=== PATIENT | female | born 1955 | race Caucasian/White ===

== ENCOUNTER → 2017-01-30 | Outpatient (CLI) | payer BC ==
[~2017-01-30] MED LIST: AMLODIPINE5 M1 PO; ATENOLOL50 MG PO; CLARITIN 10MG T10 MG PO; DOXYCYCLINE75 M1 PO; LORTAB 500 MG-71 TAB PO; NASONEX0.05 MG/AC NS; PREDNISONE 5MG.5 MG PO
== END ==
LOC: RT 13:36
DX: J44.9 Chronic obstructive pulmonary disease, unspecified (principal)

== ENCOUNTER 2017-03-13 06:48 | Day surgery (SDC) | payer BC ==
--- NOTE | 2017-03-13 08:39 | Operative Note ---
Colonoscopy ([facility]) Procedure date: 03/13/17 Date of : 51 Procedure:Colonoscopy Colonoscopy with cold biopsies Indications: Mrs. Renee is a 61-year-old female who has had symptoms of LEFT lower quadrant abdominal pain, cramps and obstipation. She may have bowel urgency with some frequency but incomplete evacuation. She did take the fiber bowel regimen for a week. She continues to have pain and discomfort. Her CAT scan of the abdomen on March 03, 2017 showed evidence of obstipation with mild diffuse diverticulosis in the lower descending and sigmoid colon that more prominent in the sigmoid region. There was no evidence of diverticulitis. The patient reports no rectal bleeding or weight loss. She does state that her other of a perforated bowel and her paternal aunt also had a bowel perforation. The patient's last colonoscopy was with me in 2004 showing diverticulosis. She has been treated for diverticulitis several times. Performing Provider: Charlotte Talavera MD Referrring Provider: Jeff Aalniz M.D. Sedation: Fentanyl 200 mg IV/Versed 9 mg IV Procedure: Prior to the procedure, a history and physical exam was performed, and patient medications and allergies were reviewed. The risks and benefits of the procedure and the sedation options and risks were discussed with the patient. All questions were answered and informed consent was obtained. Patient identification and proposed procedure were verified by the physician and the nurse. The patient was placed in a left lateral decubitus position. Throughout the procedure, the patient's blood pressure, pulse, and oxygen saturations were monitored continuously. Findings: On digital rectal examination there was normal rectal tone. There were no external hemorrhoids. The colonoscope was introduced through the anal canal to the rectum and advanced to the cecum. The ileocecal valve and appendiceal orifice were identified. The cecal cap was not fully intubated. There was ulceration on the ileocecal valve. This was biopsied. The remaining ascending and transverse colon and mucosa were grossly normal. There was some increased luminal diameter with a lot of liquid stool. Small polyps could not be identified because of the volume of liquid stool. There were extensively scattered diverticuli throughout the colon but more predominantly in the descending and sigmoid colon (LEFT colon). Within the sigmoid colon, there was marked fibrosis/adhesions and some luminal stenosis of the mid sigmoid colon making advancement of the scope initially very difficult through this region. There was mucosal edema and erythema in this region with partial occlusion/ stenosis. Cold biopsies were taken from this region. The colonoscope was advanced into the rectum. The rectum itself was normal. Upon retroflexion within the rectum there were grade 1 internal hemorrhoids. Impressions: 1. Extensive gillis diverticulosis with sigmoid stenosis from chronic fibrosis/ adhesions and chronic sigmoid diverticulitis 2. Ulcerated ileocecal valve Recommendations: The sigmoid colon is markedly disease from fibrosis/stenosis/adhesions and chronic inflammation. This made incomplete bowel preparation and also made colonoscopy difficult to advance beyond this region. There was a proximal colonic luminal dilation suggestive of chronic partial occlusion. I do feel that this will need to be repaired surgically. I will discuss this with the patient and family. I would recommend a repeat colonoscopy within 12 months of surgery to evaluate for screening since the preparation was fair to poor. Complications: None EBL (ml): 0 at 0839
[2017-03-13 16:26] VITALS: BP 132/72
== END 2017-03-13 09:55 | disposition home or self-care (01) ==
LOC: SDC 06:48
PROVIDERS: Internal Medicine Gastroenterology
PROC: 0DBN8ZX Excision of Sigmoid Colon, Via Natural or Artificial Opening Endoscopic, Diagnostic (ICD-10-PCS; principal; 2017-03-13 08:00)
DX: K56.5 Intestinal adhesions [bands] with obstruction (postinfection) (principal); K57.32 Diverticulitis of large intestine without perforation or abscess without bleeding; I10 Essential (primary) hypertension; K51.80 Other ulcerative colitis without complications; Z79.52 Long term (current) use of systemic steroids; Z79.899 Other long term (current) drug therapy; Z87.891 Personal history of nicotine dependence

== ENCOUNTER 2017-03-24 10:35 | Inpatient (IN) | payer BC, MEDICAID ==
[~2017-03-24] VITALS: Ht 162.6 cm; Wt 70.9 kg
[2017-03-24 10:48] VITALS: BP 160/72
[2017-03-24 11:08] LABS: HEMOGLOBIN 13.7 g/dL (12.2-16.2); LYMPH % 8.9 % (10-50.0)
[2017-03-24 11:30] LABS: NEUTROPHILS 83 % (42-76)
--- NOTE | 2017-03-24 11:42 | Emergency Room Report ---
History of Present Illness Time Seen by 1041 Presenting Problem in Triage Pt arrived:Walked Presenting Problem:CONTINUED PAIN FROM PREVIOUSLY KNOWN SOURCE. PT HAS A SMALL BOWEL ISSUE THAT DR TALAVERA RECOMMENDED SURGICAL INTERVENTION FOR AFTER COMPLETING A COLONOSCOPY ON THE . PT WAS REFERRED TO DR LOZANO 'S OFFICE SHE RECEIVED A LETTER IN THE MAIL STATING SHE HAD AN APPT SCHEDULED FOR March, ALMOST A MONTH LATER. STATES THAT SHE CANNOT CONTINUE WITH THE PAIN LIKE THIS. Onset of symptoms date/time:/ or onset unknown for:MEDICAL HX UNKNOWN Treatment Prior to Arrival: ENDOSCOPY AND FURTHER REFERRAL BY GI SPECIALIST TO SURGEON ENVIRONMENTAL COMPLIANCE ENGINEER Provided by:PHYSICIAN Sepsis Risk Assessment: Temp: 98.0 B/P: 160/72 MAP: 101 Pulse: 94 Resp: 16 Recent fever? N Clinical Suspician of Infection? N Mental Status: 1 - Regular (Normal Baseline) Sepsis Risk:Low Sepsis Risk Have you (or family members/close friends) recently traveled outside the [place]? N If Yes, where/when: Have you had exposure to infectious disease within the past month? TB? Other? Specify: Comment The patient has had abdominal pain, anorexia, malaise, low-grade fevers for 3 months. She had an outpatient colonoscopy on 03/13/[address] Talavera. This showed extensive gillis diverticulosis with sigmoid stenosis from chronic fibrosis/ adhesions and chronic sigmoid diverticulitis. An ulcerated ileocecal valve. It was recommended that she have surgical consultation. She says that she is supposed to see Dr. Lozano, but cannot be seen until April 10. She cannot make it until then. She is gradually getting worse and cannot tolerate the symptoms. She was started on Augmentin on March 17 by her primary care physician because of an elevated white blood cell count. The patient is on prednisone for polymyalgia rheumatica, but says that she has not taken it for a week because she does not feel up to taking it. She is having small bowel movements. She is having some nausea and vomiting. She had a CT scan of her abdomen and pelvis performed on 03/03/17 which showed constipation with mild diffuse diverticulosis lower descending and sigmoid colon most prominent in the sigmoid region but no definite evidence of diverticulitis. ALLERGIES Coded Allergies: No Known Allergies (03/24/17) Home Medications Reported Medications ATENOLOL (Atenolol 50MG) 50 MG PO QHS Loratadine (Claritin 10MG) 10 MG PO QHS Mometasone Furoate (Nasonex) 2 SPR NS QHSP Amlodipine Besylate (Amlodipine) 5 MG PO DAILY Prednisone (Prednisone 5MG) 5 MG PO DAILY DOXYCYCLINE MONOHYDRATE (Doxycycline Monohydrate) (Unknown Dose) PO History Medical History General Angina: No AL: No Hypertension? Yes Hyperlipidemia? Yes CHF? No COPD? Yes Asthma? Yes Hernia? No CVA? Yes Seizures? No Diabetes? No UTI? Yes Stones? Yes GB Disease: No Hepatitis? No Arthritis? Yes Cataracts? No Glaucoma? No TB? No Cancer? No Immunization Hx Ped.Immunizations UTD Yes DT/Tetanus Unknown Flu Refused Pneumonia Received In Past Surgical Hx Previous Surgery?Y APPENDECTOMY Exploratory Laparoscopy TUBAL LIGATION TUMOR REMOVED FROM NECK & SALIVARY GLND STONE Family History Family Hx Diabetes Yes CAD Yes Hypertension Yes Hyperlipidemia Yes Cancer Yes TB No Social History Smoking Hx Smoker: Current Every Day Smoker Tobacco: Yes Type N/A Packs/day < 1 Pack Alcohol Alcohol: No Review of Systems All Other Systems Reviewed and Negative Constitutional fever, malaise, weakness Gastrointestinal abdominal pain, constipation, nausea, vomiting Physical Exam Vital Signs Vital Signs Date Time Temp Pulse Resp B/P Pulse O2 O2 Flow FiO2 Ox Delivery Rate 03/24 1739 98.0 57 18 133/82 100 03/24 1528 57 18 133/82 100 03/24 1351 94 18 102/57 96 03/24 1220 100 14 144/76 96 03/24 1148 74 14 114/59 97 03/24 1143 14 03/24 1048 98.0 94 16 160/72 98 General Appearance moderate distress Eye Exam - bilateral eye normal exam, bilateral eye PERRL, bilateral eye EOMI Ear, Nose, Throat hearing grossly normal, normal ENT inspection Neck normal inspection, non-tender, supple, full range of motion Respiratory Status Yes: trachea midline, chest symmetrical, non tender chest. No: respiratory distress. Lung Sounds bilateral: normal breath sounds, lungs clear. Cardiovascular normal exam, regular rate/rhythm, no peripheral edema, no gallop, no JVD, no murmur, no rub, normal peripheral pulses Peripheral Pulses Pulses normal Yes Gastrointestinal normal bowel sounds, soft, no organomegaly, LEFT upper and lower quadrant tenderness Extremities non-tender, normal range of motion, normal inspection Neurologic alert, normal exam, oriented x 3 Mental status normal mood/affect Skin pallor Medical Decision Making LABS/Meds/Orders Pt receiving controlled substance in ED? No Comment Refuses opiates Results/Orders Laboratory Tests 03/24/17 1655: Lactic Acid 1.5 03/24/17 1215: Urine Color YELLOW, Urine Appearance SL CLOUDY, Urine pH 6.5, Ur Specific Butterfield 1.015, Urine Protein TRACE H, Urine Ketones 1+ H, Urine Blood 3+ H, Urine Nitrate NEGATIVE, Urine Bilirubin NEGATIVE, Urine Urobilinogen 0.2, Ur Leukocyte Esterase NEGATIVE, Urine RBC 5-10, Urine WBC OCC, Ur Squamous Epith Cells 3-5, Urine Bacteria 2+, Urine Glucose NEGATIVE 03/24/17 1055: Amylase 20 L, Lipase 90 03/24/17 1055: Sodium 138, Potassium 4.0, Chloride 100, Carbon Dioxide 28, BUN 12, Creatinine 0.8, Estimated Creat Clear 82, Estimated GFR (MDRD) 72, Glucose 83, Calcium 9.4, Total Bilirubin 0.5, AST 19, ALT 13, Alkaline Phosphatase 119 H, Total Protein 8.1, Albumin 2.8 L, Globulin 5.3 H, Albumin/Globulin Ratio 0.5 L, WBC 22.9 *H , RBC 4.80, Hgb 13.7, Hct 44.1, MCV 91.9, RDW 12.7, Plt Count 615 H, MPV 7.3 L , Gran % 83.3 H, Gran # 19.1 H, Total Counted 100, Lymphocytes % 8.9 L, Monocytes % 6.9, Eosinophils % 0.6, Basophils % 0.3, Neutrophils 83 H, Lymphocytes (Manual) 10, Lymphocytes # 2.0, Monocytes (Manual) 6, Monocytes # 1.6 H, Eosinophils # 0.1, Basophils # 0.1, Atypical Lymphocytes 1, Platelet Estimate MOD INCREASE, PUBS MCHC 31.0 L, MCH 28.5 Current Medication Orders Sig/Irina Start time Last Medication Dose Route Stop Time Status Admin Amlodipine Besylate 5 MG DAILY 03/25 900 AC PO Levofloxacin/Dextrose 150 ML DAILY 03/25 900 CAN IV 03/29 1030 Atenolol 50 MG QHS 03/24 2100 AC PO Metronidazole 100 ML Q8 03/24 2100 CAN IV Acetaminophen 650 MG Q4HP PRN 10/06 1615 AC PO Influenza Virus 0.5 ML PRN PRN 03/24 161 AC Vaccine Quadrival IM Nicotine 21 MG DAILYP PRN 03/24 161 AC TD Ondansetron HCl 4 MG Q6HP PRN 03/24 1615 AC IV Sodium Chloride 1,000 ML .Q8H 03/24 1615 AC IV Sodium Chloride 10 ML PRN PRN 03/24 1615 AC IV Levofloxacin/Dextrose 150 ML ONCE ONE 03/24 1530 DCr 03/24 IV 03/24 1659 1531 Metronidazole 100 ML ONCE ONE 03/24 1530 DC IV 03/24 1629 Ondansetron HCl 4 MG ONCE ONE 03/24 1530 DC 03/24 IV 03/24 1531 1528 Levofloxacin/Dextrose 150 ML .STK-MED ONE 03/24 1526 DC IV Iopamidol 75 ML ONCE ONE 03/24 1515 DC 03/24 IV 03/24 1516 1503 Sodium Chloride 10 ML ONCE ONE 03/24 1515 DC 03/24 IV 03/24 1516 1503 Ondansetron HCl 0 .STK-MED ONE 03/24 1506 DC .ROUTE Sodium Chloride 1,000 ML .Q1H1M 03/24 1500 DC 03/24 IV 03/24 1600 1501 Sodium Chloride 1,000 ML .STK-MED ONE 03/24 1454 DC IV Ketorolac 15 MG ONCE ONE 03/24 1145 DC 03/24 Tromethamine IV 03/24 1146 1143 Ondansetron HCl 4 MG ONCE ONE 03/24 1145 DC 03/24 IV 03/24 1146 1142 Diatrizoate Meglum/ 0 .STK-MED ONE 03/24 1144 DC Diatrizoate Sod .ROUTE Ketorolac 0 .STK-MED ONE 03/24 1142 DC Tromethamine .ROUTE Ondansetron HCl 0 .STK-MED ONE 03/24 1141 DC .ROUTE Sodium Chloride 10 ML PRN PRN 03/24 1100 AC IV 03/25 1057 Orders Procedure Date/time Status CBC WITH AUTO DIFF 03/25 600 Active BASIC METABOLIC PROFILE 03/25 600 Active DIET-CLEAR LIQUID 03/24 D Active CULTURE, BLOOD 03/24 1555 Active LACTIC ACID 03/24 1555 Complete Decision to admit 03/24 1544 Active URINALYSIS/COMPLETE 03/24 1334 Complete LIPASE 03/24 1334 Complete AMYLASE 03/24 1334 Complete CULTURE, URINE 03/[address] ABD/PELVIS REQ 03/24 1138 Complete IV SALINE LOCK 03/24 1058 Active CBC WITH AUTO DIFF 03/24 1058 Complete CHEM 12 PROFILE 03/24 1058 Complete DIFFERENTIAL-WBC 03/24 1055 Complete ADMIT PATIENT 03/24 UNK Active VITAL SIGNS 03/24 UNK Active POM NURSE DAE HOSE ORDER 03/24 UNK Active IV SALINE LOCK 03/24 UNK Active RECORD I & O 03/24 UNK Active CODE STATUS 03/24 UNK Active PATIENT ACTIVITY ORDER 03/24 UNK Active PHYSICIANS CONSULT 03/24 UNK Active XRAY/CT/US XRAY/CT/US CT abdomen, pelvis Comment CT scan interpreted by radiologist: Diverticulosis. Area of focal diverticulitis at the rectosigmoid junction with a fluid filled air structure adjacent to that with air-fluid levels, likely early diverticular abscess. Progress - 3:30 PM: Case discussed with Dr. Lozano. He will consult. 3:40 PM: I have discussed the case with Dr. Zuniga who agrees to admit the patient to the hospital. We discussed the patient's clinical information, including history, exam, laboratory and radiology results and ED course. Per hospital procedure, I will write temporary bridge inpatient orders on the patient. Departure Departure Disposition Still a Patient Clinical Impression Primary Impression: Abscess of sigmoid colon due to diverticulitis Condition STABLE Referrals Corbin MANCILLA,Jeff Agrawal ED Critical Care Critical Care No at [id number]
[2017-03-24 13:44] LABS: URINE BLOOD 3+ (NEG)
[2017-03-24 13:55] LABS: URINE BILIRUBIN - DIPSTICK NEGATIVE (NEG)
--- NOTE | 2017-03-24 15:23 | RADIOLOGY REPORT PS360 ---
CT ABD PELVIS W/ CONTRAST COMPARISON: CT scan abdomen pelvis with IV contrast 03/03/2017 HISTORY: Abdominal pain, leukocytosis, history of adhesions TECHNIQUE: Multiaxial scans obtained from the hemidiaphragms the pelvic floor and were performed with IV and oral contrast. Sagittal and coronal reformats were evaluated as well. FINDINGS: There is minimal atelectasis at the right lung base. There is no pleural fluid. Cardiac size is normal, there is coronary artery calcification noted. There is mild aortic tortuosity. There is diffuse arteriosclerotic calcification of the lower descending thoracic aorta and abdominal aorta as well. There is no definite aneurysm. The liver spleen stomach pancreas and gallbladder appear grossly normal. The adrenal glands are normal. The kidneys are normal size and show symmetrical function both appearing normal. The small bowel is normal. There has been a previous appendectomy. There is minimal stool mixed with oral contrast in the ascending and transverse colon. There is diffuse diverticulosis of the descending and sigmoid colon most prominent in the sigmoid region and there appears be a small focal area of diverticulitis near the rectosigmoid junction. There is a apparent small fluid with air bubbles at this location measuring 2.7 cm in diameter which could represent an early diverticular abscess. The uterus is somewhat small and atrophic. The urinary bladder is partially decompressed. There is no free fluid in the pelvis. IMPRESSION: Prominent diffuse diverticulosis of the descending and sigmoid colon with probable focal area of diverticulitis and possible diverticular abscess in the rectosigmoid junction, other nonacute findings as described above
--- NOTE | 2017-03-24 18:00 | CONSULT NOTE ---
Standard Demographics Patient Demo Date of Consultation: 03/24/17 Referring Provider: Saúl Zuniga MD Reason for Consultation: diverticulitis Allergies: Coded Allergies: No Known Allergies (03/24/17) History of Present Illness Chief Complaint: Abdominal pain History of Present Illness: Patient is a 61-year-old white female. For about 3 months she has had some constipation and occasional obstipation with LEFT lower quadrant abdominal pain, anorexia, and may lays. She's had some cramping. She underwent outpatient CT scan on 03/03/17 which revealed findings of diverticulosis and constipation without diverticulitis. This was ordered by gastroenterology as an outpatient. She ultimately underwent colonoscopy by Dr. Talavera on 03/13/17. Most notable was evidence of fibrotic stricture of the sigmoid colon consistent with chronic diverticulitis. She had some liquid stool and increased luminal diameter proximal. There was ulceration of the ileocecal valve. Pathology revealed focal acute colitis at the ileocecal valve with benign tissue at the stricture. She was referred to surgery for consideration of resection given the severity of this. However, in the interim she's had progressive ongoing symptoms. She had been seen by her primary care provider several days ago and had a leukocytosis and was started on Augmentin. She presented to the emergency department earlier today and was found have a leukocytosis. She underwent CT scan with IV and oral contrast and this revealed findings of diffuse diverticulosis of the LEFT colon with probable focal diverticulitis segment at the rectosigmoid region with adjacent fluid collection measuring 2.7 cm consistent with possible developing abscess. She was admitted for inpatient management. Surgical consultation was obtained. Past Medical History Reports: COPD, hypertension, asthma. Surgical History Previous Surgery?Y APPENDECTOMY Exploratory Laparoscopy TUBAL LIGATION TUMOR REMOVED FROM NECK & SALIVARY GLND STONE Allergies Coded Allergies: No Known Allergies (03/24/17) Medications: Reported Medications ATENOLOL (Atenolol 50MG) 50 MG PO QHS Loratadine (Claritin 10MG) 10 MG PO QHS Mometasone Furoate (Nasonex) 2 SPR NS QHSP Amlodipine Besylate (Amlodipine) 5 MG PO DAILY Prednisone (Prednisone 5MG) 5 MG PO DAILY DOXYCYCLINE MONOHYDRATE (Doxycycline Monohydrate) (Unknown Dose) PO Smoking Hx Tobacco: Yes Smoker: Current Every Day Smoker Type: N/A Packs/day: < 1 Pack Are you/the child exposed to second-hand smoke: Yes Alcohol Alcohol: No Hx of Drug Use Drug Use? No Review of Systems Constitutional Positive for: chills, fatigue, lethargy, malaise, weak. Skin No: abrasions. Immune/allergy No: anaphalaxis. Eyes No: vision loss. ENT No: ear drainage. Respiratory No: shortness of air. Cardiovascular No: chest pain. GI Positive for: abdomen, anorexia, constipation, nausea. No: hematochezia. (female) No: flank pain. Musculoskeletal No: extremity pain, extremity swelling. Heme No: adenopathy. Endocrine No: cold intolerance. Neurological No: change in LOC. Physical Exam VS/I&O Vital Signs Date Time Temp Pulse Resp B/P Pulse O2 O2 Flow FiO2 Ox Delivery Rate 03/24 1739 98.0 57 18 133/82 100 03/24 1528 57 18 133/82 100 03/24 1351 94 18 102/57 96 03/24 1220 100 14 144/76 96 03/24 1148 74 14 114/59 97 03/24 1143 14 03/24 1048 98.0 94 16 160/72 98 Exam General appearance alert Respiratory clear to auscultation Cardiovascular normal heart sounds Abdomen soft Findings/Data On examination her abdomen is soft. She has tenderness in the lower abdomen with some voluntary guarding to deep palpation. There is no rebound. No diffuse peritonitis. Plan Plan: Patient has findings of complicated diverticulitis. Surgical intervention is likely inevitable. However, at this phase emergent surgery would most assuredly have a high likelihood of colostomy. At this time I would plan for broad- spectrum strong antibiotics. Hopefully this acute episode of diverticulitis is able to be managed without early surgical intervention and she may undergo surgical resection with anastomosis. However, with her underlying stricture and with this acute diverticulitis this may not be possible and she may require more urgent resection. at 1800
[2017-03-24 19:19] VITALS: BP 116/69
[2017-03-24 19:32] VITALS: BP 95/51
[2017-03-24 20:05] VITALS: BP 95/51
[2017-03-24] MEDS ORDERED: HYOSCYAMINE0.125 M1 PO (20:19)
[2017-03-24] MEDS ORDERED: AUGMENTIN 875-1 EACH PO (20:20)
[2017-03-24] MEDS ORDERED: LOVASTATIN20 MG PO (20:22)
[2017-03-24] MEDS ORDERED: PANTOPRAZOLE SO40 MG PO (20:23)
[2017-03-25 03:57] VITALS: BP 102/48
[2017-03-25 07:00] LABS: LYMPH # 2.1 K/mm3 (0.7-4.5); LYMPH % 9.8 % (10-50.0)
--- NOTE | 2017-03-25 07:00 | HISTORY AND PHYSICAL REPORT ---
Demographics: Admit date: 03/24/17 Chief complaint: LEFT lower quadrant abdominal pain PRIMARY DIAGNOSIS: DIVERTICULITIS WITH ABSCESS Allergies: Coded Allergies: No Known Allergies (03/24/17) History of present illness: History of present illness: Patient is a 61-year-old white female. For about 3 months she has had some constipation and occasional obstipation with LEFT lower quadrant abdominal pain, anorexia, and may lays. She's had some cramping. She underwent outpatient CT scan on 03/03/17 which revealed findings of diverticulosis and constipation without diverticulitis. This was ordered by gastroenterology as an outpatient. She ultimately underwent colonoscopy by Dr. Talavera on 03/13/17. Most notable was evidence of fibrotic stricture of the sigmoid colon consistent with chronic diverticulitis. She had some liquid stool and increased luminal diameter proximal. There was ulceration of the ileocecal valve. Pathology revealed focal acute colitis at the ileocecal valve with benign tissue at the stricture. She was referred to surgery for consideration of resection given the severity of this. However, in the interim she's had progressive ongoing symptoms. She had been seen by her primary care provider several days ago and had a leukocytosis and was started on Augmentin. She presented to the emergency department earlier today and was found have a leukocytosis. She underwent CT scan with IV and oral contrast and this revealed findings of diffuse diverticulosis of the LEFT colon with probable focal diverticulitis segment at the rectosigmoid region with adjacent fluid collection measuring 2.7 cm consistent with possible developing abscess. She was admitted for inpatient management. Surgical consultation was obtained. Above note per Dr. Moore in surgery. Surgical note reviewed and appreciated. I don't have much to add about the above note. 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 Gastrointestinal/surgical issues detailed above. Patient complaint this morning is in LEFT lower quadrant pain but is not really interested in more pain medications because of the risk of constipation. Past medical history: Family HX Diabetes Yes CAD Yes Hypertension Yes Hyperlipidemia Yes Cancer Yes TB No Immunization HX Ped.Immunizations UTD Yes DT/Tetanus > 10 Years Ago Flu [id number] Pneumonia Received In Past TB Test in last year No General Angina: No AK: No Hypertension? Yes Hyperlipidemia? Yes CHF? No COPD? Yes Asthma? Yes Hernia? No CVA? Yes Seizures? No Diabetes? No UTI? Yes Stones? Yes GB Disease: No Hepatitis? No Arthritis? Yes Cataracts? No Glaucoma? No TB? No Cancer? No Past Surgical HX Previous Surgery?Y APPENDECTOMY Exploratory Laparoscopy TUBAL LIGATION TUMOR REMOVED FROM NECK & SALIVARY GLND STONE Current home meds: Reported Medications ATENOLOL (Atenolol 50MG) 100 MG PO QHS Amlodipine Besylate (Amlodipine) 5 MG PO QHS Prednisone (Prednisone 5MG) 5 MG PO DAILY HYOSCYAMINE SULFATE (Anaspaz) 0.125 MG PO Q4HP PRN BELLY SPASMS Amoxicillin/Potassium Clav (Augmentin 875-125 Tablet) 1 EACH PO Q12 Lovastatin 20 MG PO QHS Pantoprazole Sodium (Pantoprazole 40MG) 40 MG PO DAILY Social Hx: Smoking HX Tobacco Yes Type Cigarettes Packs/day N/A Are you/the child exposed to second-hand smoke: Yes Alcohol Alcohol: No Hx of Drug Use Drug Use? No Patien't marital status is single Patient's support system is excellent Review of systems: Constitutional fever, malaise, weakness. Respiratory cough, shortness of breath. Cardiovascular No no symptoms reported Gastrointestinal/Abdominal see HPI Genitourinary No: no symptoms reported. Musculoskeletal No: no symptoms reported. Neurological No: see HPI. Exam: Lab data for last 24 hours: Laboratory Tests 03/24/17 1655: Lactic Acid 1.5 03/24/17 1215: Urine Color YELLOW, Urine Appearance SL CLOUDY, Urine pH 6.5, Ur Specific [place] 1.015, Urine Protein TRACE H, Urine Ketones 1+ H, Urine Blood 3+ H, Urine Nitrate NEGATIVE, Urine Bilirubin NEGATIVE, Urine Urobilinogen 0.2, Ur Leukocyte Esterase NEGATIVE, Urine RBC 5-10, Urine WBC OCC, Ur Squamous Epith Cells 3-5, Urine Bacteria 2+, Urine Glucose NEGATIVE 03/24/17 1055: Amylase 20 L, Lipase 90 03/24/17 1055: Sodium 138, Potassium 4.0, Chloride 100, Carbon Dioxide 28, BUN 12, Creatinine 0.8, Estimated Creat Clear 82, Estimated GFR (MDRD) 72, Glucose 83, Calcium 9.4, Total Bilirubin 0.5, AST 19, ALT 13, Alkaline Phosphatase 119 H, Total Protein 8.1, Albumin 2.8 L, Globulin 5.3 H, Albumin/Globulin Ratio 0.5 L, WBC 22.9 *H , RBC 4.80, Hgb 13.7, Hct 44.1, MCV 91.9, RDW 12.7, Plt Count 615 H, MPV 7.3 L , Gran % 83.3 H, Gran # 19.1 H, Total Counted 100, Lymphocytes % 8.9 L, Monocytes % 6.9, Eosinophils % 0.6, Basophils % 0.3, Neutrophils 83 H, Lymphocytes (Manual) 10, Lymphocytes # 2.0, Monocytes (Manual) 6, Monocytes # 1.6 H, Eosinophils # 0.1, Basophils # 0.1, Atypical Lymphocytes 1, Platelet Estimate MOD INCREASE, PUBS MCHC 31.0 L, MCH 28.5 Microbiology 03/24 1655 BLOOD: Anaerobic Blood Culture - RECD 03/24 1655 BLOOD: Aerobic Blood Culture - RECD 03/24 1655 BLOOD: Anaerobic Blood Culture - RECD 03/24 1655 BLOOD: Aerobic Blood Culture - RECD 03/24 121 URINE CC: Urine Culture - RECD Admission vital signs: 1ST Vital Signs Result Date Time Pulse Ox 98 03/24 104 B/P 160/72 03/24 104 Temp 98.0 03/24 104 Pulse 94 03/24 104 Resp 16 03/24 104 O2 Delivery ROOM AIR 03/24 1919 Additional information: Patient is pleasant, alert, oriented. Some expiratory rhonchi, occasional expiratory wheeze in the lower lobes but good air movement, no crackles. Heart rate regular without murmurs. Abdomen is soft with bowel sounds, LEFT lower quadrant is tender, without distention or rebound or peritoneal signs. No extremity edema or clubbing, good capillary refill. Cranial nerves are intact. Oropharynx is clear. Plan: Problem List 1. Abscess of sigmoid colon due to diverticulitis 2. Chronic obstructive pulmonary disease 3. Hypertension, essential Plan: 1. Diverticulitis with abscess. Agree with plan for antibiotics and delaying surgical intervention until infection better controlled. 2. Chronic obstructive pulmonary disease. Restart patient's home medications. Watch pulmonary status carefully. 3. Hypertension. Continue beta blockers. at 0659
[2017-03-25 07:26] LABS: HEMOGLOBIN 11.6 g/dL (12.2-16.2)
[2017-03-25 07:35] VITALS: BP 120/56
--- NOTE | 2017-03-25 09:06 | PHARMACY CLINIC NOTE ---
Patient Demographics Patient Demographics Admission date: 03/24/17 Date: 03/25/17 Time: 905 Allergies Coded Allergies: No Known Allergies (03/24/17) HEIGHT- FT: 5 IN: 4.00 K.228 VTE General Information Labs: Laboratory Tests 03/25 1055 Hematology Hgb (12.2 - 16.2 g/dL) 11.6 L 13.7 Hct (37.0 - 47.0 %) 36.7 L 44.1 Plt Count (142 - 424 K/mm3) 501 H 615 H Disclaimer The following section includes nursing documentation that has been pulled in for pharmacy review. Patient's VTE score: 0 Patient's VTE Risk: VERY LOW RISK Clinical trial participant? No VTE prophylaxis [id number] VTE prophylaxis ordered? Yes Type of prophylaxis/treatment: DAE at 0906
[2017-03-25 09:10] VITALS: BP 118/64
[2017-03-25 15:41] VITALS: BP 115/54
[2017-03-25 19:53] VITALS: BP 93/45
[2017-03-25 20:41] VITALS: BP 93/45
[2017-03-26 04:00] VITALS: BP 132/69
[2017-03-26 07:20] LABS: LYMPH # 1.8 K/mm3 (0.7-4.5); LYMPH % 10.4 % (10-50.0)
[2017-03-26 07:26] LABS: HEMOGLOBIN 10.3 g/dL (12.2-16.2)
--- NOTE | 2017-03-26 07:29 | ACUTE CARE PROGRESS NOTE (QUA) ---
Progress Notes Subjective Date 03/26/17 Time 0727 Note Patient reports she had a good evening once her pain got under control. It was discovered that her IV was leaking and she was not getting her full dose of morphine because of that. Once IV was established morphine control pain rather well. Patient reports awakening this morning soaked in sweat and she believes she may have had a fever break. Abdominal pain is improving. She has developed a cough and is worried about pneumonia. She is awake and alert. Lungs are distant but clear. Heart has a regular rate and rhythm. Abdomen is soft with LEFT lower quadrant tenderness to palpation. Bowel sounds are present. Continue antibiotics. Incentive spirometry. Objective Findings Last VS-Temp:100.7 B/P:132/69 Pulse:105 Resp:20 SaO2:90 ROOM AIR Last weight lbs:161 oz:7 K.228 Method:Bed Scales Laboratory Tests 03/26/17 0645: WBC 16.9 H, RBC 3.64 L, Hgb 10.3 L, Hct 33.3 L, MCV 91.5, RDW 12.8, Plt Count 468 H, MPV 7.6, Gran % 81.7 H, Gran # 13.8 H, Lymphocytes % 10.4, Monocytes % 7.1, Eosinophils % 0.6, Basophils % 0.3, Lymphocytes # 1.8, Monocytes # 1.2 H, Eosinophils # 0.1, Basophils # 0.1, PUBS MCHC 31.0 L, MCH 28.4 Assessment/Plan Problem List 1. Abscess of sigmoid colon due to diverticulitis 2. Chronic obstructive pulmonary disease 3. Hypertension, essential Patient condition Stable This inpt stay is expected to cross 2 MNs from start of care Yes at 0729
[2017-03-26 07:46] VITALS: BP 112/53
[2017-03-26 07:59] LABS: NEUTROPHILS 81 % (42-76)
[2017-03-26 15:28] VITALS: BP 123/75
[2017-03-26 19:00] VITALS: BP 132/72
[2017-03-26 20:50] VITALS: BP 132/72
[2017-03-27] VITALS (11 sets, daily range): BP systolic 119–137; BP diastolic 56–77
[2017-03-27 07:27] LABS: HEMOGLOBIN 10.9 g/dL (12.2-16.2); LYMPH # 2.5 K/mm3 (0.7-4.5); LYMPH % 17.6 % (10-50.0)
--- NOTE | 2017-03-27 07:47 | ACUTE CARE PROGRESS NOTE (QUA) ---
Progress Notes Subjective Date 03/27/17 Time 0744 Note Patient feels somewhat better. Continues to have some left lower quadrant pain. No vomiting. Lungs are clearer, heart rate regular, abdomen is soft but continued left lower quadrant pain. Assessment/Plan Problem List 1. Abscess of sigmoid colon due to diverticulitis 2. Chronic obstructive pulmonary disease 3. Hypertension, essential Patient condition Improving, continue current plan. Surgical intervention contemplated pending further evaluation. Potassium slightly low yesterday. Pending for this morning. This inpt stay is expected to cross 2 MNs from start of care Yes at 0747
--- NOTE | 2017-03-27 07:55 | SURGEON PROGRESS NOTE ---
Subjective data Subjective data: ENEDINAJILLIAN WHITEHEAD is a 61 F .Patient denies complaint of nausea and vomitting.She reports her last pain level as 0 on a 0-10 pain scale. Patient NPO this morning. Still complains of nausea and a lot of gas pain. No appetite. Assessment findings Assessment Exam General appearance: normal appearance, alert ABD: soft, tenderness Patient plan Plan: Antibiotics Additional data: Surgery likely pending. at 0754
--- NOTE | 2017-03-27 10:23 | ACUTE CARE PROGRESS NOTE (QUA) ---
Progress Notes Subjective Date 03/27/17 Time 1021 Assessment/Plan Problem List 1. Abscess of sigmoid colon due to diverticulitis 2. Chronic obstructive pulmonary disease 3. Hypertension, essential This inpt stay is expected to cross 2 MNs from start of care Yes Antibiotic Stewardship (2) Current Culture Results Microbiology 03/24 165 BLOOD: Anaerobic Blood Culture - RES 03/24 165 BLOOD: Aerobic Blood Culture - RES 03/24 1215 URINE CC: Urine Culture - COMP Infxn that will respond? Yes Right drug,dose,and route? Yes More targeted antbx? No at 1022
[2017-03-27 15:54] LABS: ABO BLOOD TYPE O; ANTIHUMAN GLOB CROSSMATCH COMPAT; RH BLOOD TYPE POSITIVE
[2017-03-27 16:13] LABS: ANTIHUMAN GLOB CROSSMATCH COMPAT
--- NOTE | 2017-03-27 19:48 | Anesthesia Record ---
Anesthesia Record Part I Total IV fluids: 4000 EBL (ml): 200 Urine Output: 120 B/P: 125/65 % SaO2: 95 Pulse: 88 Resps: 12 Temp: 97.5 Patient is: Drowsy, Stable Stable to PACU at: 1945 at 1948
--- NOTE | 2017-03-27 19:49 | Anesthesia Record ---
Anesthesia Record Part II Discharge time: 2014 Destination: Second Floor PACU nurse assessment review? Yes Patient is: Awake, Stable Anesthesia complications? No at 1944
--- NOTE | 2017-03-27 19:55 | Operative Note ---
Surgeon/Diagnoses Surgeon/Associate Trainer(s) Date of procedure: 03/27/17 Surgeon: Tee Moore Diagnoses Pre-op diagnosis: Complicated diverticulitis Post-op diagnosis Same Procedure Procedure Procedure: Low anterior colon resection with low pelvic anastomosis, mobilization of splenic flexure, creation of loop ileostomy. Indications: ENEDINAJILLIAN WHITEHEAD is a 61 year-old Female with a history of diverticular stricture. For about 3 months she has had some constipation and occasional obstipation with LEFT lower quadrant abdominal pain, anorexia, and may lays. She 's had some cramping. She underwent outpatient CT scan on 03/03/17 which revealed findings of diverticulosis and constipation without diverticulitis. This was ordered by gastroenterology as an outpatient. She ultimately underwent colonoscopy by Dr. Talavera on 03/13/17. Most notable was evidence of fibrotic stricture of the sigmoid colon consistent with chronic diverticulitis. She had some liquid stool and increased luminal diameter proximal. There was ulceration of the ileocecal valve. Pathology revealed focal acute colitis at the ileocecal valve with benign tissue at the stricture. She was referred to surgery for consideration of resection given the severity of this. However, in the interim she's had progressive ongoing symptoms. She had been seen by her primary care provider several days ago and had a leukocytosis and was started on Augmentin. She presented to the emergency department earlier today and was found have a leukocytosis. She underwent CT scan with IV and oral contrast and this revealed findings of diffuse diverticulosis of the LEFT colon with probable focal diverticulitis segment at the rectosigmoid region with adjacent fluid collection measuring 2.7 cm consistent with possible developing abscess. She was admitted for inpatient management. Surgical consultation was obtained. She had significant elevation of white blood cell count on presentation and admission. She was started on Invanz. She had minimal improvement over 3 days of intravenous Invanz although white blood cell count did improve. It was felt that she would require colon resection with ostomy. Plan was made to proceed. Findings: Patient has significant induration and inflammation of colon with pericolonic abscess which contained feculent material and purulent material. There was a loop of ileum adherent to the abscess. Procedure Description: Consent was obtained and patient was taken to the operating room. She was given preoperative intravenous antibiotics. In the operating room she is placed in a supine position. Gen. anesthesia was induced and the endotracheal tube. She was then repositioned in modified lithotomy position. Dowell catheter was placed. Abdomen and perineum were prepped and draped in the standard surgical fashion. Low midline incision was made. Dissection was carried down through subcu tissues tissues and abdomen was entered. Exposure was achieved. Palpation revealed large indurated firm mass in the pelvis consistent with perforated phlegmonous diverticulitis with acute on chronic inflammation. Peritoneum was divided along the white line of Toldt. Mid sigmoid colon was divided with a PATRICE linear cutting stapling device several centimeters proximal to the site of inflammation. Peritoneum was scored using electrocautery. Dissection was carried down to just below the peritoneal reflection. The mesocolon was divided with Venancio ultrasonic harmonic patito and branching vessels were ligated with 0 Surgilon ties. A couple of hemoclips were placed as well. Medially below the peritoneal reflection the rectosigmoid appeared noninflamed. Rectosigmoid was divided with a contour stapling device and the inflamed sigmoid colon was sent off as a specimen. Due to the very low-lying disease plan was made for attempt at anastomosis with proximal diversion. This required mobilization of the LEFT colon by incising the peritoneum along the white line of Toldt and mobilizing the splenic flexure. Splenocolic vessels were divided with Venancio ultrasonic harmonic patito with some use of Hemoclip application. This allowed for adequate length of colon be mobilized for a tension-free anastomosis. Proximal staple line excised. Dilator/sizers were brought onto the field. Colon was sized to 29 mm. 2-0 Prolene pursestring was placed in the LEFT colon using the pursestring suture device. 29 mm EEA type stapling device was brought onto the field and the anvil was placed within the LEFT colon. And into and anastomosis was created with the EEA 29 stapling device. Following completion of the anastomosis staple line was inspected for hemostasis using rigid proctoscopy and filling the pelvis with saline the colon was insufflated. There were no leaks. Gas was evacuated from the colon. Ileum was then inspected. About 20-30 cm proximal to the ileocecal valve was the very indurated inflamed portion of the ileum which was adherent to the abscess. Plan was to use this as the loop ileostomy. Trephine for ostomy was created in the RIGHT lower quadrant. Loop of terminal ileum was brought through the trephine after cruciate incision was made in the fascia and rectus muscles were split. The ileum was secured to the deep fascia with several interrupted 2-0 Vicryl sutures. Peritoneal contents were then returned to the normal anatomic position. A couple of 10 mm Gerald-Buckner drains were placed deep within the pelvis adjacent to the anastomosis in the low pelvis to exit through the LEFT lower quadrant with a reverse secured with 3-0 nylon sutures. Fascia was then closed with running #2 Novafil 2. Subcu tissues were irrigated and skin was closed with maynor leaving several gaps for packing using half inch plain packing gauze. Clean dry sterile dressing was applied. The inflamed focus of indurated tissue on the ileum was then sharply excised and loop ileostomy was created to maturing the ileum to the surrounding dermis with interrupted 3-0 chromic sutures in a 3 bite technique on the afferemt limb and interrupted 2 bite technique on the efferent limb. Ostomy appliance was then secured. EBL (ml): 200 Anesthesia: GETA Specimens: Sigmoid colon Disposition Disposition: To PACU at 1955
[2017-03-27 23:35] LABS: URINE BILIRUBIN - DIPSTICK NEGATIVE (NEG); URINE BLOOD 2+ (NEG)
[2017-03-28] VITALS (20 sets, daily range): BP systolic 101–145; BP diastolic 54–82
[2017-03-28 05:32] LABS: LYMPH # 0.5 K/mm3 (0.7-4.5); LYMPH % 2.3 % (10-50.0)
[2017-03-28 05:40] LABS: HEMOGLOBIN 9.8 g/dL (12.2-16.2)
[2017-03-28 06:19] LABS: NEUTROPHILS 98 % (42-76)
--- NOTE | 2017-03-28 07:29 | ACUTE CARE PROGRESS NOTE (QUA) ---
Progress Notes Subjective Date 03/28/17 Time 0726 Note Surgical notes reviewed. Patient this morning is awake. Lungs are clear, heart rate regular. Abdomen is soft, ileostomy site function well. Vital signs and telemetry monitoring looks good. Patient does complain of some left eye drainage. There is some scleral irritation and yellow drainage. Objective Findings Last VS-Temp:97.7 B/P:125/64 Pulse:68 Resp:19 SaO2:98 OXYGEN Last weight lbs:170 oz:2 K.167 Method:Floor Scales Assessment/Plan Problem List 1. Abscess of sigmoid colon due to diverticulitis 2. Chronic obstructive pulmonary disease 3. Hypertension, essential Patient condition Improving, surgery patient looks good. Resume beta blockers is morning. Beta marco dose not given last night because of immediate postsurgical status. Tobrad ex for LEFT eye irritation. This inpt stay is expected to cross 2 MNs from start of care Yes at 0722
--- NOTE | 2017-03-28 07:53 | SURGEON PROGRESS NOTE ---
Subjective data Subjective data: JILLIAN MCCONNELL is a 61 F .Patient denies complaint of nausea and vomitting.She reports her last pain level as 0 on a 0-10 pain scale. Patient overall feels better. States she is "sore". No nausea. Assessment findings Assessment Exam General appearance: normal appearance, alert ABD: soft Comment: Her abdomen is soft. Ileostomy is slightly edematous. Output underneath appliance and into wound. TE drain output serous. Patient plan Plan: Antibiotics, IV fluids Additional data: Keep NG for now. Once ileostomy output consistent would be able to DC NG. Due to established peritonitis would continue IV antibiotics for at least 7 days, currently received 4 days. at 0752
[2017-03-29] VITALS (25 sets, daily range): BP systolic 118–157; BP diastolic 62–81
[2017-03-29 05:56] LABS: LYMPH # 1.2 K/mm3 (0.7-4.5); LYMPH % 4.6 % (10-50.0)
[2017-03-29 05:58] LABS: HEMOGLOBIN 8.5 g/dL (12.2-16.2)
--- NOTE | 2017-03-29 07:10 | ACUTE CARE PROGRESS NOTE (QUA) ---
Progress Notes Subjective Date 03/29/17 Time 0709 Note Patient is pleasant and awake. Talkative. NG tube and RIGHT nostril draining gastric fluid. Lungs are clear with good air expansion. Heart rate regular. Ileostomy functioning well. Abdomen is tender but soft. No edema noted. Patient wearing sequential compression devices. Good distal pulses. Bed scales show weight gain, not borne out by physical exam. Objective Findings Last VS-Temp:98.1 B/P:134/74 Pulse:101 Resp:18 SaO2:93 ROOM AIR Last weight lbs:174 oz:1 K.953 Method:Bed Scales Assessment/Plan Problem List 1. Abscess of sigmoid colon due to diverticulitis 2. Chronic obstructive pulmonary disease 3. Hypertension, essential Patient condition Improving Plan: continue current care, leukocytosis noted. Probable postoperative effect. Otherwise patient's doing well. Respiratory status seems good. I'm not sure bed scale weight is reliable. She does not seem to be fluid overloaded. She is able to pull almost 2 L on her incentive spirometer. This inpt stay is expected to cross 2 MNs from start of care Yes at 0710
--- NOTE | 2017-03-29 08:24 | POST-OP PROGRESS NOTE ---
See Addendum Post Op Subjective Data Patient is post-op day 2 Subjective data: The patient states that she "feels sore". She specifically states that she "feels better than before surgery". She ambulated "some" yesterday. Post op objective data Vitals,I&O,and Labs: Vital signs, intake and output,and available lab data for the last 24 hours is as noted below. Vital Signs Date Time Temp Pulse Resp B/P Pulse O2 O2 Flow FiO2 Ox Delivery Rate 03/29 0603 101 18 134/74 93 ROOM AIR 03/29 0558 2 03/29 0558 92 ROOM AIR 03/29 0521 18 03/29 0436 98.1 93 18 126/70 93 03/29 0403 93 18 126/70 93 ROOM AIR 03/29 0355 98.1 03/29 0200 93 18 118/71 94 ROOM AIR 03/29 0000 98.2 03/29 0000 91 18 122/68 94 ROOM AIR 03/28 2200 103 18 122/71 94 ROOM AIR 03/28 2047 98.5 104 18 131/71 97 03/28 2020 98.5 03/28 2018 1 03/28 2000 98.5 104 18 131/71 97 ROOM AIR 03/28 1858 1 03/28 1858 97 ROOM AIR 03/28 1855 1 03/28 1800 2 03/28 1800 70 20 134/76 97 OXYGEN 2 03/28 1745 98.5 70 18 137/78 99 2 03/28 1723 2 03/28 1700 101 18 145/82 98 OXYGEN 2 03/28 1600 2 03/28 1600 101 18 123/71 98 OXYGEN 2 03/28 1500 2 03/28 1500 104 16 113/54 100 OXYGEN 2 03/28 1400 2 03/28 1400 108 20 137/72 99 OXYGEN 2 03/28 1320 2 03/28 1300 101 20 121/66 100 OXYGEN 2 03/28 1200 2 03/28 1200 98 18 117/67 100 OXYGEN 2 03/28 1159 2 03/28 1100 97 20 101/59 100 OXYGEN 2 03/28 1000 2 03/28 1000 104 18 104/54 98 OXYGEN 2 03/28 0957 2 03/28 0900 99 18 118/58 100 OXYGEN 2 03/28 1500 03/28 2300 03/29 0700 Intake Total 0 1612 1360 Output Total 960 550 Balance 0 652 810 Intake, IV 1612 1360 Intake, Oral 0 0 Intake, Tube 0 0 0 Irrigant Output, Other 410 300 Output, Urine 550 250 Patient 78.953 kg Weight Laboratory Tests Test Result Date Time Chemistry Sodium (mmoL/L) 141 03/29 0500 Potassium (mmoL/L) 4.2 03/29 0500 Chloride (mmoL/L) 107 03/29 0500 Carbon Dioxide (mmoL/L) 27 03/29 0500 BUN (mg/dL) 10 03/29 0500 Creatinine (mg/dL) 0.5 03/29 0500 Estimated Creat Clear (ML/MIN) 140 03/29 0500 Estimated GFR (MDRD) (ML/MIN) 125 03/29 0500 Glucose (mg/dL) 106 03/29 0500 Lactic Acid (mmol/L) 1.5 03/24 1655 Calcium (mg/dL) 8.0 03/29 0500 Total Bilirubin (mg/dL) 0.3 03/29 0500 AST (U/L) 19 03/29 0500 ALT (U/L) 13 03/29 0500 Alkaline Phosphatase (U/L) 67 03/29 0500 Total Protein (gm/dL) 5.7 03/29 0500 Albumin (gm/dL) 1.7 03/29 0500 Globulin (gm/dL) 4.0 03/29 0500 Albumin/Globulin Ratio 0.4 03/29 0500 Amylase (U/L) 20 03/24 1055 Lipase (U/L) 90 10 1055 Hematology WBC (K/MM3) 27.0 03/29 0500 RBC (M/mm3) 2.99 03/29 0500 Hgb (g/dL) 8.5 03/29 0500 Hct (%) 26.7 03/29 0500 MCV (fl) 90.0 03/29 0500 RDW (%) 12.9 03/29 0500 Plt Count (K/mm3) 632 03/29 0500 MPV (fl) 7.1 03/29 0500 Gran % (%) 91.4 03/29 050 Gran # (K/mm3) 24.7 03/29 050 Total Counted (#CELLS) 100 03/28 0505 Lymphocytes % (%) 4.6 03/29 0500 Monocytes % (%) 4.0 03/29 0500 Eosinophils % (%) 0.0 03/29 0500 Basophils % (%) 0.0 03/29 0500 Neutrophils (%) 98 03/28 0505 Lymphocytes (Manual) (%) 2 03/28 0505 Lymphocytes # (K/mm3) 1.2 03/29 0500 Monocytes (Manual) (%) 8 03/26 0645 Monocytes # (K/mm3) 1.1 03/29 0500 Eosinophils # (K/mm3) 0.0 03/29 0500 Basophils # (K/MM3) 0.0 03/29 0500 Atypical Lymphocytes (%) 1 03/24 1055 Platelet Estimate NORMAL 03/28 050 Hypochromasia 1+ 03/28 050 Anisocytosis 1+ 03/28 050 PUBS MCHC (g/dl) 31.6 03/29 050 Immunology Antibody Screen NEGATIVE 03/27 134 MCH (pg) 28.4 03/29 050 Miscellaneous Miscellaneous Test POSITIVE 03/27 134 Urines Urine Color YELLOW 03/27 153 Urine Appearance CLEAR 03/27 153 Urine pH 7.5 03/27 153 Ur Specific [place] 1.015 03/27 153 Urine Protein (mg/dL) NEGATIVE 03/27 153 Urine Ketones (mg/dL) 2+ 03/27 153 Urine Blood 2+ 03/27 153 Urine Nitrate NEGATIVE 03/27 153 Urine Bilirubin NEGATIVE 03/27 153 Urine Urobilinogen (E.U./dL) 0.2 03/27 153 Ur Leukocyte Esterase NEGATIVE 03/27 153 Urine RBC (rbc/hpf) 10-20 03/27 1536 Urine WBC (wbc/hpf) OCC 03/27 153 Ur Squamous Epith Cells (#/hpf) 3-5 03/24 1215 Urine Bacteria 2+ 03/24 121 Urine Glucose NEGATIVE 03/27 153 Physical Exam VS/I&O Vital Signs Date Time Temp Pulse Resp B/P Pulse O2 O2 Flow FiO2 Ox Delivery Rate 03/29 0603 101 18 134/74 93 ROOM AIR 03/29 0558 2 03/29 0558 92 ROOM AIR 03/29 0521 18 03/29 0436 98.1 93 18 126/70 93 03/29 0403 93 18 126/70 93 ROOM AIR 03/29 0355 98.1 10/11 0200 93 18 118/71 94 ROOM AIR 03/29 0000 98.2 03/29 0000 91 18 122/68 94 ROOM AIR 03/28 2200 103 18 122/71 94 ROOM AIR 03/28 2047 98.5 104 18 131/71 97 03/28 2020 98.5 03/28 2018 1 03/28 2000 98.5 104 18 131/71 97 ROOM AIR 03/28 1858 1 03/28 1858 97 ROOM AIR 03/28 1855 1 03/28 1800 2 03/28 1800 70 20 134/76 97 OXYGEN 2 03/28 1745 98.5 70 18 137/78 99 2 03/28 1723 2 03/28 1700 101 18 145/82 98 OXYGEN 2 03/28 1600 2 03/28 1600 101 18 123/71 98 OXYGEN 2 03/28 1500 2 03/28 1500 104 16 113/54 100 OXYGEN 2 03/28 1400 2 03/28 1400 108 20 137/72 99 OXYGEN 2 03/28 1320 2 03/28 1300 101 20 121/66 100 OXYGEN 2 03/28 1200 2 03/28 1200 98 18 117/67 100 OXYGEN 2 03/28 1159 2 03/28 1100 97 20 101/59 100 OXYGEN 2 03/28 1000 2 03/28 1000 104 18 104/54 98 OXYGEN 2 03/28 0957 2 03/28 0900 99 18 118/58 100 OXYGEN 2 I&O 03/29 0700 Intake Total 2972 Output Total 1510 Balance 1462 Intake, IV 2972 Intake, Oral 0 Intake, Tube 0 Irrigant Output, Other 710 Output, Urine 800 Patient 78.953 kg Weight Exam General appearance no acute distress Respiratory no distress Cardiovascular tachycardia ((mildly)) Abdomen soft (ostomy viable. min output.) Findings/Data Nasogastric output evaluation reveals some apparent "coffee ground type changes ". Post op patient plan Diagnoses: Postoperative ileus Leukocytosis Mild tachycardia Oliguria Mild postoperative anemia - likely + blood in NG output Plan: Ambulate, Antibiotics, protonix, 1L LR, HH at 14:00 This inpt stay is expected to cross 2 MNs from start of care Yes at 0823
[2017-03-29 14:52] LABS: HEMOGLOBIN 8.8 g/dL (12.2-16.2)
[2017-03-30] VITALS (13 sets, daily range): BP systolic 117–158; BP diastolic 62–81
--- NOTE | 2017-03-30 07:20 | POST-OP PROGRESS NOTE ---
Post Op Subjective Data Patient is post-op day 3 Subjective data: Feels "decent". Post op objective data Vitals,I&O,and Labs: Vital signs, intake and output,and available lab data for the last 24 hours is as noted below. Vital Signs Date Time Temp Pulse Resp B/P Pulse O2 O2 Flow FiO2 Ox Delivery Rate 03/30 0700 93 20 136/66 93 ROOM AIR 03/30 0621 2 03/30 0621 97 ROOM AIR 03/30 0600 88 20 151/73 97 ROOM AIR 03/30 0500 83 130/68 98 ROOM AIR 03/30 0400 85 22 134/70 95 ROOM AIR 03/30 0300 97.9 60 18 128/68 93 ROOM AIR 03/30 0300 97.9 60 16 128/68 93 03/30 0200 88 16 132/65 92 ROOM AIR 03/30 0100 86 16 124/65 92 ROOM AIR 03/30 0000 98.4 89 16 117/62 92 ROOM AIR 03/29 2300 99 18 122/64 93 ROOM AIR / 2200 90 18 125/62 95 ROOM AIR / 2141 92 ROOM AIR / 2100 103 22 146/65 94 ROOM AIR / 2050 98.0 101 22 136/68 94 10/ 2000 98.0 98 22 147/68 100 ROOM AIR / 1900 102 20 145/69 95 ROOM AIR / 1800 100 18 138/65 95 ROOM AIR / 1712 98.5 99 18 126/62 93 / 1700 98.5 99 18 126/62 93 ROOM AIR / 1600 104 18 138/71 93 ROOM AIR / 1500 98.4 105 18 157/81 92 ROOM AIR / 1400 105 16 134/63 93 ROOM AIR 10/ 1300 98.1 103 18 130/66 92 ROOM AIR 10/ 1200 100 18 124/74 93 ROOM AIR / 1100 98.7 99 16 126/76 99 ROOM AIR / 1026 98.1 101 18 153/71 93 10/11 1000 98.1 109 18 153/71 94 ROOM AIR / 0900 98.5 101 18 127/66 97 ROOM AIR / 0800 98.2 101 20 122/70 96 ROOM AIR / 1500 / 2300 03/30 0700 Intake Total 30 2229 1220 Output Total 990 720 Balance 30 1239 500 Intake, IV 2229 1220 Intake, Tube 30 0 Irrigant Output, Other 240 70 Output, Stool Output, Urine 750 650 Laboratory Tests Test Result Date Time Chemistry Sodium (mmoL/L) 141 03/29 0500 Potassium (mmoL/L) 4.2 03/29 0500 Chloride (mmoL/L) 107 03/29 0500 Carbon Dioxide (mmoL/L) 27 03/29 0500 BUN (mg/dL) 10 03/29 0500 Creatinine (mg/dL) 0.5 03/29 0500 Estimated Creat Clear (ML/MIN) 140 03/29 0500 Estimated GFR (MDRD) (ML/MIN) 125 03/29 0500 Glucose (mg/dL) 106 03/29 0500 Lactic Acid (mmol/L) 1.5 03/24 1655 Calcium (mg/dL) 8.0 03/29 0500 Total Bilirubin (mg/dL) 0.3 03/29 0500 AST (U/L) 19 03/29 0500 ALT (U/L) 13 03/29 0500 Alkaline Phosphatase (U/L) 67 03/29 0500 Total Protein (gm/dL) 5.7 03/29 0500 Albumin (gm/dL) 1.7 03/29 0500 Globulin (gm/dL) 4.0 03/29 0500 Albumin/Globulin Ratio 0.4 03/29 0500 Amylase (U/L) 20 10 1055 Lipase (U/L) 90 10 1055 Hematology WBC (K/MM3) 27.0 03/29 0500 RBC (M/mm3) 2.99 03/29 0500 Hgb (g/dL) 8.8 03/29 1440 Hct (%) 27.3 03/29 1440 MCV (fl) 90.0 03/29 0500 RDW (%) 12.9 03/29 0500 Plt Count (K/mm3) 632 03/29 0500 MPV (fl) 7.1 03/29 0500 Gran % (%) 91.4 03/29 0500 Gran # (K/mm3) 24.7 03/29 0500 Total Counted (#CELLS) 100 03/28 0505 Lymphocytes % (%) 4.6 03/29 0500 Monocytes % (%) 4.0 03/29 0500 Eosinophils % (%) 0.0 03/29 0500 Basophils % (%) 0.0 03/29 0500 Neutrophils (%) 98 03/28 0505 Lymphocytes (Manual) (%) 2 03/28 0505 Lymphocytes # (K/mm3) 1.2 03/29 0500 Monocytes (Manual) (%) 8 03/26 0645 Monocytes # (K/mm3) 1.1 03/29 0500 Eosinophils # (K/mm3) 0.0 03/29 0500 Basophils # (K/MM3) 0.0 03/29 0500 Atypical Lymphocytes (%) 1 03/24 1055 Platelet Estimate NORMAL 03/28 050 Hypochromasia 1+ 03/28 0505 Anisocytosis 1+ 03/28 0505 PUBS MCHC (g/dl) 31.6 03/29 050 Immunology Antibody Screen NEGATIVE 03/27 134 MCH (pg) 28.4 03/29 050 Miscellaneous Miscellaneous Test POSITIVE 03/27 1348 Urines Urine Color YELLOW 03/27 153 Urine Appearance CLEAR 03/27 153 Urine pH 7.5 03/27 153 Ur Specific [place] 1.015 03/27 153 Urine Protein (mg/dL) NEGATIVE 03/27 153 Urine Ketones (mg/dL) 2+ 03/27 153 Urine Blood 2+ 03/27 153 Urine Nitrate NEGATIVE 03/27 153 Urine Bilirubin NEGATIVE 03/27 153 Urine Urobilinogen (E.U./dL) 0.2 03/27 153 Ur Leukocyte Esterase NEGATIVE 03/27 153 Urine RBC (rbc/hpf) 10-20 03/27 1536 Urine WBC (wbc/hpf) OCC 03/27 153 Ur Squamous Epith Cells (#/hpf) 3-5 03/24 1215 Urine Bacteria 2+ 03/24 1215 Urine Glucose NEGATIVE 03/27 153 Physical Exam VS/I&O Vital Signs Date Time Temp Pulse Resp B/P Pulse O2 O2 Flow FiO2 Ox Delivery Rate 03/30 07 93 20 136/66 93 ROOM AIR 03/30 06 2 03/30 621 97 ROOM AIR 03/30 600 88 20 151/73 97 ROOM AIR 03/30 0500 83 130/68 98 ROOM AIR 03/30 0400 85 22 134/70 95 ROOM AIR 03/30 0300 97.9 60 18 128/68 93 ROOM AIR 03/30 0300 97.9 60 16 128/68 93 10/ 0200 88 16 132/65 92 ROOM AIR 03/30 0100 86 16 124/65 92 ROOM AIR 03/30 0000 98.4 89 16 117/62 92 ROOM AIR 10/ 2300 99 18 122/64 93 ROOM AIR 10/ 2200 90 18 125/62 95 ROOM AIR / 2141 92 ROOM AIR 10/ 2100 103 22 146/65 94 ROOM AIR 10/ 2050 98.0 101 22 136/68 94 10/ 2000 98.0 98 22 147/68 100 ROOM AIR 10/ 1900 102 20 145/69 95 ROOM AIR 10/ 1800 100 18 138/65 95 ROOM AIR 10/ 1712 98.5 99 18 126/62 93 10/ 1700 98.5 99 18 126/62 93 ROOM AIR 10/ 1600 104 18 138/71 93 ROOM AIR / 1500 98.4 105 18 157/81 92 ROOM AIR / 1400 105 16 134/63 93 ROOM AIR / 1300 98.1 103 18 130/66 92 ROOM AIR 10/ 1200 100 18 124/74 93 ROOM AIR / 1100 98.7 99 16 126/76 99 ROOM AIR / 1026 98.1 101 18 153/71 93 10/11 1000 98.1 109 18 153/71 94 ROOM AIR / 0900 98.5 101 18 127/66 97 ROOM AIR / 0800 98.2 101 20 122/70 96 ROOM AIR I&O / 0700 Intake Total 3479 Output Total 1710 Balance 1769 Intake, IV 3449 Intake, Tube 30 Irrigant Output, Other 310 Output, Stool Output, Urine 1400 Exam General appearance no acute distress Respiratory no distress Cardiovascular regular rate and rhythm Abdomen soft (air and fluid in bag) Findings/Data One of the TE drains had a change and output yesterday. The drainage became somewhat cloudy in feculent. Quantity has remained fairly low. Post op patient plan Diagnoses: Postoperative ileus-resolving Oliguria-improved Leukocytosis-labs pending Plan: Ambulate, Antibiotics, DVT prophylaxis, DC TRENT Dowell MG This inpt stay is expected to cross 2 MNs from start of care Yes at 0720
[2017-03-30 07:40] LABS: HEMOGLOBIN 9.2 g/dL (12.2-16.2); LYMPH # 2.5 K/mm3 (0.7-4.5); LYMPH % 10.1 % (10-50.0)
--- NOTE | 2017-03-30 08:31 | ACUTE CARE PROGRESS NOTE (QUA) ---
Progress Notes Subjective Date 03/30/17 Time 0745 Note Patient reports pain is controlled on TRANSLATOR AND INTERPRETER. She continues to have increased pain and weakness with ambulation which I assured her is to be expected. Denies any cough, congestion or shortness of breath. ALert and oriented x2. Rate and rhythm regular. No edema. Lung sounds clear and equal bilaterally. Pulses 2+ bilaterally. SCUD's in place. Abdomen soft, with ileostomy on right with liquid stool/air noted, and dressing C/D/I on left. Patient/family reports: pain Nursing reports: no complaints Objective Findings Last VS-Temp:97.9 B/P:136/66 Pulse:93 Resp:20 SaO2:93 ROOM AIR Last weight lbs:174 oz:1 K.953 Method:Bed Scales Reviewed: medications, vital signs, lab results, radiology report Assessment/Plan Problem List 1. Abscess of sigmoid colon due to diverticulitis 2. Chronic obstructive pulmonary disease 3. Hypertension, essential Patient condition Improving Plan: continue current care This inpt stay is expected to cross 2 MNs from start of care Yes Comments: Cardiopulmonary status is stable. She is utilizing incentive spirometer 5-10 times every hour she is awake. D/C NG tube and monzon today. Continue antibiotics. Ambulate. Place PICC line for ongoing antibiotic therapy. Transfer from stepdown to acute care. at 0830
[2017-03-30 12:23] LABS: NEUTROPHILS 89 % (42-76)
--- NOTE | 2017-03-30 17:07 | RADIOLOGY REPORT PS360 ---
CHEST PORTABLE-PICC PLACEMENT CLINICAL INDICATION: PICC LINE INSERTION ORDERING PHYSICIAN: Saúl Zuniga MD PATIENT AGE: 61 years COMPARISON: 03/11/2015 FINDINGS: Left upper extremity PICC line has been inserted. The tip is in good position in the region of the superior vena cava. The right hemidiaphragm is elevated. Parenchymal opacification is present in both lower lobes consistent with atelectasis and/or infiltrate. May be a small left effusion. IMPRESSION: 1. PICC line good position. 2. Bilateral lower lobe airspace disease with elevated right hemidiaphragm and possible small left effusion
[2017-03-31] VITALS (14 sets, daily range): BP systolic 101–147; BP diastolic 59–94
--- OUTSIDE RECORDS SUMMARY | 2017-03-31 03:49 | External Medical Summary Rpt | CCD ---
Demographics Preferred Language Kiswahili Marital Status Unknown Mosque Affiliation Unknown Race Unknown Ethnic Group Unknown Author Author , NOVA BHATT Address Unknown Phone Immunization No patient found.
--- OUTSIDE RECORDS SUMMARY | 2017-03-31 03:49 | External Medical Summary Rpt | CCD ---
Author Author , NOVA BHATT Address Unknown Phone Purpose Continuity of Care Document - through 2016
--- OUTSIDE RECORDS SUMMARY | 2017-03-31 03:49 | External Medical Summary Rpt | CCD ---
Author Author , NOVA BHATT Address Unknown Phone [email or web address] Purpose Continuity of Care Document - 03-03-2017 through 2016 Results Labs Lab Lab Date Result Refere Interp Status Commen Order Detail nces retati t Range on CBC w auto diff (03-25-2017 06:23) Automat = 0.1 0.0-0.4 complet ed 017 K/mm3 ed blood 06:23 eosinop hil count Baso % = 0.2 % 0.1-2.0 complet 017 ed 06:23 Automat = 0.1 0-0.2 complet ed 017 K/MM3 ed blood 06:23 basophi l count (count/ vo Absolut = 2.1 0.7-4.5 complet e 017 K/mm3 ed lymphoc 06:23 yte count Blood = 11.6 12.2-16 complet hemoglo 017 g/dL .2 ed bin 06:23 measure ment (mass/v olum Blood = 36.7 37.0-47 complet hematoc 017 % .0 ed rit 06:23 (volume fractio n) Granulo = 83.4 37.0-80 complet cyte 017 % .0 ed percent 06:23 age Blood = 17.8 1.8-7.8 complet granulo 017 K/mm3 ed cytes 06:23 automat ed count (numb Automat = 0.5 % 0.1-12. complet ed 017 0 ed blood 06:23 eosinop hils/10 0 leukocy t Blood = 21.3 4.8-10. complet leukocy 017 K/MM3 8 ed elle 06:23 count (number /volume ) Automat = 12.9 11.5-17 complet ed 017 % .5 ed erythro 06:23 cyte distrib ution width Red = 3.95 4.2-5.4 complet blood 017 M/mm3 ed cell 06:23 count Blood = 501 142-424 complet platele 017 K/mm3 ed t count 06:23 Automat = 7.5 7.4-10. complet ed 017 fl 4 ed blood 06:23 platele t mean volume rose marie [place] % = 6.2 % 1.7-9.3 complet 017 ed 06:23 Absolut = 1.3 0.1-1.0 complet e 017 K/mm3 ed monocyt 06:23 e count Automat = 92.9 82.2-97 complet ed 017 fl .8 ed erythro 06:23 cyte mean corpusc ular v Mean = 29.1 27-31.2 complet corpusc 017 pg ed ular 06:23 hemoglo bin (MCH) determ Lymphoc = 9.8 % 10-50.0 complet yte 017 ed count, 06:23 blood, automat ed Automat = 31.4 31.8-35 complet ed 017 g/dl .4 ed erythro 06:23 cyte mean corpusc ular h Basic metabolic panel (03-25-2017 06:23) Serum = 140 136-145 complet sodium 017 mmoL/L ed measure 06:23 ment Serum = 3.7 3.5-5.1 complet potassi 017 mmoL/L ed um 06:23 measure ment Serum = 86 74-106 complet or 017 mg/dL ed plasma 06:23 glucose measure ment (mas Estimat = 85 59- complet ed 017 ML/MIN ed glomeru 06:23 lar filtrat ion rate (GF Comment: REFERENCE RANGE: >60 ML/MIN/1.73 SQUARE METERS Comment: If this patient is -Burmese, then multiply the Comment: result by 1.210. Estimat = 95 50-200 complet ion of 017 ML/MIN ed creatin 06:23 ine renal clearan ce Serum = 0.7 0.55-1. complet or 017 mg/dL 02 ed plasma 06:23 creatin ine measure ment ( Carbon = 27 21.0-32 complet dioxide 017 mmoL/L .0 ed 06:23 measure ment Serum = 106 98-107 complet or 017 mmoL/L ed plasma 06:23 chlorid e measure ment (mo Serum = 8.4 8.5-10. complet or 017 mg/dL 1 ed plasma 06:23 calcium measure ment (mas Serum = 6 7-18 complet or 017 mg/dL ed plasma 06:23 urea nitroge n measure men Urinalysis dipstick W Reflex Microscopic panel in Urine (03-24-2017 12:15) Bacteri 2+ O complet a 017 ed [Presen 12:15 ce] in Urine sedimen t by Light microsc opy Erythro 5-10 0 complet cytes 017 ed [Presen 12:15 ce] in Urine sedimen t by Light microsc opy Epithel 3-5 0#/hp complet ial 017 f - ed cells.s 12:15 5#/hp quamous f [Presen ce] in Urine sedimen t by Microsc opy high power field Urinalysis dipstick W Reflex Microscopic panel in Urine (03-24-2017 12:15) Appeara SL CLEAR complet nce of 017 CLOUDY ed Urine 12:15 Bilirub NEGATIV NEG complet in 017 E ed [Presen 12:15 ce] in Urine by Test strip Erythro 3+ NEG Abnorma complet cytes 017 l ed [Presen 12:15 ce] in Urine Color YELLOW YELLOW complet of 017 ed Urine 12:15 Ketones 1+ NEG Abnorma complet 017 l ed [Presen 12:15 ce] in Urine by Automat ed test strip Mucus NEGATIV NEG complet [Presen 017 E ed ce] in 12:15 Urine sedimen t by Light microsc opy Nitrite NEGATIV NEG complet 017 E ed [Presen 12:15 ce] in Urine by Test strip Urobili 0.2 NEG complet nogen 017 ed [Presen 12:15 ce] in Urine by Test strip Differential panel, method unspecified - (03-24-2017 10:55) LYMPH 10 % 10% - Normal complet 017 50% ed 10:55 Platele MOD complet ts 017 INCREAS ed [Presen 10:55 E ce] in Blood by Light microsc opy
--- OUTSIDE RECORDS SUMMARY | 2017-03-31 03:49 | External Medical Summary Rpt | CCD ---
Demographics Preferred Language Slovak Marital Status Unknown Mormon Affiliation Unknown Race Unknown Ethnic Group Unknown Author Author , NOVA BHATT Address Unknown Phone Immunization No patient found.
--- OUTSIDE RECORDS SUMMARY | 2017-03-31 03:49 | External Medical Summary Rpt | CCD ---
Author Author , NOVA BHATT Address Unknown Phone [email or web address] Purpose Continuity of Care Document - 03-03-2017 [...] 06:23 platele t mean volume rose marie [place] % = 6.2 % 1.7-9.3 complet 017 [...] SQUARE METERS Comment: If this patient is -Gabonese, then multiply the Comment: result by 1.210. [...]
--- OUTSIDE RECORDS SUMMARY | 2017-03-31 03:50 | External Medical Summary Rpt ---
Author Author [facility] [employer], [facility] [employer] Organization [facility] [employer] Address Unknown Phone Unavailable Results CBC W Auto Differential panel in Blood Observa Value Referen Units Interpr Notes Date tion ce etation Range Basophils 0 - 0.2 K/MM3 Normal No Mar 25 informati 2017 6:23 [#/volume on in AM ] in source Blood by data Automated count Basophils 0.1 - 2.0 % Normal No Mar 25 / informati 2017 6:23 leukocyte on in AM s in source Blood by data Automated count Eosinophi 0.0 - 0.4 K/mm3 Normal No Mar 25 ls informati 2017 6:23 [#/volume on in AM ] in source Blood by data Automated count Eosinophi 0.1 - % Normal No Mar 25 ls/100 12.0 informati 2017 6:23 leukocyte on in AM s in source Blood by data Automated count Granulocy 1.8 - 7.8 K/mm3 High No Mar 25 elle informati 2017 6:23 [#/volume on in AM ] in source Blood by data Automated count Granulocy 37.0 - % High No Mar 25 elle/100 80.0 informati 2017 6:23 leukocyte on in AM s in source Blood by data Automated count Hematocri 37.0 - % Low No Mar 25 t [Volume 47.0 informati 2017 6:23 on in AM Fraction] source of Blood data Hemoglobi 12.2 - g/dL Low No Mar 25 n 16.2 informati 2017 6:23 [Mass/vol on in AM ume] in source Blood data Lymphocyt 0.7 - 4.5 K/mm3 Normal No Mar 25 es informati 2017 6:23 [#/volume on in AM ] in source Unspecifi data ed specimen by Automated count Lymphocyt 10 - 50.0 % Low No Mar 25 es informati 2017 6:23 [#/volume on in AM ] in source Unspecifi data ed specimen by Automated count Erythrocy 27 - 31.2 pg Normal No Mar 25 te mean informati 2017 6:23 corpuscul on in AM ar source hemoglobi data n [Entitic mass] Erythrocy 31.8 - g/dl Low No Oct 7 te mean 35.4 informati 2017 6:23 corpuscul on in AM ar source hemoglobi data n concentra tion [Mass/vol ume] by Automated count Erythrocy 82.2 - fl Normal No Oct 7 te mean 97.8 informati 2017 6:23 corpuscul on in AM ar volume source [Entitic data volume] by Automated count Monocytes 0.1 - 1.0 K/mm3 High No Oct 7 informati 2017 6:23 [#/volume on in AM ] in source Blood by data Automated count Monocytes 1.7 - 9.3 % Normal No Oct 7 /100 informati 2017 6:23 leukocyte on in AM s in source Blood by data Automated count Platelet 7.4 - fl Normal No Mar 7 mean 10.4 informati 2017 6:23 volume on in AM [Entitic source volume] data in Blood by Automated count Platelets 142 - 424 K/mm3 High No Oct 7 informati 2017 6:23 [#/volume on in AM ] in source Blood data Erythrocy 4.2 - 5.4 M/mm3 Low No Oct 7 elle informati 2017 6:23 [#/volume on in AM ] in source Amniotic data fluid Erythrocy 11.5 - % Normal No Oct 7 te 17.5 informati 2017 6:23 distribut on in AM ion width source [Entitic data volume] by Automated count Leukocyte 4.8 - K/MM3 High No Oct 7 s 10.8 alert informati 2017 6:23 [#/volume on in AM ] in source Blood data Basic metabolic panel in Blood Observa Value Referen Units Interpr Notes Date tion ce etation Range Urea 7 - 18 mg/dL Low No Oct 7 nitrogen informati 2017 6:23 [Mass/vol on in AM ume] in source Serum or data Plasma Calcium 8.5 - mg/dL Low No Oct 7 [Mass/vol 10.1 informati 2017 6:23 ume] in on in AM Serum or source Plasma data Chloride 98 - 107 mmoL/L Normal No Oct 7 [Moles/vo informati 2017 6:23 lume] in on in AM Serum or source Plasma data Carbon 21.0 - mmoL/L Normal No Mar 7 dioxide, 32.0 informati 2017 6:23 total on in AM [Moles/vo source lume] in data Serum or Plasma Creatinin 0.55 - mg/dL Normal No Mar 7 e 1.02 informati 2017 6:23 [Mass/vol on in AM ume] in source Serum or data Plasma Creatinin 50 - 200 ML/MIN Normal No Mar 7 e renal informati 2017 6:23 clearance on in AM source predicted data by Cockcroft -Gault formula Estimated 59- ML/MIN No REFERENCE Oct 7 informati RANGE: 2017 6:23 glomerula on in >60 AM r source ML/MIN/1. filtratio data 73 SQUARE n rate METERSIf (GF this patient is -A merican, then multiply theresult by 1.210. Glucose 74 - 106 mg/dL Normal No Mar 7 [Mass/vol informati 2016 6:23 ume] in on in AM Serum or source Plasma data Potassium 3.5 - 5.1 mmoL/L Normal No Mar 7 informati 2016 6:23 [Moles/vo on in AM lume] in source Serum or data Plasma Sodium 136 - 145 mmoL/L Normal No Mar 25 [Moles/vo informati 2016 6:23 lume] in on in AM Serum or source Plasma data Lactate [Moles/volume] in Blood Observa Value Referen Units Interpr Notes Date tion ce etation Range Lactate 0.4 - 2.0 mmol/L Normal No Mar 24 [Moles/vo informati 2016 4:55 lume] in on in PM Blood source data Urinalysis dipstick W Reflex Microscopic panel in Urine Observa Value Referen Units Interpr Notes Date tion ce etation Range Appeara SL CLEAR No No No Mar 6 nce of CLOUDY informa informa informa 2016 Urine tion in tion in tion in 12:15 source source source PM data data data Bacteri 2+ O No No No Mar 24 a informa informa informa 2016 [Presen tion in tion in tion in 12:15 ce] in source source source PM Urine data data data sedimen t by Light microsc opy Bilirub NEGATIV NEG No No BILIRUB Mar 24 in E informa informa IN 2017 [Presen tion in tion in CONFIRM 12:15 ce] in source source ED WITH PM Urine data data by Test ICTOTES strip T: NEGATIV E Erythro 3+ NEG No Abnorma No Oct 6 cytes informa l informa 2017 [Presen tion in tion in 12:15 ce] in source source PM Urine data data Color YELLOW YELLOW No No No Oct 6 of informa informa informa 2017 Urine tion in tion in tion in 12:15 source source source PM data data data Glucose NEG No No No Mar 6 [Mass/vol informati informati informati 2017 ume] in on in on in on in 12:15 PM Urine by source source source Test data data data strip Ketones 1+ NEG mg/dL Abnorma No Oct 6 l informa 2017 [Presen tion in 12:15 ce] in source PM Urine data by Automat ed test strip Mucus NEGATIV NEG No No No Mar 6 [Presen E informa informa informa 2017 ce] in tion in tion in tion in 12:15 Urine source source source PM sedimen data data data t by Light microsc opy Nitrite NEGATIV NEG No No No Mar 6 E informa informa informa 2016 [Presen tion in tion in tion in 12:15 ce] in source source source PM Urine data data data by Test strip pH of 5.0 - 8.5 No Normal No Oct 6 Urine informati informati 2017 on in on in 12:15 PM source source data data Protein NEG mg/dL High No Oct 6 [Mass/vol informati 2017 ume] in on in 12:15 PM Urine by source Automated data test strip Erythro 5-10 0 rbc/hpf No No Oct 6 cytes informa informa 2016 [Presen tion in tion in 12:15 ce] in source source PM Urine data data sedimen t by Light microsc opy Specific 1.005 - No Normal No Oct 6 gravity 1.030 informati informati 2017 of Urine on in on in 12:15 PM source source data data Epithel 3-5 0 - 5 #/hpf No No Oct 6 ial informa informa 2017 cells.s tion in tion in 12:15 quamous source source PM data data [Presen ce] in Urine sedimen t by Microsc opy high power field Urobili 0.2 NEG E.U./dL No No Oct 6 nogen informa informa 2017 [Presen tion in tion in 12:15 ce] in source source PM Urine data data by Test strip Leukocyte O wbc/hpf No No Mar 6 s informati informati 2016 [#/volume on in on in 12:15 PM ] in source source Urine data data Urinalysis dipstick W Reflex Microscopic panel in Urine Observa Value Referen Units Interpr Notes Date tion ce etation Range Appeara SL CLEAR No No No Mar 6 nce of CLOUDY informa informa informa 2017 Urine tion in tion in tion in 12:15 source source source PM data data data Bilirub NEGATIV NEG No No BILIRUB Mar 24 in E informa informa IN 2017 [Presen tion in tion in CONFIRM 12:15 ce] in source source ED WITH PM Urine data data by Test ICTOTES strip T: NEGATIV E Erythro 3+ NEG No Abnorma No Mar 24 cytes informa l informa 2016 [Presen tion in tion in 12:15 ce] in source source PM Urine data data Color YELLOW YELLOW No No No Mar 24 of informa informa informa 2017 Urine tion in tion in tion in 12:15 source source source PM data data data Glucose NEG No No No Mar 24 [Mass/vol informati informati informati 2016 ume] in on in on in on in 12:15 PM Urine by source source source Test data data data strip Ketones 1+ NEG mg/dL Abnorma No Mar 6 l informa 2016 [Presen tion in 12:15 ce] in source PM Urine data by Automat ed test strip Mucus NEGATIV NEG No No No Mar 24 [Presen E informa informa informa 2016 ce] in tion in tion in tion in 12:15 Urine source source source PM sedimen data data data t by Light microsc opy Nitrite NEGATIV NEG No No No Mar 24 E informa informa informa 2016 [Presen tion in tion in tion in 12:15 ce] in source source source PM Urine data data data by Test strip pH of 5.0 - 8.5 No Normal No Mar 6 Urine informati informati 2017 on in on in 12:15 PM source source data data Protein NEG mg/dL High No Mar 6 [Mass/vol informati 2016 ume] in on in 12:15 PM Urine by source Automated data test strip Specific 1.005 - No Normal No Mar 24 gravity 1.030 informati inform2016 of Urine on in on in 12:15 PM source source data data Urobili 0.2 NEG E.U./dL No No Mar 24 nogen informa informa 2016 [Presen tion in tion in 12:15 ce] in source source PM Urine data data by Test strip Amylase [Enzymatic activity/volume] in Serum or Plasma Observa Value Referen Units Interpr Notes Date ti ce etation Range Amylase 25 - 115 U/L Low No Mar 24 [Enzymati informati 2016 c on in 10:55 AM activity/ source volume] data in Serum or Plasma Lipase [Enzymatic activity/volume] in Serum or Plasma Observa Value Referen Units Interpr Notes Date ti ce etation Range Lipase 73 - 393 U/L Normal No Mar 24 [Enzymati informati 2016 c on in 10:55 AM activity/ source volume] data in Serum or Plasma CBC W Auto Differential panel in Blood Observa Value Referen Units Interpr Notes Date tion ce etation Range Basophils 0 - 0.2 K/MM3 Normal No Mar 24 inform2016 [#/volume on in 10:55 AM ] in source Blood by data Automated count Basophils 0.1 - 2.0 % Normal No Mar 24 /100 inform2016 leukocyte on in 10:55 AM s in source Blood by data Automated count Eosinophi 0.0 - 0.4 K/mm3 Normal No Mar 24 ls 2016 [#/volume on in 10:55 AM ] in source Blood by data Automated count Eosinophi 0.1 - % Normal No Mar 24 ls/100 12.0 inform2016 leukocyte on in 10:55 AM s in source Blood by data Automated count Granulocy 1.8 - 7.8 K/mm3 High No Mar 24 elle inform2016 [#/volume on in 10:55 AM ] in source Blood by data Automated count Granulocy 37.0 - % High No Mar 24 elle/100 80.0 inform2016 leukocyte on in 10:55 AM s in source Blood by data Automated count Hematocri 37.0 - % Normal No Mar 24 t [Volume 47.0 inform2016 on in 10:55 AM Fraction] source of Blood data Hemoglobi 12.2 - g/dL Normal No Mar 24 n 16.2 inform2016 [Mass/vol on in 10:55 AM ume] in source Blood data Lymphocyt 0.7 - 4.5 K/mm3 Normal No Mar 24 es 2016 [#/volume on in 10:55 AM ] in source Unspecifi data ed specimen by Automated count Lymphocyt 10 - 50.0 % Low No Mar 24 es 2016 [#/volume on in 10:55 AM ] in source Unspecifi data ed specimen by Automated count Erythrocy 27 - 31.2 pg Normal No Mar 24 te mean inform2016 corpuscul on in 10:55 AM ar source hemoglobi data n [Entitic mass] Erythrocy 31.8 - g/dl Low No Mar 24 te mean 35.4 inform2016 corpuscul on in 10:55 AM ar source hemoglobi data n concentra tion [Mass/vol ume] by Automated count Erythrocy 82.2 - fl Normal No Mar 24 te mean 97.8 inform2016 corpuscul on in 10:55 AM ar volume source [Entitic data volume] by Automated count Monocytes 0.1 - 1.0 K/mm3 High No Mar 24 inform2016 [#/volume on in 10:55 AM ] in source Blood by data Automated count Monocytes 1.7 - 9.3 % Normal No Mar 6 /100 2016 leukocyte on in 10:55 AM s in source Blood by data Automated count Platelet 7.4 - fl Low No Mar 24 mean 10.4 inform2016 volume on in 10:55 AM [Entitic source volume] data in Blood by Automated count Platelets 142 - 424 K/mm3 High No Mar 242016 [#/volume on in 10:55 AM ] in source Blood data Erythrocy 4.2 - 5.4 M/mm3 Normal No Mar 6 elle inform2016 [#/volume on in 10:55 AM ] in source Amniotic data fluid Erythrocy 11.5 - % Normal No Mar 6 te 17.5 inform2016 distribut on in 10:55 AM ion width source [Entitic data volume] by Automated count Leukocyte 4.8 - K/MM3 High No Mar 6 s 10.8 alert inform2016 [#/volume on in 10:55 AM ] in source Blood data Differential panel, method unspecified - Observa Value Referen Units Interpr Notes Date tion ce etation Range Lymphocyt 0 - 5 % Normal No Oct 6 es informati 2017 Variant/1 on in 10:55 AM 00 source leukocyte data s in Blood by Manual count LYMPH 10 10 - 50 % Normal No Oct 6 informa 2017 tion in 10:55 source AM data Monocytes 2 - 9 % Normal No Oct 6 /100 informati 2017 leukocyte on in 10:55 AM s in source Blood by data Automated count Platele MOD No No No No Oct 6 ts INCREAS informa informa informa informa 2017 [Presen E tion in tion in tion in tion in 10:55 ce] in source source source source AM Blood data data data data by Light microsc opy Neutrophi 42 - 76 % High No Oct 6 ls informati 2016 [#/volume on in 10:55 AM ] in source Blood by data Automated count Cells No #CELLS No No Oct 6 Counted informati informati informati 2016 Total [#] on in on in on in 10:55 AM in Blood source source source data data data Comprehensive metabolic 2000 panel in Serum or Plasma Observa Value Referen Units Interpr Notes Date tion ce etation Range Albumin/G 1.1 - 1.8 No Low No Oct 6 lobulin informati informati 2016 [Mass on in on in 10:55 AM ratio] in source source Serum or data data Plasma Albumin 3.4 - 5.0 gm/dL Low No Oct 6 [Mass/vol informati 2016 ume] in on in 10:55 AM Serum or source Plasma data Alkaline 46 - 116 U/L High No Oct 6 phosphata inform2016 se on in 10:55 AM [Enzymati source c data activity/ volume] in Serum or Plasma Bilirubin 0.2 - 1.0 mg/dL Normal No Oct 6 .total informati 2016 [Mass/vol on in 10:55 AM ume] in source Serum or data Plasma Urea 7 - 18 mg/dL Normal No Oct 6 nitrogen informati 2016 [Mass/vol on in 10:55 AM ume] in source Serum or data Plasma Calcium 8.5 - mg/dL Normal No Oct 6 [Mass/vol 10.1 informati 2016 ume] in on in 10:55 AM Serum or source Plasma data Chloride 98 - 107 mmoL/L Normal No Oct 6 [Moles/vo informati 2016 lume] in on in 10:55 AM Serum or source Plasma data Carbon 21.0 - mmoL/L Normal No Oct 6 dioxide, 32.0 informati 2017 total on in 10:55 AM [Moles/vo source lume] in data Serum or Plasma Creatinin 0.55 - mg/dL Normal No Oct 6 e 1.02 informati 2017 [Mass/vol on in 10:55 AM ume] in source Serum or data Plasma Creatinin 50 - 200 ML/MIN Normal No Oct 6 e renal informati 2017 clearance on in 10:55 AM source predicted data by Cockcroft -Gault formula Estimated 59- ML/MIN No REFERENCE Oct 6 informati RANGE: 2017 glomerula on in >60 10:55 AM r source ML/MIN/1. filtratio data 73 SQUARE n rate METERSIf (GF this patient is -A merican, then multiply theresult by 1.210. Globulin 1.3 - 3.2 gm/dL High No Mar 6 [Mass/vol informati 2017 ume] in on in 10:55 AM Serum source data Glucose 74 - 106 mg/dL Normal No Mar 6 [Mass/vol informati 2016 ume] in on in 10:55 AM Serum or source Plasma data Potassium 3.5 - 5.1 mmoL/L Normal K RESULT Mar 6 MAY BE 2017 [Moles/vo SLIGHTLY 10:55 AM lume] in ELEVATED Serum or DUE TO 2+ Plasma HEMOLYSIS Sodium 136 - 145 mmoL/L Normal No Oct 6 [Moles/vo informati 2017 lume] in on in 10:55 AM Serum or source Plasma data Aspartate 15 - 37 U/L Normal AST Mar 24 RESULT 2017 aminotran MAY BE 10:55 AM sferase SLIGHTLY [Enzymati ELEVAED c DUE TO 2+ activity/ volume] HEMOLYSIS in Serum or Plasma Alanine 12 - 78 U/L Normal No Oct 6 aminotran informati 2017 sferase on in 10:55 AM [Enzymati source c data activity/ volume] in Serum or Plasma Protein 6.4 - 8.2 gm/dL Normal No Oct 6 [Mass/vol informati 2016 ume] in on in 10:55 AM Serum or source Plasma data Urea nitrogen [Mass/volume] in Serum or Plasma Observa Value Referen Units Interpr Notes Date tion ce etation Range Urea 7 - 18 mg/dL Normal No Sep 15 nitrogen informati 2017 8:16 [Mass/vol on in AM ume] in source Serum or data Plasma CREATININE Observa Value Referen Units Interpr Notes Date tion ce etation Range Creatinin 0.55 - mg/dL Normal No Sep 15 e 1.02 informati 2017 8:16 [Mass/vol on in AM ume] in source Serum or data Plasma Estimated 59- ML/MIN No REFERENCE Sep 15 informati RANGE: 2016 8:16 glomerula on in >60 AM r source ML/MIN/1. filtratio data 73 SQUARE n rate METERSIf (GF this patient is -A merican, then multiply theresult by 1.210.
[2017-03-31 06:46] LABS: HEMOGLOBIN 8.5 g/dL (12.2-16.2); LYMPH # 2.2 K/mm3 (0.7-4.5)
--- OUTSIDE RECORDS SUMMARY | 2017-03-31 07:11 | External Medical Summary Rpt | CCD ---
Author Author , [facility] BHATT Address Unknown Phone [email or web address] Purpose Continuity of Care Document - 03-03-2017 [...] 06:23 platele t mean volume rose marie [place] % = 6.2 % 1.7-9.3 complet 017 [...] SQUARE METERS Comment: If this patient is -[place], then multiply the Comment: result by 1.210. [...]
--- OUTSIDE RECORDS SUMMARY | 2017-03-31 07:11 | External Medical Summary Rpt | CCD ---
Author Author , NOVA BHATT Address Unknown Phone [email or web address] Purpose Continuity of Care Document - 03-03-2017 [...] 06:23 platele t mean volume rose marie [place] % = 6.2 % 1.7-9.3 complet 017 [...] SQUARE METERS Comment: If this patient is -Afghan, then multiply the Comment: result by 1.210. [...]
--- OUTSIDE RECORDS SUMMARY | 2017-03-31 07:12 | External Medical Summary Rpt | CCD ---
Demographics Preferred Language Lao Marital Status Unknown Advent Affiliation Unknown Race Unknown Ethnic Group Unknown Author Author , NOVA BHATT Address Unknown Phone Immunization No patient found.
--- OUTSIDE RECORDS SUMMARY | 2017-03-31 07:12 | External Medical Summary Rpt | CCD ---
Demographics Preferred Language French Marital Status Unknown Druze Affiliation Unknown Race Unknown Ethnic Group Unknown Author Author , NOVA BHATT Address Unknown Phone Immunization No patient found.
--- NOTE | 2017-03-31 07:24 | ACUTE CARE PROGRESS NOTE (QUA) ---
Progress Notes Subjective Date 03/31/17 Time 0723 Note Patient up on the side of the chair, no NG tube. No vomiting. Lungs have some rhonchi but clear with a deep breath. Heart rate regular. Ileostomy bag looks good. No edema. Objective Findings Last VS-Temp:98.4 B/P:146/73 Pulse:86 Resp:20 SaO2:92 OXYGEN Last weight lbs:174 oz:1 K.953 Method:Bed Scales Assessment/Plan Problem List 1. Abscess of sigmoid colon due to diverticulitis 2. Chronic obstructive pulmonary disease 3. Hypertension, essential Patient condition Improving Plan: continue current care, watch labs. PT for ambulation. PICC line in good position. This inpt stay is expected to cross 2 MNs from start of care Yes at 0724
--- NOTE | 2017-03-31 08:03 | ACUTE CARE PROGRESS NOTE (QUA) ---
Progress Notes Subjective Date 03/31/17 Time 0801 Assessment/Plan Problem List 1. Abscess of sigmoid colon due to diverticulitis 2. Chronic obstructive pulmonary disease 3. Hypertension, essential This inpt stay is expected to cross 2 MNs from start of care Yes Antibiotic Stewardship (2) Current Culture Results Microbiology 03/24 165 BLOOD: Anaerobic Blood Culture - COMP 03/24 165 BLOOD: Aerobic Blood Culture - COMP 03/24 1215 URINE CC: Urine Culture - COMP NO GROWTH Infxn that will respond? Yes Right drug,dose,and route? Yes (DISCUSSED WITH DR BRADLEY) More targeted antbx? No Comment: DISCUSSED WITH DR BRADLEY, WILL ADD METRONIDAZOLE TO COVER ANAEROBES at 0802
--- NOTE | 2017-03-31 08:10 | POST-OP PROGRESS NOTE ---
Post Op Subjective Data Patient is post-op day 4 Subjective data: Feels "pretty OK" Post op objective data Vitals,I&O,and Labs: Vital signs, intake and output,and available lab data for the last 24 hours is as noted below. Vital Signs Date Time Temp Pulse Resp B/P Pulse O2 O2 Flow FiO2 Ox Delivery Rate 03/31 0750 2 03/31 0750 98.1 95 20 146/82 91 OXYGEN 2 03/31 0658 2 03/31 0609 2 03/31 0609 92 OXYGEN 2 03/31 0601 2 03/31 0601 98.4 86 20 146/73 91 OXYGEN 2 03/31 0600 98.4 86 20 146/73 91 2 03/31 0459 2 03/31 0427 2 03/31 0427 98.5 86 20 136/77 91 OXYGEN 2 03/31 0157 2 03/31 0157 98.6 88 18 127/77 90 OXYGEN 2 03/31 0010 92 OXYGEN 2 03/31 0010 98.9 91 20 147/80 86 ROOM AIR 03/30 2055 98.9 91 20 147/80 94 2 03/30 2009 98.4 102 20 139/81 91 03/30 2005 98.4 102 20 139/81 91 ROOM AIR 03/30 1955 2 03/30 1830 2 03/30 1830 85 ROOM AIR 03/30 1619 98.0 98 20 158/75 92 ROOM AIR 03/30 1323 16 03/30 1138 98.6 88 16 132/64 95 ROOM AIR 03/30 0900 97.6 90 20 142/68 97 ROOM AIR 03/30 0900 97.6 90 20 142/68 93 03/30 1500 03/30 2300 03/31 0700 Intake Total 1806 1065 Output Total 300 1575 Balance -300 1806 -510 Intake, IV 1706 1065 Intake, Oral 100 Output, Other 50 Output, Stool Output, Urine 300 1525 Laboratory Tests Test Result Date Time Chemistry Sodium (mmoL/L) 140 03/31 06 Potassium (mmoL/L) 3.8 03/31 620 Chloride (mmoL/L) 105 03/31 06 Carbon Dioxide (mmoL/L) 27 03/31 06 BUN (mg/dL) 6 03/31 06 Creatinine (mg/dL) 0.5 03/31 620 Estimated Creat Clear (ML/MIN) 144 10/13 0620 Estimated GFR (MDRD) (ML/MIN) 125 03/31 620 Glucose (mg/dL) 60 03/31 620 Lactic Acid (mmol/L) 1.5 03/24 1655 Calcium (mg/dL) 7.7 03/31 620 Total Bilirubin (mg/dL) 0.3 03/29 500 AST (U/L) 19 03/29 0500 ALT (U/L) 13 03/29 050 Alkaline Phosphatase (U/L) 67 03/29 0500 Total Protein (gm/dL) 5.7 03/29 500 Albumin (gm/dL) 1.7 03/29 500 Globulin (gm/dL) 4.0 03/29 500 Albumin/Globulin Ratio 0.4 03/29 500 Amylase (U/L) 20 03/24 105 Lipase (U/L) 90 03/24 105 Hematology WBC (K/MM3) 21.4 03/31 620 RBC (M/mm3) 2.95 03/31 620 Hgb (g/dL) 8.5 03/31 620 Hct (%) 26.4 03/31 620 MCV (fl) 89.4 03/31 620 RDW (%) 13.3 03/31 620 Plt Count (K/mm3) 689 03/31 620 MPV (fl) 7.1 03/31 620 Gran % (%) 82.9 03/31 620 Gran # (K/mm3) 17.7 03/31 620 Total Counted (#CELLS) 100 03/30 735 Lymphocytes % (%) 10.0 03/31 620 Monocytes % (%) 6.3 03/31 620 Eosinophils % (%) 0.6 03/31 620 Basophils % (%) 0.1 03/31 620 Neutrophils (%) 89 03/30 735 Lymphocytes (Manual) (%) 7 03/30 735 Lymphocytes # (K/mm3) 2.2 03/31 620 Monocytes (Manual) (%) 4 03/30 735 Monocytes # (K/mm3) 1.4 03/31 620 Eosinophils # (K/mm3) 0.1 03/31 620 Basophils # (K/MM3) 0.0 03/31 620 Differential Comment SLIGHT PLT CLUMPING 10/12 0735 Atypical Lymphocytes (%) 1 03/24 1055 Platelet Estimate SLIGHT INCREASE 03/30 0735 Hypochromasia 1+ 03/28 0505 Anisocytosis 1+ 03/28 0505 PUBS MCHC (g/dl) 32.1 03/31 620 Immunology Antibody Screen NEGATIVE 03/27 134 MCH (pg) 28.7 03/31 620 Miscellaneous Miscellaneous Test POSITIVE 03/27 134 Urines Urine Color YELLOW 03/27 1536 Urine Appearance CLEAR 03/27 1536 Urine pH 7.5 03/27 153 Ur Specific [place] 1.015 03/27 153 Urine Protein (mg/dL) NEGATIVE 03/27 1536 Urine Ketones (mg/dL) 2+ 03/27 1536 Urine Blood 2+ 03/27 153 Urine Nitrate NEGATIVE 03/27 1536 Urine Bilirubin NEGATIVE 03/27 1536 Urine Urobilinogen (E.U./dL) 0.2 03/27 153 Ur Leukocyte Esterase NEGATIVE 03/27 153 Urine RBC (rbc/hpf) 10-20 03/27 153 Urine WBC (wbc/hpf) OCC 03/27 153 Ur Squamous Epith Cells (#/hpf) 3-5 03/24 121 Urine Bacteria 2+ 03/24 121 Urine Glucose NEGATIVE 03/27 153 Physical Exam VS/I&O Vital Signs Date Time Temp Pulse Resp B/P Pulse O2 O2 Flow FiO2 Ox Delivery Rate 03/31 0750 2 03/31 0750 98.1 95 20 146/82 91 OXYGEN 2 03/31 0658 2 03/31 0609 2 03/31 0609 92 OXYGEN 2 03/31 0601 2 03/31 0601 98.4 86 20 146/73 91 OXYGEN 2 03/31 0600 98.4 86 20 146/73 91 2 03/31 0459 2 03/31 0427 2 03/31 042 98.5 86 20 136/77 91 OXYGEN 2 03/31 0157 2 03/31 0157 98.6 88 18 127/77 90 OXYGEN 2 03/31 0010 92 OXYGEN 2 03/31 0010 98.9 91 20 147/80 86 ROOM AIR 03/30 2055 98.9 91 20 147/80 94 2 03/30 2009 98.4 102 20 139/81 91 03/30 2005 98.4 102 20 139/81 91 ROOM AIR 03/30 1955 2 03/30 1830 2 03/30 1830 85 ROOM AIR 03/30 1619 98.0 98 20 158/75 92 ROOM AIR 03/30 1323 16 03/30 1138 98.6 88 16 132/64 95 ROOM AIR 03/30 0900 97.6 90 20 142/68 97 ROOM AIR 03/30 0900 97.6 90 20 142/68 93 I&O 03/31 0700 Intake Total 2871 Output Total 1875 Balance 996 Intake, IV 2771 Intake, Oral 100 Output, Other 50 Output, Stool Output, Urine 1825 Exam General appearance no acute distress Respiratory no distress, on oxygen Cardiovascular regular rate and rhythm Abdomen soft, CVA tenderness (ostomy functioning.no erythema) Findings/Data Gerald-Buckner drains have minimal output. The drain that has always been serous remains serous and the drain that was very cloudy and somewhat feculent has started to show "some clearing". Post op patient plan Diagnoses: Postoperative ileus-essentially resolved Leukocytosis- slowly improving Plan: Advance diet, Ambulate, Antibiotics This inpt stay is expected to cross 2 MNs from start of care Yes Additional data: Clear liquids without carbonation Flagyl added for improved anaerobic coverage at 0809
[2017-04-01] VITALS (8 sets, daily range): BP systolic 105–147; BP diastolic 58–76
[2017-04-01 04:27] LABS: HEMOGLOBIN 8.3 g/dL (12.2-16.2); LYMPH % 11.6 % (10-50.0)
[2017-04-01 05:03] LABS: NEUTROPHILS 86 % (42-76)
--- NOTE | 2017-04-01 07:21 | POST-OP PROGRESS NOTE ---
Post Op Subjective Data Patient is post-op day 5 Subjective data: Sitting in chair. She states that she "feels pretty good". Post op objective data Vitals,I&O,and Labs: Vital signs, intake and output,and available lab data for the last 24 hours is as noted below. Vital Signs Date Time Temp Pulse Resp B/P Pulse O2 O2 Flow FiO2 Ox Delivery Rate 04/01 0706 2 04/01 0600 2 04/01 0600 97.6 85 18 124/70 99 OXYGEN 2 04/01 0540 2 04/01 0522 18 04/01 0418 2 04/01 0418 97.3 84 18 133/74 93 OXYGEN 2 04/01 0331 2 04/01 0200 2 04/01 0200 97.3 85 16 126/71 95 OXYGEN 2 04/01 0130 2 04/01 0000 2 04/01 0000 98.2 87 16 135/71 93 OXYGEN 2 03/31 2300 2 03/31 2203 94 15 101/59 92 OXYGEN 2 03/31 2200 2 03/31 2200 98.9 91 16 132/71 93 OXYGEN 2 03/31 2045 2 03/31 2041 18 03/31 2030 97.9 100 17 128/66 94 2 03/31 1946 2 03/31 1946 98.1 104 18 128/66 94 OXYGEN 2 03/31 1910 2 03/31 1902 2 03/31 1902 98.0 79 20 142/81 89 2 03/31 1859 2 03/31 1859 87 ROOM AIR 03/31 1735 2 03/31 1700 2 03/31 1620 20 03/31 1500 2 03/31 1354 2 03/31 1351 98.0 79 20 142/81 96 OXYGEN 2 03/31 1300 2 03/31 1127 2 03/31 1127 98.0 82 22 114/94 95 OXYGEN 2 03/31 1100 2 03/31 1100 98.0 82 20 142/81 99 2 03/31 0945 2 03/31 0935 98.3 82 20 116/72 95 OXYGEN 2 03/31 0900 2 03/31 0750 2 03/31 0750 98.1 95 20 146/82 91 OXYGEN 2 03/31 1500 03/31 2300 04/01 0700 Intake Total 480 1663 969 Output Total 0 1030 Balance 480 -387 -61 Intake, IV 1253 849 Intake, Oral 480 410 120 Output, Other 30 Output, Stool Output, Urine 2050 1000 Laboratory Tests Test Result Date Time Chemistry Sodium (mmoL/L) 138 04/01 410 Potassium (mmoL/L) 3.6 04/01 410 Chloride (mmoL/L) 104 04/01 410 Carbon Dioxide (mmoL/L) 30 04/010 BUN (mg/dL) 3 04/01 041 Creatinine (mg/dL) 0.5 04/01 410 Estimated Creat Clear (ML/MIN) 144 04/01 410 Estimated GFR (MDRD) (ML/MIN) 125 04/01 410 Glucose (mg/dL) 78 04/01 410 Lactic Acid (mmol/L) 1.5 03/24 165 Calcium (mg/dL) 7.9 04/01 410 Total Bilirubin (mg/dL) 0.3 03/29 050 AST (U/L) 19 03/29 0500 ALT (U/L) 13 03/29 0500 Alkaline Phosphatase (U/L) 67 03/29 0500 Total Protein (gm/dL) 5.7 03/29 0500 Albumin (gm/dL) 1.7 03/29 0500 Globulin (gm/dL) 4.0 03/29 500 Albumin/Globulin Ratio 0.4 03/29 0500 Amylase (U/L) 20 03/24 1055 Lipase (U/L) 90 03/24 1055 Hematology WBC (K/MM3) 16.7 04/01 410 RBC (M/mm3) 2.94 04/01 410 Hgb (g/dL) 8.3 04/01 410 Hct (%) 26.5 04/01 410 MCV (fl) 90.1 04/01 410 RDW (%) 13.7 04/01 410 Plt Count (K/mm3) 667 04/01 410 MPV (fl) 6.8 04/01 410 Gran % (%) 80.8 04/01 410 Gran # (K/mm3) 13.5 04/01 410 Total Counted (#CELLS) 100 04/01 410 Lymphocytes % (%) 11.6 04/01 410 Monocytes % (%) 5.6 04/01 410 Eosinophils % (%) 1.7 10/14 0410 Basophils % (%) 0.1 04/01 410 Neutrophils (%) 86 04/01 410 Band Neutrophils (%) 5 04/01 041 Lymphocytes (Manual) (%) 8 04/01 410 Lymphocytes # (K/mm3) 2.0 04/01 410 Monocytes (Manual) (%) 1 04/01 410 Monocytes # (K/mm3) 1.0 04/01 410 Eosinophils # (K/mm3) 0.3 04/01 410 Basophils # (K/MM3) 0.0 04/01 410 Differential Comment SLIGHT PLT CLUMPING 03/30 0735 Hypersegmented Polys FEW 04/01 410 Atypical Lymphocytes (%) 1 03/24 1055 Platelet Estimate MOD INCREASE 04/01 410 Polychromasia 1+ 04/01 410 Hypochromasia 1+ 04/01 410 Poikilocytosis 1+ 04/01 410 Anisocytosis 1+ 03/28 505 PUBS MCHC (g/dl) 31.4 04/01 410 Immunology Antibody Screen NEGATIVE 03/27 1348 MCH (pg) 28.3 04/01 410 Miscellaneous Miscellaneous Test POSITIVE 03/27 134 Urines Urine Color YELLOW 03/27 1536 Urine Appearance CLEAR 03/27 1536 Urine pH 7.5 03/27 1536 Ur Specific [place] 1.015 03/27 153 Urine Protein (mg/dL) NEGATIVE 03/27 153 Urine Ketones (mg/dL) 2+ 03/27 153 Urine Blood 2+ 03/27 153 Urine Nitrate NEGATIVE 03/27 1536 Urine Bilirubin NEGATIVE 03/27 1536 Urine Urobilinogen (E.U./dL) 0.2 03/27 153 Ur Leukocyte Esterase NEGATIVE 03/27 1536 Urine RBC (rbc/hpf) 10-20 03/27 153 Urine WBC (wbc/hpf) OCC 03/27 153 Ur Squamous Epith Cells (#/hpf) 3-5 03/24 1215 Urine Bacteria 2+ 03/24 121 Urine Glucose NEGATIVE 03/27 153 Physical Exam VS/I&O Vital Signs Date Time Temp Pulse Resp B/P Pulse O2 O2 Flow FiO2 Ox Delivery Rate 04/01 07 2 04/01 06 2 04/01 600 97.6 85 18 124/70 99 OXYGEN 2 04/01 0540 2 04/01 0522 18 04/01 0418 2 04/01 0418 97.3 84 18 133/74 93 OXYGEN 2 04/01 0331 2 04/01 0200 2 04/01 0200 97.3 85 16 126/71 95 OXYGEN 2 04/01 0130 2 04/01 0000 2 04/01 0000 98.2 87 16 135/71 93 OXYGEN 2 03/31 2300 2 03/31 2203 94 15 101/59 92 OXYGEN 2 03/31 2200 2 03/31 2200 98.9 91 16 132/71 93 OXYGEN 2 03/31 2045 2 03/31 2041 18 03/31 2030 97.9 100 17 128/66 94 2 03/31 1946 2 03/31 1946 98.1 104 18 128/66 94 OXYGEN 2 03/31 1910 2 03/31 1902 2 03/31 1902 98.0 79 20 142/81 89 2 03/31 1859 2 03/31 1859 87 ROOM AIR 03/31 1735 2 03/31 1700 2 03/31 1620 20 03/31 1500 2 03/31 1354 2 03/31 1351 98.0 79 20 142/81 96 OXYGEN 2 03/31 1300 2 03/31 1127 2 03/31 1127 98.0 82 22 114/94 95 OXYGEN 2 03/31 1100 2 03/31 1100 98.0 82 20 142/81 99 2 03/31 0945 2 03/31 0935 98.3 82 20 116/72 95 OXYGEN 2 03/31 0900 2 03/31 0750 2 03/31 0750 98.1 95 20 146/82 91 OXYGEN 2 I&O 04/01 0700 Intake Total 3112 Output Total 3080 Balance 32 Intake, IV 2102 Intake, Oral 1010 Output, Other 30 Output, Stool Output, Urine 3050 Exam General appearance no acute distress, alert Respiratory no distress Cardiovascular regular rate and rhythm Abdomen soft (ostomy functioning) Post op patient plan Diagnoses: Postoperative ileus-resolved Complicated diverticulitis status post resection and diverting ostomy Leukocytosis-improved (now on Invanz and Flagyl) Plan: Advance diet, Ambulate, Antibiotics, full liquids This inpt stay is expected to cross 2 MNs from start of care Yes at 0720
--- NOTE | 2017-04-01 13:16 | ACUTE CARE PROGRESS NOTE (QUA) ---
Progress Notes Subjective Date 04/01/17 Time 1315 Note Patient was up in a chair this morning and states that she feels better. Lungs are clear, heart rate regular, ileostomy doing well. Vital signs unremarkable. Objective Findings Last VS-Temp:97.5 B/P:105/58 Pulse:98 Resp:18 SaO2:92 ROOM AIR Last weight lbs:174 oz:1 K.953 Method:Bed Scales Assessment/Plan Problem List 1. Abscess of sigmoid colon due to diverticulitis 2. Chronic obstructive pulmonary disease 3. Hypertension, essential Patient condition Improving Plan: continue current care This inpt stay is expected to cross 2 MNs from start of care Yes at 1313
[2017-04-02 04:09] VITALS: BP 132/62
[2017-04-02 06:22] LABS: HEMOGLOBIN 8.7 g/dL (12.2-16.2); LYMPH # 1.9 K/mm3 (0.7-4.5); LYMPH % 11.8 % (10-50.0)
[2017-04-02 06:57] LABS: NEUTROPHILS 85 % (42-76)
[2017-04-02 08:07] VITALS: BP 127/71
--- NOTE | 2017-04-02 08:25 | ACUTE CARE PROGRESS NOTE (QUA) ---
Progress Notes Subjective Date 04/02/17 Time 0825 Note No changes in patient sensation. Lungs clear, heart rate regular, abdomen soft. No edema noted. Ileostomy back looks good. Objective Findings Last VS-Temp:97.3 B/P:127/71 Pulse:99 Resp:18 SaO2:92 ROOM AIR Last weight lbs:174 oz:1 K.953 Method:Bed Scales Assessment/Plan Problem List 1. Abscess of sigmoid colon due to diverticulitis 2. Chronic obstructive pulmonary disease 3. Hypertension, essential Patient condition Improving Plan: continue current care, agree with surgical management. No changes in plan. This inpt stay is expected to cross 2 MNs from start of care Yes at 0825
--- NOTE | 2017-04-02 08:45 | POST-OP PROGRESS NOTE ---
Post Op Subjective Data Patient is post-op day 6 Subjective data: She states that she is "a little tired and not getting good rest". She states that she is "overall fine". Pain control is "okay". Post op objective data Vitals,I&O,and Labs: Vital signs, intake and output,and available lab data for the last 24 hours is as noted below. Vital Signs Date Time Temp Pulse Resp B/P Pulse O2 O2 Flow FiO2 Ox Delivery Rate 04/02 0807 97.3 99 18 127/71 92 ROOM AIR 04/02 0653 2 04/02 0653 89 ROOM AIR 04/02 0409 98.1 97 20 132/62 92 ROOM AIR 04/02 0350 16 04/01 2057 2 04/01 2015 98.4 108 16 144/70 92 ROOM AIR 04/01 1944 18 04/01 1609 98.3 100 18 147/76 91 ROOM AIR 04/01 1326 18 04/01 1126 2 04/01 1058 97.5 98 18 105/58 92 2 04/01 1057 2 04/01 0919 2 04/01 0905 2 04/01 1500 04/01 2300 04/02 0700 Intake Total 480 1251 Output Total 1000 700 Balance 480 251 -700 Intake, Oral 480 1251 Output, Stool Output, Urine 1000 700 Laboratory Tests Test Result Date Time Chemistry Sodium (mmoL/L) 139 04/02 0600 Potassium (mmoL/L) 3.6 04/02 0600 Chloride (mmoL/L) 101 04/02 0600 Carbon Dioxide (mmoL/L) 29 04/02 0600 BUN (mg/dL) 2 04/02 0600 Creatinine (mg/dL) 0.5 04/02 0600 Estimated Creat Clear (ML/MIN) 144 04/02 0600 Estimated GFR (MDRD) (ML/MIN) 125 04/02 0600 Glucose (mg/dL) 83 04/02 0600 Lactic Acid (mmol/L) 1.5 03/24 1655 Calcium (mg/dL) 7.9 04/02 0600 Total Bilirubin (mg/dL) 0.3 03/29 0500 AST (U/L) 19 03/29 0500 ALT (U/L) 13 03/29 0500 Alkaline Phosphatase (U/L) 67 03/29 0500 Total Protein (gm/dL) 5.7 03/29 0500 Albumin (gm/dL) 1.7 03/29 0500 Globulin (gm/dL) 4.0 03/29 0500 Albumin/Globulin Ratio 0.4 03/29 0500 Amylase (U/L) 20 03/24 1055 Lipase (U/L) 90 03/24 1055 Hematology WBC (K/MM3) 16.0 04/02 600 RBC (M/mm3) 3.07 04/02 600 Hgb (g/dL) 8.7 04/02 600 Hct (%) 27.8 04/02 600 MCV (fl) 90.6 04/02 600 RDW (%) 14.1 04/02 600 Plt Count (K/mm3) 714 04/02 600 MPV (fl) 6.9 04/02 600 Gran % (%) 80.8 04/02 600 Gran # (K/mm3) 13.0 04/02 600 Total Counted (#CELLS) 100 04/02 600 Lymphocytes % (%) 11.8 04/02 600 Monocytes % (%) 6.0 04/02 600 Eosinophils % (%) 1.3 04/02 600 Basophils % (%) 0.1 04/02 600 Neutrophils (%) 85 04/02 600 Band Neutrophils (%) 5 04/02 06 Lymphocytes (Manual) (%) 6 04/02 600 Lymphocytes # (K/mm3) 1.9 04/02 600 Monocytes (Manual) (%) 4 04/02 600 Monocytes # (K/mm3) 1.0 04/02 600 Eosinophils # (K/mm3) 0.2 04/02 600 Basophils # (K/MM3) 0.0 04/02 600 Differential Comment SLIGHT PLT CLUMPING 03/30 0735 Hypersegmented Polys FEW 04/01 0410 Atypical Lymphocytes (%) 1 03/24 1055 Platelet Estimate MARKED INCREASE 04/02 600 Polychromasia 1+ 04/02 600 Hypochromasia 1+ 04/02 600 Poikilocytosis 1+ 04/02 600 Anisocytosis 1+ 03/28 505 Microcytosis 1+ 04/02 600 PUBS MCHC (g/dl) 31.2 04/02 600 Immunology Antibody Screen NEGATIVE 03/27 1348 MCH (pg) 28.3 04/02 0600 Miscellaneous Miscellaneous Test POSITIVE 03/27 1348 Urines Urine Color YELLOW 03/27 1536 Urine Appearance CLEAR 03/27 1536 Urine pH 7.5 03/27 1536 Ur Specific [place] 1.015 03/27 1536 Urine Protein (mg/dL) NEGATIVE 03/27 1536 Urine Ketones (mg/dL) 2+ 03/27 1536 Urine Blood 2+ 03/27 1536 Urine Nitrate NEGATIVE 03/27 1536 Urine Bilirubin NEGATIVE 03/27 1536 Urine Urobilinogen (E.U./dL) 0.2 03/27 1536 Ur Leukocyte Esterase NEGATIVE 03/27 1536 Urine RBC (rbc/hpf) 10-20 03/27 153 Urine WBC (wbc/hpf) OCC 03/27 1536 Ur Squamous Epith Cells (#/hpf) 3-5 03/24 121 Urine Bacteria 2+ 03/24 1215 Urine Glucose NEGATIVE 03/27 1536 Physical Exam VS/I&O Vital Signs Date Time Temp Pulse Resp B/P Pulse O2 O2 Flow FiO2 Ox Delivery Rate 04/02 0807 97.3 99 18 127/71 92 ROOM AIR 04/02 0653 2 04/02 0653 89 ROOM AIR 04/02 0409 98.1 97 20 132/62 92 ROOM AIR 04/02 0350 16 04/01 2057 2 04/01 2015 98.4 108 16 144/70 92 ROOM AIR 04/01 1944 18 04/01 1609 98.3 100 18 147/76 91 ROOM AIR 04/01 1326 18 04/01 1126 2 04/01 1058 97.5 98 18 105/58 92 2 04/01 1057 2 04/01 0919 2 04/01 0905 2 I&O 04/02 0700 Intake Total 1731 Output Total 1700 Balance 31 Intake, Oral 1731 Output, Stool Output, Urine 1700 Exam General appearance no acute distress Respiratory no distress Cardiovascular regular rate and rhythm Abdomen soft (wounds without erythema) Findings/Data slight increased output in TE...still cloudy and slightly feculent Post op patient plan Diagnoses: Leukocytosis-essentially stable this morning Plan: Antibiotics, (see below) This inpt stay is expected to cross 2 MNs from start of care Yes Additional data: The patient will be made NPO after midnight for possible CT scan tomorrow ( assuming she does not show significant improvement in her white count). Overall , she remains stable and has no need for emergent intervention; however, she may have a collection that is not being drained by way of her Gerald-Buckner. at 0845
[2017-04-02 09:10] VITALS: BP 127/71
[2017-04-02 15:26] VITALS: BP 138/68
[2017-04-02 19:28] VITALS: BP 144/62
[2017-04-02 20:30] VITALS: BP 144/62
[2017-04-03 03:56] VITALS: BP 128/59
[2017-04-03 05:36] LABS: HEMOGLOBIN 8.6 g/dL (12.2-16.2); LYMPH # 1.9 K/mm3 (0.7-4.5); LYMPH % 11.7 % (10-50.0)
--- NOTE | 2017-04-03 07:53 | ACUTE CARE PROGRESS NOTE (QUA) ---
Progress Notes Subjective Date 04/03/17 Time 0753 Note Overall patient is doing well. Has been up and around. Eating full liquid diet. White count noted. Abdomen soft. Lungs are clear, heart rate regular. Ileostomy bag functioning well. Objective Findings Last VS-Temp:98.2 B/P:128/59 Pulse:91 Resp:18 SaO2:90 ROOM AIR Last weight lbs:174 oz:1 K.953 Method:Bed Scales Assessment/Plan Problem List 1. Abscess of sigmoid colon due to diverticulitis 2. Chronic obstructive pulmonary disease 3. Hypertension, essential Patient condition Improving Plan: continue current care, consult surgeon, overall doing well except for persistent leukocytosis. Consider CT scan tomorrow. Will discuss with surgeon. This inpt stay is expected to cross 2 MNs from start of care Yes at 0753
[2017-04-03 08:00] VITALS: BP 126/69
--- NOTE | 2017-04-03 08:12 | SURGEON PROGRESS NOTE ---
Subjective data Subjective data: JILLIAN MCCONNELL is a 61 F .Patient denies complaint of nausea and vomitting.She reports her last pain level as 0 on a 0-10 pain scale. Patient without complaints. Some nausea which she attributes to Flagyl. Assessment findings Assessment Exam General appearance: normal appearance, alert ABD: colostomy Comment: Abdomen is soft. Wound clean. Ileostomy viable and functioning. Left TE drain with feculent drainage. Patient plan Plan: Antibiotics Additional data: Due to feculent drain output plan for CT scan today to evaluate for undrained abscess at 0812
--- NOTE | 2017-04-03 08:22 | ACUTE CARE PROGRESS NOTE (QUA) ---
Progress Notes Subjective Date 04/03/17 Time 0821 Assessment/Plan Problem List 1. Abscess of sigmoid colon due to diverticulitis 2. Chronic obstructive pulmonary disease 3. Hypertension, essential This inpt stay is expected to cross 2 MNs from start of care Yes Antibiotic Stewardship (2) Infxn that will respond? Yes Right drug,dose,and route? Yes (WBC IMPROVING) More targeted antbx? No at 0822
[2017-04-03 08:33] VITALS: BP 126/69; BP 128/59
--- NOTE | 2017-04-03 12:34 | RADIOLOGY REPORT PS360 ---
CT ABD PELVIS W/ CONTRAST CLINICAL INDICATION: Nausea, status post colon resection, diverticulitis S/P RESECTION,DIVERTICULITIS,LEUKOCYTOSIS ORDERING PHYSICIAN: Saúl Zuniga MD PATIENT AGE: 61 years COMPARISON: 03/24/2017 TECHNIQUE: Axial images obtained with sagittal and coronal reformats. PROCEDURE: Oral Contrast: Gastroview IV Contrast: 75 mL of Isovue-[id number]. FINDINGS: There are atelectatic changes in both lung bases right greater than left with slightly elevated right hemidiaphragm and small right pleural effusion. Gallbladder is slightly distended with prominence of the proximal aspect of the common bile duct measuring up to 12 mm. The spleen, adrenal glands, pancreas, and kidneys have an unremarkable appearance. There has been an interval placement of a diverting right lower quadrant ileostomy. No evidence of small bowel obstruction. There is mild diffuse thickening versus nondistention of the descending colon. Diverticulosis of the descending and sigmoid colon once again noted with thickening of the sigmoid colon appears somewhat improved compared to the previous exam. There is been interval placement of pelvic drains. There is a fluid collection in the left adnexal region which may represent residual abscess. The largest locule measures 2.5 cm. Left-sided pelvic abscess has shown some improvement compared to the previous study. There are small amount fluid in the presacral soft tissues as well as a small amount gas. There is open abdominal wound. Small amount gas is present in the urinary bladder. IMPRESSION: 1. Postsurgical changes with diverting ileostomy and placement of at least 2 percutaneous drains in the pelvis. 2. Loculated fluid collection is once again noted in the left adnexa and appears somewhat smaller consistent with residual abscess. There is now fluid in a small amount gas in the presacral region. This could be postsurgical. Cannot exclude the possibility of an developing abscess in this region. 3. Continued thickening of the sigmoid colon somewhat improved consistent with diverticulitis.
[2017-04-03 16:00] VITALS: BP 131/69
--- NOTE | 2017-04-03 16:35 | ACUTE CARE PROGRESS NOTE (QUA) ---
Progress note: - Patient feels pretty "fair". CT scan reveals some inflammatory changes with small pocket of fluid in the pelvis. TE drains inspected once again. Feculent drainage from the LEFT drain appears to be diminishing and becoming more clear. Continue drains for now. Continue intravenous antibiotics. The may need postoperative 14 day course of intravenous Invanz ultimately. at 1634
[2017-04-03 20:18] VITALS: BP 148/76
[2017-04-03 23:45] VITALS: BP 148/76
[2017-04-04 03:49] VITALS: BP 116/67
[2017-04-04 06:54] LABS: HEMOGLOBIN 8.6 g/dL (12.2-16.2); LYMPH # 1.9 K/mm3 (0.7-4.5)
--- NOTE | 2017-04-04 07:10 | SURGEON PROGRESS NOTE ---
Subjective data Subjective data: JILLIAN MCCONNELL is a 61 F .Patient denies complaint of nausea and vomitting.She reports her last pain level as 6 on a 0-10 pain scale. Patient without complaints. Tolerating bland diet. Not eating much due to poor appetite. Assessment findings Assessment Exam General appearance: normal appearance, alert ABD: soft Comment: Wound is clean. Ileostomy viable and functioning. Left TE drain with less feculent output. Patient plan Plan: Antibiotics Additional data: Wound care. at 0709
[2017-04-04 07:56] VITALS: BP 121/67
--- NOTE | 2017-04-04 08:06 | ACUTE CARE PROGRESS NOTE (QUA) ---
Progress Notes Subjective Date 04/04/17 Time 0740 Note Patient is resting in bed this morning. She is tolerating a bland diet without any nausea or vomiting. Continues to have abdominal pain, last rated 6/10. Left eye vision has returned to baseline. She is using incentive spirometer every hour. Denies any cough, shortness of breath or congestion. Alert and oriented x3. Rate and rhythm regular. No edema. Pulses 2+ bilaterally. Lung sounds clear and equal. Abdomen soft with ileostomy draining liquid stool. TE drain output has decreased. Normoactive bowel sounds. Patient/family reports: pain Nursing reports: no complaints Objective Findings Last VS-Temp:97.8 B/P:116/67 Pulse:65 Resp:18 SaO2:92 ROOM AIR Last weight lbs:174 oz:2 K.982 Method:Bed Scales Reviewed: medications, vital signs, lab results, radiology report Assessment/Plan Problem List 1. Abscess of sigmoid colon due to diverticulitis 2. Chronic obstructive pulmonary disease 3. Hypertension, essential Patient condition Improving Plan: continue current care This inpt stay is expected to cross 2 MNs from start of care Yes Comments: Continue IV antibiotics and wound care. at 0806
[2017-04-04 09:00] VITALS: BP 118/62
[2017-04-04 16:01] VITALS: BP 118/62
[2017-04-05 04:30] VITALS: BP 127/68
[2017-04-05 06:58] LABS: HEMOGLOBIN 9.3 g/dL (12.2-16.2); LYMPH # 2.5 K/mm3 (0.7-4.5)
[2017-04-05 07:33] VITALS: BP 137/67
--- NOTE | 2017-04-05 07:36 | ACUTE CARE PROGRESS NOTE (QUA) ---
Progress Notes Subjective Date 04/05/17 Time 0735 Note Overall patient feels a little better, ate some eggs and toast this morning. No nausea. No abdominal pain after eating. Cardiopulmonary exam unchanged. Ileostomy bag looks good. Tenderness around incision site, ostomy site and drain site but soft abdomen. No edema. Patient wearing compression stockings. Objective Findings Last VS-Temp:98.1 B/P:137/67 Pulse:92 Resp:18 SaO2:93 ROOM AIR Last weight lbs:170 oz:5 K.252 Method:Bed Scales Assessment/Plan Problem List 1. Abscess of sigmoid colon due to diverticulitis 2. Chronic obstructive pulmonary disease 3. Hypertension, essential Patient condition Improving, encouraging progress. Long-term need for antibiotics and drains. Probable home health referral early next week for ongoing IV antibiotics. This inpt stay is expected to cross 2 MNs from start of care Yes at 0736
--- NOTE | 2017-04-05 07:46 | SURGEON PROGRESS NOTE ---
Subjective data Subjective data: JILLIAN MCCONNELL is a 61 F .Patient denies complaint of nausea and vomitting.She reports her last pain level as 4 on a 0-10 pain scale. Patient feeling better with improved appetite. Assessment findings Assessment Exam General appearance: normal appearance, alert ABD: soft Comment: Ileostomy site healthy and functioning. Drain output thin light brown. Patient plan Plan: Antibiotics at 0745
[2017-04-05 09:03] VITALS: BP 137/67
[2017-04-05 15:19] VITALS: BP 125/68
[2017-04-05 20:17] VITALS: BP 133/62
[2017-04-06 04:30] VITALS: BP 136/70
[2017-04-06 07:42] VITALS: BP 121/62
--- NOTE | 2017-04-06 08:28 | ACUTE CARE PROGRESS NOTE (QUA) ---
Progress Notes Subjective Date 04/06/17 Time 0740 Note Patient is resting in bed this morning. She is tolerating a bland diet without any nausea or vomiting. Oral intake is poor. She is eating less than 25% of most meals. She is using incentive spirometer every hour. Denies any cough, shortness of breath or congestion. Alert and oriented x3. Rate and rhythm regular. No edema. Pulses 2+ bilaterally. Lung sounds clear and equal. Abdomen soft with ileostomy draining liquid stool. TE drains continue to have a small amount of output. Normoactive bowel sounds. Patient/family reports: feeling better Nursing reports: no complaints Objective Findings Last VS-Temp:98.2 B/P:121/62 Pulse:91 Resp:18 SaO2:92 ROOM AIR Last weight lbs:170 oz:5 K.252 Method:Bed Scales Reviewed: medications, vital signs, lab results, radiology report Assessment/Plan Problem List 1. Abscess of sigmoid colon due to diverticulitis 2. Chronic obstructive pulmonary disease 3. Hypertension, essential Patient condition Improving Plan: continue current care This inpt stay is expected to cross 2 MNs from start of care Yes Comments: Continue IV antibiotics and wound care. Post Adoption Coordinator consult for nutrition recommendations. at 0830
--- NOTE | 2017-04-06 09:02 | SURGEON PROGRESS NOTE ---
Subjective data Subjective data: JILLIAN MCCONNELL is a 61 F .Patient denies complaint of nausea and vomitting.She reports her last pain level as 0 on a 0-10 pain scale. Patient states she feels better every day. More strength and better appetite. Assessment findings Assessment Exam General appearance: normal appearance, alert ABD: soft, colostomy Comment: Ileostomy viable functioning well with good output. Wound clean. TE with scant thinner output. Patient plan Plan: Antibiotics Additional data: Encourage ambulation. May need PT. Continue antibiotics and wound care. Tentatively may plan for repeat CT scan early next week to evaluate for abscess and consider possible drain removal. at 0901
[2017-04-06 09:20] VITALS: BP 121/62
[2017-04-06 16:17] VITALS: BP 134/72
[2017-04-06 20:03] VITALS: BP 115/56
[2017-04-06 20:50] VITALS: BP 115/56
[2017-04-07 04:00] VITALS: BP 127/61
--- NOTE | 2017-04-07 07:57 | ACUTE CARE PROGRESS NOTE (QUA) ---
Progress Notes Subjective Date 04/07/17 Time 0755 Note Overall patient feels better, sitting up on the edge of the bed. Eating well. Has complaints of some LEFT wrist pain. Has been treated for tendinitis in the past on the LEFT hand. Lungs are clear, heart rate regular. Drain sites look good. Hand looks good with no swelling or range of motion difficulties. Objective Findings Last VS-Temp:98.9 B/P:127/61 Pulse:95 Resp:18 SaO2:93 ROOM AIR Last weight lbs:170 oz:5 K.252 Method:Bed Scales Assessment/Plan Problem List 1. Abscess of sigmoid colon due to diverticulitis 2. Chronic obstructive pulmonary disease 3. Hypertension, essential Patient condition Improving, continue current care, IV antibodies over the weekend. OT for evaluation for therapy/Biofreeze rubs for tendinitis. This inpt stay is expected to cross 2 MNs from start of care Yes at 0756
[2017-04-07 08:00] VITALS: BP 109/58
--- NOTE | 2017-04-07 08:10 | SURGEON PROGRESS NOTE ---
Subjective data Subjective data: JILLIAN MCCONNELL is a 61 F .Patient denies complaint of nausea and vomitting.She reports her last pain level as 0 on a 0-10 pain scale. Patient feeling stronger. No significant complaints. Feels like appetite is better. Assessment findings Assessment Exam General appearance: normal appearance, alert ABD: soft, colostomy Comment: Wound clean. Ileostomy functioning well and viable. Patient plan Plan: Antibiotics at 0809
[2017-04-07 09:23] VITALS: BP 112/62
[2017-04-07 16:22] VITALS: BP 125/66
[2017-04-07 19:33] VITALS: BP 131/74
[2017-04-08 03:51] VITALS: BP 121/79
--- NOTE | 2017-04-08 07:49 | ACUTE CARE PROGRESS NOTE (QUA) ---
Progress Notes Subjective Date 04/08/17 Time 0744 Note No events overnight. Feels pretty well this morning and reports that her only pain is some mild cramping in her upper abdomen after eating. Slept well last night. Exam reveals pleasant female, sitting up in bed, alert and oriented. Heart with RRR, lungs clear. Abdomen is soft, normal bowel sounds, TE drains with serous drainage, ileostomy with mixed solid/liquid output, dressing over the midline abdomen is clean and dry. No peripheral edema. Patient/family reports: feeling better, pain, fatigue Nursing reports: no complaints Objective Findings Last VS-Temp:98.5 B/P:121/79 Pulse:95 Resp:16 SaO2:93 ROOM AIR Last weight lbs:170 oz:5 K.252 Method:Bed Scales Reviewed: medications, vital signs Assessment/Plan Problem List 1. Abscess of sigmoid colon due to diverticulitis Assessment/Plan: repeat CBC and BMP today, otherwise no new orders. Contine diet as tolerated, up in chair as tolerated today, continue to follow with Dr Moore. 2. Chronic obstructive pulmonary disease 3. Hypertension, essential Patient condition Stable Plan: continue current care This inpt stay is expected to cross 2 MNs from start of care Yes at 0748
[2017-04-08 07:50] LABS: LYMPH # 2.1 K/mm3 (0.7-4.5); LYMPH % 16.9 % (10-50.0)
[2017-04-08 08:00] VITALS: BP 135/69
--- NOTE | 2017-04-08 09:46 | SURGEON PROGRESS NOTE ---
Subjective data Subjective data: JILLIAN MCCONNELL is a 61 F .Patient denies complaint of nausea and vomitting.She reports her last pain level as 0 on a 0-10 pain scale. No complaints.. Feeling well. Tolerating diet. Feeling stronger. Objective data Vitals,I&O,and Labs: Vital signs, intake and output,and available lab data for the last 24 hours is as noted below. Vital Signs Date Time Temp Pulse Resp B/P Pulse O2 O2 Flow FiO2 Ox Delivery Rate 04/08 08 98.3 93 16 135/69 92 04/08 0800 98.3 93 16 135/69 92 ROOM AIR 04/08 0645 2 04/08 0645 93 ROOM AIR 04/08 0432 16 04/08 0351 98.5 95 18 121/79 91 ROOM AIR 04/07 2005 16 04/07 1951 98.6 110 20 131/74 93 04/07 1933 98.6 110 20 131/74 93 ROOM AIR 04/07 1622 98.8 99 18 125/66 92 ROOM AIR 04/08 0700 04/07 2300 04/07 1500 Intake Total 917 2971 Output Total 1212 1325 300 Balance -295 1646 -300 Intake, IV 917 2851 Intake, Oral 120 Output, Other 12 25 Output, Stool Output, Urine 1200 1300 300 Laboratory Tests Test Result Date Time Chemistry Sodium (mmoL/L) 139 04/08 0740 Potassium (mmoL/L) 3.9 04/08 0740 Chloride (mmoL/L) 104 04/08 0740 Carbon Dioxide (mmoL/L) 31 04/08 0740 BUN (mg/dL) 3 04/08 0740 Creatinine (mg/dL) 0.7 04/08 07 Estimated Creat Clear (ML/MIN) 100 04/08 0740 Estimated GFR (MDRD) (ML/MIN) 85 04/08 0740 Glucose (mg/dL) 116 04/08 0740 Lactic Acid (mmol/L) 1.5 03/24 1655 Calcium (mg/dL) 8.4 04/08 0740 Total Bilirubin (mg/dL) 0.3 03/29 0500 AST (U/L) 19 03/29 0500 ALT (U/L) 13 03/29 0500 Alkaline Phosphatase (U/L) 67 03/29 0500 Total Protein (gm/dL) 5.7 03/29 0500 Albumin (gm/dL) 1.7 03/29 0500 Globulin (gm/dL) 4.0 03/29 0500 Albumin/Globulin Ratio 0.4 03/29 0500 Amylase (U/L) 20 03/24 1055 Lipase (U/L) 90 03/24 1055 Hematology WBC (K/MM3) 12.4 04/08 740 RBC (M/mm3) 3.28 04/08 740 Hgb (g/dL) 9.0 04/08 740 Hct (%) 29.9 04/08 740 MCV (fl) 91.2 04/08 740 RDW (%) 15.2 04/08 740 Plt Count (K/mm3) 833 04/08 740 MPV (fl) 7.1 04/08 740 Gran % (%) 72.1 04/08 740 Gran # (K/mm3) 9.0 04/08 740 Total Counted (#CELLS) 100 04/02 600 Lymphocytes % (%) 16.9 04/08 740 Monocytes % (%) 6.5 04/08 740 Eosinophils % (%) 3.6 04/08 740 Basophils % (%) 0.8 04/08 740 Neutrophils (%) 85 04/02 06 Band Neutrophils (%) 5 04/02 06 Lymphocytes (Manual) (%) 6 04/02 600 Lymphocytes # (K/mm3) 2.1 04/08 740 Monocytes (Manual) (%) 4 04/02 06 Monocytes # (K/mm3) 0.8 04/08 740 Eosinophils # (K/mm3) 0.5 04/08 740 Basophils # (K/MM3) 0.1 04/08 740 Differential Comment SLIGHT PLT CLUMPING 03/30 0735 Hypersegmented Polys FEW 04/01 0410 Atypical Lymphocytes (%) 1 03/24 1055 Platelet Estimate MARKED INCREASE 04/02 600 Polychromasia 1+ 04/02 06 Hypochromasia 1+ 04/02 06 Poikilocytosis 1+ 04/02 06 Anisocytosis 1+ 03/28 505 Microcytosis 1+ 04/02 06 PUBS MCHC (g/dl) 30.0 04/08 740 Immunology Antibody Screen NEGATIVE 03/27 1348 MCH (pg) 27.3 10/21 0740 Miscellaneous Miscellaneous Test POSITIVE 03/27 134 Urines Urine Color YELLOW 03/27 1536 Urine Appearance CLEAR 03/27 1536 Urine pH 7.5 03/27 1536 Ur Specific [place] 1.015 03/27 1536 Urine Protein (mg/dL) NEGATIVE 03/27 1536 Urine Ketones (mg/dL) 2+ 03/27 1536 Urine Blood 2+ 03/27 1536 Urine Nitrate NEGATIVE 03/27 1536 Urine Bilirubin NEGATIVE 03/27 1536 Urine Urobilinogen (E.U./dL) 0.2 03/27 1536 Ur Leukocyte Esterase NEGATIVE 03/27 1536 Urine RBC (rbc/hpf) 10-20 03/27 1536 Urine WBC (wbc/hpf) OCC 03/27 1536 Ur Squamous Epith Cells (#/hpf) 3-5 03/24 1215 Urine Bacteria 2+ 03/24 1215 Urine Glucose NEGATIVE 03/27 1536 Assessment findings Assessment Exam General appearance: normal appearance, alert ABD: soft Comment: Wound clean. Ileostomy functioning well. Left TE still cloudy. Right TE serous. Patient plan Plan: Antibiotics Additional data: Tentatively plan for repeat CT scan Monday. Pending findings may be able to DC one or two TE drains at that time. Likely will need discharge planning for ostomy care and supplies, wound care, and IV antibiotics. at 0946
[2017-04-08 16:00] VITALS: BP 133/68
[2017-04-08 19:53] VITALS: BP 117/71
[2017-04-08 19:55] VITALS: BP 117/71
[2017-04-09 04:00] VITALS: BP 105/69
[2017-04-09 08:00] VITALS: BP 112/63
[2017-04-09 08:56] VITALS: BP 112/63
--- NOTE | 2017-04-09 09:48 | ACUTE CARE PROGRESS NOTE (QUA) ---
Progress Notes Subjective Date 04/09/17 Time 0942 Note Rested well last night, no pain this morning other than soreness around her midline incision. No cramping or nausea after eating this morning. Denies cough and SOA. She does report weakness and difficulty walking any further than her bathroom and is concerned about this with thoughts of returning home. Her is at home and is able to help. Exam reveals pleasant female, alert and up in chair. Oriented. Heart with RRR, lungs clear and equal. Abdomen soft, BS present, liquid ostomy output, serous to cloudy drainage in TE drains. No edema and no extremity tenderness. Patient/family reports: feeling better, weakness Nursing reports: no complaints Objective Findings Last VS-Temp:98.4 B/P:112/63 Pulse:90 Resp:16 SaO2:93 ROOM AIR Last weight lbs:170 oz:5 K.252 Method:Bed Scales Reviewed: medications, vital signs, lab results, consult note Assessment/Plan Problem List 1. Abscess of sigmoid colon due to diverticulitis 2. Chronic obstructive pulmonary disease 3. Hypertension, essential Patient condition Stable Plan: continue current care This inpt stay is expected to cross 2 MNs from start of care Yes Comments: Encouraged patient to walk with staff and family, may move around hospital/leave room as desired to help lift spirits but to notify nurse when doing so at 0948
--- NOTE | 2017-04-09 10:43 | SURGEON PROGRESS NOTE ---
Subjective data Subjective data: JILLIAN MCCONNELL is a 61 F .Patient denies complaint of nausea and vomitting.She reports her last pain level as 0 on a 0-10 pain scale. No major complaints. Tolerating diet. Feeling better. Assessment findings Assessment Exam General appearance: normal appearance, alert ABD: soft Comment: Ileostomy functioning and viable. Wound clean with minimal granulation tissue ( slow healing). Left TE with cloudy output. Patient plan Plan: Antibiotics Additional data: Plan to repeat CT scan tomorrow now that 14 days post-op. If improvement may be able to remove at least one drain. at 1048
[2017-04-09 15:57] VITALS: BP 119/58
[2017-04-09 20:45] VITALS: BP 107/56
[2017-04-09 21:28] VITALS: BP 107/56
[2017-04-10 04:45] VITALS: BP 110/65
--- NOTE | 2017-04-10 08:08 | SURGEON PROGRESS NOTE ---
Subjective data Subjective data: JILLIAN MCCONNELL is a 61 F .Patient denies complaint of nausea and vomitting.She reports her last pain level as 0 on a 0-10 pain scale. No complaints. Feels well. Assessment findings Assessment Exam General appearance: normal appearance, alert ABD: soft Comment: Ileostomy functioning. Patient plan Plan: Antibiotics Additional data: CT scan today. Pending findings may stop Flagyl and may be able to DC one of drains. at 0808
[2017-04-10 08:30] VITALS: BP 125/89
[2017-04-10 09:50] VITALS: BP 125/89
[2017-04-10 16:05] VITALS: BP 128/65
--- NOTE | 2017-04-10 16:27 | RADIOLOGY REPORT PS360 ---
CT ABD PELVIS W/ CONTRAST HISTORY: COMPLICATED DIVERTICULITIS,PERSISTENT DRAINAGE Patient Age: 61 years: Female Ordering Physician: Saúl Zuniga MD TECHNIQUE: Helical CT scans abdomen and pelvis findings cc [id number] as well as Gastroview contrast. COMPARISON : FINDINGS Small sliding Hiatal hernia less evident Lower thorax prominent progressive consolidation most likely reflecting atelectasis and partial collapse involving segments RLL and RML here just above right hemidiaphragm findings have progressed 03/30/2017 CXR. Only minimal linear atelectasis LLL.. Recommend follow-up 2 view chest film to correlate. Air bronchograms are seen here. Favor mainly atelectasis but cannot pneumonia associated Liver. Scant fluid surrounds the anterior margin of liver.. Gallbladder. Layering sludge, otherwise unremarkable Spleen unremarkable. Adrenals unremarkable. Kidneys. No significant findings. Tiny less than 1 cm cyst focal left kidney.. No free peritoneal air.. RLQ ileostomy again noted as previously seen on 04/03/2017. There is slight additional distention of small bowel today with scattered moderate air-fluid levels at mildly prominent small bowel loops, seen here at the the lower abdomen and throughout pelvis. May reflect mild ileus. No bowel obstruction. The midline incision again noted. Appears more open and partially dehisced on axial slice 86 through 94. This appears slightly more pronounced than previous study 2 pelvic drainage tubes enter left lower quadrant. One extends along the left pelvic sidewall and just to the right of the rectosigmoid junction . The other extends more rightward course along the right pelvic sidewall containing posteriorly with tip further to the right Residual intraluminal contrast is seen within the lumen outlining the slight thickened wall seen throughout left colon & rectosigmoid colon. Scattered diverticuli are seen throughout the left colon and remaining sigmoid.... . There is a persistent small ovoid fluid collection 2.5 cm x 1.2 cm X 3.4 cm vertical dimension along the left pelvic sidewall lateral joint fluid collection persisting. Doubt ovary but this possibility as briefly entertained. There is also some scant fluid elsewhere in cul-de-sac Continuing superiorly minimal fluid is seen at the presacral space. The fluid is similar to slightly more apparent here but the dots of air and gas in this presacral region have regressed since prior 04/03/2017 study (sagittal image 47 axial images 85- 90 ) On also note there is hazy appearance of the fat lateral to the descending colon and along the left gutter reflecting some extension of fluid or inflammation here. This feature seen before; fairly stable only question perhaps slightly more evident. ======== IMPRESSION -Today's study compared to 04/03/2017. \ 1. RLQ Ileostomy. 2. The 2 drains seen remaining in place, entering from LLQ, with tips at deep posterior pelvis 3. Very slight increase fluid seen superior presacral region. . However Dots of air/gas in this region previously seen have shown interval regression.. This fluid appears to the rather dispersed fluid and does not appear to be a focal contained fluid collection nor discrete abscess... Warrants ongoing follow-up . 4.. The 2.5 cm text 1.2 cm discrete ovoid fluid collection along left pelvic sidewall at lower pelvis, (just overlying the distal sigmoid colon ) is again noted appears fairly stable Perhaps slight regression of other fluid smaller fluid collections just posterior/adjacent to this 5.. Slight Hazy paracolic fat, diffusely seen lateral to the descending colon; along left gutter/ left flank; & overlying the mildly thickened descending colon.. Appears fairly similar.. If anything very slightly more evident. Scant fluid along anterior margin of liver also noted today 6. Progressive consolidation RLL and RML distal right hemidiaphragm probably this may reflects atelectasis and collapse with air bronchograms. Difficult to exclude infiltrate. Right base . Recommend follow-up chest film. 7. Layering sludge has become evident gallbladder
[2017-04-10 19:54] VITALS: BP 143/67
[2017-04-11 04:47] VITALS: BP 125/66
[2017-04-11 08:23] VITALS: BP 125/66
[2017-04-11 08:30] VITALS: BP 95/55
--- NOTE | 2017-04-11 08:56 | ACUTE CARE PROGRESS NOTE (QUA) ---
Progress Notes Subjective Date 04/11/17 Time 0730 Note Patient is tolerating oral intake well without pain or nausea. She denies any complaints of pain this morning. Alert and oriented 3. Rate and rhythm regular. No lower extremity edema. Pulses 2+ bilaterally. Lung sounds clear. Abdomen with ileostomy draining liquid stool. Dressing LEFT abdomen clean, dry and intact. TE drains continue to have minimal output Patient/family reports: feeling better Nursing reports: no complaints Objective Findings Last VS-Temp:97.9 B/P:125/66 Pulse:86 Resp:20 SaO2:93 ROOM AIR Last weight lbs:170 oz:5 K.252 Method:Bed Scales Reviewed: medications, vital signs, lab results, radiology report Assessment/Plan Problem List 1. Abscess of sigmoid colon due to diverticulitis 2. Chronic obstructive pulmonary disease 3. Hypertension, essential Patient condition Stable Plan: continue current care This inpt stay is expected to cross 2 MNs from start of care Yes Comments: Stable from a cardiopulmonary standpoint. Will obtain chest x-ray as her CT scan yesterday showed some increased consolidation. Continue wound care. at 0856
--- NOTE | 2017-04-11 15:18 | RADIOLOGY REPORT PS360 ---
CHEST(2 VIEWS-NOT PORTABLE) HISTORY: consolidation on abdominal CT ORDERING PHYSICIAN: Saúl Zuniga MD PATIENT AGE: 61 years COMPARISON: None available FINDINGS: The cardiomediastinal silhouette and pulmonary vascularity are within normal limits. Right hemidiaphragm is elevated with persistent atelectasis or infiltrate in the lung bases not significant change. Small amount contrast is present in large bowel from recent CT scan. PICC line has been place with the tip in region of SVC. IMPRESSION: 1. No change elevated right hemidiaphragm with bibasilar airspace disease which may be due to atelectasis and/or infiltrate.
[2017-04-11 16:30] VITALS: BP 111/68
--- NOTE | 2017-04-11 17:17 | SURGEON PROGRESS NOTE ---
Subjective data Subjective data: JILLIAN MCCONNELL is a 61 F .Patient denies complaint of nausea and vomitting.She reports her last pain level as 0 on a 0-10 pain scale. No major complaints. Assessment findings Assessment Exam General appearance: normal appearance, alert ABD: soft Comment: Wound with drainage. TE drain minimal. LEFT TE still cloudy. Patient plan Plan: Antibiotics Additional data: CT scan report reviewed. Will DC Flagyl. Will discuss findings with radiologist. Probably remove LEFT TE in the morning. Likely discharge home in the morning with home health for wound care and several more days IV antibiotics. at 3668
[2017-04-11 20:03] VITALS: BP 117/56
[2017-04-12 03:59] VITALS: BP 103/61
[2017-04-12 06:38] LABS: LYMPH # 2.5 K/mm3 (0.7-4.5); LYMPH % 29.5 % (10-50.0)
[2017-04-12 07:31] VITALS: BP 102/59
--- NOTE | 2017-04-12 07:41 | SURGEON PROGRESS NOTE ---
Subjective data Subjective data: JILLIAN MCCONNELL is a 61 F .Patient denies complaint of nausea and vomitting.She reports her last pain level as 0 on a 0-10 pain scale. Feeling well. No major complaints. Assessment findings Assessment Exam General appearance: normal appearance, alert ABD: soft, colostomy Comment: Wound clean. TE output scant. Patient plan Plan: Antibiotics Additional data: DC planning. at 0740
[2017-04-12 09:10] VITALS: BP 102/59
[2017-04-12 16:28] VITALS: BP 121/64
[2017-04-12 19:51] VITALS: BP 121/66
[2017-04-12 20:00] VITALS: BP 121/66
[2017-04-13 04:18] VITALS: BP 123/65
[2017-04-13 07:42] VITALS: BP 113/66
--- NOTE | 2017-04-13 08:23 | ACUTE CARE PROGRESS NOTE (QUA) ---
Progress Notes Subjective Date 04/13/17 Time 0800 Note Patient is tolerating oral intake well without pain or nausea. She reports increased abdominal tenderness s/p drain removal Alert and oriented 3. Rate and rhythm regular. No lower extremity edema. Pulses 2+ bilaterally. Lung sounds clear. Abdomen with ileostomy draining liquid stool. Dressing LEFT abdomen clean, dry and intact. TE drain x1 with minimal output Patient/family reports: no complaints Nursing reports: no complaints Objective Findings Last VS-Temp:98.3 B/P:113/66 Pulse:89 Resp:20 SaO2:94 ROOM AIR Last weight lbs:156 oz:6 K.931 Method:Bed Scales Reviewed: medications, vital signs, lab results, consult note Assessment/Plan Problem List 1. Abscess of sigmoid colon due to diverticulitis 2. Chronic obstructive pulmonary disease 3. Hypertension, essential Patient condition Improving Plan: continue current care This inpt stay is expected to cross 2 MNs from start of care Yes Comments: Encouraged to increase ambulation today. Continue antibiotics. Continue wound and ostomy care. Plan to discharge tomorrow. at 0824
[2017-04-13 08:45] VITALS: BP 117/69
--- NOTE | 2017-04-13 08:52 | SURGEON PROGRESS NOTE ---
Subjective data Subjective data: JILLIAN MCCONNELL is a 61 F .Patient denies complaint of nausea and vomitting.She reports her last pain level as 0 on a 0-10 pain scale. Doing well. No major complaints. Assessment findings Assessment Exam General appearance: normal appearance, alert ABD: soft, colostomy Comment: Abdomen soft. Ileostomy viable and functioning. Remaining TE output scant cloudy. Patient plan Plan: Antibiotics Additional data: Likely continue antibiotics until Monday. Continue wound care. at 0832
[2017-04-13 15:45] VITALS: BP 117/69
[2017-04-13 19:57] VITALS: BP 113/67
[2017-04-13 21:00] VITALS: BP 113/67
[2017-04-14 04:20] VITALS: BP 126/77
--- NOTE | 2017-04-14 07:25 | DISCHARGE SUMMARY STANDARD ---
Demographics Admit date: 03/24/17 Discharge date: 04/14/17 History of present illness History of present illness Patient is a 61-year-old white female. For about 3 months she has had some constipation and occasional obstipation with LEFT lower quadrant abdominal pain, anorexia, and may lays. She's had some cramping. She underwent outpatient CT scan on 03/03/17 which revealed findings of diverticulosis and constipation without diverticulitis. This was ordered by gastroenterology as an outpatient. She ultimately underwent colonoscopy by Dr. Talavera on 03/13/17. Most notable was evidence of fibrotic stricture of the sigmoid colon consistent with chronic diverticulitis. She had some liquid stool and increased luminal diameter proximal. There was ulceration of the ileocecal valve. Pathology revealed focal acute colitis at the ileocecal valve with benign tissue at the stricture. She was referred to surgery for consideration of resection given the severity of this. However, in the interim she's had progressive ongoing symptoms. She had been seen by her primary care provider several days ago and had a leukocytosis and was started on Augmentin. She presented to the emergency department earlier today and was found have a leukocytosis. She underwent CT scan with IV and oral contrast and this revealed findings of diffuse diverticulosis of the LEFT colon with probable focal diverticulitis segment at the rectosigmoid region with adjacent fluid collection measuring 2.7 cm consistent with possible developing abscess. She was admitted for inpatient management. Surgical consultation was obtained. Above note per Dr. Moore in surgery. Surgical note reviewed and appreciated. I don't have much to add about the above note. Patient also has a history of emphysema, quit smoking in December, her primary corporate planning manager, Dr. 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 Gastrointestinal/surgical issues detailed above. Patient complaint this morning is in LEFT lower quadrant pain but is not really interested in more pain medications because of the risk of constipation. Hospital Course Hospital Course: Patient was admitted as noted above. Patient was placed on broad-spectrum IV antibiotics with Invanz, Flagyl and PICC line was placed because of anticipation of need for long-term IV antibiotics given her peritonitis and evidence of intestinal perforation. She continued to have leukocytosis and because of ongoing pain and fevers and leukocytosis she was taken to the operating room on March 27, diverging ileostomy and hemicolectomy was done and 2 TE drains were placed. Please refer to the operative notes for details. Patient tolerated the procedure well and was transferred back to the floor with ongoing IV antibiotics. Ileostomy functioned well from its initiation, and patient was very slowly and cautiously advanced from a clear liquid diet to a full diet over the next 4-5 days. She continued on IV antibiotics and observation of her white counts which improved very slowly but steadily. Patient was determined and need ongoing IV antibiotics and she was kept here for that. Dressing changes, ileostomy care and TE drains were monitored. 2 days ago one of the TE drains was pulled after CT scan showed resolution of one of the pockets of peritonitis. Over the next couple days she has done well with good eating, good walking and improved strength. This morning she is feeling well, her exam reveals clear lungs, regular heart rate, function ileostomy, soft but tender bilateral lower quadrants and a TE drain is draining very thin serous fluid. Plan will be to discharge her home today with daily Invanz therapy. She will return to the infusion area on a daily basis for this over the next week. She will follow up with surgery early next week, she will continue ileostomy care at home. She will see her primary corporate planning manager Dr. Alaniz next week as well. Please see discharge medication reconciliation forms. Discharge diagnoses Problem List 1. Abscess of sigmoid colon due to diverticulitis 2. Chronic obstructive pulmonary disease 3. Hypertension, essential Medications Medications: Discharge meds are as noted. Follow up Follow up in office in: 5 DAYS with: Jeff Alaniz MD at [phone]
[2017-04-14] MEDS ORDERED: ATENOLOL50 MG PO (07:27)
[2017-04-14] MEDS ORDERED: NORCO 325 MG-51 TAB PO (07:29)
[2017-04-14 07:43] VITALS: BP 109/65
--- NOTE | 2017-04-14 08:07 | SURGEON PROGRESS NOTE ---
Subjective data Subjective data: JILLIAN MCCONNELL is a 61 F .Patient denies complaint of nausea and vomitting.She reports her last pain level as 0 on a 0-10 pain scale. Doing well. No major complaints. Had normal bowel movement per rectum. Assessment findings Assessment Exam General appearance: normal appearance, alert ABD: soft, colostomy Comment: TE cloudy output. Patient plan Plan: DC Additional data: Patient to be discharged home today on IV antibiotics and dressing changes. Will recheck on Monday. Likely DC antibiotics after Monday. May get CT scan next week. at [phone]
[2017-04-14 11:26] VITALS: BP 109/65
== END 2017-04-14 11:05 | disposition home or self-care (01) | DRG 330 ==
LOC: ER 10:35 → 2ND 15:52
PROVIDERS: Emergency Medicine; Internal Medicine Adolescent Medicine; Surgery
PROC: 0D1B0Z4 Bypass Ileum to Cutaneous, Open Approach (ICD-10-PCS; 2017-03-27)
PROC: 0DTN0ZZ Resection of Sigmoid Colon, Open Approach (ICD-10-PCS; principal; 2017-03-27 13:15)
PROC: 05HC33Z Insertion of Infusion Device into Left Basilic Vein, Percutaneous Approach (ICD-10-PCS; 2017-03-30)
DX: K57.20 Diverticulitis of large intestine with perforation and abscess without bleeding (principal); R34 Anuria and oliguria; K56.0 Paralytic ileus; D50.0 Iron deficiency anemia secondary to blood loss (chronic); I10 Essential (primary) hypertension; J44.9 Chronic obstructive pulmonary disease, unspecified
CPT/HCPCS: C1751; G0238; J0131; J0330; J1335; J2405; J2710; Q9967

== ENCOUNTER 2017-04-24 12:00 | Outpatient (CLI) | payer BC ==
[~2017-04-24 12:00] MED LIST changes: +AUGMENTIN 875-1 EACH PO; +HYOSCYAMINE0.125 M1 PO; +LOVASTATIN20 MG PO; +NORCO 325 MG-51 TAB PO; +PANTOPRAZOLE SO40 MG PO
== END 2017-04-24 13:15 | disposition home or self-care (01) ==
LOC: COP 12:00
DX: K57.20 Diverticulitis of large intestine with perforation and abscess without bleeding (principal); K56.0 Paralytic ileus; R34 Anuria and oliguria; Z48.01 Encounter for change or removal of surgical wound dressing
CPT/HCPCS: G0463

== ENCOUNTER → 2017-04-26 | Outpatient (CLI) | payer BC ==
[2017-04-26] VITALS (9 sets, daily range): BP systolic 124–160; BP diastolic 65–94
[2017-04-26 16:31] LABS: LYMPH # 2.4 K/mm3 (0.7-4.5); LYMPH % 20.8 % (10-50.0)
[2017-04-26 16:50] LABS: BUN 25 mg/dL (7-18)
[2017-04-26 16:51] LABS: GFR (ESTIMATED) 35 ML/MIN (59-)
== END ==
LOC: COP 15:27 → RAD 15:27
PROVIDERS: Internal Medicine
DX: K57.20 Diverticulitis of large intestine with perforation and abscess without bleeding (principal); K56.0 Paralytic ileus; R34 Anuria and oliguria; Z48.01 Encounter for change or removal of surgical wound dressing
CPT/HCPCS: G0463

== ENCOUNTER 2017-05-09 11:51 | Outpatient (CLI) | payer MEDICAID ==
[2017-05-09 12:20] VITALS: BP 109/73
[2017-05-09 13:20] VITALS: BP 113/68
[2017-05-09 14:20] VITALS: BP 128/78
[2017-05-09 15:20] VITALS: BP 115/62
[2017-05-09 16:20] VITALS: BP 110/74
== END 2017-05-09 16:30 | disposition home or self-care (01) ==
LOC: COP 11:51
DX: E86.0 Dehydration (principal); K57.20 Diverticulitis of large intestine with perforation and abscess without bleeding; K56.0 Paralytic ileus; R34 Anuria and oliguria; Z48.01 Encounter for change or removal of surgical wound dressing
CPT/HCPCS: J2405

== ENCOUNTER 2017-05-22 11:43 | Outpatient (CLI) | payer MEDICAID ==
[2017-05-22 12:24] VITALS: BP 123/87
[2017-05-22 12:25] LABS: LYMPH # 2.4 K/mm3 (0.7-4.5); LYMPH % 24.2 % (10-50.0)
[2017-05-22 12:29] LABS: HEMOGLOBIN 11.7 g/dL (12.2-16.2)
[2017-05-22 12:38] LABS: BUN 11 mg/dL (7-18)
[2017-05-22 12:40] VITALS: BP 121/84
[2017-05-22 12:42] LABS: GFR (ESTIMATED) 63 ML/MIN (59-)
[2017-05-22 12:55] VITALS: BP 118/81
[2017-05-22 13:10] VITALS: BP 121/80
[2017-05-22 13:30] VITALS: BP 119/84
== END 2017-05-22 13:35 | disposition home or self-care (01) ==
LOC: COP 11:43
PROVIDERS: Surgery
DX: E86.0 Dehydration (principal); R53.1 Weakness

== ENCOUNTER 2017-06-12 14:20 | Observation (INO) | payer MEDICAID ==
[~2017-06-12] VITALS: Ht 162.6 cm; Wt 61.2 kg
[2017-06-12 14:21] VITALS: BP 181/78
--- NOTE | 2017-06-12 14:31 | Emergency Room Report ---
History of Present Illness Time Seen by MD García Presenting Problem in Triage Pt arrived:Wheelchair Presenting Problem:PT REPORTS MIDSTERNAL CHEST PRESSURE THAT IS RADIATING THROUGH TO HER BACK. 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 N Clinical Suspician of Infection? N Mental Status: 1 - Regular (Normal Baseline) Sepsis Risk:Low Sepsis Risk Have you (or family members/close friends) recently traveled outside the [place]? N If Yes, where/when: Have you had exposure to infectious disease within the past month? N TB? Other? Specify: 61 years old white female with history of hypertension and bowel obstruction. He underwent coronary resection and postoperative colostomy. She was taken off her blood pressure medications due to episodes of hypotension. Today at 11 AM, she developed chest pressure shows a breath and palpitations. The pain is radiating to her back. She denies nausea or vomiting or diarrhea. She did she denies any headache. Source patient, RN notes reviewed, family Exam Limitations no limitations ALLERGIES Coded Allergies: No Known Allergies (03/27/17) Home Medications Active Scripts ATENOLOL (Atenolol 50MG) 50 MG PO QHS #30 TAB Ref 2 Prov: 04/14/17 Reported Medications Prednisone (Prednisone 5MG) 5 MG PO DAILY Pantoprazole Sodium (Pantoprazole 40MG) 40 MG PO DAILY History Medical History General CAD? No Angina: No CO: No Hypertension? Yes Hyperlipidemia? Yes CHF? No COPD? Yes Asthma? Yes Hernia? No CVA? Yes Seizures? No Diabetes? No UTI? Yes Stones? Yes GB Disease: No Hepatitis? No Arthritis? Yes Cataracts? No Glaucoma? No TB? No Cancer? No More? Yes Additional hx: ' Immunization Hx DT/Tetanus > 10 Years Ago Flu [id number] Pneumonia Received In Past Surgical Hx Previous Surgery?Y APPENDECTOMY Exploratory Laparoscopy TUBAL LIGATION TUMOR REMOVED FROM NECK & SALIVARY GLND STONE ILEOSTOMY Family History Family Hx Diabetes Yes CAD Yes Hypertension Yes Hyperlipidemia Yes Cancer Yes TB No Social History Smoking Hx Smoker: Former Smoker Tobacco: No Packs/day N/A Alcohol Alcohol: No Review of Systems All Other Systems Reviewed and Negative Constitutional no symptoms reported Eyes no symptoms reported ENT no symptoms reported. Respiratory see HPI, shortness of breath Cardiovascular see HPI, chest pain, palpitations Gastrointestinal no symptoms reported Genitourinary no symptoms reported. Musculoskeletal no symptoms reported Skin no symptoms reported Psychiatric/Neurological no symptoms reported Physical Exam Vital Signs Vital Signs Date Time Temp Pulse Resp B/P Pulse O2 O2 Flow FiO2 Ox Delivery Rate 06/12 1456 67 18 144/73 97 06/12 1421 98.0 71 18 181/78 97 - WBC >12,000 or <4,000 or 10% bands? 2 or more SIRS Criteria Met? B/P:181/ MAP:112 Creatinine >2.0? UA output<0.5ml/kg/hr for 2 hrs? Platelet count >100,000? Lactate >2.0mmol/1? INR >1.2 or PTT > than 60 sec? Evidence of Organ Dysfunction? Provider documented clinical suspician of infection? N Sepsis Criteria Count: 0 Sepsis Risk: Low Sepsis Risk General Appearance normal appearance, WD/WN Eye Exam - bilateral eye normal exam, bilateral eye PERRL, bilateral eye EOMI Ear, Nose, Throat hearing grossly normal, normal ENT inspection Neck normal inspection, non-tender, supple, full range of motion Respiratory Status Yes: trachea midline, chest symmetrical, non tender chest. No: respiratory distress. Lung Sounds bilateral: normal breath sounds, lungs clear. Cardiovascular normal exam, regular rate/rhythm, no peripheral edema, no gallop, no JVD, no murmur, no rub, normal peripheral pulses Peripheral Pulses Pulses normal Yes Gastrointestinal normal bowel sounds, normal exam, non tender, soft, no organomegaly Back normal inspection, no CVA tenderness, no vertebral tenderness Extremities no calf tenderness, no pedal edema Neurologic alert, radar air traffic controller II-XII nml as tested, normal exam, no motor/sensory deficits, oriented x 3 Reflexes Reflexes normal Yes Skin intact, normal color, warm/dry Medical Decision Making LABS/Meds/Orders Pt receiving controlled substance in ED? No Results/Orders Laboratory Tests 06/12/17 1425: Sodium 141, Potassium 3.9, Chloride 109 H, Carbon Dioxide 22, BUN 14, Creatinine 0.9, Estimated Creat Clear 64, Estimated GFR (MDRD) 63, Glucose 104, Calcium 8.4 L, Total Bilirubin 0.7, AST 53 H, ALT 61, Alkaline Phosphatase 97, Creatine Kinase 38, CK-MB (CK-2) Rel Index 1.3, CK and CKMB Interp < 0.5, Troponin I < 0.02, B-Natriuretic Peptide 226 H, Total Protein 7.8, Albumin 3.5, Globulin 4.3 H, Albumin/Globulin Ratio 0.8 L, WBC 17.0 H, RBC 4.46, Hgb 12.5, Hct 40.1, MCV 90.0, RDW 16.1, Plt Count 336, MPV 7.4, Gran % 87.7 H, Gran # 14.9 H, Total Counted Pending, Lymphocytes % 7.3 L, Monocytes % 3.8, Eosinophils % 0.9, Basophils % 0.3, Neutrophils Pending, Lymphocytes (Manual) Pending, Lymphocytes # 1.2, Monocytes # 0.6, Eosinophils # 0.2, Basophils # 0.1, Platelet Estimate Pending, PUBS MCHC 31.2 L, MCH 28.1 Current Medication Orders Sig/Irina Start time Last Medication Dose Route Stop Time Status Admin Sodium Chloride 1,000 ML .Q4H 06/12 1445 AC 06/12 IV 06/12 1844 1436 Sodium Chloride 10 ML PRN PRN 06/12 1445 AC IV 06/13 1431 Sodium Chloride 1,000 ML .STK-MED ONE 06/12 1435 DC IV Aspirin 243 MG ONCE ONE 06/12 1430 CAN PO 06/12 1431 Aspirin 162 MG ONCE ONE 06/12 1430 DC 06/12 PO 06/12 1431 1429 Nitroglycerin 1 IN ONCE ONE 06/12 1430 DC 06/12 TP 06/12 1431 1428 Nitroglycerin 0 .STK-MED ONE 06/12 1427 DC .ROUTE Aspirin 0 .STK-MED ONE 06/12 1426 DC .ROUTE Aspirin 0 .STK-MED ONE 06/12 142 DC .ROUTE Orders Procedure Date/time Status CULTURE, BLOOD 06/12 1525 Active URINALYSIS/COMPLETE 06/12 1525 Active LACTIC ACID 06/12 1525 Active Decision to admit 06/12 1455 Active ELECTROCARDIOGRAM REQUEST 06/12 142 Active CHEST-PORTABLE 06/12 1427 Active CBC WITH AUTO DIFF 12/25 1427 Active CARDIAC ENZYMES 06/12 1427 Complete CHEM 12 PROFILE 06/12 1427 Complete BRAIN NATRIURETIC PEPTIDE 06/12 1427 Complete DIFFERENTIAL-WBC 06/12 1425 Active 12 LEAD EKG-BRENNA (INITIAL) 06/12 UNK Active CM/EKG CM/EKG Comments Normal sinus rhthma 72 minutes, base line artifact, , no acute findings. XRAY/CT/US XRAY/CT/US XRAY chest XR interpretation by reviewed by me Xray Results no infiltrates, elevated r hemidiaphragm, RLL atlectasis, PVC. Departure Departure Time of Disposition 1430 Disposition Still a Patient Clinical Impression Primary Impression: Chest pain Secondary Impressions: Colostomy care, Hypertension, Leucocytosis Condition STABLE Referrals Corbin MANCILLA,Jeff Agrawal (Family) Additional Instructions The patient has leukocytosis with without fever or being on steroids. I ordered blood cultures and lactic acid, will hold antibiotic therapy and repeat complete blood count. The patient had a nitropaste 1/ with decreased BP to 140 mmhg and decreased chest pain to 5/10, i informed her if she devloped any dizziness or light headedness to notigy me technical coordinatorfurniture removalist's assistant immediately. I discussed with Dr Zuniga who agreed to admit for r/o CO and consult dr Cabello. The patient remained stable. Discharge Counseling Counseled pt/family regarding diagnosis, test results, medications/RX, follow up needs ED Critical Care Critical Care No If Critical Care minutes are documented, the time involved in the performance of seperately reportable procedures was not counted toward critical care time documented. I directly delivered medical care to this critically ill and/or injured patient. Timely evaluation and treatment was necessary to address the significant organ system(s) dysfunction present in this patient. at [id number]
[2017-06-12 14:41] LABS: HEMOGLOBIN 12.5 g/dL (12.2-16.2); LYMPH # 1.2 K/mm3 (0.7-4.5); LYMPH % 7.3 % (10-50.0)
--- OUTSIDE RECORDS SUMMARY | 2017-06-12 14:50 | External Medical Summary Rpt | CCD ---
Author Author , NOVA BHATT Address Unknown Phone [email or web address] Care Team Providers Care Job Boss Name Role Phone [facility] Unavailable Unavailable [facility] MICHAEL ALSTON, MICHAEL ALSTON Unavailable Unavailable MICHAEL ALSTON, MICHAEL ALSTON Unavailable Unavailable Purpose Continuity of Care Document - 03-03-2017 through 2016 Problems Code Diagnosis DOS Provider Status I10 ESSENTIAL 06-12-2017 (PRIMARY) HYPERTENSIO N R07.9 CHEST PAIN, 06-12-2017 UNSPECIFIED Z43.3 ENCOUNTER 06-12-2017 FOR ATTENTION TO COLOSTOMY E860 DEHYDRATION 05-09-2017 [facility] K560 PARALYTIC 05-09-2017 [facility] K5720 DIVERTICULI 05-09-2017 [facility] INTEST INC W/PERF & ABSC W/O BLEED R34 ANURIA AND 05-09-2017 [facility] Z4801 ENCOUNTER 05-09-2017 [facility] GRISELDA INC SURGICAL WOUND DRESSING J449 CHRONIC 04-19-2017 MICHAEL ALSTON OBSTRUCTIVE PULMONARY DISEASE UNS M353 POLYMYALGIA 04-19-2017 MICHAEL ALSTON RHEUMATICA N739 FEMALE 04-19-2017 MICHAEL ALSTON PELVIC INFLAMMATOR Y DISEASE UNSPECIFIED R310 GROSS 04-19-2017 MICHAEL ALSTON HEMATURIA R531 WEAKNESS 04-19-2017 MICHAEL ALSTON [id number] OTHER 04-19-2017 MICHAEL ALSTON SPECIFIED POSTPROCEDU RAL STATES 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 00 TE ti AT 30 7- 5- 00 01 ve IN 58 20 20 0 20 AI 71 17 17 68 D 10 6 45 PH 0, AR 00 MA 0 CY UN IT #3 /M 93 L 8 BAZZI SP CO 00 11 12 12 2 00 HO Ac OM 60 -1 -0 0. 00 ME ti ET 31 3- 8- 00 06 TO ve SNYDER 58 20 20 0 09 WN ZI 45 17 17 71 NE 8 40 PH AR 6. MA 25 CY MG OF /5 CY ML NT HI SY AN RP A [place] 50 11 12 24 [address] 38 -0 -0 0. 00 TE ti AT 30 3- 1- 00 01 ve IN 58 20 20 0 20 AI 71 17 17 68 D 10 6 45 PH 0, AR 00 MA 0 CY UN IT #3 /M 93 L 8 BAZZI SP CO 00 11 11 12 2 00 HO Ac OM 60 -0 -2 0. 00 ME ti ET 31 1- 4- 00 06 TO ve SNYDER 58 20 20 0 09 WN ZI 45 17 17 71 NE 8 40 PH AR 6. MA 25 CY MG OF /5 CY ML NT HI SY AN RP A Results Labs Lab Lab Date Result Refere Interp Status Commen Order Detail nces retati t Range on Comprehensive metabolic panel (05-22-2017 12:03) Serum 2 = 0.7 1.1-1.8 complet or 017 ed plasma 12:03 albumin /globul in mass ra Serum 2 = 3.1 3.4-5.0 complet or 017 gm/dL ed plasma 12:03 albumin measure ment (mas Serum = 118 46-116 complet or 017 U/L ed plasma 12:03 alkalin e phospha tase rose marie Serum 2 = 0.7 0.2-1.0 complet or 017 mg/dL ed plasma 12:03 total bilirub in measure m Serum = 11 7-18 complet or 017 mg/dL ed plasma 12:03 urea nitroge n measure men Serum 2 = 8.5 8.5-10. complet or 017 mg/dL 1 ed plasma 12:03 calcium measure ment (mas Carbon = 20 21.0-32 complet dioxide 017 mmoL/L .0 ed 12:03 measure ment Serum 2 = 0.9 0.55-1. complet or 017 mg/dL 02 ed plasma 12:03 creatin ine measure ment ( Estimat = 63 59- complet ed 017 ML/MIN ed glomeru 12:03 lar filtrat ion rate (GF Comment: REFERENCE RANGE: >60 ML/MIN/1.73 SQUARE METERS Comment: If this patient is -[place], then multiply the Comment: result by 1.210. Serum = 4.7 1.3-3.2 complet globuli 017 gm/dL ed n 12:03 measure ment (mass/v olume) Serum = 103 98-107 complet or 017 mmoL/L ed plasma 12:03 chlorid e measure ment (mo Serum = 93 74-106 complet or 017 mg/dL ed plasma 12:03 glucose measure ment (mas Serum = 3.4 3.5-5.1 complet potassi 017 mmoL/L ed um 12:03 measure ment Serum = 138 136-145 complet sodium 017 mmoL/L ed measure 12:03 ment Serum = 28 15-37 complet or 017 U/L ed plasma 12:03 asparta te aminotr ansfera ALT = 26 12-78 complet (SGPT) 017 U/L ed ser/masoud 12:03 s Protein = 7.8 6.4-8.2 complet total 017 gm/dL ed ser/masoud 12:03 s CBC w auto diff (05-22-2017 12:03) Automat = 0.1 0-0.2 complet ed 017 K/MM3 ed blood 12:03 basophi l count (count/ vo Baso % = 0.6 % 0.1-2.0 complet 017 ed 12:03 Automat = 0.2 0.0-0.4 complet ed 017 K/mm3 ed blood 12:03 eosinop hil count Automat = 2.2 % 0.1-12. complet ed 017 0 ed blood 12:03 eosinop hils/10 0 leukocy t Blood = 6.5 1.8-7.8 complet granulo 017 K/mm3 ed cytes 12:03 automat ed count (numb Granulo = 65.2 37.0-80 complet cyte 017 % .0 ed percent 12:03 age Blood = 36.6 37.0-47 complet hematoc 017 % .0 ed rit 12:03 (volume fractio n) Blood = 11.7 12.2-16 complet hemoglo 017 g/dL .2 ed bin 12:03 measure ment (mass/v olum Absolut = 2.4 0.7-4.5 complet e 017 K/mm3 ed lymphoc 12:03 yte count Lymphoc = 24.2 10-50.0 complet yte 017 % ed count, 12:03 blood, automat ed Mean = 28.0 27-31.2 complet corpusc 017 pg ed ular 12:03 hemoglo bin (MCH) determ Automat = 31.8 31.8-35 complet ed 017 g/dl .4 ed erythro 12:03 cyte mean corpusc ular h Automat = 88.1 82.2-97 complet ed 017 fl .8 ed erythro 12:03 cyte mean corpusc ular v Absolut = 0.8 0.1-1.0 complet e 017 K/mm3 ed monocyt 12:03 e count Whitman % = 7.8 % 1.7-9.3 complet 017 ed 12:03 Automat = 7.3 7.4-10. complet ed 017 fl 4 ed blood 12:03 platele t mean volume rose marie Blood = 440 142-424 complet platele 017 K/mm3 ed t count 12:03 Red = 4.16 4.2-5.4 complet blood 017 M/mm3 ed cell 12:03 count Automat = 15.7 11.5-17 complet ed 017 % .5 ed erythro 12:03 cyte distrib ution width Blood = 9.9 4.8-10. complet leukocy 017 K/MM3 8 ed elle 12:03 count (number /volume ) Comprehensive metabolic panel (04-26-2017 14:30) Serum = 4.3 3.5-5.1 complet potassi 017 mmoL/L ed um 14:30 measure ment Serum = 134 136-145 complet sodium 017 mmoL/L ed measure 14:30 ment Serum = 33 15-37 complet or 017 U/L ed plasma 14:30 asparta te aminotr ansfera ALT = 24 12-78 complet (SGPT) 017 U/L ed ser/masoud 14:30 s Protein = 9.3 6.4-8.2 complet total 017 gm/dL ed ser/masoud 14:30 s Serum = 0.5 1.1-1.8 complet or 017 ed plasma 14:30 albumin /globul in mass ra Serum = 3.1 3.4-5.0 complet or 017 gm/dL ed plasma 14:30 albumin measure ment (mas Serum = 129 46-116 complet or 017 U/L ed plasma 14:30 alkalin e phospha tase rose marie Serum = 0.3 0.2-1.0 complet or 017 mg/dL ed plasma 14:30 total bilirub in measure m Serum = 25 7-18 complet or 017 mg/dL ed plasma 14:30 urea nitroge n measure men Serum = 8.6 8.5-10. complet or 017 mg/dL 1 ed plasma 14:30 calcium measure ment (mas Serum = 99 98-107 complet or 017 mmoL/L ed plasma 14:30 chlorid e measure ment (mo Carbon = 18 21.0-32 complet dioxide 017 mmoL/L .0 ed 14:30 measure ment Serum = 1.5 0.55-1. complet or 017 mg/dL 02 ed plasma 14:30 creatin ine measure ment ( Estimat = 35 59- complet ed 017 ML/MIN ed glomeru 14:30 lar filtrat ion rate (GF Comment: REFERENCE RANGE: >60 ML/MIN/1.73 SQUARE METERS Comment: If this patient is -[place], then multiply the Comment: result by 1.210. Serum = 6.2 1.3-3.2 complet globuli 017 gm/dL ed n 14:30 measure ment (mass/v olume) Serum 11-08-2 = 109 74-106 complet or 017 mg/dL ed plasma 14:30 glucose measure ment ([facility] Basic metabolic panel (04-26-2017 14:30) Estimat = 41 50-200 complet ion of 017 ML/MIN ed creatin 14:30 ine renal clearan ce Serum = 25 7-18 complet or 017 mg/dL ed plasma 14:30 urea nitroge n measure men Serum = 8.4 8.5-10. complet or 017 mg/dL 1 ed plasma 14:30 calcium measure ment (mas Serum = 98 98-107 complet or 017 mmoL/L ed plasma 14:30 chlorid e measure ment (mo Carbon = 20 21.0-32 complet dioxide 017 mmoL/L .0 ed 14:30 measure ment Estimat = 38 59- complet ed 017 ML/MIN ed glomeru 14:30 lar filtrat ion rate (GF Comment: REFERENCE RANGE: >60 ML/MIN/1.73 SQUARE METERS Comment: If this patient is -[place], then multiply the Comment: result by 1.210. Serum = 112 74-106 complet or 017 mg/dL ed plasma 14:30 glucose measure ment ([facility] Serum = 4.3 3.5-5.1 complet potassi 017 mmoL/L ed um 14:30 measure ment Serum = 133 136-145 complet sodium 017 mmoL/L ed measure 14:30 ment Serum = 1.4 0.55-1. complet or 017 mg/dL 02 ed plasma 14:30 creatin ine measure ment ( CBC w auto diff (04-26-2017 14:30) Automat = 0.1 0-0.2 complet ed 017 K/MM3 ed blood 14:30 basophi l count (count/ vo Baso % = 0.9 % 0.1-2.0 complet 017 ed 14:30 Automat = 0.4 0.0-0.4 complet ed 017 K/mm3 ed blood 14:30 eosinop hil count Automat = 3.2 % 0.1-12. complet ed 017 0 ed blood 14:30 eosinop hils/10 0 leukocy t Blood = 7.6 1.8-7.8 complet granulo 017 K/mm3 ed cytes 14:30 automat ed count (numb Granulo = 67.0 37.0-80 complet cyte 017 % .0 ed percent 14:30 age Blood = 39.8 37.0-47 complet hematoc 017 % .0 ed rit 14:30 (volume fractio n) Blood = 13.0 12.2-16 complet hemoglo 017 g/dL .2 ed bin 14:30 measure ment (mass/v olum Absolut = 2.4 0.7-4.5 complet e 017 K/mm3 ed lymphoc 14:30 yte count Lymphoc = 20.8 10-50.0 complet yte 017 % ed count, 14:30 blood, automat ed Mean = 28.2 27-31.2 complet corpusc 017 pg ed ular 14:30 hemoglo bin (MCH) determ Automat = 32.3 31.8-35 complet ed 017 g/dl .4 ed erythro 14:30 cyte mean corpusc ular h Automat = 87.2 82.2-97 complet ed 017 fl .8 ed erythro 14:30 cyte mean corpusc ular v Absolut = 0.9 0.1-1.0 complet e 017 K/mm3 ed monocyt 14:30 e count Whitman % = 8.1 % 1.7-9.3 complet 017 ed 14:30 Automat = 7.5 7.4-10. complet ed 017 fl 4 ed blood 14:30 platele t mean volume rose marie Blood = 533 142-424 complet platele 017 K/mm3 ed t count 14:30 Red = 4.56 4.2-5.4 complet blood 017 M/mm3 ed cell 14:30 count Automat = 14.9 11.5-17 complet ed 017 % .5 ed erythro 14:30 cyte distrib ution width Blood = 11.3 4.8-10. complet leukocy 017 K/MM3 8 ed elle 14:30 count (number /volume ) Serum or plasma cortisol measurement (ma (04-19-2017 16:20) Serum 2 = 18.2 . complet or 017 ug/dL ed plasma 16:20 cortiso l measure ment (ma Comment: Cortisol AM 6.2 - 19.4 Comment: Cortisol PM 2.3 - 11.9 Comment: Performed at: [facility] Comment: [id number], [place] [id number] Comment: [employer]: Tony Bartholomew PhD, Phone: [phone] Comprehensive metabolic panel (04-12-2017 06:35) Serum 04-12-2 = 0.5 1.1-1.8 complet or 017 ed plasma 06:35 albumin /globul in mass ra Serum 2 = 2.2 3.4-5.0 complet or 017 gm/dL ed plasma 06:35 albumin measure ment (mas Serum = 67 46-116 complet or 017 U/L ed plasma 06:35 alkalin e phospha tase rose marie Serum 2 = 0.4 0.2-1.0 complet or 017 mg/dL ed plasma 06:35 total bilirub in measure m Serum = 6 7-18 complet or 017 mg/dL ed plasma 06:35 urea nitroge n measure men Serum 04-12-2 = 8.1 8.5-10. complet or 017 mg/dL 1 ed plasma 06:35 calcium measure ment (mas Serum = 104 98-107 complet or 017 mmoL/L ed plasma 06:35 chlorid e measure ment (mo Carbon = 27 21.0-32 complet dioxide 017 mmoL/L .0 ed 06:35 measure ment Serum 04-12-2 = 0.8 0.55-1. complet or 017 mg/dL 02 ed plasma 06:35 creatin ine measure ment ( Estimat = 88 50-200 complet ion of 017 ML/MIN ed creatin 06:35 ine renal clearan ce Estimat = 72 59- complet ed 017 ML/MIN ed glomeru 06:35 lar filtrat ion rate (GF Comment: REFERENCE RANGE: >60 ML/MIN/1.73 SQUARE METERS Comment: If this patient is -[place], then multiply the Comment: result by 1.210. Serum = 4.2 1.3-3.2 complet globuli 017 gm/dL ed n 06:35 measure ment (mass/v olume) Serum = 102 74-106 complet or 017 mg/dL ed plasma 06:35 glucose measure ment (mas Serum = 4.1 3.5-5.1 complet potassi 017 mmoL/L ed um 06:35 measure ment Serum = 139 136-145 complet sodium 017 mmoL/L ed measure 06:35 ment Serum = 15 15-37 complet or 017 U/L ed plasma 06:35 asparta te aminotr ansfera ALT = 5 U/L 12-78 complet (SGPT) 017 ed ser/masoud 06:35 s Protein = 6.4 6.4-8.2 complet total 017 gm/dL ed ser/masoud 06:35 s CBC w auto diff (04-12-2017 06:35) Automat = 0.1 0-0.2 complet ed 017 K/MM3 ed blood 06:35 basophi l count (count/ vo Baso % = 0.6 % 0.1-2.0 complet 017 ed 06:35 Automat = 0.3 0.0-0.4 complet ed 017 K/mm3 ed blood 06:35 eosinop hil count Automat = 3.5 % 0.1-12. complet ed 017 0 ed blood 06:35 eosinop hils/10 0 leukocy t Blood = 4.7 1.8-7.8 complet granulo 017 K/mm3 ed cytes 06:35 automat ed count (numb Granulo = 56.7 37.0-80 complet cyte 017 % .0 ed percent 06:35 age Blood = 31.6 37.0-47 complet hematoc 017 % .0 ed rit 06:35 (volume fractio n) Blood = 10.0 12.2-16 complet hemoglo 017 g/dL .2 ed bin 06:35 measure ment (mass/v olum Absolut = 2.5 0.7-4.5 complet e 017 K/mm3 ed lymphoc 06:35 yte count Lymphoc = 29.5 10-50.0 complet yte 017 % ed count, 06:35 blood, automat ed Mean = 28.9 27-31.2 complet corpusc 017 pg ed ular 06:35 hemoglo bin (MCH) determ Automat = 31.6 31.8-35 complet ed 017 g/dl .4 ed erythro 06:35 cyte mean corpusc ular h Automat = 91.4 82.2-97 complet ed 017 fl .8 ed erythro 06:35 cyte mean corpusc ular v Absolut = 0.8 0.1-1.0 complet e 017 K/mm3 ed monocyt 06:35 e count Whitman % = 9.7 % 1.7-9.3 complet 017 ed 06:35 Automat = 6.8 7.4-10. complet ed 017 fl 4 ed blood 06:35 platele t mean volume rose marie Blood = 623 142-424 complet platele 017 K/mm3 ed t count 06:35 Red = 3.45 4.2-5.4 complet blood 017 M/mm3 ed cell 06:35 count Automat = 15.5 11.5-17 complet ed 017 % .5 ed erythro 06:35 cyte distrib ution width Blood = 8.3 4.8-10. complet leukocy 017 K/MM3 8 ed elle 06:35 count (number /volume ) CBC w auto diff (04-08-2017 07:40) Automat = 0.1 0-0.2 complet ed 017 K/MM3 ed blood 07:40 basophi l count (count/ vo Baso % = 0.8 % 0.1-2.0 complet 017 ed 07:40 Automat = 0.5 0.0-0.4 complet ed 017 K/mm3 ed blood 07:40 eosinop hil count Automat = 3.6 % 0.1-12. complet ed 017 0 ed blood 07:40 eosinop hils/10 0 leukocy t Blood = 9.0 1.8-7.8 complet granulo 017 K/mm3 ed cytes 07:40 automat ed count (numb Granulo = 72.1 37.0-80 complet cyte 017 % .0 ed percent 07:40 age Blood = 29.9 37.0-47 complet hematoc 017 % .0 ed rit 07:40 (volume fractio n) Blood = 9.0 12.2-16 complet hemoglo 017 g/dL .2 ed bin 07:40 measure ment (mass/v olum Absolut = 2.1 0.7-4.5 complet e 017 K/mm3 ed lymphoc 07:40 yte count Lymphoc = 16.9 10-50.0 complet yte 017 % ed count, 07:40 blood, automat ed Mean = 27.3 27-31.2 complet corpusc 017 pg ed ular 07:40 hemoglo bin (MCH) determ Automat = 30.0 31.8-35 complet ed 017 g/dl .4 ed erythro 07:40 cyte mean corpusc ular h Automat = 91.2 82.2-97 complet ed 017 fl .8 ed erythro 07:40 cyte mean corpusc ular v Absolut = 0.8 0.1-1.0 complet e 017 K/mm3 ed monocyt 07:40 e count Whitman % = 6.5 % 1.7-9.3 complet 017 ed 07:40 Automat = 7.1 7.4-10. complet ed 017 fl 4 ed blood 07:40 platele t mean volume rose marie Blood = 833 142-424 complet platele 017 K/mm3 ed t count 07:40 Red = 3.28 4.2-5.4 complet blood 017 M/mm3 ed cell 07:40 count Automat = 15.2 11.5-17 complet ed 017 % .5 ed erythro 07:40 cyte distrib ution width Blood = 12.4 4.8-10. complet leukocy 017 K/MM3 8 ed elle 07:40 count (number /volume ) Basic metabolic panel (04-08-2017 07:40) Estimat 04-08-2 = 85 59- complet ed 017 ML/MIN ed glomeru 07:40 lar filtrat ion rate (GF Comment: REFERENCE RANGE: >60 ML/MIN/1.73 SQUARE METERS Comment: If this patient is -[place], then multiply the Comment: result by 1.210. Serum = 116 74-106 complet or 017 mg/dL ed plasma 07:40 glucose measure ment (mas Serum 2 = 3.9 3.5-5.1 complet potassi 017 mmoL/L ed um 07:40 measure ment Serum = 139 136-145 complet sodium 017 mmoL/L ed measure 07:40 ment Serum 2 = 0.7 0.55-1. complet or 017 mg/dL 02 ed plasma 07:40 creatin ine measure ment ( Serum 2 = 3 7-18 complet or 017 mg/dL ed plasma 07:40 urea nitroge n measure men Serum = 8.4 8.5-10. complet or 017 mg/dL 1 ed plasma 07:40 calcium measure ment (mas Serum = 104 98-107 complet or 017 mmoL/L ed plasma 07:40 chlorid e measure ment (mo Carbon = 31 21.0-32 complet dioxide 017 mmoL/L .0 ed 07:40 measure ment Estimat = 100 50-200 complet ion of 017 ML/MIN ed creatin 07:40 ine renal clearan ce CBC w auto diff (04-05-2017 06:45) Baso % = 0.3 % 0.1-2.0 complet 017 ed 06:45 Automat = 0.3 0.0-0.4 complet ed 017 K/mm3 ed blood 06:45 eosinop hil count Automat = 2.3 % 0.1-12. complet ed 017 0 ed blood 06:45 eosinop hils/10 0 leukocy t Blood = 10.6 1.8-7.8 complet granulo 017 K/mm3 ed cytes 06:45 automat ed count (numb Automat = 0.1 0-0.2 complet ed 017 K/MM3 ed blood 06:45 basophi l count (count/ vo Granulo = 72.8 37.0-80 complet cyte 017 % .0 ed percent 06:45 age Blood = 30.2 37.0-47 complet hematoc 017 % .0 ed rit 06:45 (volume fractio n) Blood = 9.3 12.2-16 complet hemoglo 017 g/dL .2 ed bin 06:45 measure ment (mass/v olum Absolut = 2.5 0.7-4.5 complet e 017 K/mm3 ed lymphoc 06:45 yte count Lymphoc = 17.0 10-50.0 complet yte 017 % ed count, 06:45 blood, automat ed Mean = 28.0 27-31.2 complet corpusc 017 pg ed ular 06:45 hemoglo bin (MCH) determ Automat = 30.7 31.8-35 complet ed 017 g/dl .4 ed erythro 06:45 cyte mean corpusc ular h Automat = 91.2 82.2-97 complet ed 017 fl .8 ed erythro 06:45 cyte mean corpusc ular v Absolut = 1.1 0.1-1.0 complet e 017 K/mm3 ed monocyt 06:45 e count Whitman % = 7.6 % 1.7-9.3 complet 017 ed 06:45 Automat = 7.2 7.4-10. complet ed 017 fl 4 ed blood 06:45 platele t mean volume rose marie Blood = 811 142-424 complet platele 017 K/mm3 ed t count 06:45 Red = 3.31 4.2-5.4 complet blood 017 M/mm3 ed cell 06:45 count Automat = 14.4 11.5-17 complet ed 017 % .5 ed erythro 06:45 cyte distrib ution width Blood = 14.5 4.8-10. complet leukocy 017 K/MM3 8 ed elle 06:45 count (number /volume ) CBC w auto diff (04-04-2017 06:25) Automat = 0.0 0-0.2 complet ed 017 K/MM3 ed blood 06:25 basophi l count (count/ vo Baso % = 0.2 % 0.1-2.0 complet 017 ed 06:25 Automat = 0.3 0.0-0.4 complet ed 017 K/mm3 ed blood 06:25 eosinop hil count Automat = 2.4 % 0.1-12. complet ed 017 0 ed blood 06:25 eosinop hils/10 0 leukocy t Blood = 9.4 1.8-7.8 complet granulo 017 K/mm3 ed cytes 06:25 automat ed count (numb Granulo = 73.8 37.0-80 complet cyte 017 % .0 ed percent 06:25 age Blood = 28.2 37.0-47 complet hematoc 017 % .0 ed rit 06:25 (volume fractio n) Blood = 8.6 12.2-16 complet hemoglo 017 g/dL .2 ed bin 06:25 measure ment (mass/v olum Absolut = 1.9 0.7-4.5 complet e 017 K/mm3 ed lymphoc 06:25 yte count Lymphoc = 15.0 10-50.0 complet yte 017 % ed count, 06:25 blood, automat ed Mean = 27.6 27-31.2 complet corpusc 017 pg ed ular 06:25 hemoglo bin (MCH) determ Automat = 30.5 31.8-35 complet ed 017 g/dl .4 ed erythro 06:25 cyte mean corpusc ular h Automat 10-17-2 = 90.5 82.2-97 complet ed 017 fl .8 ed erythro 06:25 cyte mean corpusc ular v Absolut = 1.1 0.1-1.0 complet e 017 K/mm3 ed monocyt 06:25 e count Whitman % = 8.6 % 1.7-9.3 complet 017 ed 06:25 Automat = 6.8 7.4-10. complet ed 017 fl 4 ed blood 06:25 platele t mean volume rose marie Blood = 742 142-424 complet platele 017 K/mm3 ed t count 06:25 Red = 3.12 4.2-5.4 complet blood 017 M/mm3 ed cell 06:25 count Automat = 13.8 11.5-17 complet ed 017 % .5 ed erythro 06:25 cyte distrib ution width Blood = 12.8 4.8-10. complet leukocy 017 K/MM3 8 ed elle 06:25 count (number /volume ) Basic metabolic panel (04-04-2017 06:25) Serum = 2 7-18 complet or 017 mg/dL ed plasma 06:25 urea nitroge n measure men Serum = 7.9 8.5-10. complet or 017 mg/dL 1 ed plasma 06:25 calcium measure ment (mas Serum = 103 98-107 complet or 017 mmoL/L ed plasma 06:25 chlorid e measure ment (mo Carbon = 27 21.0-32 complet dioxide 017 mmoL/L .0 ed 06:25 measure ment Serum = 0.5 0.55-1. complet or 017 mg/dL 02 ed plasma 06:25 creatin ine measure ment ( Estimat = 144 50-200 complet ion of 017 ML/MIN ed creatin 06:25 ine renal clearan ce Estimat = 125 59- complet ed 017 ML/MIN ed glomeru 06:25 lar filtrat ion rate (GF Comment: REFERENCE RANGE: >60 ML/MIN/1.73 SQUARE METERS Comment: If this patient is -[place], then multiply the Comment: result by 1.210. Serum = 85 74-106 complet or 017 mg/dL ed plasma 06:25 glucose measure ment (mas Serum = 3.5 3.5-5.1 complet potassi 017 mmoL/L ed um 06:25 measure ment Serum = 139 136-145 complet sodium 017 mmoL/L ed measure 06:25 ment CBC w auto diff (04-03-2017 05:10) Automat = 0.4 0.0-0.4 complet ed 017 K/mm3 ed blood 05:10 eosinop hil count Automat = 2.2 % 0.1-12. complet ed 017 0 ed blood 05:10 eosinop hils/10 0 leukocy t Blood = 12.4 1.8-7.8 complet granulo 017 K/mm3 ed cytes 05:10 automat ed count (numb Granulo = 78.3 37.0-80 complet cyte 017 % .0 ed percent 05:10 age Blood = 27.9 37.0-47 complet hematoc 017 % .0 ed rit 05:10 (volume fractio n) Blood = 8.6 12.2-16 complet hemoglo 017 g/dL .2 ed bin 05:10 measure ment (mass/v olum Absolut = 1.9 0.7-4.5 complet e 017 K/mm3 ed lymphoc 05:10 yte count Lymphoc = 11.7 10-50.0 complet yte 017 % ed count, 05:10 blood, automat ed Mean = 28.1 27-31.2 complet corpusc 017 pg ed ular 05:10 hemoglo bin (MCH) determ Automat = 30.8 31.8-35 complet ed 017 g/dl .4 ed erythro 05:10 cyte mean corpusc ular h Automat = 91.5 82.2-97 complet ed 017 fl .8 ed erythro 05:10 cyte mean corpusc ular v Absolut = 1.2 0.1-1.0 complet e 017 K/mm3 ed monocyt 05:10 e count Whitman % = 7.7 % 1.7-9.3 complet 017 ed 05:10 Automat = 7.3 7.4-10. complet ed 017 fl 4 ed blood 05:10 platele t mean volume rose marie Blood = 756 142-424 complet platele 017 K/mm3 ed t count 05:10 Red = 3.05 4.2-5.4 complet blood 017 M/mm3 ed cell 05:10 count Automat = 14.1 11.5-17 complet ed 017 % .5 ed erythro 05:10 cyte distrib ution width Blood = 15.9 4.8-10. complet leukocy 017 K/MM3 8 ed elle 05:10 count (number /volume ) Baso % = 0.1 % 0.1-2.0 complet 017 ed 05:10 Automat = 0.0 0-0.2 complet ed 017 K/MM3 ed blood 05:10 basophi l count (count/ vo Basic metabolic panel (04-03-2017 05:10) Serum = 3 7-18 complet or 017 mg/dL ed plasma 05:10 urea nitroge n measure men Serum = 8.1 8.5-10. complet or 017 mg/dL 1 ed plasma 05:10 calcium measure ment (mas Serum = 104 98-107 complet or 017 mmoL/L ed plasma 05:10 chlorid e measure ment (mo Carbon = 27 21.0-32 complet dioxide 017 mmoL/L .0 ed 05:10 measure ment Serum = 0.5 0.55-1. complet or 017 mg/dL 02 ed plasma 05:10 creatin ine measure ment ( Estimat = 144 50-200 complet ion of 017 ML/MIN ed creatin 05:10 ine renal clearan ce Estimat = 125 59- complet ed 017 ML/MIN ed glomeru 05:10 lar filtrat ion rate (GF Comment: REFERENCE RANGE: >60 ML/MIN/1.73 SQUARE METERS Comment: If this patient is -[place], then multiply the Comment: result by 1.210. Serum 04-03-2 = 3.6 3.5-5.1 complet potassi 017 mmoL/L ed um 05:10 measure ment Serum 16-2 = 139 136-145 complet sodium 017 mmoL/L ed measure 05:10 ment Serum 16-2 = 74 74-106 complet or 017 mg/dL ed plasma 05:10 glucose measure ment (mas Basic metabolic panel (04-02-2017 06:00) Serum 1015-2 = 139 136-145 complet sodium 017 mmoL/L ed measure 06:00 ment Serum 15-2 = 3.6 3.5-5.1 complet potassi 017 mmoL/L ed um 06:00 measure ment Serum 2 = 83 74-106 complet or 017 mg/dL ed plasma 06:00 glucose measure ment (mas Estimat = 125 59- complet ed 017 ML/MIN ed glomeru 06:00 lar filtrat ion rate (GF Comment: REFERENCE RANGE: >60 ML/MIN/1.73 SQUARE METERS Comment: If this patient is -[place], then multiply the Comment: result by 1.210. Estimat = 144 50-200 complet ion of 017 ML/MIN ed creatin 06:00 ine renal clearan ce Serum = 0.5 0.55-1. complet or 017 mg/dL 02 ed plasma 06:00 creatin ine measure ment ( Carbon = 29 21.0-32 complet dioxide 017 mmoL/L .0 ed 06:00 measure ment Serum = 101 98-107 complet or 017 mmoL/L ed plasma 06:00 chlorid e measure ment (mo Serum = 7.9 8.5-10. complet or 017 mg/dL 1 ed plasma 06:00 calcium measure ment (mas Serum = 2 7-18 complet or 017 mg/dL ed plasma 06:00 urea nitroge n measure men Differential panel, method unspecified - (04-02-2017 06:00) Blood 04-02-2 = 100 complet total 017 #CELLS ed cell 06:00 count Neutrop = 85 % 42-76 complet hil 017 ed count 06:00 Blood 1+ 1+ L complet polychr 017 ed omasia 06:00 detecti on by light m Blood 1+ 1+ L complet poikilo 017 ed cytosis 06:00 detecti on by light Platele MARKED complet t 017 INCREAS ed estimat 06:00 E e MARKED INCREAS E L Monocyt = 4 % 2-9 complet e % 017 ed 06:00 Periphe 1+ 1+ L complet ral 017 ed blood 06:00 smear examina tion by li LYMPH 6 % 10-50 complet 017 ed 06:00 Hypochr 1+ 1+ L complet omatic 017 ed red 06:00 blood cell detecti on Automat = 5 % 0-8 complet ed 017 ed blood 06:00 band neutrop hil percent a CBC w auto diff (04-02-2017 06:00) Blood = 16.0 4.8-10. complet leukocy 017 K/MM3 8 ed elle 06:00 count (number /volume ) Automat = 14.1 11.5-17 complet ed 017 % .5 ed erythro 06:00 cyte distrib ution width Red = 3.07 4.2-5.4 complet blood 017 M/mm3 ed cell 06:00 count Blood = 714 142-424 complet platele 017 K/mm3 ed t count 06:00 Automat = 6.9 7.4-10. complet ed 017 fl 4 ed blood 06:00 platele t mean volume rose marie Whitman % = 6.0 % 1.7-9.3 complet 017 ed 06:00 Absolut = 1.0 0.1-1.0 complet e 017 K/mm3 ed monocyt 06:00 e count Automat = 90.6 82.2-97 complet ed 017 fl .8 ed erythro 06:00 cyte mean corpusc ular v Automat = 31.2 31.8-35 complet ed 017 g/dl .4 ed erythro 06:00 cyte mean corpusc ular h Mean = 28.3 27-31.2 complet corpusc 017 pg ed ular 06:00 hemoglo bin (MCH) determ Lymphoc = 11.8 10-50.0 complet yte 017 % ed count, 06:00 blood, automat ed Absolut = 1.9 0.7-4.5 complet e 017 K/mm3 ed lymphoc 06:00 yte count Blood = 8.7 12.2-16 complet hemoglo 017 g/dL .2 ed bin 06:00 measure ment (mass/v olum Blood = 27.8 37.0-47 complet hematoc 017 % .0 ed rit 06:00 (volume fractio n) Granulo = 80.8 37.0-80 complet cyte 017 % .0 ed percent 06:00 age Blood = 13.0 1.8-7.8 complet granulo 017 K/mm3 ed cytes 06:00 automat ed count (numb Automat = 1.3 % 0.1-12. complet ed 017 0 ed blood 06:00 eosinop hils/10 0 leukocy t Automat = 0.2 0.0-0.4 complet ed 017 K/mm3 ed blood 06:00 eosinop hil count Automat = 0.0 0-0.2 complet ed 017 K/MM3 ed blood 06:00 basophi l count (count/ vo Baso % = 0.1 % 0.1-2.0 complet 017 ed 06:00 Differential panel, method unspecified - (04-02-2017 06:00) Hypochr 1+ complet omia 017 ed [Presen 06:00 ce] in Blood LYMPH 6 % 10% - Low complet 017 50% ed 06:00 Blood 1+ complet smear 017 ed finding 06:00 [Identi fier] in Blood by Light microsc opy Platele MARKED complet ts 017 INCREAS ed [Presen 06:00 E ce] in Blood by Light microsc opy Poikilo 1+ complet cytosis 017 ed 06:00 [Presen ce] in Blood by Light microsc opy Polychr 1+ complet omasia 017 ed [Presen 06:00 ce] in Blood by Light microsc opy Differential panel, method unspecified - (04-01-2017 04:10) Neutrop = 86 % 42-76 complet hil 017 ed count 04:10 Blood 1+ 1+ L complet polychr 017 ed omasia 04:10 detecti on by light m Blood 1+ 1+ L complet poikilo 017 ed cytosis 04:10 detecti on by light Platele MOD complet t 017 INCREAS ed estimat 04:10 E MOD e INCREAS E L Monocyt = 1 % 2-9 complet e % 017 ed 04:10 LYMPH 8 % 10-50 complet 017 ed 04:10 Hyperse = FEW complet gmented 017 ed 04:10 neutrop hil count Hypochr 1+ 1+ L complet omatic 017 ed red 04:10 blood cell detecti on Blood = 100 complet total 017 #CELLS ed cell 04:10 count Automat = 5 % 0-8 complet ed 017 ed blood 04:10 band neutrop hil percent a CBC w auto diff (04-01-2017 04:10) Blood = 13.5 1.8-7.8 complet granulo 017 K/mm3 ed cytes 04:10 automat ed count (numb Automat = 1.7 % 0.1-12. complet ed 017 0 ed blood 04:10 eosinop hils/10 0 leukocy t Automat = 0.3 0.0-0.4 complet ed 017 K/mm3 ed blood 04:10 eosinop hil count Baso % = 0.1 % 0.1-2.0 complet 017 ed 04:10 Blood = 16.7 4.8-10. complet leukocy 017 K/MM3 8 ed elle 04:10 count (number /volume ) Automat = 13.7 11.5-17 complet ed 017 % .5 ed erythro 04:10 cyte distrib ution width Red = 2.94 4.2-5.4 complet blood 017 M/mm3 ed cell 04:10 count Blood = 667 142-424 complet platele 017 K/mm3 ed t count 04:10 Automat = 6.8 7.4-10. complet ed 017 fl 4 ed blood 04:10 platele t mean volume rose marie Whitman % = 5.6 % 1.7-9.3 complet 017 ed 04:10 Absolut = 1.0 0.1-1.0 complet e 017 K/mm3 ed monocyt 04:10 e count Automat = 90.1 82.2-97 complet ed 017 fl .8 ed erythro 04:10 cyte mean corpusc ular v Automat = 31.4 31.8-35 complet ed 017 g/dl .4 ed erythro 04:10 cyte mean corpusc ular h Mean = 28.3 27-31.2 complet corpusc 017 pg ed ular 04:10 hemoglo bin (MCH) determ Lymphoc = 11.6 10-50.0 complet yte 017 % ed count, 04:10 blood, automat ed Absolut = 2.0 0.7-4.5 complet e 017 K/mm3 ed lymphoc 04:10 yte count Blood = 8.3 12.2-16 complet hemoglo 017 g/dL .2 ed bin 04:10 measure ment (mass/v olum Blood = 26.5 37.0-47 complet hematoc 017 % .0 ed rit 04:10 (volume fractio n) Granulo = 80.8 37.0-80 complet cyte 017 % .0 ed percent 04:10 age Automat = 0.0 0-0.2 complet ed 017 K/MM3 ed blood 04:10 basophi l count (count/ vo Basic metabolic panel (04-01-2017 04:10) Serum = 138 136-145 complet sodium 017 mmoL/L ed measure 04:10 ment Serum = 3.6 3.5-5.1 complet potassi 017 mmoL/L ed um 04:10 measure ment Serum = 78 74-106 complet or 017 mg/dL ed plasma 04:10 glucose measure ment (mas Estimat = 125 59- complet ed 017 ML/MIN ed glomeru 04:10 lar filtrat ion rate (GF Comment: REFERENCE RANGE: >60 ML/MIN/1.73 SQUARE METERS Comment: If this patient is -[place], then multiply the Comment: result by 1.210. Estimat = 144 50-200 complet ion of 017 ML/MIN ed creatin 04:10 ine renal clearan ce Serum = 0.5 0.55-1. complet or 017 mg/dL 02 ed plasma 04:10 creatin ine measure ment ( Carbon = 30 21.0-32 complet dioxide 017 mmoL/L .0 ed 04:10 measure ment Serum = 104 98-107 complet or 017 mmoL/L ed plasma 04:10 chlorid e measure ment (mo Serum = 7.9 8.5-10. complet or 017 mg/dL 1 ed plasma 04:10 calcium measure ment (mas Serum = 3 7-18 complet or 017 mg/dL ed plasma 04:10 urea nitroge n measure men Differential panel, method unspecified - (04-01-2017 04:10) Hypochr 1+ complet omia 017 ed [Presen 04:10 ce] in Blood LYMPH 8 % 10% - Low complet 017 50% ed 04:10 Platele MOD complet ts 017 INCREAS ed [Presen 04:10 E ce] in Blood by Light microsc opy Poikilo 1+ complet cytosis 017 ed 04:10 [Presen ce] in Blood by Light microsc opy Polychr 1+ complet omasia 017 ed [Presen 04:10 ce] in Blood by Light microsc opy CBC w auto diff (03-31-2017 06:20) Baso % = 0.1 % 0.1-2.0 complet 017 ed 06:20 Automat = 32.1 31.8-35 complet ed 017 g/dl .4 ed erythro 06:20 cyte mean corpusc ular h Mean = 28.7 27-31.2 complet corpusc 017 pg ed ular 06:20 hemoglo bin (MCH) determ Lymphoc = 10.0 10-50.0 complet yte 017 % ed count, 06:20 blood, automat ed Absolut = 2.2 0.7-4.5 complet e 017 K/mm3 ed lymphoc 06:20 yte count Blood = 8.5 12.2-16 complet hemoglo 017 g/dL .2 ed bin 06:20 measure ment (mass/v olum Blood = 26.4 37.0-47 complet hematoc 017 % .0 ed rit 06:20 (volume fractio n) Granulo = 82.9 37.0-80 complet cyte 017 % .0 ed percent 06:20 age Blood = 17.7 1.8-7.8 complet granulo 017 K/mm3 ed cytes 06:20 automat ed count (numb Automat = 0.6 % 0.1-12. complet ed 017 0 ed blood 06:20 eosinop hils/10 0 leukocy t Automat = 0.1 0.0-0.4 complet ed 017 K/mm3 ed blood 06:20 eosinop hil count Automat = 0.0 0-0.2 complet ed 017 K/MM3 ed blood 06:20 basophi l count (count/ vo Blood = 21.4 4.8-10. complet leukocy 017 K/MM3 8 ed elle 06:20 count (number /volume ) Automat = 13.3 11.5-17 complet ed 017 % .5 ed erythro 06:20 cyte distrib ution width Red = 2.95 4.2-5.4 complet blood 017 M/mm3 ed cell 06:20 count Blood = 689 142-424 complet platele 017 K/mm3 ed t count 06:20 Automat = 7.1 7.4-10. complet ed 017 fl 4 ed blood 06:20 platele t mean volume rose marie Whitman % = 6.3 % 1.7-9.3 complet 017 ed 06:20 Absolut = 1.4 0.1-1.0 complet e 017 K/mm3 ed monocyt 06:20 e count Automat = 89.4 82.2-97 complet ed 017 fl .8 ed erythro 06:20 cyte mean corpusc ular v Basic metabolic panel (03-31-2017 06:20) Serum = 140 136-145 complet sodium 017 mmoL/L ed measure 06:20 ment Serum = 3.8 3.5-5.1 complet potassi 017 mmoL/L ed um 06:20 measure ment Serum = 60 74-106 complet or 017 mg/dL ed plasma 06:20 glucose measure ment (mas Estimat = 125 59- complet ed 017 ML/MIN ed glomeru 06:20 lar filtrat ion rate (GF Comment: REFERENCE RANGE: >60 ML/MIN/1.73 SQUARE METERS Comment: If this patient is -[place], then multiply the Comment: result by 1.210. Estimat = 144 50-200 complet ion of 017 ML/MIN ed creatin 06:20 ine renal clearan ce Serum = 0.5 0.55-1. complet or 017 mg/dL 02 ed plasma 06:20 creatin ine measure ment ( Carbon = 27 21.0-32 complet dioxide 017 mmoL/L .0 ed 06:20 measure ment Serum = 105 98-107 complet or 017 mmoL/L ed plasma 06:20 chlorid e measure ment (mo Serum = 7.7 8.5-10. complet or 017 mg/dL 1 ed plasma 06:20 calcium measure ment (mas Serum = 6 7-18 complet or 017 mg/dL ed plasma 06:20 urea nitroge n measure men Differential panel, method unspecified - (03-30-2017 07:35) Platele SLIGHT complet t 017 INCREAS ed estimat 07:35 E e SLIGHT INCREAS E L Monocyt = 4 % 2-9 complet e % 017 ed 07:35 LYMPH 7 % 10-50 complet 017 ed 07:35 Blood SLIGHT complet manual 017 PLT ed differe 07:35 CLUMPIN ntial G comment interp Blood = 100 complet total 017 #CELLS ed cell 07:35 count Neutrop = 89 % 42-76 complet hil 017 ed count 07:35 CBC w auto diff (03-30-2017 07:35) Automat = 0.1 0-0.2 complet ed 017 K/MM3 ed blood 07:35 basophi l count (count/ vo Blood = 24.4 4.8-10. complet leukocy 017 K/MM3 8 ed elle 07:35 count (number /volume ) Automat = 13.3 11.5-17 complet ed 017 % .5 ed erythro 07:35 cyte distrib ution width Red = 3.19 4.2-5.4 complet blood 017 M/mm3 ed cell 07:35 count Blood = 458 142-424 complet platele 017 K/mm3 ed t count 07:35 Automat = 9.1 7.4-10. complet ed 017 fl 4 ed blood 07:35 platele t mean volume rose marie Whitman % = 5.3 % 1.7-9.3 complet 017 ed 07:35 Absolut = 1.3 0.1-1.0 complet e 017 K/mm3 ed monocyt 07:35 e count Automat = 87.6 82.2-97 complet ed 017 fl .8 ed erythro 07:35 cyte mean corpusc ular v Automat = 32.8 31.8-35 complet ed 017 g/dl .4 ed erythro 07:35 cyte mean corpusc ular h Mean = 28.8 27-31.2 complet corpusc 017 pg ed ular 07:35 hemoglo bin (MCH) determ Lymphoc = 10.1 10-50.0 complet yte 017 % ed count, 07:35 blood, automat ed Absolut = 2.5 0.7-4.5 complet e 017 K/mm3 ed lymphoc 07:35 yte count Blood = 9.2 12.2-16 complet hemoglo 017 g/dL .2 ed bin 07:35 measure ment (mass/v olum Blood = 28.0 37.0-47 complet hematoc 017 % .0 ed rit 07:35 (volume fractio n) Granulo = 83.2 37.0-80 complet cyte 017 % .0 ed percent 07:35 age Blood = 20.3 1.8-7.8 complet granulo 017 K/mm3 ed cytes 07:35 automat ed count (numb Automat = 1.2 % 0.1-12. complet ed 017 0 ed blood 07:35 eosinop hils/10 0 leukocy t Automat = 0.3 0.0-0.4 complet ed 017 K/mm3 ed blood 07:35 eosinop hil count Baso % = 0.2 % 0.1-2.0 complet 017 ed 07:35 Differential panel, method unspecified - (03-30-2017 07:35) Manual SLIGHT complet differe 017 PLT ed ntial 07:35 CLUMPIN comment G [interp retatio n] in Blood Narrati ve LYMPH 7 % 10% - Low complet 017 50% ed 07:35 Platele SLIGHT complet ts 017 INCREAS ed [Presen 07:35 E ce] in Blood by Light microsc opy Whole blood hemoglobin and hematocrit pa (03-29-2017 14:40) Blood = 8.8 12.2-16 complet hemoglo 017 g/dL .2 ed bin 14:40 measure ment (mass/v olum Blood = 27.3 37.0-47 complet hematoc 017 % .0 ed rit 14:40 (volume fractio n) Differential panel, method unspecified - (03-28-2017 05:05) Neutrop = 98 % 42-76 complet hil 017 ed count 05:05 Platele NORMAL complet t 017 NORMAL ed estimat 05:05 L e LYMPH 10-10-2 2 % 10-50 complet 017 ed 05:05 Hypochr 1+ 1+ L complet omatic 017 ed red 05:05 blood cell detecti on Blood = 100 complet total 017 #CELLS ed cell 05:05 count Blood 1+ 1+ L complet anisocy 017 ed tosis 05:05 detecti on CBC w auto diff (03-28-2017 05:05) Blood = 21.5 4.8-10. complet leukocy 017 K/MM3 8 ed elle 05:05 count (number /volume ) Automat = 12.6 11.5-17 complet ed 017 % .5 ed erythro 05:05 cyte distrib ution width Red = 3.41 4.2-5.4 complet blood 017 M/mm3 ed cell 05:05 count Blood = 552 142-424 complet platele 017 K/mm3 ed t count 05:05 Automat = 7.0 7.4-10. complet ed 017 fl 4 ed blood 05:05 platele t mean volume rose marie Whitman % = 2.4 % 1.7-9.3 complet 017 ed 05:05 Absolut = 0.5 0.1-1.0 complet e 017 K/mm3 ed monocyt 05:05 e count Automat = 89.2 82.2-97 complet ed 017 fl .8 ed erythro 05:05 cyte mean corpusc ular v Automat = 32.1 31.8-35 complet ed 017 g/dl .4 ed erythro 05:05 cyte mean corpusc ular h Mean = 28.6 27-31.2 complet corpusc 017 pg ed ular 05:05 hemoglo bin (MCH) determ Lymphoc = 2.3 % 10-50.0 complet yte 017 ed count, 05:05 blood, automat ed Absolut 2 = 0.5 0.7-4.5 complet e 017 K/mm3 ed lymphoc 05:05 yte count Blood = 9.8 12.2-16 complet hemoglo 017 g/dL .2 ed bin 05:05 measure ment (mass/v olum Blood = 30.4 37.0-47 complet hematoc 017 % .0 ed rit 05:05 (volume fractio n) Granulo = 95.2 37.0-80 complet cyte 017 % .0 ed percent 05:05 age Blood = 20.6 1.8-7.8 complet granulo 017 K/mm3 ed cytes 05:05 automat ed count (numb Automat = 0.0 % 0.1-12. complet ed 017 0 ed blood 05:05 eosinop hils/10 0 leukocy t Automat = 0.0 0.0-0.4 complet ed 017 K/mm3 ed blood 05:05 eosinop hil count Baso % = 0.0 % 0.1-2.0 complet 017 ed 05:05 Automat = 0.0 0-0.2 complet ed 017 K/MM3 ed blood 05:05 basophi l count (count/ vo Comprehensive metabolic panel (03-28-2017 05:05) Protein = 5.6 6.4-8.2 complet total 017 gm/dL ed ser/masoud 05:05 s ALT = 11 12-78 complet (SGPT) 017 U/L ed ser/masoud 05:05 s Serum = 17 15-37 complet or 017 U/L ed plasma 05:05 asparta te aminotr ansfera Serum = 140 136-145 complet sodium 017 mmoL/L ed measure 05:05 ment Serum = 4.1 3.5-5.1 complet potassi 017 mmoL/L ed um 05:05 measure ment Serum = 149 74-106 complet or 017 mg/dL ed plasma 05:05 glucose measure ment (mas Serum = 3.9 1.3-3.2 complet globuli 017 gm/dL ed n 05:05 measure ment (mass/v olume) Estimat = 125 59- complet ed 017 ML/MIN ed glomeru 05:05 lar filtrat ion rate (GF Comment: REFERENCE RANGE: >60 ML/MIN/1.73 SQUARE METERS Comment: If this patient is -[place], then multiply the Comment: result by 1.210. Estimat = 133 50-200 complet ion of 017 ML/MIN ed creatin 05:05 ine renal clearan ce Serum = 0.5 0.55-1. complet or 017 mg/dL 02 ed plasma 05:05 creatin ine measure ment ( Carbon = 26 21.0-32 complet dioxide 017 mmoL/L .0 ed 05:05 measure ment Serum = 104 98-107 complet or 017 mmoL/L ed plasma 05:05 chlorid e measure ment (mo Serum = 7.8 8.5-10. complet or 017 mg/dL 1 ed plasma 05:05 calcium measure ment (mas Serum = 4 7-18 complet or 017 mg/dL ed plasma 05:05 urea nitroge n measure men Serum = 0.4 0.2-1.0 complet or 017 mg/dL ed plasma 05:05 total bilirub in measure m Serum = 69 46-116 complet or 017 U/L ed plasma 05:05 alkalin e phospha tase rose marie Serum = 1.7 3.4-5.0 complet or 017 gm/dL ed plasma 05:05 albumin measure ment (mas Serum = 0.4 1.1-1.8 complet or 017 ed plasma 05:05 albumin /globul in mass ra Differential panel, method unspecified - (03-28-2017 05:05) Anisocy 1+ complet tosis 017 ed [Presen 05:05 ce] in Blood Hypochr 1+ complet omia 017 ed [Presen 05:05 ce] in Blood LYMPH 2 % 10% - Low complet 017 50% ed 05:05 Platele NORMAL complet ts 017 ed [Presen 05:05 ce] in Blood by Light microsc opy Urinalysis with microscopy (03-27-2017 15:36) Comment: Collected by nurse? Y Comment: Hold specimen in OE? N Urine = OCC O complet leukocy 017 wbc/hpf ed elle 15:36 count (number /volume ) Urine 0.2 0.2 NEG complet urobili 017 L ed nogen 15:36 E.U./dL detecti on by test str Urine = 1.015 1.005-1 complet specifi 017 .030 ed c 15:36 gravity measure ment Erythro 10-20 0 complet cytes 017 10-20 L ed detecti 15:36 on in rbc/hpf urine sedimen t Urine = NEG complet protein 017 NEGATIV ed 15:36 E mg/dL measure ment by automat ed t Urine = 7.5 5.0-8.5 complet pH 017 ed 15:36 Urine NEGATIV NEG complet nitrite 017 E ed 15:36 NEGATIV detecti E L on by test strip Mucus NEGATIV NEG complet detecti 017 E ed on in 15:36 NEGATIV urine E L sedimen t by lig Urine 2+ 2+ L NEG complet ketones 017 mg/dL ed 15:36 detecti on by automat ed elle Glucose = NEG complet ur 017 NEGATIV ed test 15:36 E strip Urine YELLOW YELLOW complet color 017 YELLOW ed 15:36 L Urine 2+ 2+ L NEG complet blood 017 ed detecti 15:36 on Urine NEGATIV NEG complet total 017 E ed bilirub 15:36 NEGATIV in E L detecti on by test Urine CLEAR CLEAR complet appeara 017 CLEAR L ed nce 15:36 determi nation Urinalysis dipstick W Reflex Microscopic panel in Urine (03-27-2017 15:36) Erythro 10-20 0 complet cytes 017 ed [Presen 15:36 ce] in Urine sedimen t by Light microsc opy Urinalysis dipstick W Reflex Microscopic panel in Urine (03-27-2017 15:36) Appeara CLEAR CLEAR complet nce of 017 ed Urine 15:36 Bilirub NEGATIV NEG complet in 017 E ed [Presen 15:36 ce] in Urine by Test strip Erythro 2+ NEG Abnorma complet cytes 017 l ed [Presen 15:36 ce] in Urine Color YELLOW YELLOW complet of 017 ed Urine 15:36 Ketones 2+ NEG Abnorma complet 017 l ed [Presen 15:36 ce] in Urine by Automat ed test strip Mucus NEGATIV NEG complet [Presen 017 E ed ce] in 15:36 Urine sedimen t by Light microsc opy Nitrite NEGATIV NEG complet 017 E ed [Presen 15:36 ce] in Urine by Test strip Urobili 0.2 NEG complet nogen 017 ed [Presen 15:36 ce] in Urine by Test strip Blood type and crossmatch (03-27-2017 13:48) Comment: Hold? Y Materna NEGATIV NEGATIV complet l 017 E E ed antibod 13:48 NEGATIV y E L screen Blood O O L complet ABO 017 ed group 13:48 typing Rh POSITIV complet blood 017 E ed group 13:48 POSITIV typing E L Crossmatch (03-27-2017 13:48) Comment: Hold? Y Immedia COMPAT complet te spin 017 COMPAT ed 13:48 L crossma tch Interpr COMPAT complet etation 017 COMPAT ed of 13:48 L major crossma tch resul Blood type & Crossmatch panel in Blood (03-27-2017 13:48) Blood NEGATIV NEGATIV complet group 017 E E ed antibod 13:48 y screen [Presen ce] in Serum or Plasma Rh POSITIV complet [Type] 017 E ed in 13:48 Blood ABO O complet group 017 ed [Type] 13:48 in Blood Blood type & Crossmatch panel in Blood (03-27-2017 13:48) Major COMPAT complet crossma 017 ed tch 13:48 [interp retatio n] Major COMPAT complet crossma 017 ed tch 13:48 [interp retatio n] by Immedia te spin Comprehensive metabolic panel (03-27-2017 06:39) Serum = 0.6 0.55-1. complet or 017 mg/dL 02 ed plasma 06:39 creatin ine measure ment ( Serum = 4.5 1.3-3.2 complet globuli 017 gm/dL ed n 06:39 measure ment (mass/v olume) Estimat = 101 59- complet ed 017 ML/MIN ed glomeru 06:39 lar filtrat ion rate (GF Comment: REFERENCE RANGE: >60 ML/MIN/1.73 SQUARE METERS Comment: If this patient is -[place], then multiply the Comment: result by 1.210. Carbon = 32 21.0-32 complet dioxide 017 mmoL/L .0 ed 06:39 measure ment Estimat = 111 50-200 complet ion of 017 ML/MIN ed creatin 06:39 ine renal clearan ce Serum = 82 74-106 complet or 017 mg/dL ed plasma 06:39 glucose measure ment (mas Protein = 6.6 6.4-8.2 complet total 017 gm/dL ed ser/masoud 06:39 s ALT = 12 12-78 complet (SGPT) 017 U/L ed ser/masoud 06:39 s Serum = 16 15-37 complet or 017 U/L ed plasma 06:39 asparta te aminotr ansfera Serum = 142 136-145 complet sodium 017 mmoL/L ed measure 06:39 ment Serum = 3.1 3.5-5.1 complet potassi 017 mmoL/L ed um 06:39 measure ment Serum = 105 98-107 complet or 017 mmoL/L ed plasma 06:39 chlorid e measure ment (mo Serum = 8.3 8.5-10. complet or 017 mg/dL 1 ed plasma 06:39 calcium measure ment (mas Serum = 2 7-18 complet or 017 mg/dL ed plasma 06:39 urea nitroge n measure men Serum = 0.4 0.2-1.0 complet or 017 mg/dL ed plasma 06:39 total bilirub in measure m Serum = 86 46-116 complet or 017 U/L ed plasma 06:39 alkalin e phospha tase rose marie Serum = 2.1 3.4-5.0 complet or 017 gm/dL ed plasma 06:39 albumin measure ment (mas Serum = 0.5 1.1-1.8 complet or 017 ed plasma 06:39 albumin /globul in mass ra CBC w auto diff (03-27-2017 06:39) Blood = 14.1 4.8-10. complet leukocy 017 K/MM3 8 ed elle 06:39 count (number /volume ) Automat = 12.8 11.5-17 complet ed 017 % .5 ed erythro 06:39 cyte distrib ution width Red = 3.82 4.2-5.4 complet blood 017 M/mm3 ed cell 06:39 count Blood = 533 142-424 complet platele 017 K/mm3 ed t count 06:39 Automat = 7.2 7.4-10. complet ed 017 fl 4 ed blood 06:39 platele t mean volume rose marie Whitman % = 7.6 % 1.7-9.3 complet 017 ed 06:39 Absolut = 1.1 0.1-1.0 complet e 017 K/mm3 ed monocyt 06:39 e count Automat = 92.7 82.2-97 complet ed 017 fl .8 ed erythro 06:39 cyte mean corpusc ular v Automat = 30.9 31.8-35 complet ed 017 g/dl .4 ed erythro 06:39 cyte mean corpusc ular h Lymphoc = 17.6 10-50.0 complet yte 017 % ed count, 06:39 blood, automat ed Absolut = 2.5 0.7-4.5 complet e 017 K/mm3 ed lymphoc 06:39 yte count Blood = 10.9 12.2-16 complet hemoglo 017 g/dL .2 ed bin 06:39 measure ment (mass/v olum Blood = 35.4 37.0-47 complet hematoc 017 % .0 ed rit 06:39 (volume fractio n) Granulo = 73.2 37.0-80 complet cyte 017 % .0 ed percent 06:39 age Blood = 10.3 1.8-7.8 complet granulo 017 K/mm3 ed cytes 06:39 automat ed count (numb Automat = 1.3 % 0.1-12. complet ed 017 0 ed blood 06:39 eosinop hils/10 0 leukocy t Automat = 0.2 0.0-0.4 complet ed 017 K/mm3 ed blood 06:39 eosinop hil count Baso % = 0.3 % 0.1-2.0 complet 017 ed 06:39 Automat = 0.1 0-0.2 complet ed 017 K/MM3 ed blood 06:39 basophi l count (count/ vo Mean = 28.6 27-31.2 complet corpusc 017 pg ed ular 06:39 hemoglo bin (MCH) determ Differential panel, method unspecified - (03-26-2017 06:45) Blood = 100 complet total 017 #CELLS ed cell 06:45 count Neutrop = 81 % 42-76 complet hil 017 ed count 06:45 Platele SLIGHT complet t 017 INCREAS ed estimat 06:45 E e SLIGHT INCREAS E L Monocyt = 8 % 2-9 complet e % 017 ed 06:45 LYMPH 11 % 10-50 complet 017 ed 06:45 CBC w auto diff (03-26-2017 06:45) Blood = 16.9 4.8-10. complet leukocy 017 K/MM3 8 ed elle 06:45 count (number /volume ) Automat = 12.8 11.5-17 complet ed 017 % .5 ed erythro 06:45 cyte distrib ution width Red = 3.64 4.2-5.4 complet blood 017 M/mm3 ed cell 06:45 count Blood = 468 142-424 complet platele 017 K/mm3 ed t count 06:45 Automat = 7.6 7.4-10. complet ed 017 fl 4 ed blood 06:45 platele t mean volume rose marie Whitman % = 7.1 % 1.7-9.3 complet 017 ed 06:45 Absolut = 1.2 0.1-1.0 complet e 017 K/mm3 ed monocyt 06:45 e count Automat = 91.5 82.2-97 complet ed 017 fl .8 ed erythro 06:45 cyte mean corpusc ular v Automat = 31.0 31.8-35 complet ed 017 g/dl .4 ed erythro 06:45 cyte mean corpusc ular h Mean = 28.4 27-31.2 complet corpusc 017 pg ed ular 06:45 hemoglo bin (MCH) determ Lymphoc = 10.4 10-50.0 complet yte 017 % ed count, 06:45 blood, automat ed Absolut = 1.8 0.7-4.5 complet e 017 K/mm3 ed lymphoc 06:45 yte count Blood = 10.3 12.2-16 complet hemoglo 017 g/dL .2 ed bin 06:45 measure ment (mass/v olum Blood = 33.3 37.0-47 complet hematoc 017 % .0 ed rit 06:45 (volume fractio n) Granulo = 81.7 37.0-80 complet cyte 017 % .0 ed percent 06:45 age Blood = 13.8 1.8-7.8 complet granulo 017 K/mm3 ed cytes 06:45 automat ed count (numb Automat = 0.6 % 0.1-12. complet ed 017 0 ed blood 06:45 eosinop hils/10 0 leukocy t Automat = 0.1 0.0-0.4 complet ed 017 K/mm3 ed blood 06:45 eosinop hil count Baso % = 0.3 % 0.1-2.0 complet 017 ed 06:45 Automat 10-08-2 = 0.1 0-0.2 complet ed 017 K/MM3 ed blood 06:45 basophi l count (count/ vo Comprehensive metabolic panel (03-26-2017 06:45) Protein = 6.2 6.4-8.2 complet total 017 gm/dL ed ser/masoud 06:45 s ALT = 11 12-78 complet (SGPT) 017 U/L ed ser/masoud 06:45 s Serum = 12 15-37 complet or 017 U/L ed plasma 06:45 asparta te aminotr ansfera Serum = 139 136-145 complet sodium 017 mmoL/L ed measure 06:45 ment Serum = 3.1 3.5-5.1 complet potassi 017 mmoL/L ed um 06:45 measure ment Serum = 91 74-106 complet or 017 mg/dL ed plasma 06:45 glucose measure ment (mas Serum = 4.2 1.3-3.2 complet globuli 017 gm/dL ed n 06:45 measure ment (mass/v olume) Estimat = 101 59- complet ed 017 ML/MIN ed glomeru 06:45 lar filtrat ion rate (GF Comment: REFERENCE RANGE: >60 ML/MIN/1.73 SQUARE METERS Comment: If this patient is -[place], then multiply the Comment: result by 1.210. Estimat = 111 50-200 complet ion of 017 ML/MIN ed creatin 06:45 ine renal clearan ce Serum = 0.6 0.55-1. complet or 017 mg/dL 02 ed plasma 06:45 creatin ine measure ment ( Carbon = 28 21.0-32 complet dioxide 017 mmoL/L .0 ed 06:45 measure ment Serum = 105 98-107 complet or 017 mmoL/L ed plasma 06:45 chlorid e measure ment (mo Serum = 8.1 8.5-10. complet or 017 mg/dL 1 ed plasma 06:45 calcium measure ment (mas Serum = 2 7-18 complet or 017 mg/dL ed plasma 06:45 urea nitroge n measure men Serum = 0.3 0.2-1.0 complet or 017 mg/dL ed plasma 06:45 total bilirub in measure m Serum = 86 46-116 complet or 017 U/L ed plasma 06:45 alkalin e phospha tase rose marie Serum = 2.0 3.4-5.0 complet or 017 gm/dL ed plasma 06:45 albumin measure ment (mas Serum = 0.5 1.1-1.8 complet or 017 ed plasma 06:45 albumin /globul in mass ra Differential panel, method unspecified - (03-26-2017 06:45) LYMPH 11 % 10% - Normal complet 017 50% ed 06:45 Platele SLIGHT complet ts 017 INCREAS ed [Presen 06:45 E ce] in Blood by Light microsc opy CBC w auto diff (03-25-2017 06:23) Automat [...] 06:23 platele t mean volume rose marie Whitman % = 6.2 % 1.7-9.3 complet 017 [...] SQUARE METERS Comment: If this patient is -[place], then multiply the Comment: result by [...] Differential panel, method unspecified - (03-24-2017 10:55) Percent = 1 % 0-5 complet of 017 ed variant 10:55 lymphoc ytes in blood Blood = 100 complet total 017 #CELLS ed cell 10:55 count Neutrop = 83 % 42-76 complet hil 017 ed count 10:55 Platele MOD complet t 017 INCREAS ed estimat 10:55 E MOD e INCREAS E L Monocyt = 6 % 2-9 complet e % 017 ed 10:55 LYMPH 10 % 10-50 complet 017 ed 10:55 CBC w auto diff (03-24-2017 10:55) Red = 4.80 4.2-5.4 complet blood 017 M/mm3 ed cell 10:55 count Blood = 615 142-424 complet platele 017 K/mm3 ed t count 10:55 Automat = 7.3 7.4-10. complet ed 017 fl 4 ed blood 10:55 platele t mean volume rose marie Whitman % = 6.9 % 1.7-9.3 complet 017 ed 10:55 Absolut = 1.6 0.1-1.0 complet e 017 K/mm3 ed monocyt 10:55 e count Automat = 91.9 82.2-97 complet ed 017 fl .8 ed erythro 10:55 cyte mean corpusc ular v Automat = 31.0 31.8-35 complet ed 017 g/dl .4 ed erythro 10:55 cyte mean corpusc ular h Mean = 28.5 27-31.2 complet corpusc 017 pg ed ular 10:55 hemoglo bin (MCH) determ Lymphoc = 8.9 % 10-50.0 complet yte 017 ed count, 10:55 blood, automat ed Absolut = 2.0 0.7-4.5 complet e 017 K/mm3 ed lymphoc 10:55 yte count Blood = 13.7 12.2-16 complet hemoglo 017 g/dL .2 ed bin 10:55 measure ment (mass/v olum Blood = 44.1 37.0-47 complet hematoc 017 % .0 ed rit 10:55 (volume fractio n) Granulo = 83.3 37.0-80 complet cyte 017 % .0 ed percent 10:55 age Blood = 19.1 1.8-7.8 complet granulo 017 K/mm3 ed cytes 10:55 automat ed count (numb Automat = 0.6 % 0.1-12. complet ed 017 0 ed blood 10:55 eosinop hils/10 0 leukocy t Automat = 0.1 0.0-0.4 complet ed 017 K/mm3 ed blood 10:55 eosinop hil count Baso % = 0.3 % 0.1-2.0 complet 017 ed 10:55 Automat = 0.1 0-0.2 complet ed 017 K/MM3 ed blood 10:55 basophi l count (count/ vo Blood = 22.9 4.8-10. complet leukocy 017 K/MM3 8 ed elle 10:55 count (number /volume ) Automat = 12.7 11.5-17 complet ed 017 % .5 ed erythro 10:55 cyte distrib ution width Differential panel, method unspecified - (03-24-2017 10:55) LYMPH 10 % 10% - Normal complet 017 50% ed 10:55 Platele MOD complet ts 017 INCREAS ed [Presen 10:55 E ce] in Blood by Light microsc opy Procedures Procedure [place] [address] [facility] THERAPY/P INC INC ROPHYLAXI S /DX 1ST TO 1 HR THERAPEUT 37781 [facility] IC [facility] INJECTION [facility] INC IV PUSH EACH NEW DRUG UNCLASSIF J3490 [facility] IED DRUGS 7 [facility] INC INC UNCLASSIF J3490 [facility] IED DRUGS [place] [address] [facility] G[facility] OUT[facility] T CLIN INC INC VISIT ASSESS & MGMT PT BLOOD 99040 [facility] COUNT 7 [facility] COMPLETE INC INC AUTO&AUTO DIFRNTL WBC COMPREHEN 89322 [facility] SIVE 7 [facility] [place] [address] [facility] INFUSION [facility] HYDRATION INC INC INITIAL 31 MIN-[place] [address] [facility] INFUSION [facility] [place] [place] [address] [facility] INFUSION 7 [facility] HYDRATION INC INC INITIAL 31 MIN-[place] [address] [facility] INFUSION 7 [facility] THERAPY/P INC INC ROPHYLAXI S /DX 1ST TO 1 HR CORTISOL 25970 [facility] TOTAL 7 [facility] INC INC UNCLASSIF J3490 [facility] IED DRUGS 7 [facility] INC INC Encounters Encounter Start End Date Code Location Performer Type Date [facility] - 7 7 [facility] ANGEL - 7 7 [facility] OUT[facility] INC T OFFICE 95160 [facility] 7 7 [facility] T VISIT 5 [facility] ANGEL - 7 7 [facility] OUTPATIEN INC T OFFICE 23749 [facility] OUTPATIEN 7 7 [facility] T [facility]ISIT 5 [facility] ANGEL - 7 7 [facility] OUTPATIEN INC T OFFICE 07519 [facility] OUTPATIEN 7 7 [facility] T [facility]ISIT 5 [facility] ANGEL - 7 7 [facility] OUTPATIEN INC T OFFICE 70587 [facility] OUTPATIEN 7 7 [facility] T VISIT 5 [facility] ANGEL - 7 7 [facility] OUTPATIEN INC T OFFICE 72635 [facility] OUTPATIEN 7 7 [facility] T VISIT 5 [facility] OFFICE 69609 MICHAEL RODRIGUEZ JR OUTPATIEN 7 7 T VISIT 25 [facility] ANGEL - 7 7 [facility] OUTPATIEN INC T
--- OUTSIDE RECORDS SUMMARY | 2017-06-12 14:50 | External Medical Summary Rpt | CCD ---
Author Author , NOVA BHATT Address Unknown Phone [email or web address] Care Team Providers Care Asphalt Roller Operator Name Role Phone [facility] Unavailable [...] ALSTON HEMATURIA R531 WEAKNESS 04-19-2017 MICHAEL ALSTON [id number] OTHER 04-19-2017 MICHAEL ALSTON SPECIFIED POSTPROCEDU RAL [...] #3 /M 93 L 8 BAZZI SP MA 00 11 12 12 2 00 HO [...] #3 /M 93 L 8 BAZZI SP MA 00 11 11 12 2 00 HO [...] SQUARE METERS Comment: If this patient is -[place], then multiply the Comment: result by 1.210. [...] 017 K/mm3 ed monocyt 12:03 e count Payette % = 7.8 % 1.7-9.3 complet 017 [...] SQUARE METERS Comment: If this patient is -[place], then multiply the Comment: result by 1.210. Serum = 6.2 1.3-3.2 complet globuli 017 gm/dL ed n 14:30 measure ment (mass/v olume) Serum 11-08-2 = 109 74-106 complet or 017 mg/dL ed plasma 14:30 glucose measure ment ([facility] Basic metabolic panel (04-26-2017 14:30) Estimat [...] SQUARE METERS Comment: If this patient is -[place], then multiply the Comment: result by 1.210. Serum = 112 74-106 complet or 017 mg/dL ed plasma 14:30 glucose measure ment ([facility] Serum = 4.3 3.5-5.1 complet potassi [...] 017 K/mm3 ed monocyt 14:30 e count Payette % = 8.1 % 1.7-9.3 complet 017 [...] PM 2.3 - 11.9 Comment: Performed at: [facility] Comment: [id number], [place] [id number] Comment: Pear Picker: Tony Bartholomew PhD, Phone: [phone] Comprehensive metabolic panel (04-12-2017 06:35) Serum 04-12-2 [...] SQUARE METERS Comment: If this patient is -[place], then multiply the Comment: result by 1.210. [...] 017 K/mm3 ed monocyt 06:35 e count Payette % = 9.7 % 1.7-9.3 complet 017 [...] 017 K/mm3 ed monocyt 07:40 e count Payette % = 6.5 % 1.7-9.3 complet 017 [...] SQUARE METERS Comment: If this patient is -[place], then multiply the Comment: result by 1.210. [...] 017 K/mm3 ed monocyt 06:45 e count Payette % = 7.6 % 1.7-9.3 complet 017 [...] 017 K/mm3 ed monocyt 06:25 e count Payette % = 8.6 % 1.7-9.3 complet 017 [...] SQUARE METERS Comment: If this patient is -[place], then multiply the Comment: result by 1.210. [...] 017 K/mm3 ed monocyt 05:10 e count Payette % = 7.7 % 1.7-9.3 complet 017 [...] SQUARE METERS Comment: If this patient is -[place], then multiply the Comment: result by 1.210. [...] SQUARE METERS Comment: If this patient is -[place], then multiply the Comment: result by 1.210. [...] 06:00 platele t mean volume rose marie Payette % = 6.0 % 1.7-9.3 complet 017 [...] 04:10 platele t mean volume rose marie Payette % = 5.6 % 1.7-9.3 complet 017 [...] SQUARE METERS Comment: If this patient is -[place], then multiply the Comment: result by 1.210. [...] 06:20 platele t mean volume rose marie Payette % = 6.3 % 1.7-9.3 complet 017 [...] SQUARE METERS Comment: If this patient is -[place], then multiply the Comment: result by 1.210. [...] 07:35 platele t mean volume rose marie Payette % = 5.3 % 1.7-9.3 complet 017 [...] 05:05 platele t mean volume rose marie Payette % = 2.4 % 1.7-9.3 complet 017 [...] SQUARE METERS Comment: If this patient is -[place], then multiply the Comment: result by 1.210. [...] SQUARE METERS Comment: If this patient is -[place], then multiply the Comment: result by 1.210. [...] 06:39 platele t mean volume rose marie Payette % = 7.6 % 1.7-9.3 complet 017 [...] 06:45 platele t mean volume rose marie Payette % = 7.1 % 1.7-9.3 complet 017 [...] SQUARE METERS Comment: If this patient is -[place], then multiply the Comment: result by 1.210. [...] 06:23 platele t mean volume rose marie Payette % = 6.2 % 1.7-9.3 complet 017 [...] SQUARE METERS Comment: If this patient is -[place], then multiply the Comment: result by 1.210. [...] 10:55 platele t mean volume rose marie Payette % = 6.9 % 1.7-9.3 complet 017 [...] Procedure [place] [address] [facility] THERAPY/P INC INC ROPHYLAXI S /DX 1ST TO 1 HR THERAPEUT 36570 [facility] IC [facility] INJECTION INC INC IV PUSH EACH NEW DRUG UNCLASSIF J3490 [facility] IED DRUGS 7 [facility] INC INC UNCLASSIF J3490 AN[facility] IED DRUGS [place] [address] [facility]FUSION 7 [facility] G0463 [facility] OUTPATIEN 7 [facility] T CLIN INC INC VISIT ASSESS & MGMT PT BLOOD 85370 [facility] COUNT 7 [facility] COMPLETE INC INC AUTO&AUTO DIFRNTL WBC COMPREHEN 38590 [facility] SIVE 7 [facility] [place] [address] [facility] INFUSION 7 [facility] HYDRATION INC INC INITIAL 31 MIN-[place] [address] [facility] INFUSION 7 [facility] [place] [address] [facility] INFUSION 7 [facility] HYDRATION INC INC INITIAL 31 MIN-[place] [address] [facility] INFUSION 7 [facility] THERAPY/P INC INC ROPHYLAXI S /DX 1ST TO 1 HR CORTISOL 05814 [facility] TOTAL 7 [facility] INC INC UNCLASSIF J3490 [facility] IED DRUGS 7 [facility] INC Encounters Encounter Start End Date Code Location Performer Type Date [facility] ANGEL - 7 7 [facility] OUTPATIEN [facility] ANGEL - 7 7 [facility] OUTPATIEN INC T OFFICE 37371 ANG[facility] OUTPATIEN 7 7 [facility] T VISIT 5 [facility] ANGEL - 7 7 [facility] OUTPATIEN INC T OFFICE 19704 ANGEL OUTPATIEN 7 7 [facility] T VISIT 5 [facility] ANGEL - 7 7 [facility] OUTPATIEN INC T OFFICE 18656 ANG[facility] OUTPATIEN 7 7 [facility] T [facility]ISIT 5 [facility] ANGEL - 7 7 [facility] OUTPATI[facility] INC T OFFICE 28398 AN[facility] OUTPATIEN 7 7 [facility] T [facility]ISIT 5 [facility] ANGEL - 7 7 [facility] OUTPATIEN INC T OFFICE 22468 [facility] OUTPATIEN 7 7 [facility] T VISIT 5 [facility] OFFICE 20368 MICHAEL RODRIGUEZ JR OUTPATIEN 7 7 T VISIT 25 [facility]GEL - 7 7 [facility] OUTPATIEN INC T
--- OUTSIDE RECORDS SUMMARY | 2017-06-12 14:51 | External Medical Summary Rpt | CCD ---
Author Author , NOVA BHATT Address Unknown Phone [email or web address] Team Providers Care Cadastral Surveyor Name Role Phone [facility] Unavailable [facility] MICHAEL RODRIGUEZ JR, JR Unavailable Unavailable MICHAEL RODRIGUEZ JR, JR Unavailable Unavailable Purpose Continuity of Care Document - 04-19-2017 through 2016 Problems Code Diagnosis DOS Provider Status E860 DEHYDRATION 05-09-2017 [facility] INC [...] ALSTON HEMATURIA R531 WEAKNESS 04-19-2017 MICHAEL ALSTON [id number] OTHER 04-19-2017 MICHAEL ALSTON SPECIFIED POSTPROCEDU RAL STATES Medications Na ND Rx Da Fi Fi [...] #3 /M 93 L 8 BAZZI SP VT 00 11 12 12 2 00 HO [...] #3 /M 93 L 8 BAZZI SP VT 00 11 11 12 2 00 HO Ac OM 60 -0 -2 0. 00 ME ti ET 31 1- 4- 00 06 TO ve SNYDER 58 20 20 0 09 WN ZI 45 17 17 71 NE 8 40 PH AR 6. MA 25 CY MG OF /5 CY ML NT HI SY AN RP A Procedures Procedure DOS Code Location Performer Comment UNCLASSIF J3490 [facility] IED DRUGS 7 [place] [address] [facility] INFUSION [facility] THERAPY/P INC INC ROPHYLAXI S /DX 1ST TO 1 HR THERAPEUT 20342 [facility] IC 7 [facility] INJECTION INC INC IV PUSH EACH NEW DRUG BLOOD 12615 [facility] COUNT 7 [facility] COMPLETE INC INC AUTO&[place] [address] [facility] INFUSION 7 [facility] HYDRATION INC INC [facility] UNCLASSIF J3490 [facility] IED DRUGS 7 [facility] INC INC COMPREHEN 60709 [facility] SIVE 7 [facility] METABOLIC INC INC [facility] G0463 AN[facility] OUTPATIEN 7 [facility] T CLIN INC INC VISIT ASSESS & [place] [address] [facility] INFUSION 7 [facility] HYDRATION INC INC INITIAL 31 MIN-[place] [address] [facility] INFUSION 7 [facility] HYDRATION INC INC E[facility] UNCLASSIF J3490 ANGEL ORTIZ IED DRUGS 7 [place] [address] ANGEL CRYSTALON INFUSION 7 [facility] HYDRATION INC INC INITIAL 31 MIN-[place] [address] ANG[facility] CRYSTALON INFUSION 7 [facility] THERAPY/P INC INC ROPHYLAXI S /DX 1ST TO 1 HR CORTISOL 05658 [facility] TOTAL 7 [facility] INC Encounters Encounter Start End Date Code Location Performer Type Date [facility] ANGEL - 7 7 [facility] OUTPATIEN INC [facility] ANGEL - 7 7 [facility] OUTPATIEN INC T [facility] ANGEL - 7 7 [facility] OUTPATIEN INC T OFFICE 56156 [facility] OUT[facility]EN 7 7 [facility] - 7 [facility] T OFFICE 71739 [facility] OUT[facility]IEN 7 7 [facility] - 7 7 [facility] INC T OFFICE 64001 [facility] OUT[facility]IEN 7 7 [facility] T VISIT 5 INC MIN[facility] OFFICE 04604 [facility]IEN 7 7 [facility] - 7 7 [facility] ANGEL - 7 7 [facility] OUTPATIEN INC T OFFICE 46516 MICHAEL RODRIGUEZ JR OUTPATIEN 7 7 T VISIT 25 MINUTES OFFICE 98316 [facility] 7 7 [facility] T VISIT 5 INC MINUTES
--- OUTSIDE RECORDS SUMMARY | 2017-06-12 14:51 | External Medical Summary Rpt | CCD ---
Author Author , NOVA BHATT Address Unknown Phone [email or web address] Care Team Providers Care Resin Coater Name Role Phone [facility] Unavailable [...] ALSTON HEMATURIA R531 WEAKNESS 04-19-2017 MICHAEL ALSTON [id number] OTHER 04-19-2017 MICHAEL ALSTON SPECIFIED POSTPROCEDU RAL [...] #3 /M 93 L 8 BAZZI SP WI 00 11 12 12 2 00 HO [...] #3 /M 93 L 8 BAZZI SP WI 00 11 11 12 2 00 HO [...] [place] [address] [facility] INFUSION 7 [facility] THERAPY/P INC INC ROPHYLAXI S /DX 1ST TO 1 HR THERAPEUT 15203 [facility] IC 7 [facility] INJECTION INC INC IV PUSH EACH NEW DRUG BLOOD 50246 [facility] COUNT 7 [facility] COMPLETE INC INC AUTO&[place] [address] [facility] INFUSION 7 [facility] HYDRATION INC INC E[facility] UNCLASSIF J3490 [facility] IED DRUGS 7 [facility] INC INC COMPREHEN 17927 [facility] SIVE 7 [facility] METABOLIC INC INC [facility] G0463 AN[facility] OUTPATIEN 7 [facility] T CLIN INC INC VISIT ASSESS & [place] [address] AN[facility] INFUSION 7 [facility] HYDRATION INC INC INITIAL 31 MIN-[place] [address] [facility] INFUSION 7 [facility] HYDRATION INC INC [facility] UNCLASSIF J3490 ANGEL OR[facility]Z IED DRUGS 7 [place] [address] ANGEL CRYSTALON INFUSION 7 [facility] HYDRATION INC INC INITIAL 31 MIN-[place] [address] AN[facility]EL CRYSTALON INFUSION 7 [facility] THERAPY/P INC INC ROPHYLAXI S /DX 1ST TO 1 HR CORTISOL 08002 [facility] TOTAL 7 [facility] INC Encounters Encounter Start End Date Code Location Performer Type Date [facility] ANGEL - 7 7 [facility]EN INC [facility] ANGEL - 7 7 [facility] INC T [facility] ANGEL - 7 7 [facility] OUTPATIEN INC T OFFICE 61909 AN[facility] OUTPATIEN 7 7 [facility] T VISIT 5 [facility] - 7 [facility] T OFFICE 20299 [facility] 7 [facility] - 7 7 [facility]IEN INC T OFFICE 68163 [facility] OUTPATIEN 7 7 [facility] T VISIT 5 INC MINUTES OFFICE 54161 [facility] OUT[facility]IEN 7 7 [facility] T V[facility] - 7 7 [facility] NAGEL - 7 7 [facility] OUTPATIEN INC T OFFICE 87909 MICHAEL RODRIGUEZ JR OUTPATIEN 7 7 T VISIT 25 MINUTES OFFICE 22734 [facility] 7 7 [facility] T VISIT 5 INC MINUTES
--- OUTSIDE RECORDS SUMMARY | 2017-06-12 14:52 | External Medical Summary Rpt | CCD ---
Demographics Preferred Language Azeri Marital Status Unknown Rastafari Affiliation Unknown Race Unknown Ethnic Group Unknown Author Author , NOVA BHATT Address Unknown Phone Immunization No patient found.
--- OUTSIDE RECORDS SUMMARY | 2017-06-12 14:52 | External Medical Summary Rpt | CCD ---
Demographics Preferred Language Icelandic Marital Status Unknown Alevism Affiliation Unknown Race Unknown Ethnic Group Unknown Author Author , NOVA BHATT Address Unknown Phone Immunization No patient found.
--- OUTSIDE RECORDS SUMMARY | 2017-06-12 14:55 | External Medical Summary Rpt ---
Author Author [facility], [employer] Organization [employer] Address Unknown Phone Unavailable Results Comprehensive metabolic 2000 panel in Serum or Plasma Observa Value Referen Units Interpr Notes Date tion ce etation Range Albumin/G 1.1 - 1.8 No Low No Dec 4 lobulin informati informati 2017 [Mass on in on in 12:03 PM ratio] in source source Serum or data data Plasma Albumin 3.4 - 5.0 gm/dL Low No Dec 4 [Mass/vol informati 2016 ume] in on in 12:03 PM Serum or source Plasma data Alkaline 46 - 116 U/L High No Dec 4 phosphata informati 2017 se on in 12:03 PM [Enzymati source c data activity/ volume] in Serum or Plasma Bilirubin 0.2 - 1.0 mg/dL Normal No Dec 4 .total informati 2016 [Mass/vol on in 12:03 PM ume] in source Serum or data Plasma Urea 7 - 18 mg/dL Normal No Dec 4 nitrogen informati 2017 [Mass/vol on in 12:03 PM ume] in source Serum or data Plasma Calcium 8.5 - mg/dL Normal No Dec 4 [Mass/vol 10.1 informati 2017 ume] in on in 12:03 PM Serum or source Plasma data Chloride 98 - 107 mmoL/L Normal No Dec 4 [Moles/vo informati 2017 lume] in on in 12:03 PM Serum or source Plasma data Carbon 21.0 - mmoL/L Low No Dec 4 dioxide, 32.0 informati 2017 total on in 12:03 PM [Moles/vo source lume] in data Serum or Plasma Creatinin 0.55 - mg/dL Normal No Dec 4 e 1.02 informati 2017 [Mass/vol on in 12:03 PM ume] in source Serum or data Plasma Estimated 59- ML/MIN No REFERENCE Dec 4 informati RANGE: 2017 glomerula on in >60 12:03 PM r source ML/MIN/1. filtratio data 73 SQUARE n rate METERSIf (GF this patient is -A merican, then multiply theresult by 1.210. Globulin 1.3 - 3.2 gm/dL High No May 22 [Mass/vol informati 2016 ume] in on in 12:03 PM Serum source data Glucose 74 - 106 mg/dL Normal May 22 [Mass/vol informati 2016 ume] in on in 12:03 PM Serum or source Plasma data Potassium 3.5 - 5.1 mmoL/L Low No May 222016 [Moles/vo on in 12:03 PM lume] in source Serum or data Plasma Sodium 136 - 145 mmoL/L Normal No May 22 [Moles/vo informati 2016 lume] in on in 12:03 PM Serum or source Plasma data Aspartate 15 - 37 U/L Normal May 222016 aminotran on in 12:03 PM sferase source [Enzymati data c activity/ volume] in Serum or Plasma Alanine 12 - 78 U/L Normal May 22 aminotran 2016 sferase on in 12:03 PM [Enzymati source c data activity/ volume] in Serum or Plasma Protein 6.4 - 8.2 gm/dL Normal No May 22 [Mass/vol informati 2016 ume] in on in 12:03 PM Serum or source Plasma data CBC W Auto Differential panel in Blood Observa Value Referen Units Interpr Notes Date tion ce etation Range Basophils 0 - 0.2 K/MM3 Normal May 222016 [#/volume on in 12:03 PM ] in source Blood by data Automated count Basophils 0.1 - 2.0 % Normal May 222016 leukocyte on in 12:03 PM s in source Blood by data Automated count Eosinophi 0.0 - 0.4 K/mm3 Normal May 22 ls 2016 [#/volume on in 12:03 PM ] in source Blood by data Automated count Eosinophi 0.1 - % Normal May 22 ls/100 12.0 2016 leukocyte on in 12:03 PM s in source Blood by data Automated count Granulocy 1.8 - 7.8 K/mm3 Normal No May 22 elle 2016 [#/volume on in 12:03 PM ] in source Blood by data Automated count Granulocy 37.0 - % Normal May 22 elle/100 80.0 2016 leukocyte on in 12:03 PM s in source Blood by data Automated count Hematocri 37.0 - % Low No May 22 t [Volume 47.0 2016 on in 12:03 PM Fraction] source of Blood data Hemoglobi 12.2 - g/dL Low No May 22 n 16.2 2016 [Mass/vol on in 12:03 PM ume] in source Blood data Lymphocyt 0.7 - 4.5 K/mm3 Normal No May 22 es 2016 [#/volume on in 12:03 PM ] in source Unspecifi data ed specimen by Automated count Lymphocyt 10 - 50.0 % Normal No May 22 es 2016 [#/volume on in 12:03 PM ] in source Unspecifi data ed specimen by Automated count Erythrocy 27 - 31.2 pg Normal No May 22 te mean 2016 corpuscul on in 12:03 PM ar source hemoglobi data n [Entitic mass] Erythrocy 31.8 - g/dl Normal May 22 te mean 35.4 2016 corpuscul on in 12:03 PM ar source hemoglobi data n concentra tion [Mass/vol ume] by Automated count Erythrocy 82.2 - fl Normal May 22 te mean 97.8 2016 corpuscul on in 12:03 PM ar volume source [Entitic data volume] by Automated count Monocytes 0.1 - 1.0 K/mm3 Normal No May 222016 [#/volume on in 12:03 PM ] in source Blood by data Automated count Monocytes 1.7 - 9.3 % Normal No May 22 /100 2016 leukocyte on in 12:03 PM s in source Blood by data Automated count Platelet 7.4 - fl Low May 22 mean 10.4 2016 volume on in 12:03 PM [Entitic source volume] data in Blood by Automated count Platelets 142 - 424 K/mm3 High No May 222016 [#/volume on in 12:03 PM ] in source Blood data Erythrocy 4.2 - 5.4 M/mm3 Low No May 4 elle 2016 [#/volume on in 12:03 PM ] in source Amniotic data fluid Erythrocy 11.5 - % Normal No May 22 te 17.5 2016 distribut on in 12:03 PM ion width source [Entitic data volume] by Automated count Leukocyte 4.8 - K/MM3 Normal No May 4 s 10.8 informati 2017 [#/volume on in 12:03 PM ] in source Blood data Comprehensive metabolic 2000 panel in Serum or Plasma Observa Value Referen Units Interpr Notes Date tion ce etation Range Albumin/G 1.1 - 1.8 No Low No Apr 8 lobulin informati informati 2017 2:30 [Mass on in on in PM ratio] in source source Serum or data data Plasma Albumin 3.4 - 5.0 gm/dL Low No Apr 26 [Mass/vol informati 2017 2:30 ume] in on in PM Serum or source Plasma data Alkaline 46 - 116 U/L High No Apr 26 phosphata informati 2017 2:30 se on in PM [Enzymati source c data activity/ volume] in Serum or Plasma Bilirubin 0.2 - 1.0 mg/dL Normal No Apr 26 .total informati 2016 2:30 [Mass/vol on in PM ume] in source Serum or data Plasma Urea 7 - 18 mg/dL High No Apr 26 nitrogen informati 2017 2:30 [Mass/vol on in PM ume] in source Serum or data Plasma Calcium 8.5 - mg/dL Normal No Apr 26 [Mass/vol 10.1 informati 2017 2:30 ume] in on in PM Serum or source Plasma data Chloride 98 - 107 mmoL/L Normal No Apr 26 [Moles/vo informati 2016 2:30 lume] in on in PM Serum or source Plasma data Carbon 21.0 - mmoL/L Low No Apr 26 dioxide, 32.0 informati 2017 2:30 total on in PM [Moles/vo source lume] in data Serum or Plasma Creatinin 0.55 - mg/dL High No Apr 8 e 1.02 informati 2017 2:30 [Mass/vol on in PM ume] in source Serum or data Plasma Estimated 59- ML/MIN Low REFERENCE Apr 8 RANGE: 2017 2:30 glomerula >60 PM r ML/MIN/1. filtratio 73 SQUARE n rate METERSIf (GF this patient is -A merican, then multiply theresult by 1.210. Globulin 1.3 - 3.2 gm/dL High No Apr 8 [Mass/vol informati 2016 2:30 ume] in on in PM Serum source data Glucose 74 - 106 mg/dL High No Apr 26 [Mass/vol informati 2016 2:30 ume] in on in PM Serum or source Plasma data Potassium 3.5 - 5.1 mmoL/L Normal Apr 262016 2:30 [Moles/vo on in PM lume] in source Serum or data Plasma Sodium 136 - 145 mmoL/L Low Apr 26 [Moles/vo 2016 2:30 lume] in on in PM Serum or source Plasma data Aspartate 15 - 37 U/L Normal Apr 262016 2:30 aminotran on in PM sferase source [Enzymati data c activity/ volume] in Serum or Plasma Alanine 12 - 78 U/L Normal No Apr 26 aminotran informati 2016 2:30 sferase on in PM [Enzymati source c data activity/ volume] in Serum or Plasma Protein 6.4 - 8.2 gm/dL High Apr 26 [Mass/vol informati 2016 2:30 ume] in on in PM Serum or source Plasma data CBC W Auto Differential panel in Blood Observa Value Referen Units Interpr Notes Date tion ce etation Range Basophils 0 - 0.2 K/MM3 Normal No Apr 262016 2:30 [#/volume on in PM ] in source Blood by data Automated count Basophils 0.1 - 2.0 % Normal Apr 26 inform2016 2:30 leukocyte on in PM s in source Blood by data Automated count Eosinophi 0.0 - 0.4 K/mm3 Normal No Apr 26 ls ati 2016 2:30 [#/volume on in PM ] in source Blood by data Automated count Eosinophi 0.1 - % Normal Apr 26 ls/100 12.0 informati 2016 2:30 leukocyte on in PM s in source Blood by data Automated count Granulocy 1.8 - 7.8 K/mm3 Normal No Apr 26 elle informati 2016 2:30 [#/volume on in PM ] in source Blood by data Automated count Granulocy 37.0 - % Normal Apr 26 elle/100 80.0 informati 2016 2:30 leukocyte on in PM s in source Blood by data Automated count Hematocri 37.0 - % Normal Apr 26 t [Volume 47.0 ati 2016 2:30 on in PM Fraction] source of Blood data Hemoglobi 12.2 - g/dL Normal No Nov 8 n 16.2 informati 2017 2:30 [Mass/vol on in PM ume] in source Blood data Lymphocyt 0.7 - 4.5 K/mm3 Normal No Apr 8 es inform2016 2:30 [#/volume on in PM ] in source Unspecifi data ed specimen by Automated count Lymphocyt 10 - 50.0 % Normal No Apr 8 es informati 2017 2:30 [#/volume on in PM ] in source Unspecifi data ed specimen by Automated count Erythrocy 27 - 31.2 pg Normal No Apr 8 te mean informati 2016 2:30 corpuscul on in PM ar source hemoglobi data n [Entitic mass] Erythrocy 31.8 - g/dl Normal No Apr 26 te mean 35.4 informati 2016 2:30 corpuscul on in PM ar source hemoglobi data n concentra tion [Mass/vol ume] by Automated count Erythrocy 82.2 - fl Normal No Apr 26 te mean 97.8 informati 2016 2:30 corpuscul on in PM ar volume source [Entitic data volume] by Automated count Monocytes 0.1 - 1.0 K/mm3 Normal No Apr 8 inform2016 2:30 [#/volume on in PM ] in source Blood by data Automated count Monocytes 1.7 - 9.3 % Normal No Apr 8 /100 informati 2017 2:30 leukocyte on in PM s in source Blood by data Automated count Platelet 7.4 - fl Normal No Apr 8 mean 10.4 informati 2016 2:30 volume on in PM [Entitic source volume] data in Blood by Automated count Platelets 142 - 424 K/mm3 High No Apr 26ati 2016 2:30 [#/volume on in PM ] in source Blood data Erythrocy 4.2 - 5.4 M/mm3 Normal No Apr 8 elle informati 2017 2:30 [#/volume on in PM ] in source Amniotic data fluid Erythrocy 11.5 - % Normal No Apr 26 te 17.5 informati 2016 2:30 distribut on in PM ion width source [Entitic data volume] by Automated count Leukocyte 4.8 - K/MM3 High No Apr 8 s 10.8 informati 2016 2:30 [#/volume on in PM ] in source Blood data Basic metabolic panel in Blood Observa Value Referen Units Interpr Notes Date tion ce etation Range Urea 7 - 18 mg/dL High No Apr 8 nitrogen inform2016 2:30 [Mass/vol on in PM ume] in source Serum or data Plasma Calcium 8.5 - mg/dL Low No Apr 26 [Mass/vol 10.1 inform2016 2:30 ume] in on in PM Serum or source Plasma data Chloride 98 - 107 mmoL/L Normal No Apr 8 [Moles/vo informati 2016 2:30 lume] in on in PM Serum or source Plasma data Carbon 21.0 - mmoL/L Low No Apr 26 dioxide, 32.0 ati 2016 2:30 total on in PM [Moles/vo source lume] in data Serum or Plasma Creatinin 0.55 - mg/dL High No Apr 8 e 1.02 informati 2016 2:30 [Mass/vol on in PM ume] in source Serum or data Plasma Creatinin 50 - 200 ML/MIN Low No Apr 26 e renal informati 2016 2:30 clearance on in PM source predicted data by Cockcroft -Gault formula Estimated 59- ML/MIN Low REFERENCE Apr 26 RANGE: 2017 2:30 glomerula >60 PM r ML/MIN/1. filtratio 73 SQUARE n rate METERSIf (GF this patient is -A merican, then multiply theresult by 1.210. Glucose 74 - 106 mg/dL High No Apr 26 [Mass/vol 2016 2:30 ume] in on in PM Serum or source Plasma data Potassium 3.5 - 5.1 mmoL/L Normal No Apr 8 2016 2:30 [Moles/vo on in PM lume] in source Serum or data Plasma Sodium 136 - 145 mmoL/L Low No Apr 26 [Moles/vo ati 2016 2:30 lume] in on in PM Serum or source Plasma data CBC W Auto Differential panel in Blood Observa Value Referen Units Interpr Notes Date tion ce etation Range Basophils 0 - 0.2 K/MM3 Normal No Apr 26 inform2016 2:30 [#/volume on in PM ] in source Blood by data Automated count Basophils 0.1 - 2.0 % Normal No Apr 26 /100 informati 2016 2:30 leukocyte on in PM s in source Blood by data Automated count Eosinophi 0.0 - 0.4 K/mm3 Normal No Apr 8 ls ati 2016 2:30 [#/volume on in PM ] in source Blood by data Automated count Eosinophi 0.1 - % Normal No Apr 26 ls/100 12.0 informati 2016 2:30 leukocyte on in PM s in source Blood by data Automated count Granulocy 1.8 - 7.8 K/mm3 Normal No Apr 8 elle informati 2016 2:30 [#/volume on in PM ] in source Blood by data Automated count Granulocy 37.0 - % Normal No Apr 26 elle/100 80.0 informati 2016 2:30 leukocyte on in PM s in source Blood by data Automated count Hematocri 37.0 - % Normal No Apr 26 t [Volume 47.0 informati 2016 2:30 on in PM Fraction] source of Blood data Hemoglobi 12.2 - g/dL No Apr 26 n 16.2 informati informati 2016 2:30 [Mass/vol on in on in PM ume] in source source Blood data data Lymphocyt 0.7 - 4.5 K/mm3 Normal No Apr 26 es informati 2016 2:30 [#/volume on in PM ] in source Unspecifi data ed specimen by Automated count Lymphocyt 10 - 50.0 % Normal No Apr 26 informati 2016 2:30 [#/volume on in PM ] in source Unspecifi data ed specimen by Automated count Erythrocy 27 - 31.2 pg Normal No Apr 26 te mean informati 2016 2:30 corpuscul on in PM ar source hemoglobi data n [Entitic mass] Erythrocy 31.8 - g/dl Normal No Apr 26 te mean 35.4 informati 2016 2:30 corpuscul on in PM ar source hemoglobi data n concentra tion [Mass/vol ume] by Automated count Erythrocy 82.2 - fl Normal No Apr 26 te mean 97.8 informati 2016 2:30 corpuscul on in PM ar volume source [Entitic data volume] by Automated count Monocytes 0.1 - 1.0 K/mm3 Normal No Apr 26 informati 2016 2:30 [#/volume on in PM ] in source Blood by data Automated count Monocytes 1.7 - 9.3 % Normal No Apr 26 /100 informati 2016 2:30 leukocyte on in PM s in source Blood by data Automated count Platelet 7.4 - fl Normal No Apr 26 mean 10.4 informati 2016 2:30 volume on in PM [Entitic source volume] data in Blood by Automated count Platelets 142 - 424 K/mm3 High No Apr 8 informati 2017 2:30 [#/volume on in PM ] in source Blood data Erythrocy 4.2 - 5.4 M/mm3 Normal No Apr 8 elle informati 2016 2:30 [#/volume on in PM ] in source Amniotic data fluid Erythrocy 11.5 - % Normal No Apr 26 te 17.5 informati 2016 2:30 distribut on in PM ion width source [Entitic data volume] by Automated count Leukocyte 4.8 - K/MM3 High No Apr 26 s 10.8 informati 2016 2:30 [#/volume on in PM ] in source Blood data Cortisol [Mass/volume] in Serum or Plasma Observa Value Referen Units Interpr Notes Date tion ce etation Range Cortisol . ug/dL No Cortisol Apr 19 [Mass/vol informati AM 2016 4:20 ume] in on in 6.2 - PM Serum or source 19.4Corti Plasma data jori PM 2.3 - 11.9Perfo rmed at: - [facility] [address] [address] [address] [place], [place] [id number] [employer] Laborer: Tony Bartholomew PhD, Phone: [phone] Comprehensive metabolic 2000 panel in Serum or Plasma Observa Value Referen Units Interpr Notes Date tion ce etation Range Albumin/G 1.1 - 1.8 No Low No Apr 12 lobulin informati informati 2017 6:35 [Mass on in on in AM ratio] in source source Serum or data data Plasma Albumin 3.4 - 5.0 gm/dL Low No Apr 12 [Mass/vol informati 2016 6:35 ume] in on in AM Serum or source Plasma data Alkaline 46 - 116 U/L Normal No Apr 12 phosphata informati 2017 6:35 se on in AM [Enzymati source c data activity/ volume] in Serum or Plasma Bilirubin 0.2 - 1.0 mg/dL Normal No Apr 12 .total informati 2017 6:35 [Mass/vol on in AM ume] in source Serum or data Plasma Urea 7 - 18 mg/dL Low No Apr 12 nitrogen informati 2017 6:35 [Mass/vol on in AM ume] in source Serum or data Plasma Calcium 8.5 - mg/dL Low No Apr 12 [Mass/vol 10.1 informati 2017 6:35 ume] in on in AM Serum or source Plasma data Chloride 98 - 107 mmoL/L Normal No Apr 12 [Moles/vo informati 2016 6:35 lume] in on in AM Serum or source Plasma data Carbon 21.0 - mmoL/L Normal No Apr 12 dioxide, 32.0 informati 2017 6:35 total on in AM [Moles/vo source lume] in data Serum or Plasma Creatinin 0.55 - mg/dL Normal No Apr 12 e 1.02 informati 2017 6:35 [Mass/vol on in AM ume] in source Serum or data Plasma Creatinin 50 - 200 ML/MIN Normal No Apr 12 e renal informati 2017 6:35 clearance on in AM source predicted data by Cockcroft -Gault formula Estimated 59- ML/MIN No REFERENCE Apr 12 informati RANGE: 2017 6:35 glomerula on in >60 AM r source ML/MIN/1. filtratio data 73 SQUARE n rate METERSIf (GF this patient is -A merican, then multiply theresult by 1.210. Globulin 1.3 - 3.2 gm/dL High No Apr 12 [Mass/vol informati 2016 6:35 ume] in on in AM Serum source data Glucose 74 - 106 mg/dL Normal No Apr 12 [Mass/vol informati 2016 6:35 ume] in on in AM Serum or source Plasma data Potassium 3.5 - 5.1 mmoL/L Normal No Apr 12 informati 2016 6:35 [Moles/vo on in AM lume] in source Serum or data Plasma Sodium 136 - 145 mmoL/L Normal No Apr 12 [Moles/vo informati 2016 6:35 lume] in on in AM Serum or source Plasma data Aspartate 15 - 37 U/L Normal No Apr 12 informati 2016 6:35 aminotran on in AM sferase source [Enzymati data c activity/ volume] in Serum or Plasma Alanine 12 - 78 U/L Low No Apr 12 aminotran informati 2016 6:35 sferase on in AM [Enzymati source c data activity/ volume] in Serum or Plasma Protein 6.4 - 8.2 gm/dL Normal No Apr 12 [Mass/vol informati 2016 6:35 ume] in on in AM Serum or source Plasma data CBC W Auto Differential panel in Blood Observa Value Referen Units Interpr Notes Date tion ce etation Range Basophils 0 - 0.2 K/MM3 Normal No Apr 12 informati 2016 6:35 [#/volume on in AM ] in source Blood by data Automated count Basophils 0.1 - 2.0 % Normal No Apr 12 /100 informati 2016 6:35 leukocyte on in AM s in source Blood by data Automated count Eosinophi 0.0 - 0.4 K/mm3 Normal No Apr 12 ls informati 2016 6:35 [#/volume on in AM ] in source Blood by data Automated count Eosinophi 0.1 - % Normal No Apr 12 ls/100 12.0 informati 2016 6:35 leukocyte on in AM s in source Blood by data Automated count Granulocy 1.8 - 7.8 K/mm3 Normal No Apr 12 elle informati 2016 6:35 [#/volume on in AM ] in source Blood by data Automated count Granulocy 37.0 - % Normal No Apr 12 elle/100 80.0 informati 2016 6:35 leukocyte on in AM s in source Blood by data Automated count Hematocri 37.0 - % Low No Apr 12 t [Volume 47.0 informati 2016 6:35 on in AM Fraction] source of Blood data Hemoglobi 12.2 - g/dL Low No Apr 12 n 16.2 informati 2016 6:35 [Mass/vol on in AM ume] in source Blood data Lymphocyt 0.7 - 4.5 K/mm3 Normal No Apr 12 es informati 2016 6:35 [#/volume on in AM ] in source Unspecifi data ed specimen by Automated count Lymphocyt 10 - 50.0 % Normal No Apr 12 es informati 2016 6:35 [#/volume on in AM ] in source Unspecifi data ed specimen by Automated count Erythrocy 27 - 31.2 pg Normal No Apr 12 te mean informati 2016 6:35 corpuscul on in AM ar source hemoglobi data n [Entitic mass] Erythrocy 31.8 - g/dl Low No Apr 12 te mean 35.4 informati 2016 6:35 corpuscul on in AM ar source hemoglobi data n concentra tion [Mass/vol ume] by Automated count Erythrocy 82.2 - fl Normal No Apr 12 te mean 97.8 informati 2016 6:35 corpuscul on in AM ar volume source [Entitic data volume] by Automated count Monocytes 0.1 - 1.0 K/mm3 Normal No Apr 12 informati 2016 6:35 [#/volume on in AM ] in source Blood by data Automated count Monocytes 1.7 - 9.3 % High No Apr 12 /100 informati 2016 6:35 leukocyte on in AM s in source Blood by data Automated count Platelet 7.4 - fl Low No Apr 12 mean 10.4 informati 2016 6:35 volume on in AM [Entitic source volume] data in Blood by Automated count Platelets 142 - 424 K/mm3 High No Apr 12 informati 2016 6:35 [#/volume on in AM ] in source Blood data Erythrocy 4.2 - 5.4 M/mm3 Low No Apr 12 elle informati 2016 6:35 [#/volume on in AM ] in source Amniotic data fluid Erythrocy 11.5 - % Normal No Apr 12 te 17.5 informati 2016 6:35 distribut on in AM ion width source [Entitic data volume] by Automated count Leukocyte 4.8 - K/MM3 Normal No Apr 12 s 10.8 informati 2016 6:35 [#/volume on in AM ] in source Blood data CBC W Auto Differential panel in Blood Observa Value Referen Units Interpr Notes Date tion ce etation Range Basophils 0 - 0.2 K/MM3 Normal No Apr 08 informati 2016 7:40 [#/volume on in AM ] in source Blood by data Automated count Basophils 0.1 - 2.0 % Normal No Apr 08 informati 2016 7:40 leukocyte on in AM s in source Blood by data Automated count Eosinophi 0.0 - 0.4 K/mm3 High No Apr 08 ls informati 2016 7:40 [#/volume on in AM ] in source Blood by data Automated count Eosinophi 0.1 - % Normal No Apr 08 ls/100 12.0 informati 2016 7:40 leukocyte on in AM s in source Blood by data Automated count Granulocy 1.8 - 7.8 K/mm3 High No Apr 08 elle informati 2016 7:40 [#/volume on in AM ] in source Blood by data Automated count Granulocy 37.0 - % Normal No Apr 08 elle/100 80.0 informati 2016 7:40 leukocyte on in AM s in source Blood by data Automated count Hematocri 37.0 - % Low No Apr 08 t [Volume 47.0 informati 2017 7:40 on in AM Fraction] source of Blood data Hemoglobi 12.2 - g/dL Low No Apr 08 n 16.2 informati 2017 7:40 [Mass/vol on in AM ume] in source Blood data Lymphocyt 0.7 - 4.5 K/mm3 Normal No Apr 08 es informati 2017 7:40 [#/volume on in AM ] in source Unspecifi data ed specimen by Automated count Lymphocyt 10 - 50.0 % Normal No Apr 08 es informati 2016 7:40 [#/volume on in AM ] in source Unspecifi data ed specimen by Automated count Erythrocy 27 - 31.2 pg Normal No Apr 08 te mean informati 2017 7:40 corpuscul on in AM ar source hemoglobi data n [Entitic mass] Erythrocy 31.8 - g/dl Low No Apr 08 te mean 35.4 informati 2017 7:40 corpuscul on in AM ar source hemoglobi data n concentra tion [Mass/vol ume] by Automated count Erythrocy 82.2 - fl Normal No Apr 08 te mean 97.8 informati 2017 7:40 corpuscul on in AM ar volume source [Entitic data volume] by Automated count Monocytes 0.1 - 1.0 K/mm3 Normal No Apr 08 informati 2017 7:40 [#/volume on in AM ] in source Blood by data Automated count Monocytes 1.7 - 9.3 % Normal No Mar 21 /100 informati 2017 7:40 leukocyte on in AM s in source Blood by data Automated count Platelet 7.4 - fl Low No Apr 08 mean 10.4 informati 2017 7:40 volume on in AM [Entitic source volume] data in Blood by Automated count Platelets 142 - 424 K/mm3 High No Apr 08 informati 2017 7:40 [#/volume on in AM ] in source Blood data Erythrocy 4.2 - 5.4 M/mm3 Low No Apr 08 elle informati 2017 7:40 [#/volume on in AM ] in source Amniotic data fluid Erythrocy 11.5 - % Normal No Apr 08 te 17.5 informati 2017 7:40 distribut on in AM ion width source [Entitic data volume] by Automated count Leukocyte 4.8 - K/MM3 High No Apr 08 s 10.8 informati 2016 7:40 [#/volume on in AM ] in source Blood data Basic metabolic panel in Blood Observa Value Referen Units Interpr Notes Date tion ce etation Range Urea 7 - 18 mg/dL Low No Apr 08 nitrogen informati 2016 7:40 [Mass/vol on in AM ume] in source Serum or data Plasma Calcium 8.5 - mg/dL Low No Apr 08 [Mass/vol 10.1 informati 2016 7:40 ume] in on in AM Serum or source Plasma data Chloride 98 - 107 mmoL/L Normal No Apr 08 [Moles/vo informati 2016 7:40 lume] in on in AM Serum or source Plasma data Carbon 21.0 - mmoL/L Normal No Apr 08 dioxide, 32.0 informati 2016 7:40 total on in AM [Moles/vo source lume] in data Serum or Plasma Creatinin 0.55 - mg/dL Normal No Apr 08 e 1.02 informati 2016 7:40 [Mass/vol on in AM ume] in source Serum or data Plasma Creatinin 50 - 200 ML/MIN Normal No Apr 08 e renal informati 2016 7:40 clearance on in AM source predicted data by Cockcroft -Gault formula Estimated 59- ML/MIN No REFERENCE Apr 08 informati RANGE: 2017 7:40 glomerula on in >60 AM r source ML/MIN/1. filtratio data 73 SQUARE n rate METERSIf (GF this patient is -A merican, then multiply theresult by 1.210. Glucose 74 - 106 mg/dL High No Apr 08 [Mass/vol informati 2016 7:40 ume] in on in AM Serum or source Plasma data Potassium 3.5 - 5.1 mmoL/L Normal No Apr 08 informati 2016 7:40 [Moles/vo on in AM lume] in source Serum or data Plasma Sodium 136 - 145 mmoL/L Normal No Apr 08 [Moles/vo informati 2016 7:40 lume] in on in AM Serum or source Plasma data CBC W Auto Differential panel in Blood Observa Value Referen Units Interpr Notes Date tion ce etation Range Basophils 0 - 0.2 K/MM3 Normal No Apr 05 informati 2016 6:45 [#/volume on in AM ] in source Blood by data Automated count Basophils 0.1 - 2.0 % Normal No Apr 05 / informati 2016 6:45 leukocyte on in AM s in source Blood by data Automated count Eosinophi 0.0 - 0.4 K/mm3 Normal No Mar 18 ls informati 2016 6:45 [#/volume on in AM ] in source Blood by data Automated count Eosinophi 0.1 - % Normal No Mar 18 ls/100 12.0 informati 2016 6:45 leukocyte on in AM s in source Blood by data Automated count Granulocy 1.8 - 7.8 K/mm3 High No Apr 05 elle informati 2016 6:45 [#/volume on in AM ] in source Blood by data Automated count Granulocy 37.0 - % Normal No Mar 18 elle/100 80.0 informati 2016 6:45 leukocyte on in AM s in source Blood by data Automated count Hematocri 37.0 - % Low No Apr 05 t [Volume 47.0 informati 2016 6:45 on in AM Fraction] source of Blood data Hemoglobi 12.2 - g/dL Low No Mar 18 n 16.2 informati 2016 6:45 [Mass/vol on in AM ume] in source Blood data Lymphocyt 0.7 - 4.5 K/mm3 Normal No Apr 05 es informati 2016 6:45 [#/volume on in AM ] in source Unspecifi data ed specimen by Automated count Lymphocyt 10 - 50.0 % Normal No Apr 05 es informati 2016 6:45 [#/volume on in AM ] in source Unspecifi data ed specimen by Automated count Erythrocy 27 - 31.2 pg Normal No Mar 18 te mean informati 2016 6:45 corpuscul on in AM ar source hemoglobi data n [Entitic mass] Erythrocy 31.8 - g/dl Low No Apr 05 te mean 35.4 informati 2016 6:45 corpuscul on in AM ar source hemoglobi data n concentra tion [Mass/vol ume] by Automated count Erythrocy 82.2 - fl Normal No Apr 05 te mean 97.8 informati 2016 6:45 corpuscul on in AM ar volume source [Entitic data volume] by Automated count Monocytes 0.1 - 1.0 K/mm3 High No Mar 18 informati 2016 6:45 [#/volume on in AM ] in source Blood by data Automated count Monocytes 1.7 - 9.3 % Normal No Oct 18 /100 informati 2016 6:45 leukocyte on in AM s in source Blood by data Automated count Platelet 7.4 - fl Low No Oct 18 mean 10.4 informati 2017 6:45 volume on in AM [Entitic source volume] data in Blood by Automated count Platelets 142 - 424 K/mm3 High No Oct 18 informati 2017 6:45 [#/volume on in AM ] in source Blood data Erythrocy 4.2 - 5.4 M/mm3 Low No Oct 18 elle informati 2017 6:45 [#/volume on in AM ] in source Amniotic data fluid Erythrocy 11.5 - % Normal No Oct 18 te 17.5 informati 2017 6:45 distribut on in AM ion width source [Entitic data volume] by Automated count Leukocyte 4.8 - K/MM3 High No Oct 18 s 10.8 informati 2017 6:45 [#/volume on in AM ] in source Blood data Basic metabolic panel in Blood Observa Value Referen Units Interpr Notes Date tion ce etation Range Urea 7 - 18 mg/dL Low No Oct 17 nitrogen informati 2017 6:25 [Mass/vol on in AM ume] in source Serum or data Plasma Calcium 8.5 - mg/dL Low No Oct 17 [Mass/vol 10.1 informati 2017 6:25 ume] in on in AM Serum or source Plasma data Chloride 98 - 107 mmoL/L Normal No Oct 17 [Moles/vo informati 2017 6:25 lume] in on in AM Serum or source Plasma data Carbon 21.0 - mmoL/L Normal No Oct 17 dioxide, 32.0 informati 2017 6:25 total on in AM [Moles/vo source lume] in data Serum or Plasma Creatinin 0.55 - mg/dL Low No Oct 17 e 1.02 informati 2016 6:25 [Mass/vol on in AM ume] in source Serum or data Plasma Creatinin 50 - 200 ML/MIN Normal No Oct 17 e renal informati 2017 6:25 clearance on in AM source predicted data by Cockcroft -Gault formula Estimated 59- ML/MIN No REFERENCE Oct 17 informati RANGE: 2017 6:25 glomerula on in >60 AM r source ML/MIN/1. filtratio data 73 SQUARE n rate METERSIf (GF this patient is -A merican, then multiply theresult by 1.210. Glucose 74 - 106 mg/dL Normal No Oct 17 [Mass/vol informati 2017 6:25 ume] in on in AM Serum or source Plasma data Potassium 3.5 - 5.1 mmoL/L Normal No Apr 04 informati 2016 6:25 [Moles/vo on in AM lume] in source Serum or data Plasma Sodium 136 - 145 mmoL/L Normal No Apr 04 [Moles/vo informati 2016 6:25 lume] in on in AM Serum or source Plasma data CBC W Auto Differential panel in Blood Observa Value Referen Units Interpr Notes Date tion ce etation Range Basophils 0 - 0.2 K/MM3 Normal No Apr 04 informati 2016 6:25 [#/volume on in AM ] in source Blood by data Automated count Basophils 0.1 - 2.0 % Normal No Apr 04 / informati 2016 6:25 leukocyte on in AM s in source Blood by data Automated count Eosinophi 0.0 - 0.4 K/mm3 Normal No Apr 04 ls informati 2016 6:25 [#/volume on in AM ] in source Blood by data Automated count Eosinophi 0.1 - % Normal No Apr 04 ls/100 12.0 informati 2016 6:25 leukocyte on in AM s in source Blood by data Automated count Granulocy 1.8 - 7.8 K/mm3 High No Apr 04 elle informati 2016 6:25 [#/volume on in AM ] in source Blood by data Automated count Granulocy 37.0 - % Normal No Apr 04 elle/100 80.0 informati 2016 6:25 leukocyte on in AM s in source Blood by data Automated count Hematocri 37.0 - % Low No Apr 04 t [Volume 47.0 informati 2016 6:25 on in AM Fraction] source of Blood data Hemoglobi 12.2 - g/dL Low No Apr 04 n 16.2 informati 2016 6:25 [Mass/vol on in AM ume] in source Blood data Lymphocyt 0.7 - 4.5 K/mm3 Normal No Apr 04 es informati 2016 6:25 [#/volume on in AM ] in source Unspecifi data ed specimen by Automated count Lymphocyt 10 - 50.0 % Normal No Apr 04 es informati 2016 6:25 [#/volume on in AM ] in source Unspecifi data ed specimen by Automated count Erythrocy 27 - 31.2 pg Normal No Apr 04 te mean informati 2017 6:25 corpuscul on in AM ar source hemoglobi data n [Entitic mass] Erythrocy 31.8 - g/dl Low No Oct 17 te mean 35.4 informati 2017 6:25 corpuscul on in AM ar source hemoglobi data n concentra tion [Mass/vol ume] by Automated count Erythrocy 82.2 - fl Normal No Oct 17 te mean 97.8 informati 2017 6:25 corpuscul on in AM ar volume source [Entitic data volume] by Automated count Monocytes 0.1 - 1.0 K/mm3 High No Oct 17 informati 2017 6:25 [#/volume on in AM ] in source Blood by data Automated count Monocytes 1.7 - 9.3 % Normal No Oct 17 /100 informati 2017 6:25 leukocyte on in AM s in source Blood by data Automated count Platelet 7.4 - fl Low No Oct 17 mean 10.4 informati 2017 6:25 volume on in AM [Entitic source volume] data in Blood by Automated count Platelets 142 - 424 K/mm3 High No Oct 17 informati 2017 6:25 [#/volume on in AM ] in source Blood data Erythrocy 4.2 - 5.4 M/mm3 Low No Oct 17 elle informati 2017 6:25 [#/volume on in AM ] in source Amniotic data fluid Erythrocy 11.5 - % Normal No Oct 17 te 17.5 informati 2017 6:25 distribut on in AM ion width source [Entitic data volume] by Automated count Leukocyte 4.8 - K/MM3 High No Oct 17 s 10.8 informati 2016 6:25 [#/volume on in AM ] in source Blood data Basic metabolic panel in Blood Observa Value Referen Units Interpr Notes Date tion ce etation Range Urea 7 - 18 mg/dL Low No Oct 16 nitrogen informati 2017 5:10 [Mass/vol on in AM ume] in source Serum or data Plasma Calcium 8.5 - mg/dL Low No Oct 16 [Mass/vol 10.1 informati 2017 5:10 ume] in on in AM Serum or source Plasma data Chloride 98 - 107 mmoL/L Normal No Oct 16 [Moles/vo informati 2017 5:10 lume] in on in AM Serum or source Plasma data Carbon 21.0 - mmoL/L Normal No Oct 16 dioxide, 32.0 informati 2017 5:10 total on in AM [Moles/vo source lume] in data Serum or Plasma Creatinin 0.55 - mg/dL Low No Apr 03 e 1.02 informati 2016 5:10 [Mass/vol on in AM ume] in source Serum or data Plasma Creatinin 50 - 200 ML/MIN Normal No Apr 03 e renal informati 2016 5:10 clearance on in AM source predicted data by Cockcroft -Gault formula Estimated 59- ML/MIN No REFERENCE Apr 03 informati RANGE: 2017 5:10 glomerula on in >60 AM r source ML/MIN/1. filtratio data 73 SQUARE n rate METERSIf (GF this patient is -A merican, then multiply theresult by 1.210. Glucose 74 - 106 mg/dL Normal No Apr 03 [Mass/vol informati 2016 5:10 ume] in on in AM Serum or source Plasma data Potassium 3.5 - 5.1 mmoL/L Normal No Apr 03 inform2016 5:10 [Moles/vo on in AM lume] in source Serum or data Plasma Sodium 136 - 145 mmoL/L Normal No Apr 03 [Moles/vo informati 2016 5:10 lume] in on in AM Serum or source Plasma data CBC W Auto Differential panel in Blood Observa Value Referen Units Interpr Notes Date tion ce etation Range Basophils 0 - 0.2 K/MM3 Normal No Apr 03 inform2016 5:10 [#/volume on in AM ] in source Blood by data Automated count Basophils 0.1 - 2.0 % Normal No Apr 03 informati 2016 5:10 leukocyte on in AM s in source Blood by data Automated count Eosinophi 0.0 - 0.4 K/mm3 Normal No Apr 03 ls informati 2016 5:10 [#/volume on in AM ] in source Blood by data Automated count Eosinophi 0.1 - % Normal No Apr 03 ls/100 12.0 informati 2016 5:10 leukocyte on in AM s in source Blood by data Automated count Granulocy 1.8 - 7.8 K/mm3 High No Apr 03 elle informati 2016 5:10 [#/volume on in AM ] in source Blood by data Automated count Granulocy 37.0 - % Normal No Apr 03 elle/100 80.0 informati 2016 5:10 leukocyte on in AM s in source Blood by data Automated count Hematocri 37.0 - % Low No Mar 16 t [Volume 47.0 informati 2017 5:10 on in AM Fraction] source of Blood data Hemoglobi 12.2 - g/dL Low No Mar 16 n 16.2 informati 2017 5:10 [Mass/vol on in AM ume] in source Blood data Lymphocyt 0.7 - 4.5 K/mm3 Normal No Mar 16 es informati 2017 5:10 [#/volume on in AM ] in source Unspecifi data ed specimen by Automated count Lymphocyt 10 - 50.0 % Normal No Mar 16 es informati 2017 5:10 [#/volume on in AM ] in source Unspecifi data ed specimen by Automated count Erythrocy 27 - 31.2 pg Normal No Mar 16 te mean informati 2017 5:10 corpuscul on in AM ar source hemoglobi data n [Entitic mass] Erythrocy 31.8 - g/dl Low No Mar 16 te mean 35.4 informati 2017 5:10 corpuscul on in AM ar source hemoglobi data n concentra tion [Mass/vol ume] by Automated count Erythrocy 82.2 - fl Normal No Mar 16 te mean 97.8 informati 2017 5:10 corpuscul on in AM ar volume source [Entitic data volume] by Automated count Monocytes 0.1 - 1.0 K/mm3 High No Mar 16 informati 2017 5:10 [#/volume on in AM ] in source Blood by data Automated count Monocytes 1.7 - 9.3 % Normal No Oct 16 /100 informati 2017 5:10 leukocyte on in AM s in source Blood by data Automated count Platelet 7.4 - fl Low No Mar 16 mean 10.4 informati 2017 5:10 volume on in AM [Entitic source volume] data in Blood by Automated count Platelets 142 - 424 K/mm3 High No Mar 16 informati 2017 5:10 [#/volume on in AM ] in source Blood data Erythrocy 4.2 - 5.4 M/mm3 Low No Mar 16 elle informati 2017 5:10 [#/volume on in AM ] in source Amniotic data fluid Erythrocy 11.5 - % Normal No Mar 16 te 17.5 informati 2017 5:10 distribut on in AM ion width source [Entitic data volume] by Automated count Leukocyte 4.8 - K/MM3 High No Mar 16 s 10.8 informati 2016 5:10 [#/volume on in AM ] in source Blood data CBC W Auto Differential panel in Blood Observa Value Referen Units Interpr Notes Date tion ce etation Range Basophils 0 - 0.2 K/MM3 Normal No Mar 15 inform2016 6:00 [#/volume on in AM ] in source Blood by data Automated count Basophils 0.1 - 2.0 % Normal No Mar 15 /100 informati 2016 6:00 leukocyte on in AM s in source Blood by data Automated count Eosinophi 0.0 - 0.4 K/mm3 Normal No Mar 15 ls informati 2016 6:00 [#/volume on in AM ] in source Blood by data Automated count Eosinophi 0.1 - % Normal No Apr 02 ls/100 12.0 informati 2016 6:00 leukocyte on in AM s in source Blood by data Automated count Granulocy 1.8 - 7.8 K/mm3 High No Apr 02 elle informati 2016 6:00 [#/volume on in AM ] in source Blood by data Automated count Granulocy 37.0 - % High No Apr 02 elle/100 80.0 informati 2016 6:00 leukocyte on in AM s in source Blood by data Automated count Hematocri 37.0 - % Low No Apr 02 t [Volume 47.0 informati 2016 6:00 on in AM Fraction] source of Blood data Hemoglobi 12.2 - g/dL Low No Apr 02 n 16.2 informati 2016 6:00 [Mass/vol on in AM ume] in source Blood data Lymphocyt 0.7 - 4.5 K/mm3 Normal No Apr 02 es informati 2016 6:00 [#/volume on in AM ] in source Unspecifi data ed specimen by Automated count Lymphocyt 10 - 50.0 % Normal No Apr 02 es informati 2016 6:00 [#/volume on in AM ] in source Unspecifi data ed specimen by Automated count Erythrocy 27 - 31.2 pg Normal No Apr 02 te mean informati 2016 6:00 corpuscul on in AM ar source hemoglobi data n [Entitic mass] Erythrocy 31.8 - g/dl Low No Apr 02 te mean 35.4 informati 2016 6:00 corpuscul on in AM ar source hemoglobi data n concentra tion [Mass/vol ume] by Automated count Erythrocy 82.2 - fl Normal No Mar 15 te mean 97.8 informati 2016 6:00 corpuscul on in AM ar volume source [Entitic data volume] by Automated count Monocytes 0.1 - 1.0 K/mm3 Normal No Oct 15 informati 2016 6:00 [#/volume on in AM ] in source Blood by data Automated count Monocytes 1.7 - 9.3 % Normal No Oct 15 /100 informati 2016 6:00 leukocyte on in AM s in source Blood by data Automated count Platelet 7.4 - fl Low No Mar 15 mean 10.4 informati 2016 6:00 volume on in AM [Entitic source volume] data in Blood by Automated count Platelets 142 - 424 K/mm3 High No Mar 15 informati 2016 6:00 [#/volume on in AM ] in source Blood data Erythrocy 4.2 - 5.4 M/mm3 Low No Oct 15 elle informati 2016 6:00 [#/volume on in AM ] in source Amniotic data fluid Erythrocy 11.5 - % Normal No Mar 15 te 17.5 informati 2016 6:00 distribut on in AM ion width source [Entitic data volume] by Automated count Leukocyte 4.8 - K/MM3 High No Mar 15 s 10.8 informati 2016 6:00 [#/volume on in AM ] in source Blood data Differential panel, method unspecified - Observa Value Referen Units Interpr Notes Date tion ce etation Range Neutrophi 0 - 8 % Normal No Mar 15 ls.band informati 2016 6:00 form/100 on in AM leukocyte source s in data Blood by Automated count Hypochr 1+ No No No No Mar 15 omia informa informa informa informa 2016 [Presen tion in tion in tion in tion in 6:00 AM ce] in source source source source Blood data data data data LYMPH 6 10 - 50 % Low No Mar 15 informa 2017 tion in 6:00 AM source data Blood 1+ No No No No Mar 15 smear informa informa informa informa 2016 finding tion in tion in tion in tion in 6:00 AM source source source source [Identi data data data data fier] in Blood by Light microsc opy Monocytes 2 - 9 % Normal No Oct 15 /100 informati 2016 6:00 leukocyte on in AM s in source Blood by data Automated count Platele MARKED No No No No Mar 15 ts INCREAS informa informa informa informa 2017 [Presen E tion in tion in tion in tion in 6:00 AM ce] in source source source source Blood data data data data by Light microsc opy Poikilo 1+ No No No No Oct 15 cytosis informa informa informa informa 2017 tion in tion in tion in tion in 6:00 AM [Presen source source source source ce] in data data data data Blood by Light microsc opy Polychr 1+ No No No No Oct 15 omasia informa informa informa informa 2017 [Presen tion in tion in tion in tion in 6:00 AM ce] in source source source source Blood data data data data by Light microsc opy Neutrophi 42 - 76 % High No Oct 15 ls informati 2017 6:00 [#/volume on in AM ] in source Blood by data Automated count Cells No #CELLS No No Mar 15 Counted informati informati informati 2017 6:00 Total [#] on in on in on in AM in Blood source source source data data data Basic metabolic panel in Blood Observa Value Referen Units Interpr Notes Date tion ce etation Range Urea 7 - 18 mg/dL Low No Mar 15 nitrogen informati 2017 6:00 [Mass/vol on in AM ume] in source Serum or data Plasma Calcium 8.5 - mg/dL Low No Mar 15 [Mass/vol 10.1 informati 2017 6:00 ume] in on in AM Serum or source Plasma data Chloride 98 - 107 mmoL/L Normal No Oct 15 [Moles/vo informati 2017 6:00 lume] in on in AM Serum or source Plasma data Carbon 21.0 - mmoL/L Normal No Mar 15 dioxide, 32.0 informati 2017 6:00 total on in AM [Moles/vo source lume] in data Serum or Plasma Creatinin 0.55 - mg/dL Low No Oct 15 e 1.02 informati 2017 6:00 [Mass/vol on in AM ume] in source Serum or data Plasma Creatinin 50 - 200 ML/MIN Normal No Oct 15 e renal informati 2017 6:00 clearance on in AM source predicted data by Cockcroft -Gault formula Estimated 59- ML/MIN No REFERENCE Oct 15 informati RANGE: 2016 6:00 glomerula on in >60 AM r source ML/MIN/1. filtratio data 73 SQUARE n rate METERSIf (GF this patient is -A merican, then multiply theresult by 1.210. Glucose 74 - 106 mg/dL Normal No Apr 02 [Mass/vol informati 2016 6:00 ume] in on in AM Serum or source Plasma data Potassium 3.5 - 5.1 mmoL/L Normal No Apr 02 inform2016 6:00 [Moles/vo on in AM lume] in source Serum or data Plasma Sodium 136 - 145 mmoL/L Normal No Apr 02 [Moles/vo informati 2016 6:00 lume] in on in AM Serum or source Plasma data CBC W Auto Differential panel in Blood Observa Value Referen Units Interpr Notes Date tion ce etation Range Basophils 0 - 0.2 K/MM3 Normal No Apr 01 inform2016 4:10 [#/volume on in AM ] in source Blood by data Automated count Basophils 0.1 - 2.0 % Normal No Apr 01 informati 2016 4:10 leukocyte on in AM s in source Blood by data Automated count Eosinophi 0.0 - 0.4 K/mm3 Normal No Apr 01 ls informati 2016 4:10 [#/volume on in AM ] in source Blood by data Automated count Eosinophi 0.1 - % Normal No Apr 01 ls/100 12.0 informati 2016 4:10 leukocyte on in AM s in source Blood by data Automated count Granulocy 1.8 - 7.8 K/mm3 High No Apr 01 elle informati 2016 4:10 [#/volume on in AM ] in source Blood by data Automated count Granulocy 37.0 - % High No Apr 01 elle/100 80.0 informati 2016 4:10 leukocyte on in AM s in source Blood by data Automated count Hematocri 37.0 - % Low No Apr 01 t [Volume 47.0 informati 2016 4:10 on in AM Fraction] source of Blood data Hemoglobi 12.2 - g/dL Low No Apr 01 n 16.2 informati 2016 4:10 [Mass/vol on in AM ume] in source Blood data Lymphocyt 0.7 - 4.5 K/mm3 Normal No Apr 01 es informati 2016 4:10 [#/volume on in AM ] in source Unspecifi data ed specimen by Automated count Lymphocyt 10 - 50.0 % Normal No Mar 14 es informati 2016 4:10 [#/volume on in AM ] in source Unspecifi data ed specimen by Automated count Erythrocy 27 - 31.2 pg Normal No Mar 14 te mean informati 2016 4:10 corpuscul on in AM ar source hemoglobi data n [Entitic mass] Erythrocy 31.8 - g/dl Low No Mar 14 te mean 35.4 informati 2016 4:10 corpuscul on in AM ar source hemoglobi data n concentra tion [Mass/vol ume] by Automated count Erythrocy 82.2 - fl Normal No Mar 14 te mean 97.8 informati 2016 4:10 corpuscul on in AM ar volume source [Entitic data volume] by Automated count Monocytes 0.1 - 1.0 K/mm3 Normal No Mar 14 informati 2016 4:10 [#/volume on in AM ] in source Blood by data Automated count Monocytes 1.7 - 9.3 % Normal No Mar 14 /100 informati 2016 4:10 leukocyte on in AM s in source Blood by data Automated count Platelet 7.4 - fl Low No Mar 14 mean 10.4 informati 2016 4:10 volume on in AM [Entitic source volume] data in Blood by Automated count Platelets 142 - 424 K/mm3 High No Mar 14 informati 2016 4:10 [#/volume on in AM ] in source Blood data Erythrocy 4.2 - 5.4 M/mm3 Low No Mar 14 elle informati 2016 4:10 [#/volume on in AM ] in source Amniotic data fluid Erythrocy 11.5 - % Normal No Mar 14 te 17.5 informati 2016 4:10 distribut on in AM ion width source [Entitic data volume] by Automated count Leukocyte 4.8 - K/MM3 High No Mar 14 s 10.8 informati 2016 4:10 [#/volume on in AM ] in source Blood data Differential panel, method unspecified - Observa Value Referen Units Interpr Notes Date tion ce etation Range Neutrophi 0 - 8 % Normal No Mar 14 ls.band informati 2016 4:10 form/100 on in AM leukocyte source s in data Blood by Automated count Hypochr 1+ No No No No Mar 14 omia informa informa informa informa 2017 [Presen tion in tion in tion in tion in 4:10 AM ce] in source source source source Blood data data data data Neutrophi No No No No Mar 14 ls.hypers informati informati informati informati 2017 4:10 egmented on in on in on in on in AM [#/volume source source source source ] in data data data data Blood LYMPH 8 10 - 50 % Low No Mar 14 informa 2016 tion in 4:10 AM source data Monocytes 2 - 9 % Low No Oct 14 /100 informati 2017 4:10 leukocyte on in AM s in source Blood by data Automated count Platele MOD No No No No Mar 14 ts INCREAS informa informa informa informa 2016 [Presen E tion in tion in tion in tion in 4:10 AM ce] in source source source source Blood data data data data by Light microsc opy Poikilo 1+ No No No No Mar 14 cytosis informa informa informa informa 2016 tion in tion in tion in tion in 4:10 AM [Presen source source source source ce] in data data data data Blood by Light microsc opy Polychr 1+ No No No No Mar 14 omasia informa informa informa informa 2016 [Presen tion in tion in tion in tion in 4:10 AM ce] in source source source source Blood data data data data by Light microsc opy Neutrophi 42 - 76 % High No Mar 14 ls informati 2016 4:10 [#/volume on in AM ] in source Blood by data Automated count Cells No #CELLS No No Mar 14 Counted informati informati informati 2016 4:10 Total [#] on in on in on in AM in Blood source source source data data data Basic metabolic panel in Blood Observa Value Referen Units Interpr Notes Date tion ce etation Range Urea 7 - 18 mg/dL Low No Mar 14 nitrogen informati 2017 4:10 [Mass/vol on in AM ume] in source Serum or data Plasma Calcium 8.5 - mg/dL Low No Mar 14 [Mass/vol 10.1 informati 2017 4:10 ume] in on in AM Serum or source Plasma data Chloride 98 - 107 mmoL/L Normal No Mar 14 [Moles/vo informati 2017 4:10 lume] in on in AM Serum or source Plasma data Carbon 21.0 - mmoL/L Normal No Oct 14 dioxide, 32.0 informati 2017 4:10 total on in AM [Moles/vo source lume] in data Serum or Plasma Creatinin 0.55 - mg/dL Low No Oct 14 e 1.02 informati 2017 4:10 [Mass/vol on in AM ume] in source Serum or data Plasma Creatinin 50 - 200 ML/MIN Normal No Oct 14 e renal informati 2016 4:10 clearance on in AM source predicted data by Cockcroft -Gault formula Estimated 59- ML/MIN No REFERENCE Oct 14 informati RANGE: 2017 4:10 glomerula on in >60 AM r source ML/MIN/1. filtratio data 73 SQUARE n rate METERSIf (GF this patient is -A merican, then multiply theresult by 1.210. Glucose 74 - 106 mg/dL Normal No Oct 14 [Mass/vol informati 2016 4:10 ume] in on in AM Serum or source Plasma data Potassium 3.5 - 5.1 mmoL/L Normal No Oct 14 informati 2016 4:10 [Moles/vo on in AM lume] in source Serum or data Plasma Sodium 136 - 145 mmoL/L Normal No Oct 14 [Moles/vo informati 2016 4:10 lume] in on in AM Serum or source Plasma data Basic metabolic panel in Blood Observa Value Referen Units Interpr Notes Date tion ce etation Range Urea 7 - 18 mg/dL Low No Oct 13 nitrogen informati 2017 6:20 [Mass/vol on in AM ume] in source Serum or data Plasma Calcium 8.5 - mg/dL Low No Oct 13 [Mass/vol 10.1 informati 2017 6:20 ume] in on in AM Serum or source Plasma data Chloride 98 - 107 mmoL/L Normal No Oct 13 [Moles/vo informati 2017 6:20 lume] in on in AM Serum or source Plasma data Carbon 21.0 - mmoL/L Normal No Oct 13 dioxide, 32.0 informati 2016 6:20 total on in AM [Moles/vo source lume] in data Serum or Plasma Creatinin 0.55 - mg/dL Low No Oct 13 e 1.02 informati 2017 6:20 [Mass/vol on in AM ume] in source Serum or data Plasma Creatinin 50 - 200 ML/MIN Normal No Oct 13 e renal informati 2016 6:20 clearance on in AM source predicted data by Cockcroft -Gault formula Estimated 59- ML/MIN No REFERENCE Mar 31 informati RANGE: 2017 6:20 glomerula on in >60 AM r source ML/MIN/1. filtratio data 73 SQUARE n rate METERSIf (GF this patient is -A merican, then multiply theresult by 1.210. Glucose 74 - 106 mg/dL Low No Mar 31 [Mass/vol informati 2016 6:20 ume] in on in AM Serum or source Plasma data Potassium 3.5 - 5.1 mmoL/L Normal No Mar 31 informati 2016 6:20 [Moles/vo on in AM lume] in source Serum or data Plasma Sodium 136 - 145 mmoL/L Normal No Mar 31 [Moles/vo informati 2016 6:20 lume] in on in AM Serum or source Plasma data CBC W Auto Differential panel in Blood Observa Value Referen Units Interpr Notes Date tion ce etation Range Basophils 0 - 0.2 K/MM3 Normal No Mar 31 informati 2016 6:20 [#/volume on in AM ] in source Blood by data Automated count Basophils 0.1 - 2.0 % Normal No Mar 31 /100 informati 2017 6:20 leukocyte on in AM s in source Blood by data Automated count Eosinophi 0.0 - 0.4 K/mm3 Normal No Mar 31 ls informati 2016 6:20 [#/volume on in AM ] in source Blood by data Automated count Eosinophi 0.1 - % Normal No Mar 31 ls/100 12.0 informati 2016 6:20 leukocyte on in AM s in source Blood by data Automated count Granulocy 1.8 - 7.8 K/mm3 High No Mar 31 elle informati 2016 6:20 [#/volume on in AM ] in source Blood by data Automated count Granulocy 37.0 - % High No Mar 31 elle/100 80.0 informati 2016 6:20 leukocyte on in AM s in source Blood by data Automated count Hematocri 37.0 - % Low No Mar 31 t [Volume 47.0 informati 2016 6:20 on in AM Fraction] source of Blood data Hemoglobi 12.2 - g/dL Low No Mar 31 n 16.2 informati 2016 6:20 [Mass/vol on in AM ume] in source Blood data Lymphocyt 0.7 - 4.5 K/mm3 Normal No Mar 31 es informati 2016 6:20 [#/volume on in AM ] in source Unspecifi data ed specimen by Automated count Lymphocyt 10 - 50.0 % Normal No Mar 31 es informati 2016 6:20 [#/volume on in AM ] in source Unspecifi data ed specimen by Automated count Erythrocy 27 - 31.2 pg Normal No Mar 31 te mean informati 2016 6:20 corpuscul on in AM ar source hemoglobi data n [Entitic mass] Erythrocy 31.8 - g/dl Normal No Mar 31 te mean 35.4 informati 2016 6:20 corpuscul on in AM ar source hemoglobi data n concentra tion [Mass/vol ume] by Automated count Erythrocy 82.2 - fl Normal No Mar 31 te mean 97.8 informati 2016 6:20 corpuscul on in AM ar volume source [Entitic data volume] by Automated count Monocytes 0.1 - 1.0 K/mm3 High No Mar 31 informati 2017 6:20 [#/volume on in AM ] in source Blood by data Automated count Monocytes 1.7 - 9.3 % Normal No Mar 31 /100 informati 2017 6:20 leukocyte on in AM s in source Blood by data Automated count Platelet 7.4 - fl Low No Mar 31 mean 10.4 informati 2017 6:20 volume on in AM [Entitic source volume] data in Blood by Automated count Platelets 142 - 424 K/mm3 High No Mar 31 informati 2016 6:20 [#/volume on in AM ] in source Blood data Erythrocy 4.2 - 5.4 M/mm3 Low No Mar 31 elle informati 2017 6:20 [#/volume on in AM ] in source Amniotic data fluid Erythrocy 11.5 - % Normal No Mar 31 te 17.5 informati 2016 6:20 distribut on in AM ion width source [Entitic data volume] by Automated count Leukocyte 4.8 - K/MM3 High No Mar 31 s 10.8 alert informati 2016 6:20 [#/volume on in AM ] in source Blood data CBC W Auto Differential panel in Blood Observa Value Referen Units Interpr Notes Date tion ce etation Range Basophils 0 - 0.2 K/MM3 Normal No Mar 30 informati 2016 7:35 [#/volume on in AM ] in source Blood by data Automated count Basophils 0.1 - 2.0 % Normal No Mar 30 / informati 2016 7:35 leukocyte on in AM s in source Blood by data Automated count Eosinophi 0.0 - 0.4 K/mm3 Normal No Mar 30 ls informati 2016 7:35 [#/volume on in AM ] in source Blood by data Automated count Eosinophi 0.1 - % Normal No Mar 30 ls/100 12.0 informati 2016 7:35 leukocyte on in AM s in source Blood by data Automated count Granulocy 1.8 - 7.8 K/mm3 High No Mar 30 elle informati 2016 7:35 [#/volume on in AM ] in source Blood by data Automated count Granulocy 37.0 - % High No Mar 30 elle/100 80.0 informati 2016 7:35 leukocyte on in AM s in source Blood by data Automated count Hematocri 37.0 - % Low No Mar 30 t [Volume 47.0 informati 2016 7:35 on in AM Fraction] source of Blood data Hemoglobi 12.2 - g/dL Low No Mar 30 n 16.2 informati 2016 7:35 [Mass/vol on in AM ume] in source Blood data Lymphocyt 0.7 - 4.5 K/mm3 Normal No Mar 30 es informati 2016 7:35 [#/volume on in AM ] in source Unspecifi data ed specimen by Automated count Lymphocyt 10 - 50.0 % Normal No Mar 30 es informati 2016 7:35 [#/volume on in AM ] in source Unspecifi data ed specimen by Automated count Erythrocy 27 - 31.2 pg Normal No Mar 30 te mean informati 2016 7:35 corpuscul on in AM ar source hemoglobi data n [Entitic mass] Erythrocy 31.8 - g/dl Normal No Mar 30 te mean 35.4 informati 2016 7:35 corpuscul on in AM ar source hemoglobi data n concentra tion [Mass/vol ume] by Automated count Erythrocy 82.2 - fl Normal No Mar 30 te mean 97.8 informati 2016 7:35 corpuscul on in AM ar volume source [Entitic data volume] by Automated count Monocytes 0.1 - 1.0 K/mm3 High No Mar 30 informati 2016 7:35 [#/volume on in AM ] in source Blood by data Automated count Monocytes 1.7 - 9.3 % Normal No Mar 30 informati 2016 7:35 leukocyte on in AM s in source Blood by data Automated count Platelet 7.4 - fl Normal No Mar 12 mean 10.4 informati 2016 7:35 volume on in AM [Entitic source volume] data in Blood by Automated count Platelets 142 - 424 K/mm3 High No Mar 30 informati 2016 7:35 [#/volume on in AM ] in source Blood data Erythrocy 4.2 - 5.4 M/mm3 Low No Mar 12 elle informati 2016 7:35 [#/volume on in AM ] in source Amniotic data fluid Erythrocy 11.5 - % Normal No Mar 30 te 17.5 informati 2016 7:35 distribut on in AM ion width source [Entitic data volume] by Automated count Leukocyte 4.8 - K/MM3 High No Mar 12 s 10.8 alert informati 2016 7:35 [#/volume on in AM ] in source Blood data Differential panel, method unspecified - Observa Value Referen Units Interpr Notes Date tion ce etation Range Manual SLIGHT No No No No Mar 30 differe PLT informa informa informa informa 2016 ntial CLUMPIN tion in tion in tion in tion in 7:35 AM comment G source source source source data data data data [interp retatio n] in Blood Narrati ve LYMPH 7 10 - 50 % Low No Mar 302016 tion in 7:35 AM source data Monocytes 2 - 9 % Normal No Mar 30ati 2016 7:35 leukocyte on in AM s in source Blood by data Automated count Platele SLIGHT No No No No Mar 30 ts INCREAS informa informa informa informa 2016 [Presen E tion in tion in tion in tion in 7:35 AM ce] in source source source source Blood data data data data by Light microsc opy Neutrophi 42 - 76 % High No Mar 30 ls 2016 7:35 [#/volume on in AM ] in source Blood by data Automated count Cells No #CELLS No No Mar 30 Counted informati informati ati 2016 7:35 Total [#] on in on in on in AM in Blood source source source data data data Hemoglobin & Hematocrit panel in Blood Observa Value Referen Units Interpr Notes Date tion ce etation Range Hematocri 37.0 - % Low No Mar 11 t [Volume 47.0 informati 2016 2:40 on in PM Fraction] source of Blood data Hemoglobi 12.2 - g/dL Low No Mar 29 n 16.2 informati 2017 2:40 [Mass/vol on in PM ume] in source Blood data Comprehensive metabolic 2000 panel in Serum or Plasma Observa Value Referen Units Interpr Notes Date tion ce etation Range Albumin/G 1.1 - 1.8 No Low No Mar 29 lobulin informati informati 2017 5:00 [Mass on in on in AM ratio] in source source Serum or data data Plasma Albumin 3.4 - 5.0 gm/dL Low No Mar 11 [Mass/vol informati 2017 5:00 ume] in on in AM Serum or source Plasma data Alkaline 46 - 116 U/L Normal No Mar 29 phosphata informati 2017 5:00 se on in AM [Enzymati source c data activity/ volume] in Serum or Plasma Bilirubin 0.2 - 1.0 mg/dL Normal No Mar 29 .total informati 2017 5:00 [Mass/vol on in AM ume] in source Serum or data Plasma Urea 7 - 18 mg/dL No No Mar 29 nitrogen informati informati 2017 5:00 [Mass/vol on in on in AM ume] in source source Serum or data data Plasma Calcium 8.5 - mg/dL Low No Mar 29 [Mass/vol 10.1 informati 2017 5:00 ume] in on in AM Serum or source Plasma data Chloride 98 - 107 mmoL/L Normal No Mar 11 [Moles/vo informati 2017 5:00 lume] in on in AM Serum or source Plasma data Carbon 21.0 - mmoL/L Normal No Mar 11 dioxide, 32.0 informati 2017 5:00 total on in AM [Moles/vo source lume] in data Serum or Plasma Creatinin 0.55 - mg/dL Low No Mar 11 e 1.02 informati 2017 5:00 [Mass/vol on in AM ume] in source Serum or data Plasma Creatinin 50 - 200 ML/MIN Normal No Mar 11 e renal informati 2017 5:00 clearance on in AM source predicted data by Cockcroft -Gault formula Estimated 59- ML/MIN No REFERENCE Oct 11 informati RANGE: 2017 5:00 glomerula on in >60 AM r source ML/MIN/1. filtratio data 73 SQUARE n rate METERSIf (GF this patient is -A merican, then multiply theresult by 1.210. Globulin 1.3 - 3.2 gm/dL High No Mar 29 [Mass/vol informati 2016 5:00 ume] in on in AM Serum source data Glucose 74 - 106 mg/dL Normal No Mar 29 [Mass/vol informati 2016 5:00 ume] in on in AM Serum or source Plasma data Potassium 3.5 - 5.1 mmoL/L Normal No Mar 29 informati 2016 5:00 [Moles/vo on in AM lume] in source Serum or data Plasma Sodium 136 - 145 mmoL/L Normal No Mar 29 [Moles/vo informati 2016 5:00 lume] in on in AM Serum or source Plasma data Aspartate 15 - 37 U/L Normal No Mar 29 inform2016 5:00 aminotran on in AM sferase source [Enzymati data c activity/ volume] in Serum or Plasma Alanine 12 - 78 U/L Normal No Mar 29 aminotran informati 2016 5:00 sferase on in AM [Enzymati source c data activity/ volume] in Serum or Plasma Protein 6.4 - 8.2 gm/dL Low No Mar 29 [Mass/vol informati 2016 5:00 ume] in on in AM Serum or source Plasma data CBC W Auto Differential panel in Blood Observa Value Referen Units Interpr Notes Date tion ce etation Range Basophils 0 - 0.2 K/MM3 Normal No Mar 29 informati 2016 5:00 [#/volume on in AM ] in source Blood by data Automated count Basophils 0.1 - 2.0 % Low No Mar 29 informati 2016 5:00 leukocyte on in AM s in source Blood by data Automated count Eosinophi 0.0 - 0.4 K/mm3 Normal No Mar 29 ls informati 2016 5:00 [#/volume on in AM ] in source Blood by data Automated count Eosinophi 0.1 - % Low No Mar 29 ls/100 12.0 informati 2016 5:00 leukocyte on in AM s in source Blood by data Automated count Granulocy 1.8 - 7.8 K/mm3 High No Mar 29 elle informati 2016 5:00 [#/volume on in AM ] in source Blood by data Automated count Granulocy 37.0 - % High No Mar 29 elle/100 80.0 informati 2016 5:00 leukocyte on in AM s in source Blood by data Automated count Hematocri 37.0 - % Low No Mar 29 t [Volume 47.0 informati 2016 5:00 on in AM Fraction] source of Blood data Hemoglobi 12.2 - g/dL Low No Mar 29 n 16.2 informati 2016 5:00 [Mass/vol on in AM ume] in source Blood data Lymphocyt 0.7 - 4.5 K/mm3 Normal No Mar 29 es informati 2016 5:00 [#/volume on in AM ] in source Unspecifi data ed specimen by Automated count Lymphocyt 10 - 50.0 % Low No Mar 29 es informati 2016 5:00 [#/volume on in AM ] in source Unspecifi data ed specimen by Automated count Erythrocy 27 - 31.2 pg Normal No Mar 29 te mean informati 2016 5:00 corpuscul on in AM ar source hemoglobi data n [Entitic mass] Erythrocy 31.8 - g/dl Low No Mar 29 te mean 35.4 informati 2016 5:00 corpuscul on in AM ar source hemoglobi data n concentra tion [Mass/vol ume] by Automated count Erythrocy 82.2 - fl Normal No Mar 29 te mean 97.8 informati 2016 5:00 corpuscul on in AM ar volume source [Entitic data volume] by Automated count Monocytes 0.1 - 1.0 K/mm3 High No Mar 29 informati 2016 5:00 [#/volume on in AM ] in source Blood by data Automated count Monocytes 1.7 - 9.3 % Normal No Mar 29 informati 2017 5:00 leukocyte on in AM s in source Blood by data Automated count Platelet 7.4 - fl Low No Mar 29 mean 10.4 informati 2016 5:00 volume on in AM [Entitic source volume] data in Blood by Automated count Platelets 142 - 424 K/mm3 High No Mar 29 informati 2016 5:00 [#/volume on in AM ] in source Blood data Erythrocy 4.2 - 5.4 M/mm3 Low No Mar 29 elle informati 2016 5:00 [#/volume on in AM ] in source Amniotic data fluid Erythrocy 11.5 - % Normal No Oct 11 te 17.5 informati 2017 5:00 distribut on in AM ion width source [Entitic data volume] by Automated count Leukocyte 4.8 - K/MM3 High No Oct 11 s 10.8 alert informati 2017 5:00 [#/volume on in AM ] in source Blood data CBC W Auto Differential panel in Blood Observa Value Referen Units Interpr Notes Date tion ce etation Range Basophils 0 - 0.2 K/MM3 Normal No Oct 10 informati 2016 5:05 [#/volume on in AM ] in source Blood by data Automated count Basophils 0.1 - 2.0 % Low No Oct 10 /100 informati 2017 5:05 leukocyte on in AM s in source Blood by data Automated count Eosinophi 0.0 - 0.4 K/mm3 Normal No Oct 10 ls informati 2017 5:05 [#/volume on in AM ] in source Blood by data Automated count Eosinophi 0.1 - % Low No Mar 10 ls/100 12.0 informati 2016 5:05 leukocyte on in AM s in source Blood by data Automated count Granulocy 1.8 - 7.8 K/mm3 High No Oct 10 elle informati 2017 5:05 [#/volume on in AM ] in source Blood by data Automated count Granulocy 37.0 - % High No Oct 10 elle/100 80.0 informati 2017 5:05 leukocyte on in AM s in source Blood by data Automated count Hematocri 37.0 - % Low No Mar 10 t [Volume 47.0 informati 2017 5:05 on in AM Fraction] source of Blood data Hemoglobi 12.2 - g/dL Low No Mar 10 n 16.2 informati 2016 5:05 [Mass/vol on in AM ume] in source Blood data Lymphocyt 0.7 - 4.5 K/mm3 Low No Oct 10 es informati 2017 5:05 [#/volume on in AM ] in source Unspecifi data ed specimen by Automated count Lymphocyt 10 - 50.0 % Low No Mar 10 es informati 2016 5:05 [#/volume on in AM ] in source Unspecifi data ed specimen by Automated count Erythrocy 27 - 31.2 pg Normal No Oct 10 te mean informati 2016 5:05 corpuscul on in AM ar source hemoglobi data n [Entitic mass] Erythrocy 31.8 - g/dl Normal No Mar 10 te mean 35.4 informati 2016 5:05 corpuscul on in AM ar source hemoglobi data n concentra tion [Mass/vol ume] by Automated count Erythrocy 82.2 - fl Normal No Mar 10 te mean 97.8 informati 2016 5:05 corpuscul on in AM ar volume source [Entitic data volume] by Automated count Monocytes 0.1 - 1.0 K/mm3 Normal No Mar 10 informati 2016 5:05 [#/volume on in AM ] in source Blood by data Automated count Monocytes 1.7 - 9.3 % Normal No Mar 10 /100 informati 2016 5:05 leukocyte on in AM s in source Blood by data Automated count Platelet 7.4 - fl Low No Mar 10 mean 10.4 informati 2016 5:05 volume on in AM [Entitic source volume] data in Blood by Automated count Platelets 142 - 424 K/mm3 High No Mar 10 informati 2016 5:05 [#/volume on in AM ] in source Blood data Erythrocy 4.2 - 5.4 M/mm3 Low No Mar 10 elle informati 2016 5:05 [#/volume on in AM ] in source Amniotic data fluid Erythrocy 11.5 - % Normal No Mar 10 te 17.5 informati 2016 5:05 distribut on in AM ion width source [Entitic data volume] by Automated count Leukocyte 4.8 - K/MM3 High No Mar 10 s 10.8 alert informati 2016 5:05 [#/volume on in AM ] in source Blood data Differential panel, method unspecified - Observa Value Referen Units Interpr Notes Date tion ce etation Range Anisocy 1+ No No No No Mar 28 tosis informa informa informa informa 2016 [Presen tion in tion in tion in tion in 5:05 AM ce] in source source source source Blood data data data data Hypochr 1+ No No No No Mar 28 omia informa informa informa informa 2016 [Presen tion in tion in tion in tion in 5:05 AM ce] in source source source source Blood data data data data LYMPH 2 10 - 50 % Low No Mar 28 informa 2016 tion in 5:05 AM source data Platele NORMAL No No No No Mar 28 ts informa informa informa informa 2016 [Presen tion in tion in tion in tion in 5:05 AM ce] in source source source source Blood data data data data by Light microsc opy Neutrophi 42 - 76 % High No Oct 10 ls informati 2016 5:05 [#/volume on in AM ] in source Blood by data Automated count Cells No #CELLS No No Oct 10 Counted informati informati informati 2017 5:05 Total [#] on in on in on in AM in Blood source source source data data data Comprehensive metabolic 2000 panel in Serum or Plasma Observa Value Referen Units Interpr Notes Date tion ce etation Range Albumin/G 1.1 - 1.8 No Low No Oct 10 lobulin informati informati 2017 5:05 [Mass on in on in AM ratio] in source source Serum or data data Plasma Albumin 3.4 - 5.0 gm/dL Low No Oct 10 [Mass/vol informati 2017 5:05 ume] in on in AM Serum or source Plasma data Alkaline 46 - 116 U/L Normal No Oct 10 phosphata informati 2017 5:05 se on in AM [Enzymati source c data activity/ volume] in Serum or Plasma Bilirubin 0.2 - 1.0 mg/dL Normal No Oct 10 .total informati 2017 5:05 [Mass/vol on in AM ume] in source Serum or data Plasma Urea 7 - 18 mg/dL Low No Oct 10 nitrogen informati 2017 5:05 [Mass/vol on in AM ume] in source Serum or data Plasma Calcium 8.5 - mg/dL Low No Oct 10 [Mass/vol 10.1 informati 2017 5:05 ume] in on in AM Serum or source Plasma data Chloride 98 - 107 mmoL/L Normal No Oct 10 [Moles/vo informati 2017 5:05 lume] in on in AM Serum or source Plasma data Carbon 21.0 - mmoL/L Normal No Oct 10 dioxide, 32.0 informati 2017 5:05 total on in AM [Moles/vo source lume] in data Serum or Plasma Creatinin 0.55 - mg/dL Low No Oct 10 e 1.02 informati 2017 5:05 [Mass/vol on in AM ume] in source Serum or data Plasma Creatinin 50 - 200 ML/MIN Normal No Oct 10 e renal informati 2017 5:05 clearance on in AM source predicted data by Cockcroft -Gault formula Estimated 59- ML/MIN No REFERENCE Mar 28 informati RANGE: 2017 5:05 glomerula on in >60 AM r source ML/MIN/1. filtratio data 73 SQUARE n rate METERSIf (GF this patient is -A merican, then multiply theresult by 1.210. Globulin 1.3 - 3.2 gm/dL High No Mar 28 [Mass/vol informati 2016 5:05 ume] in on in AM Serum source data Glucose 74 - 106 mg/dL High No Mar 10 [Mass/vol informati 2016 5:05 ume] in on in AM Serum or source Plasma data Potassium 3.5 - 5.1 mmoL/L Normal No Mar 28 informati 2016 5:05 [Moles/vo on in AM lume] in source Serum or data Plasma Sodium 136 - 145 mmoL/L Normal No Mar 28 [Moles/vo informati 2016 5:05 lume] in on in AM Serum or source Plasma data Aspartate 15 - 37 U/L Normal No Mar 28 informati 2016 5:05 aminotran on in AM sferase source [Enzymati data c activity/ volume] in Serum or Plasma Alanine 12 - 78 U/L Low No Mar 10 aminotran informati 2016 5:05 sferase on in AM [Enzymati source c data activity/ volume] in Serum or Plasma Protein 6.4 - 8.2 gm/dL Low No Mar 10 [Mass/vol informati 2016 5:05 ume] in on in AM Serum or source Plasma data Urinalysis dipstick W Reflex Microscopic panel in Urine Observa Value Referen Units Interpr Notes Date tion ce etation Range Collected by nurse? Y Hold specimen in OE? N Appeara CLEAR CLEAR No No No Mar 27 nce of informa informa informa 2016 Urine tion in tion in tion in 3:36 PM source source source data data data Bilirub NEGATIV NEG No No No Mar 27 in E informa informa informa 2016 [Presen tion in tion in tion in 3:36 PM ce] in source source source Urine data data data by Test strip Erythro 2+ NEG No Abnorma No Mar 27 cytes informa l informa 2016 [Presen tion in tion in 3:36 PM ce] in source source Urine data data Color YELLOW YELLOW No No No Mar 27 of informa informa informa 2016 Urine tion in tion in tion in 3:36 PM source source source data data data Glucose NEG No No No Mar 27 [Mass/vol informati informati informati 2016 3:36 ume] in on in on in on in PM Urine by source source source Test data data data strip Ketones 2+ NEG mg/dL Abnorma No Mar 27 l informa 2016 [Presen tion in 3:36 PM ce] in source Urine data by Automat ed test strip Mucus NEGATIV NEG No No No Mar 27 [Presen E informa informa informa 2016 ce] in tion in tion in tion in 3:36 PM Urine source source source sedimen data data data t by Light microsc opy Nitrite NEGATIV NEG No No No Mar 27 E informa informa informa 2016 [Presen tion in tion in tion in 3:36 PM ce] in source source source Urine data data data by Test strip pH of 5.0 - 8.5 No Normal No Mar 27 Urine informati informati 2016 3:36 on in on in PM source source data data Protein NEG mg/dL No No Mar 27 [Mass/vol informati informati 2016 3:36 ume] in on in on in PM Urine by source source Automated data data test strip Erythro 10-20 0 rbc/hpf No No Mar 27 cytes informa informa 2016 [Presen tion in tion in 3:36 PM ce] in source source Urine data data sedimen t by Light microsc opy Specific 1.005 - No Normal No Mar 27 gravity 1.030 informati informati 2016 3:36 of Urine on in on in PM source source data data Urobili 0.2 NEG E.U./dL No No Mar 27 nogen informa informa 2016 [Presen tion in tion in 3:36 PM ce] in source source Urine data data by Test strip Leukocyte O wbc/hpf No No Mar 27 s informati informati 2016 3:36 [#/volume on in on in PM ] in source source Urine data data Urinalysis dipstick W Reflex Microscopic panel in Urine Observa Value Referen Units Interpr Notes Date tion ce etation Range Collected by nurse? Y Hold specimen in OE? N Appeara CLEAR CLEAR No No No Mar 27 nce of informa informa informa 2017 Urine tion in tion in tion in 3:36 PM source source source data data data Bilirub NEGATIV NEG No No No Mar 27 in E informa informa informa 2016 [Presen tion in tion in tion in 3:36 PM ce] in source source source Urine data data data by Test strip Erythro 2+ NEG No Abnorma No Mar 27 cytes informa l informa 2016 [Presen tion in tion in 3:36 PM ce] in source source Urine data data Color YELLOW YELLOW No No No Mar 27 of informa informa informa 2016 Urine tion in tion in tion in 3:36 PM source source source data data data Glucose NEG No No No Mar 27 [Mass/vol informati informati informati 2016 3:36 ume] in on in on in on in PM Urine by source source source Test data data data strip Ketones 2+ NEG mg/dL Abnorma No Mar 27 l informa 2016 [Presen tion in 3:36 PM ce] in source Urine data by Automat ed test strip Mucus NEGATIV NEG No No No Mar 27 [Presen E informa informa informa 2016 ce] in tion in tion in tion in 3:36 PM Urine source source source sedimen data data data t by Light microsc opy Nitrite NEGATIV NEG No No No Mar 27 E informa informa informa 2016 [Presen tion in tion in tion in 3:36 PM ce] in source source source Urine data data data by Test strip pH of 5.0 - 8.5 No Normal No Mar 27 Urine informati informati 2016 3:36 on in on in PM source source data data Protein NEG mg/dL No No Mar 27 [Mass/vol informati informati 2016 3:36 ume] in on in on in PM Urine by source source Automated data data test strip Specific 1.005 - No Normal No Mar 27 gravity 1.030 informati informati 2016 3:36 of Urine on in on in PM source source data data Urobili 0.2 NEG E.U./dL No No Mar 27 nogen informa informa 2016 [Presen tion in tion in 3:36 PM ce] in source source Urine data data by Test strip Blood type & Crossmatch panel in Blood Observa Value Referen Units Interpr Notes Date tion ce etation Range Hold? Y Major COMPAT No No No No Mar 27 crossma informa informa informa informa 2017 tch tion in tion in tion in tion in 1:48 PM [interp source source source source retatio data data data data n] Major COMPAT No No No No Mar 27 crossma informa informa informa informa 2017 tch tion in tion in tion in tion in 1:48 PM [interp source source source source retatio data data data data n] by Immedia te spin Blood type & Crossmatch panel in Blood Observa Value Referen Units Interpr Notes Date tion ce etation Range Hold? Y Blood NEGATIV NEGATIV No No No Mar 27 group E E informa informa informa 2017 antibod tion in tion in tion in 1:48 PM y source source source screen data data data [Presen ce] in Serum or Plasma Rh POSITIV No No No No Mar 27 [Type] E informa informa informa informa 2017 in tion in tion in tion in tion in 1:48 PM Blood source source source source data data data data ABO O No No No No Mar 27 group informa informa informa informa 2017 [Type] tion in tion in tion in tion in 1:48 PM in source source source source Blood data data data data Blood type & Crossmatch panel in Blood Observa Value Referen Units Interpr Notes Date tion ce etation Range Hold? Y Major COMPAT No No No No Mar 27 crossma informa informa informa informa 2017 tch tion in tion in tion in tion in 1:48 PM [interp source source source source retatio data data data data n] Major COMPAT No No No No Mar 27 crossma informa informa informa informa 2017 tch tion in tion in tion in tion in 1:48 PM [interp source source source source retatio data data data data n] by Immedia te spin Comprehensive metabolic 2000 panel in Serum or Plasma Observa Value Referen Units Interpr Notes Date tion ce etation Range Albumin/G 1.1 - 1.8 No Low No Mar 27 lobulin informati informati 2017 6:39 [Mass on in on in AM ratio] in source source Serum or data data Plasma Albumin 3.4 - 5.0 gm/dL Low No Oct 9 [Mass/vol informati 2017 6:39 ume] in on in AM Serum or source Plasma data Alkaline 46 - 116 U/L Normal No Oct 9 phosphata informati 2017 6:39 se on in AM [Enzymati source c data activity/ volume] in Serum or Plasma Bilirubin 0.2 - 1.0 mg/dL Normal No Oct 9 .total informati 2017 6:39 [Mass/vol on in AM ume] in source Serum or data Plasma Urea 7 - 18 mg/dL Low No Oct 9 nitrogen informati 2017 6:39 [Mass/vol on in AM ume] in source Serum or data Plasma Calcium 8.5 - mg/dL Low No Oct 9 [Mass/vol 10.1 informati 2017 6:39 ume] in on in AM Serum or source Plasma data Chloride 98 - 107 mmoL/L Normal No Oct 9 [Moles/vo informati 2017 6:39 lume] in on in AM Serum or source Plasma data Carbon 21.0 - mmoL/L Normal No Oct 9 dioxide, 32.0 informati 2017 6:39 total on in AM [Moles/vo source lume] in data Serum or Plasma Creatinin 0.55 - mg/dL Normal No Oct 9 e 1.02 informati 2017 6:39 [Mass/vol on in AM ume] in source Serum or data Plasma Creatinin 50 - 200 ML/MIN Normal No Oct 9 e renal informati 2017 6:39 clearance on in AM source predicted data by Cockcroft -Gault formula Estimated 59- ML/MIN No REFERENCE Oct 9 informati RANGE: 2017 6:39 glomerula on in >60 AM r source ML/MIN/1. filtratio data 73 SQUARE n rate METERSIf (GF this patient is -A merican, then multiply theresult by 1.210. Globulin 1.3 - 3.2 gm/dL High No Oct 9 [Mass/vol informati 2017 6:39 ume] in on in AM Serum source data Glucose 74 - 106 mg/dL Normal No Oct 9 [Mass/vol informati 2017 6:39 ume] in on in AM Serum or source Plasma data Potassium 3.5 - 5.1 mmoL/L Low No Oct 9 informati 2017 6:39 [Moles/vo on in AM lume] in source Serum or data Plasma Sodium 136 - 145 mmoL/L Normal No Mar 27 [Moles/vo informati 2016 6:39 lume] in on in AM Serum or source Plasma data Aspartate 15 - 37 U/L No No Mar 27 informati informati 2017 6:39 aminotran on in on in AM sferase source source [Enzymati data data c activity/ volume] in Serum or Plasma Alanine 12 - 78 U/L Normal No Mar 27 aminotran informati 2016 6:39 sferase on in AM [Enzymati source c data activity/ volume] in Serum or Plasma Protein 6.4 - 8.2 gm/dL Normal No Mar 27 [Mass/vol informati 2016 6:39 ume] in on in AM Serum or source Plasma data CBC W Auto Differential panel in Blood Observa Value Referen Units Interpr Notes Date tion ce etation Range Basophils 0 - 0.2 K/MM3 Normal No Mar 27 informati 2016 6:39 [#/volume on in AM ] in source Blood by data Automated count Basophils 0.1 - 2.0 % Normal No Mar 27 informati 2017 6:39 leukocyte on in AM s in source Blood by data Automated count Eosinophi 0.0 - 0.4 K/mm3 Normal No Mar 27 ls informati 2016 6:39 [#/volume on in AM ] in source Blood by data Automated count Eosinophi 0.1 - % Normal No Mar 27 ls/100 12.0 informati 2016 6:39 leukocyte on in AM s in source Blood by data Automated count Granulocy 1.8 - 7.8 K/mm3 High No Mar 27 elle informati 2016 6:39 [#/volume on in AM ] in source Blood by data Automated count Granulocy 37.0 - % Normal No Mar 27 elle/100 80.0 informati 2016 6:39 leukocyte on in AM s in source Blood by data Automated count Hematocri 37.0 - % Low No Mar 27 t [Volume 47.0 informati 2016 6:39 on in AM Fraction] source of Blood data Hemoglobi 12.2 - g/dL Low No Mar 27 n 16.2 informati 2016 6:39 [Mass/vol on in AM ume] in source Blood data Lymphocyt 0.7 - 4.5 K/mm3 Normal No Mar 27 es informati 2016 6:39 [#/volume on in AM ] in source Unspecifi data ed specimen by Automated count Lymphocyt 10 - 50.0 % Normal No Oct 9 es informati 2017 6:39 [#/volume on in AM ] in source Unspecifi data ed specimen by Automated count Erythrocy 27 - 31.2 pg Normal No Mar 9 te mean informati 2017 6:39 corpuscul on in AM ar source hemoglobi data n [Entitic mass] Erythrocy 31.8 - g/dl Low No Mar 9 te mean 35.4 informati 2017 6:39 corpuscul on in AM ar source hemoglobi data n concentra tion [Mass/vol ume] by Automated count Erythrocy 82.2 - fl Normal No Mar 9 te mean 97.8 informati 2017 6:39 corpuscul on in AM ar volume source [Entitic data volume] by Automated count Monocytes 0.1 - 1.0 K/mm3 High No Oct 9 informati 2017 6:39 [#/volume on in AM ] in source Blood by data Automated count Monocytes 1.7 - 9.3 % Normal No Oct 9 /100 informati 2017 6:39 leukocyte on in AM s in source Blood by data Automated count Platelet 7.4 - fl Low No Mar 9 mean 10.4 informati 2017 6:39 volume on in AM [Entitic source volume] data in Blood by Automated count Platelets 142 - 424 K/mm3 High No Mar 9 informati 2017 6:39 [#/volume on in AM ] in source Blood data Erythrocy 4.2 - 5.4 M/mm3 Low No Mar 9 elle informati 2017 6:39 [#/volume on in AM ] in source Amniotic data fluid Erythrocy 11.5 - % Normal No Mar 9 te 17.5 informati 2017 6:39 distribut on in AM ion width source [Entitic data volume] by Automated count Leukocyte 4.8 - K/MM3 High No Oct 9 s 10.8 informati 2017 6:39 [#/volume on in AM ] in source Blood data Comprehensive metabolic 2000 panel in Serum or Plasma Observa Value Referen Units Interpr Notes Date tion ce etation Range Albumin/G 1.1 - 1.8 No Low No Oct 8 lobulin informati informati 2017 6:45 [Mass on in on in AM ratio] in source source Serum or data data Plasma Albumin 3.4 - 5.0 gm/dL Low No Oct 8 [Mass/vol informati 2017 6:45 ume] in on in AM Serum or source Plasma data Alkaline 46 - 116 U/L Normal No Oct 8 phosphata informati 2017 6:45 se on in AM [Enzymati source c data activity/ volume] in Serum or Plasma Bilirubin 0.2 - 1.0 mg/dL Normal No Oct 8 .total informati 2017 6:45 [Mass/vol on in AM ume] in source Serum or data Plasma Urea 7 - 18 mg/dL Low No Oct 8 nitrogen informati 2017 6:45 [Mass/vol on in AM ume] in source Serum or data Plasma Calcium 8.5 - mg/dL Low No Oct 8 [Mass/vol 10.1 informati 2017 6:45 ume] in on in AM Serum or source Plasma data Chloride 98 - 107 mmoL/L Normal No Oct 8 [Moles/vo informati 2017 6:45 lume] in on in AM Serum or source Plasma data Carbon 21.0 - mmoL/L Normal No Oct 8 dioxide, 32.0 informati 2017 6:45 total on in AM [Moles/vo source lume] in data Serum or Plasma Creatinin 0.55 - mg/dL Normal No Oct 8 e 1.02 informati 2017 6:45 [Mass/vol on in AM ume] in source Serum or data Plasma Creatinin 50 - 200 ML/MIN Normal No Oct 8 e renal informati 2017 6:45 clearance on in AM source predicted data by Cockcroft -Gault formula Estimated 59- ML/MIN No REFERENCE Oct 8 informati RANGE: 2017 6:45 glomerula on in >60 AM r source ML/MIN/1. filtratio data 73 SQUARE n rate METERSIf (GF this patient is -A merican, then multiply theresult by 1.210. Globulin 1.3 - 3.2 gm/dL High No Oct 8 [Mass/vol informati 2017 6:45 ume] in on in AM Serum source data Glucose 74 - 106 mg/dL Normal No Oct 8 [Mass/vol informati 2017 6:45 ume] in on in AM Serum or source Plasma data Potassium 3.5 - 5.1 mmoL/L Low No Oct 8 informati 2017 6:45 [Moles/vo on in AM lume] in source Serum or data Plasma Sodium 136 - 145 mmoL/L Normal No Mar 26 [Moles/vo informati 2016 6:45 lume] in on in AM Serum or source Plasma data Aspartate 15 - 37 U/L Low No Mar 26 inform2016 6:45 aminotran on in AM sferase source [Enzymati data c activity/ volume] in Serum or Plasma Alanine 12 - 78 U/L Low No Mar 26 aminotran informati 2016 6:45 sferase on in AM [Enzymati source c data activity/ volume] in Serum or Plasma Protein 6.4 - 8.2 gm/dL Low No Mar 26 [Mass/vol informati 2016 6:45 ume] in on in AM Serum or source Plasma data CBC W Auto Differential panel in Blood Observa Value Referen Units Interpr Notes Date tion ce etation Range Basophils 0 - 0.2 K/MM3 Normal No Mar 26 inform2016 6:45 [#/volume on in AM ] in source Blood by data Automated count Basophils 0.1 - 2.0 % Normal No Mar 26 informati 2016 6:45 leukocyte on in AM s in source Blood by data Automated count Eosinophi 0.0 - 0.4 K/mm3 Normal No Mar 26 ls informati 2016 6:45 [#/volume on in AM ] in source Blood by data Automated count Eosinophi 0.1 - % Normal No Mar 26 ls/100 12.0 informati 2016 6:45 leukocyte on in AM s in source Blood by data Automated count Granulocy 1.8 - 7.8 K/mm3 High No Mar 26 elle informati 2016 6:45 [#/volume on in AM ] in source Blood by data Automated count Granulocy 37.0 - % High No Mar 26 elle/100 80.0 informati 2016 6:45 leukocyte on in AM s in source Blood by data Automated count Hematocri 37.0 - % Low No Mar 26 t [Volume 47.0 informati 2016 6:45 on in AM Fraction] source of Blood data Hemoglobi 12.2 - g/dL Low No Mar 26 n 16.2 informati 2016 6:45 [Mass/vol on in AM ume] in source Blood data Lymphocyt 0.7 - 4.5 K/mm3 Normal No Mar 26 es ati 2016 6:45 [#/volume on in AM ] in source Unspecifi data ed specimen by Automated count Lymphocyt 10 - 50.0 % Normal No Mar 8 es informati 2016 6:45 [#/volume on in AM ] in source Unspecifi data ed specimen by Automated count Erythrocy 27 - 31.2 pg Normal No Mar 8 te mean informati 2016 6:45 corpuscul on in AM ar source hemoglobi data n [Entitic mass] Erythrocy 31.8 - g/dl Low No Mar 8 te mean 35.4 informati 2016 6:45 corpuscul on in AM ar source hemoglobi data n concentra tion [Mass/vol ume] by Automated count Erythrocy 82.2 - fl Normal No Mar 8 te mean 97.8 informati 2016 6:45 corpuscul on in AM ar volume source [Entitic data volume] by Automated count Monocytes 0.1 - 1.0 K/mm3 High No Mar 8 informati 2016 6:45 [#/volume on in AM ] in source Blood by data Automated count Monocytes 1.7 - 9.3 % Normal No Mar 26 informati 2016 6:45 leukocyte on in AM s in source Blood by data Automated count Platelet 7.4 - fl Normal No Mar 8 mean 10.4 informati 2017 6:45 volume on in AM [Entitic source volume] data in Blood by Automated count Platelets 142 - 424 K/mm3 High No Mar 8 informati 2016 6:45 [#/volume on in AM ] in source Blood data Erythrocy 4.2 - 5.4 M/mm3 Low No Mar 8 elle informati 2016 6:45 [#/volume on in AM ] in source Amniotic data fluid Erythrocy 11.5 - % Normal No Mar 26 te 17.5 informati 2016 6:45 distribut on in AM ion width source [Entitic data volume] by Automated count Leukocyte 4.8 - K/MM3 High No Mar 8 s 10.8 informati 2016 6:45 [#/volume on in AM ] in source Blood data Differential panel, method unspecified - Observa Value Referen Units Interpr Notes Date tion ce etation Range LYMPH 11 10 - 50 % Normal No Mar 8 inform 2017 tion in 6:45 AM source data Monocytes 2 - 9 % Normal No Mar 26 informati 2016 6:45 leukocyte on in AM s in source Blood by data Automated count Platele SLIGHT No No No No Mar 26 ts INCREAS informa informa informa informa 2017 [Presen E tion in tion in tion in tion in 6:45 AM ce] in source source source source Blood data data data data by Light microsc opy Neutrophi 42 - 76 % High No Mar 26 ls informati 2016 6:45 [#/volume on in AM ] in source Blood by data Automated count Cells No #CELLS No No Mar 8 Counted informati informati informati 2016 6:45 Total [#] on in on in on in AM in Blood source source source data data data CBC W Auto Differential panel in Blood Observa Value Referen Units Interpr Notes Date tion ce etation Range Basophils 0 - 0.2 K/MM3 Normal No Mar 25 informati 2016 6:23 [#/volume on in AM ] in source Blood by data Automated count Basophils 0.1 - 2.0 % Normal No Mar 25 /100 informati 2016 6:23 leukocyte on in AM s in source Blood by data Automated count Eosinophi 0.0 - 0.4 K/mm3 Normal No Mar 25 ls informati 2016 6:23 [#/volume on in AM ] in source Blood by data Automated count Eosinophi 0.1 - % Normal No Mar 25 ls/100 12.0 informati 2016 6:23 leukocyte on in AM s in source Blood by data Automated count Granulocy 1.8 - 7.8 K/mm3 High No Mar 25 elle informati 2016 6:23 [#/volume on in AM ] in source Blood by data Automated count Granulocy 37.0 - % High No Mar 25 elle/100 80.0 informati 2016 6:23 leukocyte on in AM s in source Blood by data Automated count Hematocri 37.0 - % Low No Mar 25 t [Volume 47.0 informati 2016 6:23 on in AM Fraction] source of Blood data Hemoglobi 12.2 - g/dL Low No Mar 25 n 16.2 informati 2016 6:23 [Mass/vol on in AM ume] in source Blood data Lymphocyt 0.7 - 4.5 K/mm3 Normal No Mar 25 es informati 2016 6:23 [#/volume on in AM ] in source Unspecifi data ed specimen by Automated count Lymphocyt 10 - 50.0 % Low No Mar 25 es informati 2016 6:23 [#/volume on in AM ] in source Unspecifi data ed specimen by Automated count Erythrocy 27 - 31.2 pg Normal No Mar 7 te mean informati 2017 6:23 corpuscul on in AM ar source hemoglobi data n [Entitic mass] Erythrocy 31.8 - g/dl Low No Mar 7 te mean 35.4 informati 2017 6:23 corpuscul on in AM ar source hemoglobi data n concentra tion [Mass/vol ume] by Automated count Erythrocy 82.2 - fl Normal No Mar 7 te mean 97.8 informati 2017 6:23 corpuscul on in AM ar volume source [Entitic data volume] by Automated count Monocytes 0.1 - 1.0 K/mm3 High No Mar 7 informati 2017 6:23 [#/volume on in [...] 142 - 424 K/mm3 High No Mar 7 informati 2017 6:23 [#/volume on in AM ] in source Blood data Erythrocy 4.2 - 5.4 M/mm3 Low No Mar 7 elle informati 2017 6:23 [#/volume on in AM ] in source Amniotic data fluid Erythrocy 11.5 - % Normal No Mar 7 te 17.5 informati 2017 6:23 distribut on in AM ion width source [Entitic data volume] by Automated count Leukocyte 4.8 - K/MM3 High No Mar 7 s 10.8 alert informati 2017 6:23 [#/volume on in AM ] in source Blood data Basic metabolic panel in Blood Observa Value Referen Units Interpr Notes Date tion ce etation Range Urea 7 - 18 mg/dL Low No Mar 7 nitrogen informati 2017 6:23 [Mass/vol on in AM ume] in source Serum or data Plasma Calcium 8.5 - mg/dL Low No Mar 7 [Mass/vol 10.1 informati 2017 6:23 ume] in on in AM Serum or source Plasma data Chloride 98 - 107 mmoL/L Normal No Mar 7 [Moles/vo informati 2017 6:23 lume] in on in AM Serum or source Plasma data Carbon 21.0 - mmoL/L Normal No Oct 7 dioxide, 32.0 informati 2017 6:23 total on in AM [Moles/vo source lume] in data Serum or Plasma Creatinin 0.55 - mg/dL Normal No Oct 7 e 1.02 informati 2017 6:23 [Mass/vol on in AM ume] in source Serum or data Plasma Creatinin 50 - 200 ML/MIN Normal No Mar 7 e renal informati 2016 6:23 clearance on in AM source predicted [...] 136 - 145 mmoL/L Normal No Mar 7 [Moles/vo informati 2017 6:23 lume] in on in AM Serum or source Plasma data Lactate [Moles/volume] in Blood Observa Value Referen Units Interpr Notes Date tion ce etation Range Lactate 0.4 - 2.0 mmol/L Normal No Mar 6 [Moles/vo informati 2016 4:55 lume] in on [...] data data Glucose NEG No No No Oct 6 [Mass/vol informati informati informati 2017 ume] [...] No No Oct 6 nogen informa informa 2016 [Presen tion in tion in 12:15 ce] in source source PM Urine data data by Test strip Leukocyte O wbc/hpf No No Mar 24 s informati informati 2016 [#/volume on in on in 12:15 PM ] in source source Urine data data Urinalysis dipstick W Reflex Microscopic panel in Urine Observa Value Referen Units Interpr Notes Date tion ce etation Range Appeara SL CLEAR No No No Mar 24 nce of CLOUDY informa informa informa 2017 Urine tion in tion in tion in 12:15 source source source PM data data data Bilirub NEGATIV NEG No No BILIRUB Mar 24 in E informa informa IN 2016 [Presen tion in tion in CONFIRM 12:15 ce] in source source ED WITH PM Urine data data by Test ICTOTES strip T: NEGATIV E Erythro 3+ NEG No Abnorma No Mar 24 cytes informa l informa 2016 [Presen tion in tion in 12:15 ce] in source source PM Urine data data Color YELLOW YELLOW No No No Mar 24 of informa informa informa 2016 Urine tion in tion in tion in 12:15 source source source PM data data data Glucose NEG No No No Mar 24 [Mass/vol informati informati informati 2016 ume] in on in on in on in 12:15 PM Urine by source source source Test data data data strip Ketones 1+ NEG mg/dL Abnorma No Mar 24 l informa 2016 [Presen tion in 12:15 [...] mg/dL High No Mar 6 [Mass/vol informati 2017 ume] in on in 12:15 PM Urine by source Automated data test strip Specific 1.005 - No Normal No Mar 24 gravity 1.030 inform2016 of Urine on in on in 12:15 PM source source data data Urobili 0.2 NEG E.U./dL No No Mar 24 nogen informa informa 2016 [Presen tion in tion in 12:15 ce] in source source PM Urine data data by Test strip Amylase [Enzymatic activity/volume] in Serum or Plasma Observa Value Referen Units Interpr Notes Date tion ce etation Range Amylase 25 - 115 U/L Low No Mar 24 [Enzymati informati 2016 c on in 10:55 AM activity/ source volume] data in Serum or Plasma Lipase [Enzymatic activity/volume] in Serum or Plasma Observa Value Referen Units Interpr Notes Date ti ce etation Range Lipase 73 - 393 U/L Normal No Mar 24 [Enzymati inform2016 c on in 10:55 AM activity/ source volume] data in Serum or Plasma CBC W Auto Differential panel in Blood Observa Value Referen Units Interpr Notes Date tion ce etation Range Basophils 0 - 0.2 K/MM3 Normal No Mar 242016 [#/volume on in 10:55 AM ] in source Blood by data Automated count Basophils 0.1 - 2.0 % Normal No Mar 242016 leukocyte on in 10:55 AM s in source Blood by data Automated count Eosinophi 0.0 - 0.4 K/mm3 Normal No Mar 24 ls 2016 [#/volume on in 10:55 AM ] in source Blood by data Automated count Eosinophi 0.1 - % Normal No Mar 24 ls/100 12.0 2016 leukocyte on in 10:55 AM s in source Blood by data Automated count Granulocy 1.8 - 7.8 K/mm3 High No Mar 24 elle inform2016 [#/volume on in 10:55 AM ] in source Blood by data Automated count Granulocy 37.0 - % High No Mar 24 elle/100 80.0 2016 leukocyte on in 10:55 AM s in source Blood by data Automated count Hematocri 37.0 - % Normal No Mar 24 t [Volume 47.0 2016 on in 10:55 AM Fraction] source of Blood data Hemoglobi 12.2 - g/dL Normal No Mar 24 n 16.2 inform2016 [Mass/vol on in 10:55 AM ume] in source Blood data Lymphocyt 0.7 - 4.5 K/mm3 Normal No Mar 24 es inform2016 [#/volume on in 10:55 AM ] in source Unspecifi data ed specimen by Automated count Lymphocyt 10 - 50.0 % Low No Mar 24 es inform2016 [#/volume on in 10:55 AM ] [...] Erythrocy 11.5 - % Normal No Mar 24 te 17.5 2016 distribut on in 10:55 AM ion width source [Entitic data volume] by Automated count Leukocyte 4.8 - K/MM3 High No Mar 6 s 10.8 alert inform2016 [#/volume on in 10:55 AM ] in source Blood data Differential panel, method unspecified - Observa Value Referen Units Interpr Notes Date tion ce etation Range Lymphocyt 0 - 5 % Normal No Mar 6 es inform2016 Variant/1 on in 10:55 AM 00 source leukocyte data s in Blood by Manual count LYMPH 10 10 - 50 % Normal No Mar 24 informa 2016 tion in 10:55 source AM data Monocytes 2 - 9 % Normal No Oct 6 /100 informati 2016 leukocyte on in 10:55 AM s in source Blood by data Automated count Platele MOD No No No No Mar 6 ts INCREAS informa informa informa informa 2016 [Presen E tion in tion in tion in tion in 10:55 ce] in source source source source AM Blood data data data data by Light microsc opy Neutrophi 42 - 76 % High No Mar 24 ls inform2016 [#/volume on in 10:55 AM ] in source Blood by data Automated count Cells No #CELLS No No Mar 6 Counted informati informati inform2016 Total [#] on in on in on in 10:55 AM in Blood source source source data data data Comprehensive metabolic 2000 panel in Serum or Plasma Observa Value Referen Units Interpr Notes Date tion ce etation Range Albumin/G 1.1 - 1.8 No Low No Mar 6 lobulin informati inform2016 [Mass on in on in 10:55 AM ratio] in source source Serum or data data Plasma Albumin 3.4 - 5.0 gm/dL Low No Mar 24 [Mass/vol informati 2016 ume] in on in 10:55 AM Serum or source Plasma data Alkaline 46 - 116 U/L High No Mar 6 phosphata inform2016 se on in 10:55 AM [Enzymati source c data activity/ volume] in Serum or Plasma Bilirubin 0.2 - 1.0 mg/dL Normal No Mar 24 .total inform2016 [Mass/vol on in 10:55 AM ume] in source Serum or data Plasma Urea 7 - 18 mg/dL Normal No Mar 6 nitrogen inform2016 [Mass/vol on in 10:55 AM ume] in source Serum or data Plasma Calcium 8.5 - mg/dL Normal No Mar 24 [Mass/vol 10.1 informati 2016 ume] in on in 10:55 AM Serum or source Plasma data Chloride 98 - 107 mmoL/L Normal No Mar 24 [Moles/vo informati 2016 lume] in on in [...] 50 - 200 ML/MIN Normal No Mar 6 e renal informati 2017 clearance on [...] mg/dL Normal No Mar 6 [Mass/vol informati 2017 ume] [...] gm/dL Normal No Oct 6 [Mass/vol informati 2017 ume] [...]
--- OUTSIDE RECORDS SUMMARY | 2017-06-12 14:55 | External Medical Summary Rpt ---
[...] 2.3 - 11.9Perfo rmed at: - [facility] [address] [id number] [address] [place], [place] [id number] Assistant Elementary Teacher: Tony Bartholomew PhD, Phone: [phone] Comprehensive metabolic 2000 panel in Serum [...]
[2017-06-12 15:06] LABS: BUN 14 mg/dL (7-18); GFR (ESTIMATED) 63 ML/MIN (59-)
[2017-06-12 15:30] LABS: NEUTROPHILS 87 % (42-76)
--- OUTSIDE RECORDS SUMMARY | 2017-06-12 15:41 | External Medical Summary Rpt | CCD ---
Author Author , NOVA BHATT Address Unknown Phone [email or web address] Team Providers Care Road Test Examiner Name Role Phone [facility] Unavailable [...] ALSTON HEMATURIA [id number] WEAKNESS 04-19-2017 MICHAEL ALSTON [id number] OTHER 04-19-2017 MICHAEL ALSTON SPECIFIED POSTPROCEDU RAL STATES K57.20 DVTRCLI OF 03-24-2017 LG INT W PERFORATION AND ABSCESS W/O [...] #3 /M 93 L 8 BAZZI SP AZ 00 11 12 12 2 00 HO [...] #3 /M 93 L 8 BAZZI SP AZ 00 11 11 12 2 00 HO [...] Order Detail nces retati t Range on Brain natriuretic peptide (06-12-2017 14:25) Brain 06-12-2 = 226 0-100 complet natriur 017 pg/mL ed etic 14:25 peptide Cardiac enzymes (06-12-2017 14:25) Serum 06-12-2 = 38 26-192 complet or 017 U/L ed plasma 14:25 creatin e kinase measure m Serum 2 < 0.02 0.00-0. complet or 017 ng/mL 06 ed plasma 14:25 troponi n i.cardi ac measu Serum 06-12-2 = 1.3 0-4.0 complet or 017 U/L ed plasma 14:25 creatin e kinase MB (CK-M Serum 06-12-2 < 0.5 0.0-3.6 complet or 017 ng/mL ed plasma 14:25 creatin e kinase MB measu Comprehensive metabolic panel (06-12-2017 14:25) Serum 06-12-2 = 53 15-37 complet or 017 U/L ed plasma 14:25 asparta te aminotr ansfera ALT 06-12-2 = 61 12-78 complet (SGPT) 017 U/L ed ser/masoud 14:25 s Protein 06-12-2 = 7.8 6.4-8.2 complet total 017 gm/dL ed ser/masoud 14:25 s Serum 25-2 = 0.8 1.1-1.8 complet or 017 ed plasma 14:25 albumin /globul in mass ra Serum 25-2 = 3.5 3.4-5.0 complet or 017 gm/dL ed plasma 14:25 albumin measure ment (mas Serum 25-2 = 97 46-116 complet or 017 U/L ed plasma 14:25 alkalin e phospha tase rose marie Serum 25-2 = 0.7 0.2-1.0 complet or 017 mg/dL ed plasma 14:25 total bilirub in measure m Serum 06-12-2 = 14 7-18 complet or 017 mg/dL ed plasma 14:25 urea nitroge n measure men Serum 06-12-2 = 8.4 8.5-10. complet or 017 mg/dL 1 ed plasma 14:25 calcium measure ment (mas Serum 06-12-2 = 109 98-107 complet or 017 mmoL/L ed plasma 14:25 chlorid e measure ment (mo Carbon 06-12-2 = 22 21.0-32 complet dioxide 017 mmoL/L .0 ed 14:25 measure ment Serum 06-12-2 = 0.9 0.55-1. complet or 017 mg/dL 02 ed plasma 14:25 creatin ine measure ment ( Estimat 06-12-2 = 64 50-200 complet ion of 017 ML/MIN ed creatin 14:25 ine renal clearan ce Estimat 06-12-2 = 63 59- complet ed 017 ML/MIN ed glomeru 14:25 lar filtrat ion rate (GF Comment: REFERENCE RANGE: >60 ML/MIN/1.73 SQUARE METERS Comment: If this patient is -Mexican, then multiply the Comment: result by 1.210. Serum 25-2 = 4.3 1.3-3.2 complet globuli 017 gm/dL ed n 14:25 measure ment (mass/v olume) Serum 25-2 = 104 74-106 complet or 017 mg/dL ed plasma 14:25 glucose measure ment (mas Serum 06-12-2 = 3.9 3.5-5.1 complet potassi 017 mmoL/L ed um 14:25 measure ment Serum 25-2 = 141 136-145 complet sodium 017 mmoL/L ed measure 14:25 ment CBC w auto diff (05-22-2017 12:03) Automat [...] 017 K/mm3 ed monocyt 12:03 e count [place] % = 7.8 % 1.7-9.3 complet 017 [...] count (number /volume ) Comprehensive metabolic panel (05-22-2017 12:03) Serum 2 = 0.7 1.1-1.8 complet or 017 ed plasma 12:03 albumin /globul in mass ra Serum = 3.1 3.4-5.0 complet or 017 gm/dL ed plasma 12:03 albumin measure ment (mas Serum = 118 46-116 complet or 017 U/L ed plasma 12:03 alkalin e phospha tase rose marie Serum = 0.7 0.2-1.0 complet or 017 mg/dL ed plasma 12:03 total bilirub in measure m Serum = 11 7-18 complet or 017 mg/dL ed plasma 12:03 urea nitroge n measure men Serum = 8.5 8.5-10. complet or 017 mg/dL [...] SQUARE METERS Comment: If this patient is -Mexican, then multiply the Comment: result by 1.210. [...] total 017 gm/dL ed ser/masoud 12:03 s Basic metabolic panel (04-26-2017 14:30) Serum = 1.4 0.55-1. complet or 017 mg/dL 02 ed plasma 14:30 creatin ine measure ment ( Estimat = 41 50-200 complet ion of [...] SQUARE METERS Comment: If this patient is -Mexican, then multiply the Comment: result by 1.210. Serum = 112 74-106 complet or 017 mg/dL ed plasma 14:30 glucose measure ment (mas Serum = 4.3 3.5-5.1 complet potassi 017 mmoL/L ed um 14:30 measure ment Serum = 133 136-145 complet sodium 017 mmoL/L ed measure 14:30 ment CBC w auto diff (04-26-2017 14:30) Automat [...] 017 K/mm3 ed monocyt 14:30 e count [place] % = 8.1 % 1.7-9.3 complet 017 [...] ed elle 14:30 count (number /volume ) Comprehensive metabolic panel (04-26-2017 14:30) Serum = 3.1 3.4-5.0 complet or 017 [...] SQUARE METERS Comment: If this patient is -Mexican, then multiply the Comment: result by 1.210. Serum = 6.2 1.3-3.2 complet globuli 017 gm/dL ed n 14:30 measure ment (mass/v olume) Serum = 109 74-106 complet or 017 mg/dL ed plasma 14:30 glucose measure ment (mas Serum = 4.3 3.5-5.1 complet potassi 017 [...] 14:30 albumin /globul in mass ra Serum or plasma cortisol measurement (manuelito (04-19-2017 16:20) Serum = 18.2 . complet or 017 ug/dL ed plasma 16:20 cortiso l measure ment (ma Comment: Cortisol AM 6.2 - 19.4 Comment: Cortisol PM 2.3 - 11.9 Comment: [facility]formed at[facility] Comment: [id number] [place], [place] [id number] Comment: Physics Technical Officer: Tony Bartholomew PhD, Phone: [phone] CBC w auto diff (04-12-2017 06:35) Automat 2 = 0.1 0-0.2 complet ed 017 K/MM3 [...] 017 K/mm3 ed monocyt 06:35 e count [place] % = 9.7 % 1.7-9.3 complet 017 ed 06:35 Automat = 6.8 7.4-10. complet ed 017 fl 4 ed blood 06:35 platele t mean volume rose marie Blood = 623 142-424 complet platele 017 K/mm3 ed t count 06:35 Red 10-25-2 = 3.45 4.2-5.4 complet blood 017 M/mm3 ed cell 06:35 count Automat = 15.5 11.5-17 complet ed 017 % .5 ed erythro 06:35 cyte distrib ution width Blood 2 = 8.3 4.8-10. complet leukocy 017 K/MM3 8 ed elle 06:35 count (number /volume ) Comprehensive metabolic panel (04-12-2017 06:35) Serum 10-25-2 = 0.5 1.1-1.8 complet or 017 ed plasma 06:35 albumin /globul in mass ra Serum 2 = 2.2 3.4-5.0 complet or 017 gm/dL ed plasma 06:35 albumin measure ment (mas Serum = 67 46-116 complet or 017 U/L ed plasma 06:35 alkalin e phospha tase rose marie Serum = 0.4 0.2-1.0 complet or 017 mg/dL ed plasma 06:35 total bilirub in measure m Serum = 6 7-18 complet or 017 mg/dL ed plasma 06:35 urea nitroge n measure men Serum = 8.1 8.5-10. complet or 017 mg/dL 1 ed plasma 06:35 calcium measure ment (mas Serum = 104 98-107 complet or 017 mmoL/L ed plasma 06:35 chlorid e measure ment (mo Carbon = 27 21.0-32 complet dioxide 017 mmoL/L .0 ed 06:35 measure ment Serum 2 = 0.8 0.55-1. complet or 017 mg/dL 02 ed plasma 06:35 creatin ine measure ment ( Estimat = 88 50-200 complet ion of 017 ML/MIN ed creatin 06:35 ine renal clearan ce Estimat = 72 59- complet ed 017 ML/MIN ed glomeru 06:35 lar filtrat ion rate (GF Comment: REFERENCE RANGE: >60 ML/MIN/1.73 SQUARE METERS Comment: If this patient is -Mexican, then multiply the Comment: result by 1.210. Serum 25-2 = 4.2 1.3-3.2 complet globuli 017 gm/dL [...] ser/masoud 06:35 s CBC w auto diff (04-08-2017 07:40) Automat [...] 017 K/mm3 ed monocyt 07:40 e count [place] % = 6.5 % 1.7-9.3 complet 017 [...] /volume ) Basic metabolic panel (04-08-2017 07:40) Serum 2 = 0.7 0.55-1. complet or 017 mg/dL 02 ed plasma 07:40 creatin ine measure ment ( Serum = 3 7-18 complet or 017 [...] ed creatin 07:40 ine renal clearan ce Estimat = 85 59- complet ed 017 ML/MIN ed glomeru 07:40 lar filtrat ion rate (GF Comment: REFERENCE RANGE: >60 ML/MIN/1.73 SQUARE METERS Comment: If this patient is -Mexican, then multiply the Comment: result by 1.210. Serum = 116 74-106 complet or 017 mg/dL ed plasma 07:40 glucose measure ment (mas Serum = 3.9 3.5-5.1 complet potassi 017 mmoL/L ed um 07:40 measure ment Serum = 139 136-145 complet sodium 017 mmoL/L ed measure 07:40 ment CBC w auto diff (04-05-2017 06:45) Baso [...] K/mm3 ed lymphoc 06:45 yte count Lymphoc 2 = 17.0 10-50.0 complet yte 017 % ed count, 06:45 blood, automat ed Mean 04-05- = 28.0 27-31.2 complet corpusc 017 pg ed ular 06:45 hemoglo bin (MCH) determ Automat = 30.7 31.8-35 complet ed 017 g/dl .4 ed erythro 06:45 cyte mean corpusc ular h Automat = 91.2 82.2-97 complet ed 017 fl .8 ed erythro 06:45 cyte mean corpusc ular v Absolut = 1.1 0.1-1.0 complet e 017 K/mm3 ed monocyt 06:45 e count [place] % = 7.6 % 1.7-9.3 complet 017 ed 06:45 Automat 2 = 7.2 7.4-10. complet ed 017 fl [...] CBC w auto diff (04-04-2017 06:25) Automat 2 = 0.0 0-0.2 complet ed 017 K/MM3 ed blood 06:25 basophi l count (count/ vo Baso % = 0.2 % 0.1-2.0 complet 017 ed 06:25 Automat 2 = 0.3 0.0-0.4 complet ed 017 K/mm3 [...] 06:25 cyte mean corpusc ular h Automat = 90.5 82.2-97 complet ed 017 fl .8 ed erythro 06:25 cyte mean corpusc ular v Absolut = 1.1 0.1-1.0 complet e 017 K/mm3 ed monocyt 06:25 e count [place] % = 8.6 % 1.7-9.3 complet 017 [...] SQUARE METERS Comment: If this patient is -Mexican, then multiply the Comment: result by 1.210. Serum = 85 74-106 complet or 017 mg/dL ed plasma 06:25 glucose measure ment (mas Serum = 3.5 3.5-5.1 complet potassi 017 mmoL/L ed um 06:25 measure ment Serum = 139 136-145 complet sodium 017 mmoL/L ed measure 06:25 ment CBC w auto diff (04-03-2017 05:10) Automat = 0.0 0-0.2 complet ed 017 K/MM3 ed blood 05:10 basophi l count (count/ vo Baso % = 0.1 % 0.1-2.0 complet 017 ed 05:10 Automat = 0.4 0.0-0.4 complet ed 017 [...] 017 K/mm3 ed monocyt 05:10 e count [place] % = 7.7 % 1.7-9.3 complet 017 [...] erythro 05:10 cyte distrib ution width Blood 10-16-2 = 15.9 4.8-10. complet leukocy 017 K/MM3 8 ed elle 05:10 count (number /volume ) Basic metabolic panel (04-03-2017 05:10) Serum 04-03-2 = 3 7-18 complet or 017 mg/dL ed plasma 05:10 urea nitroge n measure men Serum 2 = 8.1 8.5-10. complet or 017 mg/dL 1 ed plasma 05:10 calcium measure ment (mas Serum = 104 98-107 complet or 017 mmoL/L ed plasma 05:10 chlorid e measure ment (mo Carbon = 27 21.0-32 complet dioxide 017 mmoL/L .0 ed 05:10 measure ment Serum 2 = 0.5 0.55-1. complet or 017 mg/dL 02 ed plasma 05:10 creatin ine measure ment ( Estimat = 144 50-200 complet ion of 017 ML/MIN ed creatin 05:10 ine renal clearan ce Estimat = 125 59- complet ed 017 ML/MIN ed glomeru 05:10 lar filtrat ion rate (GF Comment: REFERENCE RANGE: >60 ML/MIN/1.73 SQUARE METERS Comment: If this patient is -Mexican, then multiply the Comment: result by 1.210. Serum = 3.6 3.5-5.1 complet potassi 017 mmoL/L ed um 05:10 measure ment Serum = 139 136-145 complet sodium 017 mmoL/L ed measure 05:10 ment Serum = 74 74-106 complet or 017 mg/dL ed plasma 05:10 glucose measure ment ([facility] Basic metabolic panel (04-02-2017 06:00) Serum 04-02-2 = 2 7-18 complet or 017 mg/dL ed plasma 06:00 urea nitroge n measure men Serum = 7.9 8.5-10. complet or 017 mg/dL 1 ed plasma 06:00 calcium measure ment (mas Serum = 101 98-107 complet or 017 mmoL/L ed plasma 06:00 chlorid e measure ment (mo Carbon = 29 21.0-32 complet dioxide 017 mmoL/L .0 ed 06:00 measure ment Serum 2 = 0.5 0.55-1. complet or 017 mg/dL 02 ed plasma 06:00 creatin ine measure ment ( Estimat = 144 50-200 complet ion of 017 ML/MIN ed creatin 06:00 ine renal clearan ce Estimat = 125 59- complet ed 017 ML/MIN ed glomeru 06:00 lar filtrat ion rate (GF Comment: REFERENCE RANGE: >60 ML/MIN/1.73 SQUARE METERS Comment: If this patient is -Mexican, then multiply the Comment: result by 1.210. Serum = 83 74-106 complet or 017 mg/dL ed plasma 06:00 glucose measure ment (mas Serum = 3.6 3.5-5.1 complet potassi 017 mmoL/L ed um 06:00 measure ment Serum = 139 136-145 complet sodium 017 mmoL/L ed measure 06:00 ment CBC w auto diff (04-02-2017 06:00) Baso % = 0.1 % 0.1-2.0 complet 017 ed 06:00 Automat = 0.0 0-0.2 complet ed 017 K/MM3 ed blood 06:00 basophi l count (count/ vo Automat = 0.2 0.0-0.4 complet ed 017 K/mm3 ed blood 06:00 eosinop hil count Automat = 1.3 % 0.1-12. complet ed 017 0 ed blood 06:00 eosinop hils/10 0 leukocy t Blood = 13.0 1.8-7.8 complet granulo 017 K/mm3 ed cytes 06:00 automat ed count (numb Granulo = 80.8 37.0-80 complet cyte 017 % .0 ed percent 06:00 age Blood = 27.8 37.0-47 complet hematoc 017 % .0 ed rit 06:00 (volume fractio n) Blood = 8.7 12.2-16 complet hemoglo 017 g/dL .2 ed bin 06:00 measure ment (mass/v olum Absolut = 1.9 0.7-4.5 complet e 017 K/mm3 ed lymphoc 06:00 yte count Lymphoc = 11.8 10-50.0 complet yte 017 % ed count, 06:00 blood, automat ed Mean = 28.3 27-31.2 complet corpusc 017 pg ed ular 06:00 hemoglo bin (MCH) determ Automat = 31.2 31.8-35 complet ed 017 g/dl .4 ed erythro 06:00 cyte mean corpusc ular h Automat = 90.6 82.2-97 complet ed 017 fl .8 ed erythro 06:00 cyte mean corpusc ular v Absolut = 1.0 0.1-1.0 complet e 017 K/mm3 ed monocyt 06:00 e count [place] % = 6.0 % 1.7-9.3 complet 017 ed 06:00 Automat = 6.9 7.4-10. complet ed 017 fl 4 ed blood 06:00 platele t mean volume rose marie Blood = 714 142-424 complet platele 017 K/mm3 ed t count 06:00 Red = 3.07 4.2-5.4 complet blood 017 M/mm3 ed cell 06:00 count Automat = 14.1 11.5-17 complet ed 017 % .5 ed erythro 06:00 cyte distrib ution width Blood = 16.0 4.8-10. complet leukocy 017 K/MM3 8 ed elle 06:00 count (number /volume ) Differential panel, method unspecified - (04-02-2017 06:00) Automat 04-02-2 = 5 % 0-8 complet ed 017 ed blood 06:00 band neutrop hil percent a Hypochr 1+ 1+ L complet omatic 017 ed red 06:00 blood cell detecti on LYMPH 6 % 10-50 complet 017 ed 06:00 Periphe 1+ 1+ L complet ral 017 ed blood 06:00 smear examina tion by li Monocyt = 4 % 2-9 complet e % 017 ed 06:00 Platele MARKED complet t 017 INCREAS ed estimat 06:00 E e MARKED INCREAS E L Blood 1+ 1+ L complet poikilo 017 ed cytosis 06:00 detecti on by light Blood 1+ 1+ L complet polychr 017 ed omasia 06:00 detecti on by light m Neutrop = 85 % 42-76 complet hil 017 ed count 06:00 Blood = 100 complet total 017 #CELLS ed cell 06:00 count Differential panel, method unspecified - (04-02-2017 06:00) [...] Light microsc opy CBC w auto diff (04-01-2017 04:10) Automat = 0.0 0-0.2 complet ed 017 K/MM3 ed blood 04:10 basophi l count (count/ vo Granulo = 80.8 37.0-80 complet cyte 017 % .0 ed percent 04:10 age Blood = 26.5 37.0-47 complet hematoc 017 % .0 ed rit 04:10 (volume fractio n) Blood = 8.3 12.2-16 complet hemoglo 017 g/dL .2 ed bin 04:10 measure ment (mass/v olum Absolut = 2.0 0.7-4.5 complet e 017 K/mm3 ed lymphoc 04:10 yte count Lymphoc = 11.6 10-50.0 complet yte 017 % ed count, 04:10 blood, automat ed Mean = 28.3 27-31.2 complet corpusc 017 pg ed ular 04:10 hemoglo bin (MCH) determ Automat = 31.4 31.8-35 complet ed 017 g/dl .4 ed erythro 04:10 cyte mean corpusc ular h Automat = 90.1 82.2-97 complet ed 017 fl .8 ed erythro 04:10 cyte mean corpusc ular v Absolut = 1.0 0.1-1.0 complet e 017 K/mm3 ed monocyt 04:10 e count [place] % = 5.6 % 1.7-9.3 complet 017 ed 04:10 Automat = 6.8 7.4-10. complet ed 017 fl 4 ed blood 04:10 platele t mean volume rose marie Blood = 667 142-424 complet platele 017 K/mm3 ed t count 04:10 Red = 2.94 4.2-5.4 complet blood 017 M/mm3 ed cell 04:10 count Automat = 13.7 11.5-17 complet ed 017 % .5 ed erythro 04:10 cyte distrib ution width Blood = 16.7 4.8-10. complet leukocy 017 K/MM3 8 ed elle 04:10 count (number /volume ) Baso % = 0.1 % 0.1-2.0 complet 017 ed 04:10 Automat = 0.3 0.0-0.4 complet ed 017 K/mm3 ed blood 04:10 eosinop hil count Automat = 1.7 % 0.1-12. complet ed 017 0 ed blood 04:10 eosinop hils/10 0 leukocy t Blood = 13.5 1.8-7.8 complet granulo 017 K/mm3 ed cytes 04:10 automat ed count (numb Differential panel, method unspecified - (04-01-2017 04:10) Automat = 5 % 0-8 complet ed 017 ed blood 04:10 band neutrop hil percent a Blood = 100 complet total 017 #CELLS ed cell 04:10 count Hypochr 1+ 1+ L complet omatic 017 ed red 04:10 blood cell detecti on Hyperse = FEW complet gmented 017 ed 04:10 neutrop hil count LYMPH 8 % 10-50 complet 017 ed 04:10 Monocyt = 1 % 2-9 complet e % 017 ed 04:10 Platele MOD complet t 017 INCREAS ed estimat 04:10 E MOD e INCREAS E L Blood 1+ 1+ L complet poikilo 017 ed cytosis 04:10 detecti on by light Blood 1+ 1+ L complet polychr 017 ed omasia 04:10 detecti on by light m Neutrop = 86 % 42-76 complet hil 017 ed count 04:10 Basic metabolic panel (04-01-2017 04:10) Serum = 3 7-18 complet or 017 mg/dL ed plasma 04:10 urea nitroge n measure men Serum = 7.9 8.5-10. complet or 017 mg/dL 1 ed plasma 04:10 calcium measure ment (mas Serum = 104 98-107 complet or 017 mmoL/L ed plasma 04:10 chlorid e measure ment (mo Carbon = 30 21.0-32 complet dioxide 017 mmoL/L .0 ed 04:10 measure ment Serum = 0.5 0.55-1. complet or 017 mg/dL 02 ed plasma 04:10 creatin ine measure ment ( Estimat = 144 50-200 complet ion of 017 ML/MIN ed creatin 04:10 ine renal clearan ce Estimat = 125 59- complet ed 017 ML/MIN ed glomeru 04:10 lar filtrat ion rate (GF Comment: REFERENCE RANGE: >60 ML/MIN/1.73 SQUARE METERS Comment: If this patient is -Mexican, then multiply the Comment: result by 1.210. Serum = 78 74-106 complet or 017 mg/dL ed plasma 04:10 glucose measure ment (mas Serum = 3.6 3.5-5.1 complet potassi 017 mmoL/L ed um 04:10 measure ment Serum = 138 136-145 complet sodium 017 mmoL/L ed measure 04:10 ment Differential panel, method unspecified - (04-01-2017 04:10) [...] opy CBC w auto diff (03-31-2017 06:20) Automat = 89.4 82.2-97 complet ed 017 fl .8 ed erythro 06:20 cyte mean corpusc ular v Absolut = 1.4 0.1-1.0 complet e 017 K/mm3 ed monocyt 06:20 e count [place] % = 6.3 % 1.7-9.3 complet 017 ed 06:20 Automat = 7.1 7.4-10. complet ed 017 fl 4 ed blood 06:20 platele t mean volume rose marie Blood = 689 142-424 complet platele 017 K/mm3 ed t count 06:20 Red = 2.95 4.2-5.4 complet blood 017 M/mm3 ed cell 06:20 count Automat = 13.3 11.5-17 complet ed 017 % .5 ed erythro 06:20 cyte distrib ution width Blood = 21.4 4.8-10. complet leukocy 017 K/MM3 8 ed elle 06:20 count (number /volume ) Automat = 0.0 0-0.2 complet ed 017 K/MM3 ed blood 06:20 basophi l count (count/ vo Automat = 0.1 0.0-0.4 complet ed 017 K/mm3 ed blood 06:20 eosinop hil count Automat = 0.6 % 0.1-12. complet ed 017 0 ed blood 06:20 eosinop hils/10 0 leukocy t Blood = 17.7 1.8-7.8 complet granulo 017 K/mm3 ed cytes 06:20 automat ed count (numb Granulo = 82.9 37.0-80 complet cyte 017 % .0 ed percent 06:20 age Blood = 26.4 37.0-47 complet hematoc 017 % .0 ed rit 06:20 (volume fractio n) Blood = 8.5 12.2-16 complet hemoglo 017 g/dL .2 ed bin 06:20 measure ment (mass/v olum Absolut = 2.2 0.7-4.5 complet e 017 K/mm3 ed lymphoc 06:20 yte count Lymphoc = 10.0 10-50.0 complet yte 017 % ed count, 06:20 blood, automat ed Mean = 28.7 27-31.2 complet corpusc 017 pg ed ular 06:20 hemoglo bin (MCH) determ Automat = 32.1 31.8-35 complet ed 017 g/dl .4 ed erythro 06:20 cyte mean corpusc ular h Baso % = 0.1 % 0.1-2.0 complet 017 ed 06:20 Basic metabolic panel (03-31-2017 06:20) Serum = 6 7-18 complet or 017 mg/dL ed plasma 06:20 urea nitroge n measure men Serum = 7.7 8.5-10. complet or 017 mg/dL 1 ed plasma 06:20 calcium measure ment (mas Serum = 105 98-107 complet or 017 mmoL/L ed plasma 06:20 chlorid e measure ment (mo Carbon = 27 21.0-32 complet dioxide 017 mmoL/L .0 ed 06:20 measure ment Serum 2 = 0.5 0.55-1. complet or 017 mg/dL 02 ed plasma 06:20 creatin ine measure ment ( Estimat = 144 50-200 complet ion of 017 ML/MIN ed creatin 06:20 ine renal clearan ce Estimat = 125 59- complet ed 017 ML/MIN ed glomeru 06:20 lar filtrat ion rate (GF Comment: REFERENCE RANGE: >60 ML/MIN/1.73 SQUARE METERS Comment: If this patient is -Mexican, then multiply the Comment: result by 1.210. Serum = 60 74-106 complet or 017 mg/dL ed plasma 06:20 glucose measure ment (mas Serum = 3.8 3.5-5.1 complet potassi 017 mmoL/L ed um 06:20 measure ment Serum = 140 136-145 complet sodium 017 mmoL/L ed measure 06:20 ment CBC w auto diff (03-30-2017 07:35) Baso % = 0.2 % 0.1-2.0 complet 017 ed 07:35 Automat = 0.3 0.0-0.4 complet ed 017 K/mm3 ed blood 07:35 eosinop hil count Automat = 1.2 % 0.1-12. complet ed 017 0 ed blood 07:35 eosinop hils/10 0 leukocy t Blood = 20.3 1.8-7.8 complet granulo 017 K/mm3 ed cytes 07:35 automat ed count (numb Granulo = 83.2 37.0-80 complet cyte 017 % .0 ed percent 07:35 age Blood = 28.0 37.0-47 complet hematoc 017 % .0 ed rit 07:35 (volume fractio n) Blood = 9.2 12.2-16 complet hemoglo 017 g/dL .2 ed bin 07:35 measure ment (mass/v olum Absolut = 2.5 0.7-4.5 complet e 017 K/mm3 ed lymphoc 07:35 yte count Lymphoc = 10.1 10-50.0 complet yte 017 % ed count, 07:35 blood, automat ed Mean = 28.8 27-31.2 complet corpusc 017 pg ed ular 07:35 hemoglo bin (MCH) determ Automat = 32.8 31.8-35 complet ed 017 g/dl .4 ed erythro 07:35 cyte mean corpusc ular h Automat = 87.6 82.2-97 complet ed 017 fl .8 ed erythro 07:35 cyte mean corpusc ular v Absolut = 1.3 0.1-1.0 complet e 017 K/mm3 ed monocyt 07:35 e count [place] % = 5.3 % 1.7-9.3 complet 017 ed 07:35 Automat = 9.1 7.4-10. complet ed 017 fl 4 ed blood 07:35 platele t mean volume rose marie Blood = 458 142-424 complet platele 017 K/mm3 ed t count 07:35 Red = 3.19 4.2-5.4 complet blood 017 M/mm3 ed cell 07:35 count Automat = 13.3 11.5-17 complet ed 017 % .5 ed erythro 07:35 cyte distrib ution width Blood = 24.4 4.8-10. complet leukocy 017 K/MM3 8 ed elle 07:35 count (number /volume ) Automat = 0.1 0-0.2 complet ed 017 K/MM3 ed blood 07:35 basophi l count (count/ vo Differential panel, method unspecified - (03-30-2017 07:35) Blood SLIGHT complet manual 017 PLT ed differe 07:35 CLUMPIN ntial G comment interp LYMPH 7 % 10-50 complet 017 ed 07:35 Monocyt = 4 % 2-9 complet e % 017 ed 07:35 Platele SLIGHT complet t 017 INCREAS ed estimat 07:35 E e SLIGHT INCREAS E L Neutrop = 89 % 42-76 complet hil 017 ed count 07:35 Blood = 100 complet total 017 #CELLS ed cell 07:35 count Differential panel, method unspecified - (03-30-2017 07:35) [...] and hematocrit pa (03-29-2017 14:40) Blood = 27.3 37.0-47 complet hematoc 017 % .0 ed rit 14:40 (volume fractio n) Blood = 8.8 12.2-16 complet hemoglo 017 g/dL .2 ed bin 14:40 measure ment (mass/v olum Comprehensive metabolic panel (03-28-2017 05:05) Serum = 0.4 1.1-1.8 complet or 017 ed plasma 05:05 albumin /globul in mass ra Serum = 1.7 3.4-5.0 complet or 017 gm/dL ed plasma 05:05 albumin measure ment (mas Serum = 69 46-116 complet or 017 U/L ed plasma 05:05 alkalin e phospha tase rose marie Serum = 0.4 0.2-1.0 complet or 017 mg/dL ed plasma 05:05 total bilirub in measure m Serum = 4 7-18 complet or 017 mg/dL ed plasma 05:05 urea nitroge n measure men Serum = 7.8 8.5-10. complet or 017 mg/dL 1 ed plasma 05:05 calcium measure ment (mas Serum = 104 98-107 complet or 017 mmoL/L ed plasma 05:05 chlorid e measure ment (mo Carbon = 26 21.0-32 complet dioxide 017 mmoL/L .0 ed 05:05 measure ment Serum = 0.5 0.55-1. complet or 017 mg/dL 02 ed plasma 05:05 creatin ine measure ment ( Estimat 2 = 133 50-200 complet ion of 017 ML/MIN ed creatin 05:05 ine renal clearan ce Estimat = 125 59- complet ed 017 ML/MIN ed glomeru 05:05 lar filtrat ion rate (GF Comment: REFERENCE RANGE: >60 ML/MIN/1.73 SQUARE METERS Comment: If this patient is -[place], then multiply the Comment: result by 1.210. Serum = 3.9 1.3-3.2 complet globuli 017 gm/dL ed n 05:05 measure ment (mass/v olume) Serum = 149 74-106 complet or 017 mg/dL ed plasma 05:05 glucose measure ment (mas Serum = 4.1 3.5-5.1 complet potassi 017 mmoL/L ed um 05:05 measure ment Serum = 140 136-145 complet sodium 017 mmoL/L ed measure 05:05 ment Serum = 17 15-37 complet or 017 U/L ed plasma 05:05 asparta te aminotr ansfera ALT = 11 12-78 complet (SGPT) 017 U/L ed ser/masoud 05:05 s Protein = 5.6 6.4-8.2 complet total 017 gm/dL ed ser/masoud 05:05 s CBC w auto diff (03-28-2017 05:05) Automat = 0.0 0-0.2 complet ed 017 K/MM3 ed blood 05:05 basophi l count (count/ vo Baso % = 0.0 % 0.1-2.0 complet 017 ed 05:05 Automat = 0.0 0.0-0.4 complet ed 017 K/mm3 ed blood 05:05 eosinop hil count Automat = 0.0 % 0.1-12. complet ed 017 0 ed blood 05:05 eosinop hils/10 0 leukocy t Blood = 20.6 1.8-7.8 complet granulo 017 K/mm3 ed cytes 05:05 automat ed count (numb Granulo = 95.2 37.0-80 complet cyte 017 % .0 ed percent 05:05 age Blood = 30.4 37.0-47 complet hematoc 017 % .0 ed rit 05:05 (volume fractio n) Blood = 9.8 12.2-16 complet hemoglo 017 g/dL .2 ed bin 05:05 measure ment (mass/v olum Absolut = 0.5 0.7-4.5 complet e 017 K/mm3 ed lymphoc 05:05 yte count Lymphoc = 2.3 % 10-50.0 complet yte 017 ed count, 05:05 blood, automat ed Mean = 28.6 27-31.2 complet corpusc 017 pg ed ular 05:05 hemoglo bin (MCH) determ Automat = 32.1 31.8-35 complet ed 017 g/dl .4 ed erythro 05:05 cyte mean corpusc ular h Automat = 89.2 82.2-97 complet ed 017 fl .8 ed erythro 05:05 cyte mean corpusc ular v Absolut = 0.5 0.1-1.0 complet e 017 K/mm3 ed monocyt 05:05 e count [place] % = 2.4 % 1.7-9.3 complet 017 ed 05:05 Automat = 7.0 7.4-10. complet ed 017 fl 4 ed blood 05:05 platele t mean volume rose marie Blood = 552 142-424 complet platele 017 K/mm3 ed t count 05:05 Red = 3.41 4.2-5.4 complet blood 017 M/mm3 ed cell 05:05 count Automat = 12.6 11.5-17 complet ed 017 % .5 ed erythro 05:05 cyte distrib ution width Blood = 21.5 4.8-10. complet leukocy 017 K/MM3 8 ed elle 05:05 count (number /volume ) Differential panel, method unspecified - (03-28-2017 05:05) Blood 10-10-2 1+ 1+ L complet anisocy 017 ed tosis 05:05 detecti on Blood = 100 complet total 017 #CELLS ed cell 05:05 count Hypochr 1+ 1+ L complet omatic 017 ed red 05:05 blood cell detecti on LYMPH 03-28-2 2 % 10-50 complet 017 ed 05:05 Platele 2 NORMAL complet t 017 NORMAL ed estimat 05:05 L e Neutrop = 98 % 42-76 complet hil 017 ed count 05:05 Differential panel, method unspecified - (03-28-2017 05:05) Anisocy 2 1+ complet tosis 017 ed [Presen 05:05 ce] in Blood Hypochr 1+ complet omia 017 ed [Presen 05:05 ce] in Blood LYMPH 2 % 10% - Low complet 017 50% ed 05:05 Platele 2 NORMAL complet ts 017 ed [Presen 05:05 ce] in Blood by Light microsc opy Urinalysis with microscopy (03-27-2017 15:36) Comment: Collected by nurse? Y Comment: Hold specimen in OE? N Urine CLEAR CLEAR complet appeara 017 CLEAR L ed nce 15:36 determi nation Urine NEGATIV NEG complet total 017 E ed bilirub 15:36 NEGATIV in E L detecti on by test Urine 2+ 2+ L NEG complet blood 017 ed detecti 15:36 on Urine YELLOW YELLOW complet color 017 YELLOW ed 15:36 L Glucose = NEG complet ur 017 NEGATIV ed test 15:36 E strip Urine 2+ 2+ L NEG complet ketones 017 mg/dL ed 15:36 detecti on by automat ed elle Mucus NEGATIV NEG complet detecti 017 E ed on in 15:36 NEGATIV urine E L sedimen t by lig Urine NEGATIV NEG complet nitrite 017 E ed 15:36 NEGATIV detecti E L on by test strip Urine = 7.5 5.0-8.5 complet pH 017 ed 15:36 Urine = NEG complet protein 017 NEGATIV ed 15:36 E mg/dL measure ment by automat ed t Erythro 10-20 0 complet cytes 017 10-20 L ed detecti 15:36 on in rbc/hpf urine sedimen t Urine = 1.015 1.005-1 complet specifi 017 .030 ed c 15:36 gravity measure ment Urine 0.2 0.2 NEG complet urobili 017 L ed nogen 15:36 E.U./dL detecti on by test str Urine = OCC O complet leukocy 017 wbc/hpf ed elle 15:36 count (number /volume ) Urinalysis dipstick W Reflex Microscopic panel in [...] and crossmatch (03-27-2017 13:48) Comment: Hold? Y Rh POSITIV complet blood 017 E ed group 13:48 POSITIV typing E L Blood O O L complet ABO 017 ed group 13:48 typing Materna NEGATIV NEGATIV complet l 017 E E ed antibod 13:48 NEGATIV y E L screen Crossmatch (03-27-2017 13:48) Comment: Hold? Y Interpr COMPAT complet etation 017 COMPAT ed of 13:48 L major crossma tch resul Immedia COMPAT complet te spin 017 COMPAT ed 13:48 L crossma tch Blood type & Crossmatch panel in Blood [...] [interp retatio n] by Immedia te spin CBC w auto diff (03-27-2017 06:39) Mean = 28.6 27-31.2 complet corpusc 017 pg ed ular 06:39 hemoglo bin (MCH) determ Automat = 0.1 0-0.2 complet ed 017 K/MM3 ed blood 06:39 basophi l count (count/ vo Baso % = 0.3 % 0.1-2.0 complet 017 ed 06:39 Automat = 0.2 0.0-0.4 complet ed 017 K/mm3 ed blood 06:39 eosinop hil count Automat = 1.3 % 0.1-12. complet ed 017 0 ed blood 06:39 eosinop hils/10 0 leukocy t Blood = 10.3 1.8-7.8 complet granulo 017 K/mm3 ed cytes 06:39 automat ed count (numb Granulo = 73.2 37.0-80 complet cyte 017 % .0 ed percent 06:39 age Blood = 35.4 37.0-47 complet hematoc 017 % .0 ed rit 06:39 (volume fractio n) Blood = 10.9 12.2-16 complet hemoglo 017 g/dL .2 ed bin 06:39 measure ment (mass/v olum Absolut = 2.5 0.7-4.5 complet e 017 K/mm3 ed lymphoc 06:39 yte count Lymphoc = 17.6 10-50.0 complet yte 017 % ed count, 06:39 blood, automat ed Automat = 30.9 31.8-35 complet ed 017 g/dl .4 ed erythro 06:39 cyte mean corpusc ular h Automat = 92.7 82.2-97 complet ed 017 fl .8 ed erythro 06:39 cyte mean corpusc ular v Absolut = 1.1 0.1-1.0 complet e 017 K/mm3 ed monocyt 06:39 e count [place] % = 7.6 % 1.7-9.3 complet 017 ed 06:39 Automat = 7.2 7.4-10. complet ed 017 fl 4 ed blood 06:39 platele t mean volume rose marie Blood = 533 142-424 complet platele 017 K/mm3 ed t count 06:39 Red = 3.82 4.2-5.4 complet blood 017 M/mm3 ed cell 06:39 count Automat = 12.8 11.5-17 complet ed 017 % .5 ed erythro 06:39 cyte distrib ution width Blood = 14.1 4.8-10. complet leukocy 017 K/MM3 8 ed elle 06:39 count (number /volume ) Comprehensive metabolic panel (03-27-2017 06:39) Serum = 0.5 1.1-1.8 complet or 017 ed plasma 06:39 albumin /globul in mass ra Serum = 2.1 3.4-5.0 complet or 017 gm/dL ed plasma 06:39 albumin measure ment (mas Serum = 86 46-116 complet or 017 U/L ed plasma 06:39 alkalin e phospha tase rose marie Serum = 0.4 0.2-1.0 complet or 017 mg/dL ed plasma 06:39 total bilirub in measure m Serum = 2 7-18 complet or 017 mg/dL ed plasma 06:39 urea nitroge n measure men Serum = 8.3 8.5-10. complet or 017 mg/dL 1 ed plasma 06:39 calcium measure ment (mas Serum = 105 98-107 complet or 017 mmoL/L ed plasma 06:39 chlorid e measure ment (mo Serum = 3.1 3.5-5.1 complet potassi 017 mmoL/L ed um 06:39 measure ment Serum = 142 136-145 complet sodium 017 mmoL/L ed measure 06:39 ment Serum = 16 15-37 complet or 017 U/L ed plasma 06:39 asparta te aminotr ansfera ALT = 12 12-78 complet (SGPT) 017 U/L ed ser/masoud 06:39 s Protein = 6.6 6.4-8.2 complet total 017 gm/dL ed ser/masoud 06:39 s Serum = 82 74-106 complet or 017 mg/dL ed plasma 06:39 glucose measure ment (mas Estimat = 111 50-200 complet ion of 017 ML/MIN ed creatin 06:39 ine renal clearan ce Carbon = 32 21.0-32 complet dioxide 017 mmoL/L .0 ed 06:39 measure ment Estimat = 101 59- complet ed 017 ML/MIN ed glomeru 06:39 lar filtrat ion rate (GF Comment: REFERENCE RANGE: >60 ML/MIN/1.73 SQUARE METERS Comment: If this patient is -Mexican, then multiply the Comment: result by 1.210. Serum = 4.5 1.3-3.2 complet globuli 017 gm/dL ed n 06:39 measure ment (mass/v olume) Serum = 0.6 0.55-1. complet or 017 mg/dL 02 ed plasma 06:39 creatin ine measure ment ( CBC w auto diff (03-26-2017 06:45) Automat = 0.1 0-0.2 complet ed 017 K/MM3 ed blood 06:45 basophi l count (count/ vo Baso % = 0.3 % 0.1-2.0 complet 017 ed 06:45 Automat = 0.1 0.0-0.4 complet ed 017 K/mm3 ed blood 06:45 eosinop hil count Automat = 0.6 % 0.1-12. complet ed 017 0 ed blood 06:45 eosinop hils/10 0 leukocy t Blood = 13.8 1.8-7.8 complet granulo 017 K/mm3 ed cytes 06:45 automat ed count (numb Granulo = 81.7 37.0-80 complet cyte 017 % .0 ed percent 06:45 age Blood = 33.3 37.0-47 complet hematoc 017 % .0 ed rit 06:45 (volume fractio n) Blood = 10.3 12.2-16 complet hemoglo 017 g/dL .2 ed bin 06:45 measure ment (mass/v olum Absolut = 1.8 0.7-4.5 complet e 017 K/mm3 ed lymphoc 06:45 yte count Lymphoc = 10.4 10-50.0 complet yte 017 % ed count, 06:45 blood, automat ed Mean = 28.4 27-31.2 complet corpusc 017 pg ed ular 06:45 hemoglo bin (MCH) determ Automat = 31.0 31.8-35 complet ed 017 g/dl .4 ed erythro 06:45 cyte mean corpusc ular h Automat = 91.5 82.2-97 complet ed 017 fl .8 ed erythro 06:45 cyte mean corpusc ular v Absolut = 1.2 0.1-1.0 complet e 017 K/mm3 ed monocyt 06:45 e count [place] % = 7.1 % 1.7-9.3 complet 017 ed 06:45 Automat = 7.6 7.4-10. complet ed 017 fl 4 ed blood 06:45 platele t mean volume rose marie Blood = 468 142-424 complet platele 017 K/mm3 ed t count 06:45 Red = 3.64 4.2-5.4 complet blood 017 M/mm3 ed cell 06:45 count Automat = 12.8 11.5-17 complet ed 017 % .5 ed erythro 06:45 cyte distrib ution width Blood = 16.9 4.8-10. complet leukocy 017 K/MM3 8 ed elle 06:45 count (number /volume ) Differential panel, method unspecified - (03-26-2017 06:45) LYMPH 11 % 10-50 complet 017 ed 06:45 Monocyt = 8 % 2-9 complet e % 017 ed 06:45 Platele SLIGHT complet t 017 INCREAS ed estimat 06:45 E e SLIGHT INCREAS E L Neutrop = 81 % 42-76 complet hil 017 ed count 06:45 Blood = 100 complet total 017 #CELLS ed cell 06:45 count Comprehensive metabolic panel (03-26-2017 06:45) Serum = 0.5 1.1-1.8 complet or 017 ed plasma 06:45 albumin /globul in mass ra Serum = 2.0 3.4-5.0 complet or 017 gm/dL ed plasma 06:45 albumin measure ment (mas Serum = 86 46-116 complet or 017 U/L ed plasma 06:45 alkalin e phospha tase rose marie Serum = 0.3 0.2-1.0 complet or 017 mg/dL ed plasma 06:45 total bilirub in measure m Serum = 2 7-18 complet or 017 mg/dL ed plasma 06:45 urea nitroge n measure men Serum = 8.1 8.5-10. complet or 017 mg/dL 1 ed plasma 06:45 calcium measure ment (mas Serum = 105 98-107 complet or 017 mmoL/L ed plasma 06:45 chlorid e measure ment (mo Carbon = 28 21.0-32 complet dioxide 017 mmoL/L .0 ed 06:45 measure ment Serum = 0.6 0.55-1. complet or 017 mg/dL 02 ed plasma 06:45 creatin ine measure ment ( Estimat = 111 50-200 complet ion of 017 ML/MIN ed creatin 06:45 ine renal clearan ce Estimat = 101 59- complet ed 017 ML/MIN ed glomeru 06:45 lar filtrat ion rate (GF Comment: REFERENCE RANGE: >60 ML/MIN/1.73 SQUARE METERS Comment: If this patient is -Mexican, then multiply the Comment: result by 1.210. Serum = 4.2 1.3-3.2 complet globuli 017 gm/dL ed n 06:45 measure ment (mass/v olume) Serum = 91 74-106 complet or 017 mg/dL ed plasma 06:45 glucose measure ment (mas Serum = 3.1 3.5-5.1 complet potassi 017 mmoL/L ed um 06:45 measure ment Serum = 139 136-145 complet sodium 017 mmoL/L ed measure 06:45 ment Serum = 12 15-37 complet or 017 U/L ed plasma 06:45 asparta te aminotr ansfera ALT = 11 12-78 complet (SGPT) 017 U/L ed ser/masoud 06:45 s Protein = 6.2 6.4-8.2 complet total 017 gm/dL ed ser/masoud 06:45 s Differential panel, method unspecified - (03-26-2017 06:45) LYMPH 11 % 10% - Normal complet 017 50% ed 06:45 Platele SLIGHT complet ts 017 INCREAS ed [Presen 06:45 E ce] in Blood by Light microsc opy Basic metabolic panel (03-25-2017 06:23) Serum = 6 7-18 complet or 017 mg/dL ed plasma 06:23 urea nitroge n measure men Serum = 8.4 8.5-10. complet or 017 mg/dL 1 ed plasma 06:23 calcium measure ment (mas Serum = 106 98-107 complet or 017 mmoL/L ed plasma 06:23 chlorid e measure ment (mo Carbon = 27 21.0-32 complet dioxide 017 mmoL/L .0 ed 06:23 measure ment Serum = 0.7 0.55-1. complet or 017 mg/dL 02 ed plasma 06:23 creatin ine measure ment ( Estimat = 95 50-200 complet ion of 017 ML/MIN ed creatin 06:23 ine renal clearan ce Estimat = 85 59- complet ed 017 ML/MIN ed glomeru 06:23 lar filtrat ion rate (GF Comment: REFERENCE RANGE: >60 ML/MIN/1.73 SQUARE METERS Comment: If this patient is -Mexican, then multiply the Comment: result by 1.210. Serum = 86 74-106 complet or 017 mg/dL ed plasma 06:23 glucose measure ment (mas Serum = 3.7 3.5-5.1 complet potassi 017 mmoL/L ed um 06:23 measure ment Serum = 140 136-145 complet sodium 017 mmoL/L ed measure 06:23 ment CBC w auto diff (03-25-2017 06:23) Automat = 31.4 31.8-35 complet ed 017 g/dl .4 ed erythro 06:23 cyte mean corpusc ular h Lymphoc = 9.8 % 10-50.0 complet yte 017 ed count, 06:23 blood, automat ed Mean = 29.1 27-31.2 complet corpusc 017 pg ed ular 06:23 hemoglo bin (MCH) determ Automat = 92.9 82.2-97 complet ed 017 fl .8 ed erythro 06:23 cyte mean corpusc ular v Absolut = 1.3 0.1-1.0 complet e 017 K/mm3 ed monocyt 06:23 e count [place] % = 6.2 % 1.7-9.3 complet 017 ed 06:23 Automat = 7.5 7.4-10. complet ed 017 fl 4 ed blood 06:23 platele t mean volume rose marie Blood = 501 142-424 complet platele 017 K/mm3 ed t count 06:23 Red = 3.95 4.2-5.4 complet blood 017 M/mm3 ed cell 06:23 count Automat = 12.9 11.5-17 complet ed 017 % .5 ed erythro 06:23 cyte distrib ution width Blood = 21.3 4.8-10. complet leukocy 017 K/MM3 8 ed elle 06:23 count (number /volume ) Automat = 0.5 % 0.1-12. complet ed 017 0 ed blood 06:23 eosinop hils/10 0 leukocy t Blood = 17.8 1.8-7.8 complet granulo 017 K/mm3 ed cytes 06:23 automat ed count (numb Granulo = 83.4 37.0-80 complet cyte 017 % .0 ed percent 06:23 age Blood = 36.7 37.0-47 complet hematoc 017 % .0 ed rit 06:23 (volume fractio n) Blood = 11.6 12.2-16 complet hemoglo 017 g/dL .2 ed bin 06:23 measure ment (mass/v olum Absolut = 2.1 0.7-4.5 complet e 017 K/mm3 ed lymphoc 06:23 yte count Automat = 0.1 0-0.2 complet ed 017 K/MM3 ed blood 06:23 basophi l count (count/ vo Baso % = 0.2 % 0.1-2.0 complet 017 ed 06:23 Automat = 0.1 0.0-0.4 complet ed 017 K/mm3 ed blood 06:23 eosinop hil count Urinalysis dipstick W Reflex Microscopic panel in [...] 12:15 ce] in Urine by Test strip CBC w auto diff (03-24-2017 10:55) Automat = 12.7 11.5-17 complet ed 017 % .5 ed erythro 10:55 cyte distrib ution width Blood = 22.9 4.8-10. complet leukocy 017 K/MM3 8 ed elle 10:55 count (number /volume ) Automat = 0.1 0-0.2 complet ed 017 K/MM3 ed blood 10:55 basophi l count (count/ vo Baso % = 0.3 % 0.1-2.0 complet 017 ed 10:55 Automat = 0.1 0.0-0.4 complet ed 017 K/mm3 ed blood 10:55 eosinop hil count Automat = 0.6 % 0.1-12. complet ed 017 0 ed blood 10:55 eosinop hils/10 0 leukocy t Blood = 19.1 1.8-7.8 complet granulo 017 K/mm3 ed cytes 10:55 automat ed count (numb Granulo = 83.3 37.0-80 complet cyte 017 % .0 ed percent 10:55 age Blood = 44.1 37.0-47 complet hematoc 017 % .0 ed rit 10:55 (volume fractio n) Blood = 13.7 12.2-16 complet hemoglo 017 g/dL .2 ed bin 10:55 measure ment (mass/v olum Absolut = 2.0 0.7-4.5 complet e 017 K/mm3 ed lymphoc 10:55 yte count Lymphoc = 8.9 % 10-50.0 complet yte 017 ed count, 10:55 blood, automat ed Mean = 28.5 27-31.2 complet corpusc 017 pg ed ular 10:55 hemoglo bin (MCH) determ Automat = 31.0 31.8-35 complet ed 017 g/dl .4 ed erythro 10:55 cyte mean corpusc ular h Automat = 91.9 82.2-97 complet ed 017 fl .8 ed erythro 10:55 cyte mean corpusc ular v Absolut = 1.6 0.1-1.0 complet e 017 K/mm3 ed monocyt 10:55 e count [place] % = 6.9 % 1.7-9.3 complet 017 ed 10:55 Automat = 7.3 7.4-10. complet ed 017 fl 4 ed blood 10:55 platele t mean volume rose marie Blood = 615 142-424 complet platele 017 K/mm3 ed t count 10:55 Red = 4.80 4.2-5.4 complet blood 017 M/mm3 ed cell 10:55 count Differential panel, method unspecified - (03-24-2017 10:55) Percent = 1 % 0-5 complet of 017 ed variant 10:55 lymphoc ytes in blood LYMPH 10 % 10-50 complet 017 ed 10:55 Monocyt = 6 % 2-9 complet e % 017 ed 10:55 Platele MOD complet t 017 INCREAS ed estimat 10:55 E MOD e INCREAS E L Neutrop = 83 % 42-76 complet hil 017 ed count 10:55 Blood = 100 complet total 017 #CELLS ed cell 10:55 count Differential panel, method unspecified - (03-24-2017 10:55) LYMPH 10 % 10% - Normal complet 017 50% ed 10:55 Platele MOD complet ts 017 INCREAS ed [Presen 10:55 E ce] in Blood by Light microsc opy Procedures Procedure [place] [address] [facility] TH[facility]/P [facility] INC ROPHYLAXI S /DX 1ST TO 1 HR THERAPEUT 30945 [facility] INJECTION INC INC IV PUSH EACH NEW DRUG UNCLASSIF J3490 [facility] IED DRUGS 7 [facility] INC INC UNCLASSIF J3490 [facility] IED DRUGS 7 [place] [address] [facility] HYDRATION INC INC EACH ADDITIONA L HOUR BLOOD 89715 [facility] COUNT [facility] COMPLETE INC INC AUTO&AUTO DIFRNTL WBC [facility] G0463 [facility] OUTPATIEN 7 [facility] T CLIN INC INC VISIT ASSESS & MGMT PT COMPREHEN 88883 [facility] SIVE 7 [facility] [place] [address] ANGEL [facility] HYDRATION INC INC INITIAL 31 MIN-[place] [address] [facility] INFUSION [facility] [place]DRATION [place] [address] [facility] INFUSION [facility] HYDRATION INC INC INITIAL 31 MIN-1 HOUR UNCLASSIF J3490 ANG[facility] IED DRUGS 7 [place] [address] ANGEL ROTIZ [facility]FUSION 7 [facility] THERAPY/P INC INC ROPHYLAXI S /DX 1ST TO 1 HR CORTISOL 54619 [facility] TOTAL [facility] INC INC Encounters Encounter Start End Date Code Location Performer Type Date [facility] - 7 7 [facility] OUTPATIEN [facility] ANGEL - 7 7 [facility] OUTPATIEN INC T OFFICE 19888 [facility] OUTPAT[facility] 7 [facility]IS[facility] - 7 [facility] ANGEL - 7 7 [facility] OUTPATIEN [facility] T OFFICE 85540 ANGEL OUTPATIEN 7 7 [facility] T VISIT 5 [facility] MINUTES OFFICE 92944 ANGEL OUTPATIEN 7 7 [facility] T VISIT 5 [facility] ANGEL - 7 7 [facility] ANGEL - 7 7 [facility] OUTPATIEN [facility] T OFFICE 01762 ANGEL OUTPATIEN 7 7 [facility] T [facility]ISIT 5 INC MINUTES OFFICE [address]69 [facility] OUTPATIEN 7 7 T VISIT 25 MINUTES OFFICE 48138 ANGEL OUTPATIEN 7 7 [facility] T VISIT 5 [facility]GEL - 7 7 [facility] OUTPATIEN [facility]
--- OUTSIDE RECORDS SUMMARY | 2017-06-12 15:41 | External Medical Summary Rpt | CCD ---
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 [...] 017 K/mm3 ed monocyt 12:03 e count [place] % = 7.8 % 1.7-9.3 complet 017 [...] SQUARE METERS Comment: If this patient is -[place], then multiply the Comment: result by 1.210. [...] SQUARE METERS Comment: If this patient is -[place], then multiply the Comment: result by 1.210. [...] 017 K/mm3 ed monocyt 14:30 e count [place] % = 8.1 % 1.7-9.3 complet 017 [...] SQUARE METERS Comment: If this patient is -[place], then multiply the Comment: result by 1.210. [...] 2.3 - 11.9 Comment: [facility]formed at[facility] Comment: [id number], [place] [id number] Comment: Laser Operator: Tony Bartholomew PhD, Phone: [phone] CBC w auto diff (04-12-2017 06:35) Automat [...] 017 K/mm3 ed monocyt 06:35 e count [place] % = 9.7 % 1.7-9.3 complet 017 [...] SQUARE METERS Comment: If this patient is -[place], then multiply the Comment: result by 1.210. [...] 017 K/mm3 ed monocyt 07:40 e count [place] % = 6.5 % 1.7-9.3 complet 017 [...] SQUARE METERS Comment: If this patient is -[place], then multiply the Comment: result by 1.210. [...] 017 K/mm3 ed monocyt 06:45 e count [place] % = 7.6 % 1.7-9.3 complet 017 [...] 017 K/mm3 ed monocyt 06:25 e count [place] % = 8.6 % 1.7-9.3 complet 017 [...] SQUARE METERS Comment: If this patient is -[place], then multiply the Comment: result by 1.210. [...] 017 K/mm3 ed monocyt 05:10 e count [place] % = 7.7 % 1.7-9.3 complet 017 [...] SQUARE METERS Comment: If this patient is -[place], then multiply the Comment: result by 1.210. Serum = 3.6 3.5-5.1 complet potassi 017 mmoL/L ed um 05:10 measure ment Serum = 139 136-145 complet sodium 017 mmoL/L ed measure 05:10 ment Serum = 74 74-106 complet or 017 mg/dL ed plasma 05:10 glucose measure ment ([facility] Basic metabolic panel (04-02-2017 06:00) Serum [...] SQUARE METERS Comment: If this patient is -[place], then multiply the Comment: result by 1.210. [...] 017 K/mm3 ed monocyt 06:00 e count [place] % = 6.0 % 1.7-9.3 complet 017 [...] 017 K/mm3 ed monocyt 04:10 e count [place] % = 5.6 % 1.7-9.3 complet 017 [...] SQUARE METERS Comment: If this patient is -[place], then multiply the Comment: result by 1.210. [...] 017 K/mm3 ed monocyt 06:20 e count [place] % = 6.3 % 1.7-9.3 complet 017 [...] SQUARE METERS Comment: If this patient is -[place], then multiply the Comment: result by 1.210. [...] 017 K/mm3 ed monocyt 07:35 e count [place] % = 5.3 % 1.7-9.3 complet 017 [...] SQUARE METERS Comment: If this patient is -[place], then multiply the Comment: result by 1.210. [...] 017 K/mm3 ed monocyt 05:05 e count [place] % = 2.4 % 1.7-9.3 complet 017 [...] 017 K/mm3 ed monocyt 06:39 e count [place] % = 7.6 % 1.7-9.3 complet 017 [...] SQUARE METERS Comment: If this patient is -[place], then multiply the Comment: result by 1.210. [...] 017 K/mm3 ed monocyt 06:45 e count [place] % = 7.1 % 1.7-9.3 complet 017 [...] SQUARE METERS Comment: If this patient is -[place], then multiply the Comment: result by 1.210. [...] SQUARE METERS Comment: If this patient is -[place], then multiply the Comment: result by 1.210. [...] 017 K/mm3 ed monocyt 06:23 e count [place] % = 6.2 % 1.7-9.3 complet 017 [...] 017 K/mm3 ed monocyt 10:55 e count [place] % = 6.9 % 1.7-9.3 complet 017 [...] Procedure [place] [address] [facility]P INC INC ROPHYLAXI S /DX 1ST TO 1 HR THERAPEUT 17160 [facility] IC [facility] INJECTION INC INC IV PUSH EACH NEW DRUG UNCLASSIF J3490 AN[facility] IED DRUGS 7 [facility] INC INC UNCLASSIF J3490 AN[facility] IED DRUGS [place] [address] [facility]FUSION [facility] HYDRATION INC INC EACH ADDITIONA L HOUR BLOOD 45313 [facility] COUNT [facility] COMPLETE INC INC AUTO&AUTO DIFRNTL WBC [facility] G0463 [facility] OUTPATIEN [facility] T CLIN INC INC VISIT ASSESS & MGMT PT COMPREHEN 09301 [facility] SIVE 7 [facility] [place] [address] ANGEL ANGEL INFUSION [facility] HYDRATION INC INC INITIAL 31 MIN-[place] [address] [facility] INFUSION [facility] [place]DRATION [place] [address] [facility]FUSION [facility] HYDRATION INC INC INITIAL 31 MIN-1 HOUR UNCLASSIF J3490 AN[facility]EL [facility] IED DRUGS 7 [place] [address] [facility] INFUSION 7 [facility] THERAPY/P INC INC ROPHYLAXI S /DX 1ST TO 1 HR CORTISOL 33663 [facility] TOTAL [facility] INC INC Encounters Encounter Start End Date Code Location Performer Type Date [facility]GEL - 7 7 [facility]EN [facility] ANGEL [facility] 7 7 [facility] OUTPATIEN INC T OFFICE [id number] ANGEL OUTPATIEN 7 7 [facility] T VISIT 5 [facility] ANGEL - 7 7 [facility] ANGEL [facility] 7 7 [facility] OUTPATIEN [facility] T OFFICE [id number] ANGEL OUTPATIEN 7 7 [facility] T VISIT 5 [facility] MINUTES OFFICE [id number] ANGEL OUTPATIEN 7 7 [facility] T [facility]ISIT 5 [facility] ANGEL - 7 7 [facility] ANGEL - 7 7 [facility] OUTPATIEN [facility] T OFFICE [id number] ANGEL OUTPATIEN 7 7 [facility] T VISIT 5 INC MINUTES OFFICE [id number] MICHAEL RODRIGUEZ JR OUTPATIEN 7 7 T VISIT 25 MINUTES OFFICE [id number] ANGEL OUTPATIEN 7 7 [facility] T VISIT 5 [facility] ANGEL - 7 7 [facility]
--- OUTSIDE RECORDS SUMMARY | 2017-06-12 15:42 | External Medical Summary Rpt | CCD ---
Author Author , NOVA BHATT Address Unknown Phone [email or web address] Care Team Providers Care Cray Fishing Hand Name Role Phone [facility] Unavailable [...] ALSTON HEMATURIA [id number] WEAKNESS 04-19-2017 MICHAEL ALSTON [id number] OTHER 04-19-2017 MICHAEL ALSTON SPECIFIED POSTPROCEDU RAL [...] #3 /M 93 L 8 BAZZI SP OK 00 11 12 12 2 00 HO [...] #3 /M 93 L 8 BAZZI SP OK 00 11 11 12 2 00 HO [...] Procedure [place] [address] [facility] 7 [facility] THERAPY/P INC INC ROPHYLAXI S /DX 1ST TO 1 HR THERAPEUT 79809 [facility] IC 7 [facility] INJECTION INC INC IV PUSH EACH NEW DRUG UNCLASSIF J3490 [facility] IED DRUGS 7 [facility] INC INC UNCLASSIF J3490 [facility] IED DRUGS 7 [facility] HOSPITAL G0463 [facility] OUTPATIEN 7 [facility] T CLIN INC INC VISIT ASSESS & [place] [address] [facility] INFUSION 7 [facility] HYDRATION INC INC EACH ADDITIONA L HOUR BLOOD 08748 AN[facility] COUNT 7 [facility] COMPLETE INC INC AUTO&AUTO DIFRNTL WBC COMPREHEN 60437 AN[facility] SIVE 7 [facility] [place] [address] ANGEL [facility]TIZ INFUSION 7 [facility] HYDRATION INC INC INITIAL 31 MIN-[place] [address] ANG[facility] INFUSION 7 [facility] HYDRATION INC INC EACH ADDITIONA L HOUR CORTISOL 54769 ANGEL ORTIZ TOTAL 7 [place] [address] AN[facility]EL [facility] INFUSION 7 [facility] THERAPY/P INC INC ROPHYLAXI S /DX 1ST TO [place] [address] [facility] INFUSION 7 [facility] HYDRATION INC INC INITIAL 31 MIN-1 HOUR UNCLASSIF J3490 [facility] IED DRUGS 7 [facility] INC INC Encounters Encounter Start End Date Code Location Performer Type Date [facility] ANGEL - 7 7 [facility] OUTPATIEN INC [facility] ANGEL - 7 7 [facility] OUTPATIEN INC T OFFICE [id number] ANGEL OUTPATIEN 7 7 [facility] T VISIT 5 INC MINUTES [facility] ANGEL - 7 7 [facility] OUTPATIEN INC T OFFICE 14302 ANGEL OUTPATIEN 7 7 [facility] T VISIT 5 INC MINUTES [facility] ANGEL - 7 7 [facility] OUTPATIEN [facility] T [facility] ANGEL - 7 7 [facility] OUTPATIEN INC T OFFICE 36587 ANGEL OUTPATIEN 7 7 [facility] T VISIT 5 INC MINUTES [facility] ANGEL - 7 7 [facility] OUTPATIEN INC T OFFICE 83756 ANGEL OUTPATIEN 7 7 [facility] T VISIT 5 INC MINUTES OFFICE 41947 MICHAEL RODRIGUEZ JR OUTHONEYEN 7 7 T VISIT 25 MINUTES OFFICE 08544 ANGEL OUTPATIEN 7 7 [facility] T VISIT 5 INC MINUTES [facility] ANGEL - 7 7 [facility] OUTPATIEN INC T
--- OUTSIDE RECORDS SUMMARY | 2017-06-12 15:42 | External Medical Summary Rpt | CCD ---
Author Author , NOVA BHATT Address Unknown Phone [email or web address] Care Team Providers Care Event Organizer Name Role Phone [facility] Unavailable [...] ALSTON HEMATURIA [id number] WEAKNESS 04-19-2017 MICHAEL ALSTON [id number] OTHER 04-19-2017 MICHAEL ALSTON SPECIFIED POSTPROCEDU RAL [...] #3 /M 93 L 8 BAZZI SP SD 00 11 12 12 2 00 HO [...] #3 /M 93 L 8 BAZZI SP SD 00 11 11 12 2 00 HO [...] Procedure [place] [address] [facility] INFUSION 7 [facility] THERAPY/P INC INC ROPHYLAXI S /DX 1ST TO 1 HR THERAPEUT 88326 ANGEL ORTIZ IC 7 [facility] INJECTION INC INC IV PUSH EACH NEW DRUG UNCLASSIF J3490 ANGEL ORTIZ IED DRUGS 7 [facility] INC INC UNCLASSIF J3490 ANG[facility] OR[facility] IED DRUGS 7 [facility] INC INC HOSPITAL G0463 ANGEL ORTIZ OUTPATIEN 7 [facility] T CLIN INC INC VISIT ASSESS & [place] [address] ANGEL ORTIZ INFUSION 7 [facility] HYDRATION INC INC EACH ADDITIONA L HOUR BLOOD 94875 ANGEL ORTIZ COUNT 7 [facility] COMPLETE INC INC AUTO&AUTO DIFRNTL WBC COMPREHEN 45026 ANGEL ORTIZ SIVE 7 [facility] [place] [address] ANGEL ORTIZ INFUSION 7 [facility] HYDRATION INC INC INITIAL 31 MIN-[place] [address] ANGEL ORTIZ INFUSION 7 [facility] HYDRATION INC INC EACH ADDITIONA L HOUR CORTISOL 94948 ANGEL ORTIZ TOTAL 7 [place] [address] AN[facility]EL ORTIZ INFUSION 7 [facility] THERAPY/P INC INC ROPHYLAXI S /DX 1ST [place] [address] ANGEL ORTIZ INFUSION 7 [facility] HYDRATION INC INC INITIAL 31 MIN-1 HOUR UNCLASSIF J3490 ANGEL ORTIZ IED DRUGS 7 [facility] INC INC Encounters Encounter Start End Date Code Location Performer Type Date [facility] ANGEL - 7 7 [facility] OUTPATIEN INC [facility] ANGEL - 7 7 [facility] OUTPATIEN INC T OFFICE 22450 ANGEL OUTPATIEN 7 7 [facility] T VISIT 5 INC MINUTES [facility] ANGEL - 7 7 [facility] OUTPATIEN INC T OFFICE 82188 ANGEL OUTPATIEN 7 7 [facility] T VISIT 5 INC MINUTES [facility] ANGEL - 7 7 [facility] OUTPATIEN [facility] T [facility] ANGEL - 7 7 [facility] OUTPATIEN INC T OFFICE 17264 ANGEL OUTPATIEN 7 7 [facility] T VISIT 5 INC MINUTES [facility] ANGEL - 7 7 [facility] OUTPATIEN INC T OFFICE 36656 ANGEL OUTPATIEN 7 7 [facility] T VISIT 5 INC MINUTES OFFICE 53457 MICHAEL RODRIGUEZ JR OUTHONEYEN 7 7 T VISIT 25 MINUTES OFFICE 23845 ANGEL OUTPATIEN 7 7 [facility] T VISIT 5 INC MINUTES [facility] ANGEL - 7 7 [facility] OUTPATIEN INC T
--- OUTSIDE RECORDS SUMMARY | 2017-06-12 15:43 | External Medical Summary Rpt | CCD ---
Demographics Preferred Language Italian Marital Status Unknown Mosque Affiliation Unknown Race Unknown Ethnic Group Unknown Author Author , NOVA BHATT Address Unknown Phone Immunization No patient found.
--- OUTSIDE RECORDS SUMMARY | 2017-06-12 15:43 | External Medical Summary Rpt | CCD ---
Demographics Preferred Language Hebrew Marital Status Unknown Samaritan Affiliation Unknown Race Unknown Ethnic Group Unknown Author Author , NOVA BHATT Address Unknown Phone Immunization No patient found.
--- OUTSIDE RECORDS SUMMARY | 2017-06-12 15:45 | External Medical Summary Rpt ---
[...] 2.3 - 11.9Perfo rmed at: - [facility] [address] [id number] [address] [place], [place] [id number] Soccer Coach: Tony Bartholomew PhD, Phone: [phone] Comprehensive metabolic 2000 panel in Serum [...]
--- OUTSIDE RECORDS SUMMARY | 2017-06-12 15:45 | External Medical Summary Rpt ---
[...] 2.3 - 11.9Perfo rmed at: - [facility] [address] [id number] [address] [place], [place] [id number] Senior Pastor: Tony Bartholomew PhD, Phone: [phone] Comprehensive metabolic 2000 panel in Serum [...]
--- NOTE | 2017-06-12 16:31 | RADIOLOGY REPORT PS360 ---
CHEST-PORTABLE HISTORY: chest pain ORDERING PHYSICIAN: Scott Miller MD PATIENT AGE: 61 years COMPARISON: 04/11/2017 FINDINGS: The cardiomediastinal silhouette and pulmonary vascularity are within normal limits. Right hemidiaphragm is elevated with atelectatic or fibrotic change in the right lung base. The remaining lungs are clear. No lobar consolidation or collapse. No acute bony anomalies. IMPRESSION: Elevated right hemidiaphragm with right basilar atelectasis.
[2017-06-12 16:35] VITALS: BP 156/72
[2017-06-12 16:48] VITALS: BP 156/72
--- NOTE | 2017-06-12 19:30 | HISTORY AND PHYSICAL REPORT ---
Demographics: Admit date: 06/12/17 Chief complaint: Chest pain PRIMARY DIAGNOSIS: HYPERTENSIVE CRISIS Allergies: Coded Allergies: No Known Allergies (03/27/17) History of present illness: History of present illness: 61-year-old white female, primary patient is an outpatient of Dr. Jeff Alaniz, who earlier this year underwent a very complicated resection of her colon for colitis/diverticulitis with a complex hospital stay. She has a colostomy bag at this point and has been doing well and recently has had her blood pressure medication reduced because of hypotension. However over the past couple of days she's become increasingly hypertensive with chest pain, shortness of air and angina. Came to the emergency department where Nitropaste relieved most of her symptoms and she was admitted to the hospital. She is significant risk factors for cardiac disease, including hypertension, family history, hyperlipidemia and severe cigarette smoking of which she became abstinent from 7 months ago. Past medical history: Family HX Diabetes Yes CAD Yes Hypertension Yes Hyperlipidemia Yes Cancer Yes TB No Immunization HX DT/Tetanus > 10 Years Ago Flu 2017-18FSN Pneumonia Received In Past TB Test in last year No General CAD? No Angina: No DC: No Hypertension? Yes Hyperlipidemia? Yes CHF? No DVT? No PE? No COPD? Yes Asthma? Yes Anemia? No GERD? No Gastric ulcers? No GI Bleed? Yes Hernia? No Thyroid Problems? No Hypothyroidism? No CVA? Yes Seizures? No Diabetes? No Renal Insuffiency? No UTI? Yes Stones? Yes GB Disease: No Nephritic Syndrome? No Asplenia? No Hepatitis? No Sickle Cell Disease? No Arthritis? Yes Migraines? No Cataracts? Yes Glaucoma? No MRSA? No HIV? No TB? No Anxiety? No Depression? No Cancer? No More? Yes Additional hx: DIVERTICULITIS, BOWEL RESECTION, FIBROMYALGIA POLYMYALGIA Past Surgical HX Previous Surgery?Y APPENDECTOMY Exploratory Laparoscopy TUBAL LIGATION TUMOR REMOVED FROM NECK & SALIVARY GLND STONE ILEOSTOMY Current home meds: Active Scripts ATENOLOL (Atenolol 50MG) 50 MG PO QHS #30 TAB Ref 2 Prov: 04/14/17 Reported Medications Prednisone (Prednisone 5MG) 5 MG PO DAILY Pantoprazole Sodium (Pantoprazole 40MG) 40 MG PO DAILY Social Hx: Smoking HX Tobacco No Packs/day N/A Are you/the child exposed to second-hand smoke: No Alcohol Alcohol: No Hx of Drug Use Drug Use? No Patien't marital status is Patient's support system is excellent Review of systems: Constitutional malaise, weakness. Respiratory SOB with excertion. No: no symptoms reported. Cardiovascular chest pain, No edema, No palpitations, No syncope Gastrointestinal/Abdominal see HPI Genitourinary No: see HPI. Musculoskeletal No: no symptoms reported. Neurological No: see HPI. Exam: Lab data for last 24 hours: Laboratory Tests 06/12/17 154: Lactic Acid 1.7 06/12/17 1425: Sodium 141, Potassium 3.9, Chloride 109 H, Carbon Dioxide 22, BUN 14, Creatinine 0.9, Estimated Creat Clear 64, Estimated GFR (MDRD) 63, Glucose 104, Calcium 8.4 L, Total Bilirubin 0.7, AST 53 H, ALT 61, Alkaline Phosphatase 97, Creatine Kinase 38, CK-MB (CK-2) Rel Index 1.3, CK and CKMB Interp < 0.5, Troponin I < 0.02, B-Natriuretic Peptide 226 H, Total Protein 7.8, Albumin 3.5, Globulin 4.3 H, Albumin/Globulin Ratio 0.8 L, WBC 17.0 H, RBC 4.46, Hgb 12.5, Hct 40.1, MCV 90.0, RDW 16.1, Plt Count 336, MPV 7.4, Gran % 87.7 H, Gran # 14.9 H, Total Counted 100, Lymphocytes % 7.3 L, Monocytes % 3.8, Eosinophils % 0.9, Basophils % 0.3, Neutrophils 87 H, Band Neutrophils 2, Lymphocytes (Manual ) 6 L, Lymphocytes # 1.2, Monocytes (Manual) 5, Monocytes # 0.6, Eosinophils # 0.2, Basophils # 0.1, Platelet Estimate NORMAL, PUBS MCHC 31.2 L, MCH 28.1 Microbiology 06/12 1546 BLOOD: Anaerobic Blood Culture - RECD 06/12 1546 BLOOD: Aerobic Blood Culture - RECD 06/12 1546 BLOOD: Anaerobic Blood Culture - RECD 06/12 1546 BLOOD: Aerobic Blood Culture - RECD Admission vital signs: 1ST Vital Signs Result Date Time Pulse Ox 97 06/12 1421 B/P 181/78 06/12 1421 Temp 98.0 06/12 1421 Pulse 71 06/12 1421 Resp 18 06/12 1421 O2 Delivery ROOM AIR 06/12 1635 Additional information: Patient is pleasant, alert, oriented, blood pressure noted to be increased since admission from the ER. Heart rate regular, lungs clear, no edema, neurologic exam intact, abdomen is soft revealing functioning colostomy in the RIGHT lower quadrant. Plan: Problem List 1. Chest pain 2. Hypertension, essential Plan: Cardiology consult. I think LEFT heart cath would be reasonable in this patient given her significant risk factors, inability to do stress testing adequately because of her recent surgery issues and high-risk factors. Very typical angina. Agree with nitroglycerin. Restart beta marco. at 1930
[2017-06-12 20:34] VITALS: BP 127/63
[2017-06-12 22:14] LABS: URINE BILIRUBIN - DIPSTICK NEGATIVE (NEG); URINE BLOOD 1+ (NEG)
[2017-06-13] VITALS (15 sets, daily range): BP systolic 111–156; BP diastolic 60–88
[2017-06-13 06:59] LABS: LYMPH # 2.4 K/mm3 (0.7-4.5); LYMPH % 25.8 % (10-50.0)
[2017-06-13 07:23] LABS: HEMOGLOBIN 10.7 g/dL (12.2-16.2)
--- NOTE | 2017-06-13 07:26 | PHARMACY CLINIC NOTE ---
Patient Demographics Patient Demographics Admission date: 06/12/17 Date: 06/13/17 Time: 07 Allergies Coded Allergies: No Known Allergies (03/27/17) HEIGHT- FT: 5 IN: 4.00 K.236 VTE General Information Labs: Laboratory Tests 06/13 06/12 0608 1425 Hematology Hgb (12.2 - 16.2 g/dL) 10.7 L 12.5 Hct (37.0 - 47.0 %) 34.3 L 40.1 Plt Count (142 - 424 K/mm3) 286 336 Disclaimer The following section includes nursing documentation that has been pulled in for pharmacy review. Patient's VTE score: 3 Patient's VTE Risk: LOW RISK Clinical trial participant? No VTE prophylaxis [id number] [id number] VTE prophylaxis ordered? Yes Type of prophylaxis/treatment: DAE Fair at 0748
--- NOTE | 2017-06-13 07:31 | ACUTE CARE PROGRESS NOTE (QUA) ---
Progress Notes Subjective Date 06/13/17 Time 0728 Note Reports no chest pain overnight and shortness of breath resolved. Waiting on cardiology consult. Heart with RRR, lungs clear. Abdomen soft, NT/ND, BS present, ostomy bag intact. No edema. Oriented x 3 Patient/family reports: feeling better Nursing reports: no complaints Objective Findings Last VS-Temp:98.1 B/P:156/81 Pulse:79 Resp:33 SaO2:95 ROOM AIR Last weight lbs:135 oz:0 K.236 Method:Bed Scales Reviewed: medications, vital signs Assessment/Plan Problem List 1. Chest pain Assessment/Plan: Consult cardiology today, no changes at this time 2. Hypertension, essential Patient condition Stable Plan: consult inspector watch train This inpt stay is expected to cross 2 MNs from start of care No at 0730
--- NOTE | 2017-06-13 07:31 | ACUTE CARE PROGRESS NOTE (QUA) ---
Progress Notes Subjective Date 06/13/17 Time 0728 Note Reports no chest pain overnight and shortness of breath resolved. Waiting on cardiology consult. Heart with RRR, lungs clear. Abdomen soft, NT/ND, BS present, ostomy bag intact. No edema. Oriented x 3 Patient/family reports: feeling better Nursing reports: no complaints Objective Findings Last VS-Temp:98.1 B/P:156/81 Pulse:79 Resp:33 SaO2:95 ROOM AIR Last weight lbs:135 oz:0 K.236 Method:Bed Scales Reviewed: medications, vital signs Assessment/Plan Problem List 1. Chest pain Assessment/Plan: Consult cardiology today, no changes at this time 2. Hypertension, essential Patient condition Stable Plan: consult ed special education teacher This inpt stay is expected to cross 2 MNs from start of care No at 0730
--- NOTE | 2017-06-13 12:17 | RADIOLOGY REPORT PS360 ---
CARDIAC CATHETERIZATION DATE OF CATHETERIZATION:06/13/2017 11:30 AM PROCEDURES: 1. Left heart catheterization 2. Left ventriculogram 3. Selective coronary angiogram INDICATION FOR TEST: 1. Unstable angina 2. Numerous risk factors for coronary artery disease with high pretest likelihood for CAD Informed consent was obtained prior to the procedure. COMPLICATIONS: None ESTIMATED BLOOD LOSS: Less than 10 ml. TECHNIQUE: One percent lidocaine used to anesthetize the right anterior aspect of the wrist. The right radial artery was accessed via the Seldinger technique. A 6 Romanian sheath was placed in the right radial artery. 2.5 mg of verapamil, 800 mcg of nitroglycerin and 5000 U Heparin were given through the arterial sheath. The trap and 6 Romanian JL 3.5 catheter was also used to perform left heart catheterization left ventriculogram and selective coronary angiogram. At the end of the procedure the patient was transferred to the post-op holding area in stable condition for arterial sheath removal. ANGIOGRAPHIC RESULTS: 1. The left main artery normal 2. The left anterior descending artery has an ostial the proximal smooth 30-40% nonflow limiting stenosis. The mid LAD is very tortuous and has 30% smooth stenoses. 3. The circumflex artery nondominant very tortuous with mild nonflow limiting disease 4. The right coronary artery is dominant and tortuous with mild proximal smooth 20-30% stenoses 5. The DOOLEY ventriculogram reveals slightly hyperdynamic at 70% 6. The left ventricular end-diastolic pressure 15 mmHg IMPRESSION: 1. Mild nonflow limiting disease with significant vascular tortuosity consistent with hypertensive heart disease 2. Hyperdynamic ejection fraction consistent with hypertensive heart disease 3. Normal mildly elevated LVEDP 4. Angina pectoris likely coming from endothelial ischemia from hypertensive heart disease and hypertensive crisis PLAN: 1. Control of risk factors for coronary disease 2. Daily baby aspirin 3. LDL less than 55 4. Control of hypertension
[2017-06-13] MEDS ORDERED: ASPIR 8181 MG PO (18:06)
[2017-06-13] MEDS ORDERED: IMDUR 30MG. TAB30 MG PO (18:07)
--- NOTE | 2017-06-13 21:43 | DISCHARGE SUMMARY STANDARD ---
Demographics Admit date: 06/12/17 Discharge date: 06/13/17 History of present illness History of present illness 61-year-old white female, primary patient is an outpatient of Dr. Jeff Alaniz, who earlier this year underwent a very complicated resection of her colon for colitis/diverticulitis with a complex hospital stay. She has a colostomy bag at this point and has been doing well and recently has had her blood pressure medication reduced because of hypotension. However over the past couple of days she's become increasingly hypertensive with chest pain, shortness of air and angina. Came to the emergency department where Nitropaste relieved most of her symptoms and she was admitted to the hospital. She is significant risk factors for cardiac disease, including hypertension, family history, hyperlipidemia and severe cigarette smoking of which she became abstinent from 7 months ago. Hospital Course Hospital Course: Chest pain was relieved with nitropaste. Left heart cath was performed on , please see that report for details, but essentially showed hypertensive heart disease and no critical coronary disease. Clinically she is at baseline following recovery from [facility] and will be dischraged on her home-dose atenolol daily and isosorbide mononitrate once daily will be added. She will also start daily aspirin 81mg. WBC was initially elevated but returned to normal this morning. Blood cultures are pending. She has been afebrile. At least part of her leukocytosis thought to be related to her chronic steroid use. She will follow-up with Dr Alaniz in 1-2 weeks to recheck her blood pressure and make sure she is tolerating PO isosorbide. She already has FU also scheduled with Dr Moore regarding persistent drainage from abdominal wound. Discharge diagnoses Problem List 1. Chest pain 2. Hypertension, essential 3. Leucocytosis Medications Medications: Discharge meds are as noted. Follow up Follow up in office in: 7 DAYS with: Jeff Alaniz MD at 5916
== END 2017-06-13 18:40 | disposition home or self-care (01) ==
LOC: ER 14:20 → 2ND 15:21
PROVIDERS: Emergency Medicine; Internal Medicine
PROC: B2111ZZ Fluoroscopy of Multiple Coronary Arteries using Low Osmolar Contrast (ICD-10-PCS; 2017-06-13)
PROC: B2151ZZ Fluoroscopy of Left Heart using Low Osmolar Contrast (ICD-10-PCS; 2017-06-13)
PROC: 4A023N7 Measurement of Cardiac Sampling and Pressure, Left Heart, Percutaneous Approach (ICD-10-PCS; principal; 2017-06-13 12:00)
DX: I25.110 Atherosclerotic heart disease of native coronary artery with unstable angina pectoris (principal); I10 Essential (primary) hypertension; R07.9 Chest pain, unspecified
CPT/HCPCS: C1725; C1769; G0378; J1644; Q9967